=== PATIENT | female | born 1960 ===

== ENCOUNTER 2024-06-05 17:22 | Emergency (ER) | payer MEDICARE, OTHER, SELFPAY ==
--- NOTE | ~2024-06-05 | CT_ITS ---
EXAMINATION: CT brain wo con DATE: 06/05/2024 20:29 INDICATION: head injury since last CT scan today . TECHNIQUE: Computed tomography (CT) of the head was performed without intravenous contrast. The mA wa s adjusted according to patient size. Iterative reconstruction technique was employed. The dose-lengt h product was 605.33 mGy-cm. COMPARISON: Same date at 5:56 PM. FINDINGS: No acute intracranial hemorrhage or extra-axial fluid collection. No mass or herniation. Mild enlargement of the ventricular system, unchanged. Mild periventricular wh ite matter hypodensity, also unchanged. No acute ischemic infarct. Unremarkable dural venous sinus attenuation. No acute osseous abnormality. Right frontal approach CONTRACTOR BUYER shunt, tip terminating near the midline in th e anterior horn of the right lateral ventricle. Midline embolization coil. Right frontal and right ne ck skin monie Aerated secretions in the bilateral sphenoid sinuses, the remaining aerated spaces are clear. Atherosclerotic intracranial calcifications. Left parietal laminar necrosis. IMPRESSION: No acute interval intracranial process detected. Stable mildly enlarged ventricular system and white matter change. Stable findings suggestive of acute sphenoid sinusitis. Reviewed, dictated and finalized at location K. EXPERT IMPRESSION: No acute interval intracranial process detected. Stable mildly enlarged ventric ular system and white matter change. Stable findings suggestive of acute spheno id sinusitis.
--- NOTE | ~2024-06-05 | CT_ITS ---
EXAMINATION: CT brain wo con DATE: 06/05/2024 18:08 INDICATION: new onset AMS, hx of subarachnoid hemorrhage . TECHNIQUE: Computed tomography (CT) of the head was performed without intravenous contrast. The mA wa s adjusted according to patient size. Iterative reconstruction technique was employed. The dose-lengt h product was 681.00 mGy-cm. COMPARISON: None. FINDINGS: No acute intracranial hemorrhage or extra-axial fluid collection. No mass or herniation. Mild enlargement of the ventricular system. Mild periventricular white matter hypodensity. No acute ischemic infarct. Unremarkable dural venous sinus attenuation. No acute osseous abnormality. Right frontal approach SCRAP METAL PROCESSING WORKER shunt, tip terminating near the midline in th e anterior horn of the right lateral ventricle. Midline embolization coil. Right frontal and right ne ck skin monie. Aerated secretions in the bilateral sphenoid sinuses, the remaining aerated spaces are clear. Atherosclerotic intracranial calcifications. Left parietal laminar necrosis. IMPRESSION: No acute intracranial hemorrhage or acute large vessel infarct. Mildly enlarged ventricular system, possibly secondary to atrophy. Mild periventricular white matter changes possibly representing chronic small vessel disease. Developing hydrocephalus with mild transe pendymal CSF resorption difficult to exclude without comparison studies. CT findings suggestive of acute sphenoid sinusitis. Reviewed, dictated and finalized at location K. UNLOADER IMPRESSION: No acute intracranial hemorrhage or acute large vessel infarct. Mildly enlarged ventricular system, possibly secondary to atrophy. Mild periven tricular white matter changes possibly representing chronic small vessel diseas e. Developing hydrocephalus with mild transependymal CSF resorption difficult t o exclude without comparison studies. CT findings suggestive of acute sphenoid sinusitis.
[2024-06-05 17:22] VITALS: BP 131/74; PULSE 62; RESP 16; TEMP 36.4; O2SAT 97
--- NOTE | 2024-06-05 17:27 | ECG_ITS ---
Test Date: 2024-06-05 17:35:27 Measurements Intervals [place] Rate: 62 P: 66 TX: 224 QRS: -18 QRSD: 93 T: 49 QT: 390 QTc: 399 Interpretive Statements SINUS RHYTHM WITH FIRST DEGREE AV BLOCK CONSIDER ANTERIOR INFARCT, AGE INDETERMINATE BASELINE ARTIFACT- I, II, III, AVR, AVL, AVF, V1-V6 ABNORMAL ECG No previous ECG available for comparison Electronically Signed On 06-06-2024 10:12:40 SHAPE HAND by Skyler Wong D.O.
[2024-06-05 17:59] VITALS: O2SAT 98
[2024-06-05 18:07] LABS: Basophils Percent Auto 0.7 % (0.2-1.2); Eosinophils Absolute Auto 0.1 K/mm3 (0-0.3); Eosinophils Percent Auto 1.2 % (0-4.4); Hemoglobin 11.9 g/dL (12.0-15.0); Immature Granulocyte Absolute 0.02 K/mm3 (0.00-0.031); Immature Granulocyte Percent A 0.4 % (0-0.5); Lymphocytes Absolute Auto 1.42 K/mm3 (0.9-3.2); Mean Corpuscular HGB Conc 32.2 g/dl (32-36); Mean Corpuscular Hemoglobin 30.4 pg (26-34); Mean Corpuscular Volume 94.6 fl (80-100); Mean Platelet Volume 9.5 fl (7.4-10.4); Monocytes Absolute Auto 0.4 K/mm3 (0.1-0.6); Monocytes Percent Auto 6.3 % (2.6-8.5); Neutrophils Absolute Auto 3.8 K/mm3 (1.3-6.7); Neutrophils Percent Auto 66.4 % (45.5-73.1); Platelet Count Result 214 k/mm3 (150-375); Red Blood Count 3.91 M/mm3 (4.2-5.4); White Blood Count 5.7 K/mm3 (4.5-10.0)
[2024-06-05 18:09] LABS: Add Urine Microscopic? NO; Appearance Urine Clear (Clear); Bilirubin Urine Negative (Negative); Blood Urine Negative (Negative); Color Urine Yellow (Yellow); Glucose Urine UA Negative (Negative); Ketones Urine Negative (Negative); Leukocyte Esterase Ur Negative LEU/UL (Negative); Nitrate Urine Negative (Negative); Protein Urine Negative (Negative); Specific Grav Ur 1.007 (1.001-1.035); Urobilinogen Urine 0.2 mg/dL (<2.0); pH Urine 7.5 (5.0-9.0)
[2024-06-05 18:24] LABS: INR 1.3; Partial Thromboplastin Time 32.2 Seconds (22.3-36.8); Prothrombin Time 17.1 Seconds (11.1-14.7)
[2024-06-05 18:27] LABS: Alanine Aminotransferase 16 U/L (6-35); Albumin Level 4.4 g/dL (3.5-5.1); Alkaline Phosphatase 59 U/L (38-126); Anion Gap 10 mmol/L (4-12); Aspartate Amino Transferase 32 U/L (14-36); Bilirubin,Total 0.9 mg/dL (0.2-1.3); Blood Urea Nitrogen 15 mg/dL (7-17); Calcium 9.7 mg/dL (8.4-10.2); Carbon Dioxide 26 mmol/L (22-30); Chloride 104 mmol/L (98-107); Estimated CRCL calculation 63 ml/min; Estimated Glomerular Filt Rate > 60; Glucose 91 mg/dL (65-110); Potassium 4.9 mmol/L (3.4-5.0); Sodium 140 mmol/L (137-145)
--- NOTE | 2024-06-05 19:15 | PC.NURSE ---
[facility] tech notified this RN that the patient in room 22 was sitting on the floor and he helped her back into the bed. This RN and ANNA Maharaj entered room. Carol Ann CASTILLO placed pt on the monitor again, and I placed pt on a bed alarm, Gave a yellow triangle and yellow triangle on the door. ED Charge and EDP Elizabeth Donaldson both notified as no ER Provider has signed up for the patient.
--- NOTE | 2024-06-05 19:32 | PC.NURSE ---
Leonie and Carol Ann RN moved pt to ed room 4. Pt remains on a bed alarm, with yellow fall triangle on bracelet and on the door frame. ED Techs notified that if the bed alarm goes off, move fast as she is quick to get up.
--- NOTE | 2024-06-05 19:35 | PC.NURSE ---
@ 191, registration notified nurses at the nurses station that patient was on the floor and being helped back into bed by Claude hua. This RN and ANNA Hadley then placed pt on bed alarm and monitor and placed a yellow fall triangle on bracelet and door. senior investment manager, EDP Anika and CATA Umana notified of pt fall. @ 1924 Pt continued attempting to get out of bed. ED Charge notified and pt then placed in room 4 to be closer to the nurses station.
[2024-06-05 19:46] VITALS: BP 109/62; PULSE 88; RESP 18; O2SAT 98
--- NOTE | 2024-06-05 19:53 | ED_ITS ---
HPI - General Adult General Chief complaint: Altered Mental Status Stated complaint: ALOC Time Seen by Provider: 06/05/24 19:45 History of Present Illness HPI narrative: 64-year-old female presents to the emergency department for evaluation for altered mental status including agitation and confusion. Patient is currently at [facility] for a recent subarachnoid hemorrhage. Patient is currently at her baseline and denies any pain or complaints. On patient's initial workup she did have a head CT that was negative but patient unfortunately did have a fall while she was in the emergency department so head CT was repeated. At time of evaluation patient denies any pain or complaint. Related Data Home Medications ?Medication ?Instructions ?Recorded ?Confirmed ?Last Taken ?Type acetaminophen 325 mg tablet 650 mg PO Q4H PRN pain 05/26/24 05/26/24 Unknown History apixaban 5 mg tablet 5 mg PO BID 05/26/24 05/26/24 Unknown History carvedilol 12.5 mg tablet 12.5 mg PO Q12H 05/26/24 05/26/24 Unknown History cholecalciferol (vitamin D3) 50 50 mcg PO DAILY 05/26/24 05/26/24 Unknown History mcg (2,000 unit) capsule famotidine 20 mg tablet 20 mg PO DAILY 05/26/24 05/26/24 Unknown History fluticasone propionate 50 1 spray intranasal BID PRN allergy 05/26/24 05/26/24 Unknown History mcg/actuation nasal symptoms spray,suspension gabapentin 300 mg capsule 600 mg PO Q8H 05/26/24 05/26/24 Unknown History ipratropium 0.5 mg-albuterol 3 mg 3 ml inhalation Q4H PRN shortness 05/26/24 05/26/24 Unknown History (2.5 mg base)/3 mL nebulization of breath or wheezing soln melatonin 3 mg tablet 3 mg PO HS PRN insomnia 05/26/24 05/26/24 Unknown History polyethylene glycol 3350 17 gram 17 g PO DAILY PRN constipation 05/26/24 05/26/24 Unknown History oral powder packet (Miralax) sennosides 17.2 mg tablet 17.2 mg PO DAILY PRN constipation 05/26/24 05/26/24 Unknown History Allergies Allergy/AdvReac Type Severity Reaction Status Date / Time azithromycin Allergy Itching Verified 05/26/24 18:27 lisinopril AdvReac Rash Verified 05/26/24 18:27 Review of Systems 2 Review of Systems: All systems reviewed & are unremarkable except as noted in HPI and below PMFSH Past Medical History Medical History Gait abnormality HLD (hyperlipidemia) HTN (hypertension) Abdominal aortic aneurysm Pulmonary embolism, bilateral COPD (chronic obstructive pulmonary disease) Family History Family History Mother COPD (chronic obstructive pulmonary disease) Cancer Heart disease Diabetes mellitus Father Diabetes mellitus Sibling Diabetes mellitus Social History Social History Smoking status: Current every day smoker Do You Feel Safe in your Home?: Yes Lack of Transportation: No Lack of Food: Never True Current Housing: I Have Housing Concerned About Future Housing: No Difficulty Paying Gas/Electric Bills: No Difficulty Paying for Meds: No Currently Unemployed: No Education: Don't Know Difficulty w/ Childcare or Family Care: No Spiritual care concerns: No Exam 2 Narrative: APPEARANCE: Well appearing, no pain, no distress, well-nourished. HEAD: normocephalic, atraumatic. EYES: PERRLA/EOMI, conjunctivae clear. NOSE: Normal no drainage EARS:TMS clear with good light reflex. THROAT: Pharynx clear, no exudate. NECK: Supple. No adenopathy, no masses. RESPIRATORY: Airway patent, respirations nonlabored. Clear to auscultation bilaterally, no rales, rhonchi, wheezing. CARDIOVASCULAR: Regular rate and rhythm without murmurs rubs or gallops. ABDOMINAL: Soft, nontender, nondistended, normal bowel sounds MUSCULOSKELETAL: Moves all extremities. Strength/ROM intact, No edema, No calf tenderness. NEURO: Alert. Cranial nerves II through XII intact. Grossly intact SKIN: Warm, dry. Normal Color Course Vital Signs Vital signs: Vital Signs Temperature 97.6 F 06/05/24 17:22 Pulse Rate 62 06/05/24 17:22 Respiratory Rate 16 06/05/24 17:22 Blood Pressure 131/74 06/05/24 17:22 Pulse Oximetry 97 06/05/24 17:22 Oxygen Delivery Room Air 06/05/24 17:22 Temperature 97.6 F 06/05/24 17:22 Pulse Rate 88 06/05/24 19:46 Respiratory Rate 18 06/05/24 19:46 Blood Pressure 109/62 06/05/24 19:46 Pulse Oximetry 98 06/05/24 19:46 Oxygen Delivery Room Air 06/05/24 17:59 Medical Decision Making MDM Narrative Medical decision making narrative: 64-year-old female presents emergency department for evaluation for episode of altered mental status. Patient is currently afebrile with no leukocytosis and hemoglobin of 11.9. Patient's INR is 1.3. Patient has no acute abnormalities on her CMP UA was negative for infection, patient's initial head CT was negative for acute changes. Head CT was repeated due to the patient having a ground level fall while in the emergency department. At time of evaluation patient denies any pain or complaint. Repeat head CT shows no acute abnormality, patient is back to her baseline. Patient is no longer agitated or confused. Patient will be discharged back to her rehab facility. Differential Diagnosis Differential Diagnosis: COVID, RSV, influenza, TIA, CVA, worsening subdural hematoma, subarachnoid hemorrhage Vital Signs Vital Signs: Vital Signs Temperature 97.6 F 06/05/24 17:22 Pulse Rate 62 06/05/24 17:22 Respiratory Rate 16 06/05/24 17:22 Blood Pressure 131/74 06/05/24 17:22 Pulse Oximetry 97 06/05/24 17:22 Oxygen Delivery Room Air 06/05/24 17:22 Temperature 97.6 F 06/05/24 17:22 Pulse Rate 88 06/05/24 19:46 Respiratory Rate 18 06/05/24 19:46 Blood Pressure 109/62 06/05/24 19:46 Pulse Oximetry 98 06/05/24 19:46 Oxygen Delivery Room Air 06/05/24 17:59 Lab Data Lab results reviewed: Yes I reviewed the patient's lab results. 06/05/24 17:57 06/05/24 17:57 Labs: Lab Results 06/05/24 06/05/24 Range/Units 17:57 19:54 WBC 5.7 (4.5-10.0) K/mm3 RBC 3.91 L (4.2-5.4) M/mm3 Hgb 11.9 L (12.0-15.0) g/dL Hct 37.0 (37.0-47.0) % MCV 94.6 (80-100) fl MCH 30.4 (26-34) pg MCHC 32.2 (32-36) g/dl RDW 14.0 (11.5-14.5) % Plt Count 214 (150-375) k/mm3 MPV 9.5 (7.4-10.4) fl Immature Gran % (Auto) 0.4 (0-0.5) % Neut % (Auto) 66.4 (45.5-73.1) % Lymph % (Auto) 25.0 (18.3-44.2) % [place] % (Auto) 6.3 (2.6-8.5) % Eos % (Auto) 1.2 (0-4.4) % Baso % (Auto) 0.7 (0.2-1.2) % Lymph # (Auto) 1.42 (0.9-3.2) K/mm3 [place] # (Auto) 0.4 (0.1-0.6) K/mm3 Eos # (Auto) 0.1 (0-0.3) K/mm3 Baso # (Auto) 0.0 (0.0-0.1) K/mm3 Abs Immat Gran (auto) 0.02 (0.00-0.031) K/mm3 Absolute Neuts (auto) 3.8 (1.3-6.7) K/mm3 Absolute Nucleated RBC 0.000 (0.0-0.012) K/mm3 Nucleated RBC % 0.0 (0.0-0.2) % PT 17.1 H (11.1-14.7) Seconds INR 1.3 APTT 32.2 (22.3-36.8) Seconds Sodium 140 (137-145) mmol/L Potassium 4.9 (3.4-5.0) mmol/L Chloride 104 (98-107) mmol/L Carbon Dioxide 26 (22-30) mmol/L Anion Gap 10 (4-12) mmol/L BUN 15 (7-17) mg/dL Creatinine 0.56 L (0.7-1.0) mg/dL Estim Creat Clear Calc 63 ml/min Estimated GFR > 60 (59 - ) Glucose 91 (65-110) mg/dL Calcium 9.7 (8.4-10.2) mg/dL Total Bilirubin 0.9 (0.2-1.3) mg/dL AST 32 (14-36) U/L ALT 16 (6-35) U/L Alkaline Phosphatase 59 (38-126) U/L Total Protein 8.0 (6.3-8.2) g/dL Albumin 4.4 (3.5-5.1) g/dL Urine Color Yellow (Yellow) Urine Appearance Clear (Clear) Urine pH 7.5 (5.0-9.0) Ur Specific [place] 1.007 (1.001-1.035) Urine Protein Negative (Negative) mg/dL Urine Glucose (UA) Negative (Negative) mg/dL Urine Ketones Negative (Negative) mg/dL Ur Blood (Man) Negative (Negative) Urine Nitrate Negative (Negative) Urine Bilirubin Negative (Negative) Urine Urobilinogen 0.2 (<2.0) mg/dL Leukocyte Esterase Rfl Negative (Negative) LANDRY/UL Influenza A (RT-PCR) Negative (Negative) Influenza B (RT-PCR) Negative (Negative) RSV (RT-PCR) Negative (Negative) SARS-CoV-2 RNA (RT-PCR) Negative (Negative) Imaging Data Radiologist's impression: Impressions Head CT 06/05/24 18:11 IMPRESSION: No acute intracranial hemorrhage or acute large vessel infarct. Mildly enlarged ventricular system, possibly secondary to atrophy. Mild periventricular white matter changes possibly representing chronic small vessel disease. Developing hydrocephalus with mild transependymal CSF resorption difficult to exclude without comparison studies. CT findings suggestive of acute sphenoid sinusitis. Head CT 06/05/24 20:32 IMPRESSION: No acute interval intracranial process detected. Stable mildly enlarged ventricular system and white matter change. Stable findings suggestive of acute sphenoid sinusitis. Discharge Plan Discharge Clinical Impression: Agitated Patient Disposition: [facility]As[facility] Living Condition: Stable Instructions: Antibiotic Form Additional Instructions: Have close follow-up with your primary care physician. Patient Language: Yoruba Prescriptions: No Action acetaminophen 325 mg tablet 650 mg PO Q4H PRN (Reason: pain) ipratropium-albuterol 0.5 mg-3 mg(2.5 mg base)/3 mL solution for nebulization 3 ml inhalation Q4H PRN (Reason: shortness of breath or wheezing) apixaban 5 mg tablet 5 mg PO BID carvedilol 12.5 mg tablet 12.5 mg PO Q12H Rx Instructions: must administer with a meal/food gabapentin 300 mg capsule 600 mg PO Q8H melatonin 3 mg tablet 3 mg PO HS PRN (Reason: insomnia) polyethylene glycol 3350 [Miralax] 17 gram powder in packet 17 g PO DAILY PRN (Reason: constipation) sennosides 17.2 mg tablet 17.2 mg PO DAILY PRN (Reason: constipation) famotidine 20 mg tablet 20 mg PO DAILY fluticasone propionate 50 mcg/actuation spray,suspension 1 spray intranasal BID PRN (Reason: allergy symptoms) Rx Instructions: administer into each nostril cholecalciferol (vitamin D3) 50 mcg (2,000 unit) capsule 50 mcg PO DAILY Follow-up/Referrals: PHYSICIAN NOT ON STAFF,NONSTAFF [Primary Care Provider] -
--- OUTSIDE RECORDS SUMMARY | 2024-06-05 20:03 | XMS_ITS | Data Portability ---
Author Organization [facility], Main Office Address [address] [place] [address] Care Team Providers Care Powder Loader Name Role Phone BRAXTON TRINIDAD Primary Care Provider [phone] BRAXTON TRINIDAD Referring Provider Assessment Encounter Date Assessment Date Assessment LastModified by Organization Details LastModified Time 12/28/2022 12/28/2022 Patient has pain left sacroiliac with some radicular pain into the buttock and posterior thigh. We talked about treatment options today for her she also has chronic moderately severe primary osteoarthritis left hip joint. We talked about doing a injection left hip under fluoroscopy she declined she wants to try oral prednisone for this. She did want a shot in her lower back left sacroiliac therefore under sterile conditions I injected the patient's left sacroiliac bursa in the office with 4 cc 0.5% ropivacaine and 20 mg Kenalog. Patient tolerated the procedure well. After formal physical therapy she would like to proceed we will do that and oral prednisone will see her back in 6 weeks to see what impact treatment has had. If her symptoms worsen or change she is instructed to call she voiced understanding agrees above plan. Not available 12/28/2022 11:12:07 01/25/2023 01/25/2023 The patient has fairly advanced primary osteoarthritis of the left hip joint. We talked about treatment options today in detail what she really needs his total hip arthroplasty. Today I discussed risks benefits limitations and alternatives to surgery in great detail with the patient we talked about the surgical procedure itself I gave her a brochure on total hip arthroplasty talked about the recovery period. We also talked about the fact that she would need to stop smoking to make sure her blood pressure and any other medical issues are in check. She is going to think about it for now we will try a course of Celebrex 200 mg daily, when she is ready she will contact 1 of our orthopedic surgeons here talk about total hip arthroplasty in getting on the schedule. She voiced understanding agrees above plan she will call for any further problems difficulties or questions. Not available 01/25/2023 10:03:01 Plan of Treatment Reminders Order Date Submit Date Provider Last Modified By Organization Details Last Modified Time Details Appointments None recorded. Lab None recorded. Referral physical therapist referral - Please contact patient to schedule 2022 023 [email or web address] [facility], [address] [place], [address], 3 11:06:44 Procedures injection/a spiration joint/bursa (PROC) - in office procedure, administere d by provider 2022 023 [email or web address] In-Office Order, Internal Use Only DO Not Attach Compendium DO Not Attach Compendium, Do Not Delete/merge, [id number] 3 10:11:46 Surgeries None recorded. Imaging XR, hip + pelvis, unilateral 2022 023 [email or web address] [facility], [address] [facility], [place], [address], 3 11:06:44 Medication Orders celecoxib 200 mg capsule 2022 023 [email or web address] [id number] [address] [place], [place], [id number], 3 11:32:24 Kenalog 10 mg/mL suspension for injection 2022 023 [id number] 266 [facility], [address] [place], [place], [id number], 4 10:48:31 ropivacaine (PF) 5 mg/mL (0.5 %) injection solution 2022 023 [id number] 266 [facility] #29368, [address] [place], [place], [id number], 4 10:48:31 prednisone 10 mg tablets in a dose pack 2022 023 [email or web address] [facility] #[id number] [place], [place], [id number], 3 11:06:44 Patient TargetsNo targets recorded. Patient InstructionsNo instructions recorded. Reason for Referral Physical Therapist Referral for Pain in left sacroiliac joint Please contact patient to schedule Referring Physician: Jorge Luis Baez, Orthopedic Surgery, Encounter Date: 12/28/2022 Results Created Date Observation Date Name Description Value Unit Range Abnormal Flag Note LastModifiedBy Organization Detail LastModifiedTime 12/29/19 23 XR, hip + pelvi s, unila teral No observ ation record ed. [email or web address] [facility] [place] [address] [facility], [place], [address], 12/28/2022 11:13:09 Result Notes None recorded. Problems Name Problem SNOMED Code Status Onset Date Resolution Date Notes Provider Name and Address Organization Details Recorded Time Arthriti s of right knee 00196767263 29667 Active 2019 Not Available [facility] 3 09:18:45 Disorder of shoulder 604057125 Active Not Available [facility] 3 09:18:45 Disorder of trunk 403218847 Active Not Available [facility] 3 09:18:45 Disorder of sacrum 16702648 Active Not Available [facility] 3 09:18:45 Computed tomograp hy result abnormal 761079336 Active Not Available [facility] 3 09:18:45 Mammogra phy abnormal 480301253 Active Not Available [facility] 3 09:18:46 Radiothe rapy follow-u p 002675037 Active Not Available [facility] 3 09:18:46 Hand joint pain 436259667 Active Not Available [facility] 3 09:18:46 Wrist joint pain 783773212 Active Not Available [facility] 3 09:18:46 Abdomina l pain 75655404 Active Not Available [facility] 3 09:18:46 Abdomina l aortic aneurysm 457336224 Active seeing CV surgeon Not Available [facility] 3 09:18:46 Menopaus al and postmeno pausal disorder s 330447487 Active 2018 Not Available [facility] 3 09:18:46 Shoulder joint pain 827532536 Active Not Available [facility] 3 09:18:46 Cervical spondylo sis without myelopat hy 095069108 Active Not Available [facility] 3 09:18:46 Eruption 498611397 Active Not Available [facility] 3 09:18:47 Synoviti s/tenosy novitis - hand 275227409 Active Not Available [facility] 3 09:18:47 Liver mass 795713334 Active Not Available [facility] 3 09:18:47 Tear of medial meniscus of knee 405021828 Active 2020 Not Available [facility] 3 09:18:47 Non-shukri rgic rhinitis 79793492669 1 Active Not Available [facility] 3 09:18:47 Blood in urine 24990288 Completed Not Available [facility] 3 09:18:47 Contract ure of palmar fascia 452439393 Active Not Available [facility] 3 09:18:47 Hyperlip idemia 37084852 Active Not Available [facility] 3 09:18:48 Carpal tunnel syndrome 07888858 Active Not Available [facility] 3 09:18:48 Essentia l hyperten shayy 41937563 Active Not Available [facility] 3 09:18:48 Acid reflux 663745864 Active 2018 Not Available [facility] 3 09:18:48 Sprain of wrist 87742208 Active Not Available [facility] 3 09:18:48 Brachial neuritis 69000726 Completed Not Available [facility] 3 09:18:48 Diabetes mellitus 22344759 Active Not Available [facility] 3 09:18:49 Smoker 03459052 Active Not Available [facility] 3 09:18:49 Hypersom pily 37156835 Completed Not Available [facility] 3 09:18:49 Neck pain 42826991 Active s/p surgery due to disc Not Available [facility] 3 09:18:49 Heart murmur 55433800 Active Not Available [facility] 3 09:18:49 Pain in limb 70450581 Active Not Available [facility] 3 09:18:49 Pain of left hip joint 06299289749 9100 Active 2022 SALOME Shirley, [employer] [facility] 3 09:52:32 Pain in left sacroili ac joint 79568341456 386990 Active [address] null, [employer] 3 10:07:10 Osteoart hritis of left hip joint 36538950699 9108 Active 2022 CATA Aguilar [address] [facility] [facility] [address], [place], [address] , [employer] [facility] 3 11:13:36 Problem Notes None recorded. Procedures Surgical History Date Name Laterality Status Provider Name and Address Organization Details Recorded Time Rotator cuff surgery completed Not Available [facility] 06/09/2022 09:13:25 Carpal tunnel surgery completed Not Available [facility] 06/09/2022 09:13:25 Imaging Results Imaging Date Name Status [facility]Modified by [facility] Details LastModified Time 12/28/2022 XR, hip + pelvis, unilateral completed [email or web address] [facility] [address] [facility], [place], [address], 12/28/2022 11:13:09 Procedure Notes None recorded. Medical Equipment None Reported. Allergies Allergen ID Allergen Name Allergen Category Reaction Reaction Severity Criticality Documentation Date Start Date Code Code System Note Provider Name and Address Organization Details Recorded Time 30593 azithromy tom medicatio n hives severe Not available 06/09/2022 98706 RxNorm Not Available [facility] 3 09:23:21 Medications Name Sig Start Date Stop Date Status Note LastModified by Organization Details LastModified Time celecoxib 200 mg capsule TAKE 1 CAPSULE BY MOUTH EVERY DAY active Not Available Not Available No t Available cyclobenzap rine 10 mg tablet TK1 TABLET BY MOUTH EVERY 8 HOURS NEEDED active Not Available Not Available No t Available amoxicillin 500 mg capsule Take 1 capsule every 8 hours by oral route. 03/16 completed Not Available Not Available Not Available hydrocodone 7.5 mg-ibuprofe n 200 mg tablet active Not Available Not Available Not Available neomycin-po lymyxin-hyd rocort 3.5 mg/mL-10,00 0 unit/mL-1 % ear solution INSTILL 4 DROPS INTO AFFECTED EAR(S) BY OTIC ROUTE 3 TIMES PER DAY 12/27 completed Not Available Not Available Not Available prednisone 10 mg tablet take 6 tabs aday and cut the dose by one tab every other day active Not Available Not Available No t Available lisinopril 20 mg-hydrochl orothiazide 12.5 mg tablet TAKE 1 TABLET BY MOUTH EVERY DAY DIRECTED 12/28 completed Not Available Not Available Not Available azithromyci n 250 mg tablet active Not Available Not Available Not Available ibuprofen 800 mg tablet active Not Available Not Available Not Available fluconazole 150 mg tablet TK 1 T PO QD 01/28 completed Not Available Not Available Not Available hydrocodone 5 mg-acetamin ophen 325 mg tablet 10/25 completed Not Available Not Available Not Available Q-Dryl 25 mg capsule TK 1 C PO Q 6 H PRN 01/21 completed Not Available Not Available Not Available lisinopril 20 mg tablet Take 1 tablet every day by oral route for 30 days. active Not Available Not Available No t Available prednisone 20 mg tablet TAKE 3 TABLETS BY MOUTH EVERY DAY FOR 5 DAYS active Not Available Not Available No t Available prednisone 5 mg tablet active Not Available Not Available Not Available clobetasol 0.05 % topical cream active Not Available Not Available Not Available penicillin V potassium 500 mg tablet active Not Available Not Available Not Available acetaminoph en 300 mg-codeine 30 mg tablet TK 1 T PO Q 4 TO 6 H PRN 11/11 completed Not Available Not Available Not Available sulfamethox azole 800 mg-trimetho prim 160 mg tablet 09/05 completed Not Available Not Available Not Available tramadol 50 mg tablet active Not Available Not Available No t Available triamcinolo ne acetonide 0.1 % topical cream APPLY EXTERNALL Y TO THE AFFECTED AREA TWICE DAILY 12/28 completed Not Available Not Available Not Available simvastatin 40 mg tablet Take 1 tablet every day by oral route for 30 days. active Not Available Not Available No t Available prednisone 10 mg tablets in a dose pack Take 1 tab by mouth, 3 times a day for 3 daysTake 1 tab by mouth 2 times a day for 2 daysTake 1 tab by mouth once a day for 1 day 2022 active Not Available Not Available Not Avai lable terbinafine HCl 250 mg tablet active Not Available Not Available Not Available alprazolam 0.25 mg tablet TK 1 T PO 30 MINUTES PRIOR TO PROCEDURE AND REPEAT IF NEEDED 12/28 completed Not Available Not Available Not Available famotidine 20 mg tablet TAKE 1 TABLET BY MOUTH EVERY DAY 12/28 completed Not Available Not Available Not Available Kenalog 10 mg/mL suspension for injection Take 20 mg by injection route. 2022 active [facility]: [phone]- [phone] Not Available Not Available Not Available amitriptyli ne 10 mg tablet 11/26 completed Not Available Not Available Not Available benzonatate 100 mg capsule 09/05 completed Not Available Not Available Not Available cephalexin 500 mg capsule 11/16 completed Not Available Not Available Not Available oseltamivir 75 mg capsule 06/10 completed Not Available Not Available Not Available lisinopril 10 mg tablet TAKE 1 TABLET BY MOUTH EVERY DAY 12/28 completed Not Available Not Available Not Available hydrochloro thiazide 12.5 mg capsule TK 1 C PO QD 12/28 completed Not Available Not Available Not Available lisinopril 20 mg-hydrochl orothiazide 25 mg tablet TAKE 1 TABLET BY MOUTH EVERY DAY DIRECTED active Not Available Not Available No t Available diclofenac sodium 75 mg tablet,juan yed release Take 1 tablet every 12 hours by oral route as needed. active Not Available Not Available No t Available hydrocortis one 2.5 % topical cream APPLY TOPICALLY TO AFFECTED AREA(S) EVERY DAY DIRECTED 01/28 completed Not Available Not Available Not Available hydroxyzine HCl 25 mg tablet TAKE 1 TABLET BY MOUTH THREE TIMES DAILY FOR 5 DAYS NEEDED 12/28 completed Not Available Not Available Not Available clobetasol 0.05 % topical ointment APPLY A THIN LAYER TO THE AFFECTED AREA(S) BY TOPICAL ROUTE 2 TIMES PER DAY active Not Available Not Available No t Available irbesartan 150 mg tablet TAKE 1 TABLET BY MOUTH EVERY DAY 06/10 completed Not Available Not Available Not Available lisinopril 10 mg-hydrochl orothiazide 12.5 mg tablet TAKE 1 TABLET BY MOUTH EVERY MORNING active Not Available Not Available No t Available ibuprofen 600 mg tablet 10/25 completed Not Available Not Available Not Available polyethylen e glycol 3350 17 gram/dose oral powder FOLLOW INSTRUCTI ONS ON ATTACHED PAPER 12/28 completed Not Available Not Available Not Available methylpredn isolone 4 mg tablets in a dose pack TK UTD ON PACKAGE 06/09 completed Not Available Not Available Not Available Vitamin D2 1,250 mcg (50,000 unit) capsule TK 1 C PO Q WEEK 11/11 completed Not Available Not Available Not Available oxybutynin chloride 5 mg tablet TK 1 T PO BID 01/28 completed Not Available Not Available Not Available fluticasone propionate 50 mcg/actuati on nasal spray,suspe nsion SPRAY 1 SPRAY IN EACH NOSTRIL EVERY DAY 12/28 completed Not Available Not Available Not Available amoxicillin 875 mg-potassiu m clavulanate 125 mg tablet TK 1 T PO Q 12 H 09/05 completed Not Available Not Available Not Available neomycin-po lymyxin-hyd rocort 3.5 mg-10,000 unit/mL-1 % ear drops,susp Instill 1 drop 4 times a day by otic route. 12/27 completed Not Available Not Available Not Available nicotine 21mg/24hr-1 4mg/24hr-7m g/24hr daily transderm patches,seq uentl Apply by transderm al route as directed 12/09 completed Not Available Not Available Not Available lidocaine (PF) 10 mg/mL (1 %) injection solution In office injection administe red by the provider 05/26 completed [facility]: 0409- 4276- 17 Not Available Not Available Not Available levocetiriz ine 5 mg tablet TK 1 T PO QD 09/05 completed Not Available Not Available Not Available PEG-3350 with flavor packs 420 gram oral solution active Not Available Not Available Not Available D3-2000 50 mcg (2,000 unit) capsule TAKE 1 CAPSULE BY MOUTH EVERY DAY 12/28 completed Not Available Not Available Not Available ropivacaine (PF) 5 mg/mL (0.5 %) injection solution Take 20 mg by injection route. 2022 active [facility] [phone] -[phone]- [phone] Not Available Not Available Not Available Chantix Starting Month Box 0.5 mg (11)-1 mg (42) tablets in dose pack 12/27 completed Not Available Not Available Not Available Vitals Date Recorded Body mass index (BMI) Body height Body weight Provider Name and Address Organization Details Last Updated DateTime 12/30/2020 26.2 kg/m2 161.29 cm 82891.86 g Not Available [facility] 06/09/2022 09:18:01 Date Recorded Body mass index (BMI) Body height Body weight Provider Name and Address Organization Details Last Updated DateTime 05/05/2021 26.7 kg/m2 161.29 cm 52852.63 g Not Available [facility] 06/09/2022 09:18:01 Date Recorded Body height Provider Name an d Address Organization Details Last Updated DateTime 12/28/2022 160.02 cm SALOME Shirley [email or web address] 12/28/2022 09:49:29 Date Recorded Body height Body mass index (BMI) Body weight Provider Name and Address Organization Details Last Updated DateTime 01/25/2023 160.02 cm 23.9 kg/m2 78907.97 g 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 Occasional [id number] Information not available 06/09/2022 What Is Your Occupation? N/a [id number] Information not available 06/09/2022 How Much Tobacco Do You Smoke? 0.5 PPD [id number] Information not available 06/09/2022 Sex: Unknown Functional Status None recorded. Mental Status None recorded. Family History Relationship Description Onset Age of this Age Resolved Age Notes LastModified by Organization Details LastModified Time Mother Heart disease [id number] Not available 06/09/2022 09:13:27 Mother Family history of malignant neoplasm [id number] Not available 06/09/2022 09:13:27 Mother Diabetes mellitus [id number] Not available 06/09/2022 09:13:27 Mother Hypertensive disorder Not available 2022 09:51:29 Medical History Condition Response ARTHRITIS Y BLOOD CLOTS Y HEART DISEASE/HEART PROBLEMS Y Gynecological HistoryNo gynecological history recorded. Obstetrics History GPAL:G 0 P 0 0 0 0 Past Encounters Encounter ID Performer Location Encounter Start Date Encounter Closed Date Diagnosis/Indication Diagnosis SNOMED-CT Code Diagnosis ICD10 Code Diagnosis Note [id number] [facility] [address] [address] 12/30/2020 00:00:00 12/30/2020 10:49:25 [id number] [facility] [address] [address] 05/05/2021 00:00:00 05/05/2021 10:29:31 [id number] CATA Aguilar [facility] [address] [address] 12/28/2022 09:35:15 12/28/2022 10:14:06 Pain of left hip joint 1708516322 73038 M25.552 Pain in le ft sacroiliac joint 1179116417 6660435 M53.3 Osteoarthr itis of left hip joint 5876071545 83908 M16.12 [id number] CATA Aguilar [facility] [address] [address] 01/25/2023 09:34:14 01/25/2023 10:18:05 Pain in left sacroiliac joint 6923291969 8517203 M53.3 Osteoarthr itis of left hip joint 9835931370 08533 M16.12 Pain of le ft hip joint 8171790678 49673 M25.552 Health Concerns Section Related Observation LastModified by Organization Detai ls LastModified Time None Recorded Concern Status LastModified by Organization Details LastModified Time None Recorded Advance Directives Directive None Recorded Payers Encounter Date Sequence Insurance Name Policy Number Policy Ohara Covered Member ID Ohara Member ID Guarantor Name 12/28/2022 1 [facility] ON OR AFTER 04/11/2020 - DUAL ELIGIBLE (MEDICARE REPLACEMENT/ ADVANTAGE - HMO) [id number] Leighann Thomas [id number] Leighann Thomas 01/25/2023 1 [facility] ON OR AFTER 04/11/2020 - DUAL ELIGIBLE (MEDICARE REPLACEMENT/ ADVANTAGE - HMO) [id number] Leighann Thomas [id number] Leighann Thomas Notes Date Note Type Note Provider Name and Address Organization Details Recorded Time 12/30/2020 text/html KneeReported bypatient.Location:r ight; medial Quality:sharp; deep; occasional Severity:moderate Duration:continuous since onset Timing:acute; abrupt Context:cannot identify Alleviating Factors:lying down; elevation; exercise; stretching Aggravating Factors:walking; lifting; carrying; twisting; bending/squatting Associated Symptoms:swelling;po pping/clicking;buckl ing Not Available [email or web address] 12/30/2020 10:49:25 05/05/2021 text/html KneeReported bypatient.Location:r ight; medial Quality:sharp; deep; occasional Severity:moderate Duration:continuous since onset Timing:acute; abrupt Context:cannot identify Alleviating Factors:lying down; elevation; exercise; stretching Aggravating Factors:walking; lifting; carrying; twisting; bending/squatting Associated Symptoms:swelling;po pping/clicking;buckl ing Not Available [email or web address] 05/05/2021 10:29:31 12/28/2022 text/html patient returns complaining of low back pain left side. She has what she describes as sciatic up. She has pain that radiates down the left buttock the back of her thigh. Denies any weakness no trauma or injury no neurovascular deficits no bowel or bladder symptoms. She also reports some groin pain she does have a history of chronic primary osteoarthritis of her hips. Her main issue today is her back pain on the left sacroiliac region radiating into the buttock. It is keeping her awake at night she has trouble standing walking for long periods she walks with a stooped forward gait she has had this previously years ago she would like some relief she comes in today for initial evaluation treatment. She also has chronic groin pain nothing new for her. She has other medical issues was told that she is not a great candidate for total hip surgery at this point. The patient's pain has been going on for a couple of months now she has tried abbo-pep-bozffrr anti-inflammatories and stretching without significant relief. She states the pain is about an 8 on a scale of 1-10 in her left sacroiliac region into the buttock.Past medical history sheet was reviewed and signed on the intake sheet of today's date drug allergies current medications family social history previous surgical history 10 point review of systems was reviewed and discussed in detail today with the patient. CATA Aguilar [address], [place], [address], [employer] 12/28/2022 11:14:05 01/25/2023 text/html Patient returns for recheck of her left back pain with mild radiculopathy and also left groin pain. The patient has been treated with therapy prednisone and a shot of cortisone she states her back still bothers her a bit in the left sacroiliac region but it is better. Her main complaint is her left groin pain she has significant limp and limited motion in the left hip as well. Previous x-rays show fairly advanced primary osteoarthritis of the left hip which is essentially [id number] and shows marginal osteophyte formation. She comes in today to talk about what to do about her continuing left hip pain in the groin this is her main complaint and keeps her awake at night as well. She cannot stand or walk for long periods as aching pain and limited motion and dysfunction chronic in nature. CATA Aguilar [address], [place], [address], [email or web address] 01/25/2023 10:03:20 OBGyn Episode No OBEpisode recorded.
--- OUTSIDE RECORDS SUMMARY | 2024-06-05 20:03 | XMS_ITS | Referral Summary ---
Author Organization [facility] [employer] Address [address] [place] [address] Care Team Providers Care Historic Interpreter Name Role Phone Kristofer Sequeira MD Primary Care Provider Source Comments [facility] [employer],non-owned Affiliates and Associated Physician Practices is amultiple site organization consisting of ambulatory clinics and hospital sitesin [place], [place], [place] and [place]. This disclosure is being madepursuant to the Care Everywhere program and may not contain all information available regarding this patient. Last updated 17.[facility] [employer] Encounters Date Type Department Care Team Description 05/04/2024 1:15 PM CHINESE MEDICINE PRACTITIONER - 05/26/2024 5:00 PM CHINESE MEDICINE PRACTITIONER Hospital Encounter [facility] ALOK [address]S [address] [place] [address] You Reagan MD Kitchener, Jacob M, MD Sun, Philip Y, MD Scott, Jordan K, MD Linares, Guillermo, MD Eshetu, Mary Gutierrez MD Neurology Discharge Disposition: Rehab:Inpatient 05/19/2024 7:05 AM CHINESE MEDICINE PRACTITIONER - 05/19/2024 9:50 AM CHINESE MEDICINE PRACTITIONER Surgery [facility] OP [address] [place] [phone] Jacob Newsome MD insertion ventriculoperitoneal shunt - RIGHT WITH ACS ASSIST ABDOMINAL PORTION 05/19/2024 8:24 AM CHINESE MEDICINE PRACTITIONER Anesthesia Event [facility] OP [address] [place] [address] Rob oCronel MD Wise, William L, BLOCK LAYER-SPANISH PROFESSOR 05/14/2024 Orders Only [facility] RAD CSM [address] [place] [address] Thiago Sesay, RN Pulmonary embolism without acute cor pulmonale, unspecified chronicity, unspecified pulmonary embolism type ([facility]) 05/08/2024 Orders Only [facility] RAD CSM [address] [place] [address] Thiago Sesay, RN Presence of IVC filter ; Acute pulmonary embolism, unspecified pulmonary embolism type, unspecified whether acute cor pulmonale present ([facility]) 05/05/2024 8:05 AM CHINESE MEDICINE PRACTITIONER Anesthesia Event [facility] IVR [address] [place] [address] George Grijalva DO Rocca, Zachary, DO 05/04/2024 Travel from Last 3 Months Allergies Active Allergy Reactions Criticality Noted Date Comments Azithromycin Itching,Urticaria High 08/12/2015 Lisinopril Rash Medium 05/09/2024 Medications * Be aware that medications may not be up to date on this document. Alwaysverify current medications with the patient. Medication Sig Dispensed Refills Start Date End Date Status famotidine (PEPCID) 20 MG tablet famotidine 20 mg tablet TAKE 1 TABLET BY MOUTH EVERY DAY Active Vitamin D3 (CHOLECALCIFEROL ) 50 MCG (1999 UT) capsule Take 1 capsule by mouth once daily 07/11/2020 Active fluticasone propionate (FLONASE) 50 MCG/ACT nasal spray fluticasone propionate 50 mcg/actuation nasal spray,suspension SPRAY 1 SPRAY IN EACH NOSTRIL EVERY DAY Active acetaminophen (Tylenol) 325 MG tablet Take 2 (two) tablets by mouth every 4 hours as needed Maximum allowable Acetaminophen amount = 4 Grams (4000 mg) / 24 hours. 05/26/2024 Active albuterol-ipratr opium (Duo-Neb) 0.5-2.5 (3) MG/3ML nebulizer solution Inhale 3 mL by mouth every 4 hours as needed for Shortness of Breath or Wheezing 05/26/2024 Active apixaban (Eliquis) 5 MG tablet Take 1 (one) tablet by mouth 2 times daily 05/26/2024 Active gabapentin (Neurontin) 300 MG capsule Take 2 (two) capsules by mouth every 8 hours 05/26/2024 Active carvedilol (Coreg) 12.5 MG tablet Take 1 (one) tablet by mouth every 12 hours 05/26/2024 Active polyethylene glycol 3350 (Miralax) 17 g packet Take 17 (seventeen) g by mouth once daily as needed for Constipation 05/26/2024 Active senna (Senokot Extra Strength) 17.2 MG Take 17.2 mg by mouth once daily as needed for Constipation 05/26/2024 Active melatonin 3 MG tablet Take 1 (one) tablet by mouth nightly as needed for Insomnia 05/26/2024 Active varenicline (CHANTIX STARTING MONTH ) 0.5 MG X 11 & 1 MG X 42 tablets 1 packet 0 02/08/2017 5 Discontinue d(List Clean-Up) oxybutynin (DITROPAN) 5 MG tablet TK 1 T PO BID 10/26/2019 5 Discontinue d(List Clean-Up) hydrocortisone (HYTONE) 2.5 % cream hydrocortisone 2.5 % topical cream 5 Discontinue d(List Clean-Up) lisinopril (PRINIVIL; ZESTRIL) 10 MG tablet lisinopril 10 mg tablet TAKE 1 TABLET BY MOUTH EVERY DAY 5 Discontinue d(List Clean-Up) lisinopril-hydro CHLOROthiazide (PRINZIDE; ZESTORETIC) 20-12.5 MG tablet Take 1 tablet by mouth once daily as directed. 07/11/2020 5 Discontinue d(List Clean-Up) clobetasol (TEMOVATE) 0.05 % cream clobetasol 0.05 % topical cream 5 Discontinue d(List Clean-Up) Active Problems Problem Noted Date Diagnosed Date Malnutrition 05/23/2024 Brain compression 05/05/2024 Lactic acidosis 05/04/2024 Altered mental status, unspe cified altered mental status type 05/04/2024 Elevated troponin 05/04/2024 Subarachnoid bleed 05/04/2024 Endotracheally intubated 05/04/2024 Unspecified synovitis and tenosynovitis, unspeci fied hand 05/04/2024 Abdominal aortic aneurysm 05/04/2024 Overview (05/04/2024): seeing CV surgeon Sprain of wrist 05/04/2024 Skin eruption 05/04/2024 Radiotherapy follow-up 05/04/2024 Non-allergic rhinitis 05/04/2024 Pain in limb 05/04/2024 Liver mass 05/04/2024 Neck pain 05/04/2024 Overview (05/04/2024): s/p surgery due to disc Hypersomnia 05/04/2024 Hyperlipidemia 05/04/2024 Heart murmur 05/04/2024 Wrist joint pain 05/04/2024 Shoulder joint pain 05/04/2024 Hand joint pain 05/04/2024 Essential hypertension 05/04/2024 Disorder of shoulder 05/04/2024 Disorder of sacrum 05/04/2024 Diabetes mellitus 05/04/2024 Contracture of palmar fascia 05/04/2024 Cervical spondylosis without myelopathy 05/04/19 Carpal tunnel syndrome 05/04/2024 Brachial neuritis 05/04/2024 Blood in urine 05/04/2024 Abnormal computed tomography scan 05/04/2024 Pain of left sacroiliac joint 12/28/2022 Pain of left hip joint 12/28/2022 Osteoarthritis of left hip 12/28/2022 Tear of medial meniscus of knee 12/30/2020 Arthritis of right knee 02/25/2020 Acid reflux 09/05/2018 Abdominal aortic ectasia 02/08/2017 Tobacco use 02/08/2017 Ectatic abdominal aorta 02/08/2017 Abdominal aortic aneurysm without rupture 2015 Other specified symptoms and signs involving the circulatory and respiratory systems 08/12/2015 Prominent popliteal pulse 08/12/2015 Social History Tobacco Use Types Packs/Day Years Used Date Smoking Tobacco: Every Day Cigarettes Smokeless Tobacco: Never Tobacco Cessation:Ready to Q uit: Yes; Counseling Given: Yes Alcohol Use Standard Drinks/Week Comments Yes 0 (1 standard drink = 0.6 oz pur e alcohol) AUDIT-C Answer Date Recorded Q1: How often do you have a drink containing alcohol? Patient unable to answer 05/15/2024 Q2: How many drinks containi ng alcohol do you have on a typical day when you are drinking? Patient unable to answer Q3: How often do you have si x or more drinks on one occasion? Patient unable to answer 05/15/2024 Overall Financial Resource Strain (CARDIA) Answe r Date Recorded How hard is it for you to pa y for the very basics like food, housing, medical care, and heating? Very hard 05/15/2024 PHQ-2 Answer Date Recorded Patient Health Questionnaire-2 Score 0 05/15/2024 [facility] - Occupational Stress Questionnaire Answer Date Recorded Do you feel stress - tense, restless, nervous, or anxious, or unable to sleep at night because your mind is troubled all the time - these days? Rather much 05/15/2024 Hunger Vital Sign Answer Date Recorded Within the past 12 months, y ou worried that your food would run out before you got the money to buy more. Never true 05/15/19 25 Within the past 12 months, t he food you bought just didn't last and you didn't have money to get more. Never true 05/15/2024 PRAPARE - Transportation Answer Date Re corded In the past 12 months, has l ack of transportation kept you from medical appointments or from getting medications? Yes 07/2024 In the past 12 months, has l ack of transportation kept you from meetings, work, or from getting things needed for daily living? Yes 05/15/2024 Housing Stability Vital Sign Answer Tremaine e Recorded In the last 12 months, was t here a time when you were not able to pay the mortgage or rent on time? No 05/15/2024 In the past 12 months, how m any times have you moved where you were living? 0 05/15/2024 At any time in the past 12 m [facility], were you homeless or living in a skilled nursing (including now)? Yes 05/15/2024 Sex and Gender Information Value Date Recorded Sex Assigned at Not on file Gender Identity Not on file Sexual Orientation Not on file Last Filed Vital Signs Vital Sign Reading Time Taken Comments Blood Pressure 111/74 05/26/2024 12:05 PM CHINESE MEDICINE PRACTITIONER Pulse 90 05/26/2024 12:05 PM CHINESE MEDICINE PRACTITIONER Temperature 36.7 C (98.1 F) 05/26/2024 12:05 PM CHINESE MEDICINE PRACTITIONER Respiratory Rate 18 05/26/2024 12:05 PM CHINESE MEDICINE PRACTITIONER Oxygen Saturation 97% 05/26/2024 12:05 PM CHINESE MEDICINE PRACTITIONER Inhaled Oxygen Concentration 40% 05/14/2024 1 0:00 AM CHINESE MEDICINE PRACTITIONER Weight 44 kg (97 lb) 05/25/2024 4:00 AM CHINESE MEDICINE PRACTITIONER Height 160 cm (5' 2.99 ) 05/06/2024 9:00 AM CHINESE MEDICINE PRACTITIONER Body Mass Index 17.19 05/06/2024 9:00 AM CHINESE MEDICINE PRACTITIONER Functional Status Functional Status Response Date of Assess ment Is person deaf or have serious hearing difficult y? No 05/04/2024 Is person blind or have serious difficulty seein g? No 05/04/2024 Does person have serious dif ficulty walking/climbing stairs? No 05/04/2024 Does person have difficulty dressing/bathing? No 05/04/2024 Does person have difficulty doing errands alone? No 05/04/2024 Cognitive Status Response Date of Assessm ent Does person have difficulty concentrating/remembering/making decisions? No 05/04/2024 Plan of Treatment Upcoming Encounters Date Type Department Care Team (Late st Contact Info) Description 06/14/2024 3:45 PM CHINESE MEDICINE PRACTITIONER Office Visit [facility] - Neurosurgery [address] [facility] [place] [phone] Meenu Bui, BLOCK LAYER-CITY TAX AUDITOR [address] [facility] [address] [place] [address] 08/03/2024 1:00 PM CDT Appointment [facility] VASCULAR US [address] [place] [phone] Becki Ortiz DO [address] [place] [address] 08/03/2024 2:00 PM CDT Office Visit [facility] RAD CSM [address] [facility] [place] [phone] Becki Ortiz DO [address] [place] [address] 08/14/2024 4:00 PM CDT Office Visit [facility] - Pulmonology [address] [facility] [place] [address] Willi Ewing MD [address] [place] [address] Goals Goal Patient Goal Type Associated Problems Recent Progress Patient-Stated? Author Mobility General No Gretta Baldwin RN Note: Expected end date: 04/10/2021 The goal is to maintain or improve your mobility at the optimum level for you. Interventions: Medical Devices Implanted Type Area Starting Gate Driver Device Identifier Shelf Expiration Date Model / Serial / Lot Coil Hydroframe Hdrcl Vtrk 19cm 6mm 10 Implanted:Qty: 1 on 05/05/2024 by Jacob Newsome MD at [facility] [employer] 02/08/2029 7110-061 9 / / [id number] Coil Hydrosoft 8cm 3mm Embl 3d Implanted:Qty: 1 on 05/05/2024 by Jacob Newsome MD at [facility] [employer] 11/09/2027 7110-030 8 / / [id number] Coil Mcplx Hypersoft Vtrk 6cm 2.5mm 10 Implanted:Qty: 1 on 05/05/2024 by Jacob Newsome MD at [facility] [employer] 08/08/2025 8510-025 6 / / [id number] Kit Ba Gini Cdmn Bctsl Cath 120cm 14cm Implanted:Qty: 1 on 05/19/2024 by Jacob Newsome MD at [facility] Other (Type not listed) Right: Abdomen [employer] 02/08/2025 [id number] / / [id number] Valve Shnt Strt2 Reg Csf Prgm Flw Cntrl Implanted:Qty: 1 on 05/19/2024 by Jacob Newsome MD at [facility] Other (Type not listed) Right: Cranial [employer] 11/12/2026 [id number] / / [id number] Clip Srg Std Rt Ang Implanted:Qty: 1 on 05/19/2024 by Jacob Newsome MD at [facility] Other (Type not listed) Right: [employer] 10/19/2028 [id number] [id number] / / [id number] Fltr Ivc 70cm Dlv Shth Crv Pshr Strl Lf Implanted:Qty: 1 on 05/07/2024 at [facility] Right: [employer]ena [employer] 01/17/2027 [id number] / / [id number] Explanted Type Area Starting Gate Driver Device Identifier Shelf Expiration Date Model / Serial / Lot Coil Hydroframe 5mm 20mm Embl Explanted:Qty: 1 on 05/05/2024 at [facility] [employer] 12/09/2028 7110-052 0 / / [id number] Coil Hydroframe Adv 15mm 4mm Embl Explanted:Qty: 1 on 05/05/2024 at [facility] [employer] 02/08/2029 7110-041 5 / / [id number] Fltr Ivc 70cm Dlv Shth Crv Pshr Strl Lf Explanted:Qty: 1 on 05/07/2024 at [facility] Right: [employer] 02/13/2027 [id number] / / [id number] Description:implanted by [facility] [place], operated [facility] Procedures Procedure Name Priority Date/Time Associated Diagnosis Comments PHOSPHORUS BLOOD Routine 05/26/2024 1:42 AM CHINESE MEDICINE PRACTITIONER MAGNESIUM BLOOD Routine 05/26/2024 1:42 AM CHINESE MEDICINE PRACTITIONER CBC W AUTO DIFFERENTIAL Routine 05/26/2024 1:42 AM CHINESE MEDICINE PRACTITIONER BASIC METABOLIC PANEL (CALCIUM TOTAL) Routine 05/26/2024 1:42 AM CHINESE MEDICINE PRACTITIONER PHOSPHORUS BLOOD Routine 05/24/2024 2:51 AM CHINESE MEDICINE PRACTITIONER MAGNESIUM BLOOD Routine 05/24/2024 2:51 AM CHINESE MEDICINE PRACTITIONER CBC W AUTO DIFFERENTIAL AM Draw 05/24/2024 2:51 AM CHINESE MEDICINE PRACTITIONER BASIC METABOLIC PANEL (CALCIUM TOTAL) Routine 05/24/2024 2:51 AM CHINESE MEDICINE PRACTITIONER PHOSPHORUS BLOOD Routine 05/23/2024 3:02 AM CHINESE MEDICINE PRACTITIONER MAGNESIUM BLOOD Routine 05/23/2024 3:02 AM CHINESE MEDICINE PRACTITIONER CBC W AUTO DIFFERENTIAL AM Draw 05/23/2024 3:02 AM CHINESE MEDICINE PRACTITIONER BASIC METABOLIC PANEL (CALCIUM TOTAL) Routine 05/23/2024 3:02 AM CHINESE MEDICINE PRACTITIONER PHOSPHORUS BLOOD Routine 05/22/2024 3:51 AM CHINESE MEDICINE PRACTITIONER MAGNESIUM BLOOD Routine 05/22/2024 3:51 AM CHINESE MEDICINE PRACTITIONER CBC W AUTO DIFFERENTIAL AM Draw 05/22/2024 3:51 AM CHINESE MEDICINE PRACTITIONER BASIC METABOLIC PANEL (CALCIUM TOTAL) Routine 05/22/2024 3:51 AM CHINESE MEDICINE PRACTITIONER CT HEAD WO CONTRAST Routine 05/20/2024 6 :02 AM CHINESE MEDICINE PRACTITIONER Subarachnoid bleed (HCC) SAH (subarachnoid hemorrhage) (HCC) BASIC METABOLIC PANEL (CALCIUM TOTAL) Routine 05/20/2024 2:34 AM CHINESE MEDICINE PRACTITIONER PT-INR SLH Routine 05/20/2024 2:34 AM CHINESE MEDICINE PRACTITIONER PHOSPHORUS BLOOD Routine 05/20/2024 2:34 AM CHINESE MEDICINE PRACTITIONER MAGNESIUM BLOOD AM Draw 05/20/2024 2:34 AM CHINESE MEDICINE PRACTITIONER CBC W AUTO DIFFERENTIAL AM Draw 05/20/2024 2:34 AM CHINESE MEDICINE PRACTITIONER XR SHUNT SERIES STAT 05/19/2024 11:24 AM CHINESE MEDICINE PRACTITIONER Subarachnoid bleed (HCC) SAH (subarachnoid hemorrhage) (HCC) ENDOTRACHEAL TUBE NOTE Routine 05/19/2024 8:56 AM CHINESE MEDICINE PRACTITIONER PTT SLH AM Draw 05/19/2024 8:19 AM CHINESE MEDICINE PRACTITIONER KS CREATE SHUNT VENTRIC-PERITONEAL 05/19/2024 7:59 AM CHINESE MEDICINE PRACTITIONER Cerebral ventriculomegaly Case Notes COMBO CASE: ACS assisting Special Needs Supine CT HEAD WO CONTRAST Routine 05/19/2024 5 :30 AM CHINESE MEDICINE PRACTITIONER Subarachnoid bleed (HCC) BASIC METABOLIC PANEL (CALCIUM TOTAL) Routine 05/19/2024 12:56 AM CHINESE MEDICINE PRACTITIONER PHOSPHORUS BLOOD Routine 05/19/2024 12:56 AM CHINESE MEDICINE PRACTITIONER MAGNESIUM BLOOD AM Draw 05/19/2024 12:56 AM CHINESE MEDICINE PRACTITIONER CBC W AUTO DIFFERENTIAL AM Draw 05/19/2024 12:56 AM CHINESE MEDICINE PRACTITIONER PTT SLH STAT 05/18/2024 9:17 PM CHINESE MEDICINE PRACTITIONER PT-INR SLH Routine 05/18/2024 9:17 PM CHINESE MEDICINE PRACTITIONER TYPE + SCREEN PANEL Routine 05/18/2024 11:57 AM CHINESE MEDICINE PRACTITIONER PTT SLH Timed 05/18/2024 11:57 AM CHINESE MEDICINE PRACTITIONER PTT SLH Timed 05/18/2024 6:15 AM CHINESE MEDICINE PRACTITIONER DIFFERENTIAL MANUAL CSF STAT 05/18/2024 4:59 AM CHINESE MEDICINE PRACTITIONER GLUCOSE CSF Routine 05/18/2024 4:59 AM CHINESE MEDICINE PRACTITIONER PROTEIN CSF CONSTANTINE 05/18/2024 4:59 AM CHINESE MEDICINE PRACTITIONER CELL COUNT W DIFFERENTIAL CSF STAT 05/18/2024 4:59 AM CHINESE MEDICINE PRACTITIONER PTT SLH Timed 05/18/2024 12:07 AM CHINESE MEDICINE PRACTITIONER BASIC METABOLIC PANEL (CALCIUM TOTAL) Routine 05/18/2024 12:07 AM CHINESE MEDICINE PRACTITIONER PT-INR SLH Routine 05/18/2024 12:07 AM CHINESE MEDICINE PRACTITIONER PHOSPHORUS BLOOD Routine 05/18/2024 12:07 AM CHINESE MEDICINE PRACTITIONER MAGNESIUM BLOOD AM Draw 05/18/2024 12:07 AM CHINESE MEDICINE PRACTITIONER CBC W AUTO DIFFERENTIAL AM Draw 05/18/2024 12:07 AM CHINESE MEDICINE PRACTITIONER PTT SLH Timed 05/17/2024 5:31 PM CHINESE MEDICINE PRACTITIONER PTT SLH Timed 05/17/2024 9:59 AM CHINESE MEDICINE PRACTITIONER DIFFERENTIAL MANUAL CSF STAT 05/17/2024 8:51 AM CHINESE MEDICINE PRACTITIONER PROTEIN CSF CONSTANTINE 05/17/2024 8:51 AM CHINESE MEDICINE PRACTITIONER GLUCOSE CSF Routine 05/17/2024 8:51 AM CHINESE MEDICINE PRACTITIONER CELL COUNT W DIFFERENTIAL CSF STAT 05/17/2024 8:51 AM CHINESE MEDICINE PRACTITIONER CULTURE CSF+GRAM STAIN Routine 05/17/2024 8:51 AM CHINESE MEDICINE PRACTITIONER PTT SLH STAT 05/17/2024 4:55 AM CHINESE MEDICINE PRACTITIONER CT HEAD WO CONTRAST Routine 05/17/2024 4 :42 AM CHINESE MEDICINE PRACTITIONER Subarachnoid bleed (HCC) BASIC METABOLIC PANEL (CALCIUM TOTAL) Routine 05/16/2024 11:39 PM CHINESE MEDICINE PRACTITIONER PTT SLH Routine 05/16/2024 11:39 PM CHINESE MEDICINE PRACTITIONER PT-INR SLH Routine 05/16/2024 11:39 PM CHINESE MEDICINE PRACTITIONER PHOSPHORUS BLOOD Routine 05/16/2024 11:39 PM CHINESE MEDICINE PRACTITIONER MAGNESIUM BLOOD AM Draw 05/16/2024 11:39 PM CHINESE MEDICINE PRACTITIONER CBC W AUTO DIFFERENTIAL AM Draw 05/16/2024 11:39 PM CHINESE MEDICINE PRACTITIONER PTT SLH STAT 05/16/2024 6:05 PM CHINESE MEDICINE PRACTITIONER PTT SLH Timed 05/16/2024 11:58 AM CHINESE MEDICINE PRACTITIONER DIFFERENTIAL MANUAL CSF STAT 05/16/2024 10:42 AM CHINESE MEDICINE PRACTITIONER CELL COUNT W DIFFERENTIAL CSF STAT 05/16/2024 10:42 AM CHINESE MEDICINE PRACTITIONER PROTEIN CSF CONSTANTINE 05/16/2024 10:42 AM CHINESE MEDICINE PRACTITIONER GLUCOSE CSF CONSTANTINE 05/16/2024 10:42 AM CHINESE MEDICINE PRACTITIONER CULTURE CSF+GRAM STAIN Routine 05/16/2024 10:42 AM CHINESE MEDICINE PRACTITIONER PTT SLH STAT 05/16/2024 5:55 AM CHINESE MEDICINE PRACTITIONER DIFFERENTIAL MANUAL CSF STAT 05/16/2024 5:12 AM CHINESE MEDICINE PRACTITIONER GLUCOSE CSF Routine 05/16/2024 5:12 AM CHINESE MEDICINE PRACTITIONER PROTEIN CSF CONSTANTINE 05/16/2024 5:12 AM CHINESE MEDICINE PRACTITIONER CELL COUNT W DIFFERENTIAL CSF STAT 05/16/2024 5:12 AM CHINESE MEDICINE PRACTITIONER CULTURE CSF+GRAM STAIN Routine 05/16/2024 5:12 AM CHINESE MEDICINE PRACTITIONER BASIC METABOLIC PANEL (CALCIUM TOTAL) Routine 05/16/2024 12:04 AM CHINESE MEDICINE PRACTITIONER PTT SLH Routine 05/16/2024 12:04 AM CHINESE MEDICINE PRACTITIONER PT-INR SLH Routine 05/16/2024 12:04 AM CHINESE MEDICINE PRACTITIONER PHOSPHORUS BLOOD Routine 05/16/2024 12:04 AM CHINESE MEDICINE PRACTITIONER MAGNESIUM BLOOD AM Draw 05/16/2024 12:04 AM CHINESE MEDICINE PRACTITIONER CBC W AUTO DIFFERENTIAL AM Draw 05/16/2024 12:04 AM CHINESE MEDICINE PRACTITIONER PTT SLH STAT 05/15/2024 5:41 PM CHINESE MEDICINE PRACTITIONER PTT SLH STAT 05/15/2024 11:59 AM CHINESE MEDICINE PRACTITIONER PTT SLH Timed 05/15/2024 5:52 AM CHINESE MEDICINE PRACTITIONER BASIC METABOLIC PANEL (CALCIUM TOTAL) Routine 05/14/2024 11:43 PM CHINESE MEDICINE PRACTITIONER PT-INR SLH Routine 05/14/2024 11:43 PM CHINESE MEDICINE PRACTITIONER PHOSPHORUS BLOOD Routine 05/14/2024 11:43 PM CHINESE MEDICINE PRACTITIONER MAGNESIUM BLOOD AM Draw 05/14/2024 11:43 PM CHINESE MEDICINE PRACTITIONER CBC W AUTO DIFFERENTIAL AM Draw 05/14/2024 11:43 PM CHINESE MEDICINE PRACTITIONER PTT SLH STAT 05/14/2024 6:58 PM CHINESE MEDICINE PRACTITIONER PTT SLH Timed 05/14/2024 5:55 PM CHINESE MEDICINE PRACTITIONER VAS BILATERAL VENOUS DUPLEX UE Routine 05/14/2024 4:35 PM CHINESE MEDICINE PRACTITIONER Subarachnoid bleed (HCC) PTT SLH Timed 05/14/2024 11:45 AM CHINESE MEDICINE PRACTITIONER MRSA DNA PCR STAT 05/14/2024 10:38 AM CHINESE MEDICINE PRACTITIONER XR CHEST 1VW PORTABLE STAT 05/14/2024 9:00 AM CHINESE MEDICINE PRACTITIONER Subarachnoid bleed (HCC) DIFFERENTIAL MANUAL CSF STAT 05/14/2024 3:23 AM CHINESE MEDICINE PRACTITIONER GLUCOSE CSF Routine 05/14/2024 3:23 AM CHINESE MEDICINE PRACTITIONER PROTEIN CSF CONSTANTINE 05/14/2024 3:23 AM CHINESE MEDICINE PRACTITIONER CELL COUNT W DIFFERENTIAL CSF STAT 05/14/2024 3:23 AM CHINESE MEDICINE PRACTITIONER CULTURE CSF+GRAM STAIN Routine 05/14/2024 3:23 AM CHINESE MEDICINE PRACTITIONER BASIC METABOLIC PANEL (CALCIUM TOTAL) Routine 05/13/2024 11:39 PM CHINESE MEDICINE PRACTITIONER PTT SLH Routine 05/13/2024 11:39 PM CHINESE MEDICINE PRACTITIONER PT-INR SLH Routine 05/13/2024 11:39 PM CHINESE MEDICINE PRACTITIONER PHOSPHORUS BLOOD Routine 05/13/2024 11:39 PM CHINESE MEDICINE PRACTITIONER MAGNESIUM BLOOD AM Draw 05/13/2024 11:39 PM CHINESE MEDICINE PRACTITIONER CBC W AUTO DIFFERENTIAL AM Draw 05/13/2024 11:39 PM CHINESE MEDICINE PRACTITIONER XR CHEST 1VW PORTABLE STAT 05/13/2024 7:51 AM CHINESE MEDICINE PRACTITIONER Postprocedural pneumothorax PTT SLH Timed 05/12/2024 10:04 PM CHINESE MEDICINE PRACTITIONER BASIC METABOLIC PANEL (CALCIUM TOTAL) Routine 05/12/2024 10:04 PM CHINESE MEDICINE PRACTITIONER PT-INR SLH Routine 05/12/2024 10:04 PM CHINESE MEDICINE PRACTITIONER PHOSPHORUS BLOOD Routine 05/12/2024 10:04 PM CHINESE MEDICINE PRACTITIONER MAGNESIUM BLOOD AM Draw 05/12/2024 10:04 PM CHINESE MEDICINE PRACTITIONER CBC W AUTO DIFFERENTIAL AM Draw 05/12/2024 10:04 [address] CH[address]ICINE [address] ANGIO CHEST PULM EMBOLISM STAT 05/12/2024 5:24 PM CHINESE MEDICINE PRACTITIONER Subarachnoid bleed (HCC) BLOOD GASES ART + COOX PANEL STAT 05/12/2024 3:45 PM CHINESE MEDICINE PRACTITIONER PTT SLH Timed 05/12/2024 3:00 PM CHINESE MEDICINE PRACTITIONER XR CHEST 1VW PORTABLE STAT 05/12/2024 8:40 AM CHINESE MEDICINE PRACTITIONER Postprocedural pneumothorax PTT SLH STAT 05/12/2024 8:28 [address] CHINESE [address]INE [address] ANGIO BRAIN Routine 05/12/2024 5:36 AM CHINESE MEDICINE PRACTITIONER Subarachnoid bleed (HCC) BASIC METABOLIC PANEL (CALCIUM TOTAL) Routine 05/12/2024 12:10 AM CHINESE MEDICINE PRACTITIONER PT-INR SLH Routine 05/12/2024 12:10 AM CHINESE MEDICINE PRACTITIONER PHOSPHORUS BLOOD Routine 05/12/2024 12:10 AM CHINESE MEDICINE PRACTITIONER MAGNESIUM BLOOD AM Draw 05/12/2024 12:10 AM CHINESE MEDICINE PRACTITIONER CBC W AUTO DIFFERENTIAL AM Draw 05/12/2024 12:10 AM CHINESE MEDICINE PRACTITIONER PTT SLH Timed 05/11/2024 8:23 PM CHINESE MEDICINE PRACTITIONER XR CHEST 1VW PORTABLE STAT 05/11/2024 4:07 PM CHINESE MEDICINE PRACTITIONER Postprocedural pneumothorax PTT SLH Timed 05/11/2024 12:44 PM CHINESE MEDICINE PRACTITIONER XR CHEST 1VW PORTABLE Routine 05/11/2024 11:13 AM CHINESE MEDICINE PRACTITIONER Postprocedural pneumothorax XR CHEST 1VW PORTABLE STAT 05/11/2024 8:52 AM CHINESE MEDICINE PRACTITIONER Postprocedural pneumothorax PTT SLH Timed 05/11/2024 5:46 AM CHINESE MEDICINE PRACTITIONER DIFFERENTIAL MANUAL CSF STAT 05/11/2024 3:44 AM CHINESE MEDICINE PRACTITIONER GLUCOSE CSF Routine 05/11/2024 3:44 AM CHINESE MEDICINE PRACTITIONER PROTEIN CSF CONSTANTINE 05/11/2024 3:44 AM CHINESE MEDICINE PRACTITIONER CELL COUNT W DIFFERENTIAL CSF STAT 05/11/2024 3:44 AM CHINESE MEDICINE PRACTITIONER BASIC METABOLIC PANEL (CALCIUM TOTAL) Routine 05/11/2024 12:28 AM [employer] PRACT[facility] PHOSPHORUS BLOOD Routine 05/11/2024 12:28 AM [employer] PRACTITIONER MAGNESIUM BLOOD AM Draw 05/11/2024 12:28 AM [employer] PRACTITIONER CBC W AUTO DIFFERENTIAL AM Draw 05/11/2024 12:28 AM [employer] PRACTITIONER PT-INR SLH Routine 05/10/2024 10:11 PM [employer] PRACTITIONER PTT SLH CONSTANTINE 05/10/2024 10:11 PM [employer] PRACTITIONER PT EVAL AND TREAT Routine 05/10/2024 4:1 7 PM [employer] PRACTITIONER OT EVAL AND TREAT Routine 05/10/2024 4:1 7 PM [employer] PRACTITIONER EXTUBATION Routine 05/10/2024 2:09 PM [employer] PRACTITIONER PTT SLH STAT 05/10/2024 1:57 PM [employer] PRACTITIONER XR ABDOMEN KUB PORTABLE STAT 05/10/2024 12:14 PM [employer] PRACTITIONER Subarachnoid bleed (HCC) XR CHEST 1VW PORTABLE STAT 05/10/2024 12:14 PM [employer] PRACTITIONER Subarachnoid bleed (HCC) BLOOD GASES ART + COOX PANEL Routine 05/10/2024 9:18 AM [employer] PRACTITIONER PTT SLH STAT 05/10/2024 6:25 AM [employer] PRACTITIONER XR CHEST 1VW PORTABLE Routine 05/10/2024 5:02 AM [employer] PRACTITIONER Subarachnoid bleed (HCC) CT HEAD WO CONTRAST Routine 05/10/2024 4 :20 AM [employer] PRACTITIONER Subarachnoid bleed (HCC) BASIC METABOLIC PANEL (CALCIUM TOTAL) Routine 05/10/2024 12:03 AM [employer] PRACTITIONER PTT SLH CONSTANTINE 05/10/2024 12:03 AM [employer] PRACTITIONER PHOSPHORUS BLOOD Routine 05/10/2024 12:03 AM [employer] PRACTITIONER MAGNESIUM BLOOD AM Draw 05/10/2024 12:03 AM [employer] PRACTITIONER CBC W AUTO DIFFERENTIAL AM Draw 05/10/2024 12:03 AM [employer] PRACTITIONER PTT SLH Routine 05/09/2024 6:07 PM [employer] PRACTITIONER PT-INR SLH Routine 05/09/2024 6:07 PM [employer] PRACT[employer] CT HEAD WO CONTRAST STAT 05/09/2024 3 :22 PM [employer] PRACTITIONER Subarachnoid bleed (HCC) BLOOD GASES ART + COOX PANEL Timed 05/09/2024 2:40 PM [employer] PRACTITIONER XR CHEST 1VW PORTABLE Routine 05/09/2024 1:05 PM [employer] PRACTITIONER Subarachnoid bleed (HCC) MECHANICAL VENTILATION Routine 05/09/2024 10:53 AM [employer] PRACTITIONER XR CHEST 1VW PORTABLE STAT 05/09/2024 8:08 AM [employer] PRACTITIONER Postprocedural pneumothorax DIFFERENTIAL MANUAL CSF STAT 05/09/2024 4:03 AM [employer] PRACTITIONER GLUCOSE CSF Routine 05/09/2024 4:03 AM [employer] PRACTITIONER PROTEIN CSF CONSTANTINE 05/09/2024 4:03 AM [employer] PRACTITIONER CELL COUNT W DIFFERENTIAL CSF STAT 05/09/2024 4:03 AM [employer] PRACTITIONER CULTURE CSF+GRAM STAIN Routine 05/09/2024 4:03 AM [employer] PRACTITIONER OSMOLALITY BLOOD Timed 05/09/2024 3:45 AM [employer] PRACTITIONER SODIUM BLOOD Timed 05/09/2024 3:45 AM [employer] PRACTITIONER CBC W AUTO DIFFERENTIAL AM Draw 05/09/2024 3:45 AM [employer] PRACTITIONER MAGNESIUM BLOOD Routine 05/09/2024 3:45 AM [employer] PRACTITIONER PHOSPHORUS BLOOD Routine 05/09/2024 3:45 AM [employer] PRACTITIONER BASIC METABOLIC PANEL (CALCIUM TOTAL) AM Draw 05/09/2024 3:45 AM [employer] PRACTITIONER GLUCOSE - POINT OF CARE Routine 05/09/2024 12:12 AM [employer] PRACTITIONER TRIGLYCERIDES BLOOD AM Draw 05/09/2024 12:12 AM [employer] PRACTITIONER BLOOD GASES ART + COOX PANEL Routine 05/09/2024 12:12 AM [employer] PRACTITIONER COMPREHENSIVE METABOLIC PANEL Routine 05/09/2024 12:12 AM [employer] PRACTITIONER PHOSPHORUS BLOOD Routine 05/09/2024 12:12 AM [employer] PRACTITIONER MAGNESIUM BLOOD AM Draw 05/09/2024 12:12 AM [employer] PRACTITIONER CBC W AUTO DIFFERENTIAL AM Draw 05/09/2024 12:12 AM [employer] PRACTITIONER OSMOLALITY BLOOD Timed 05/09/2024 12:12 AM [employer] PRACTITIONER SODIUM BLOOD Timed 05/09/2024 12:12 AM [employer] PRACTITIONER OSMOLALITY BLOOD Timed 05/08/2024 6:16 PM [employer] PRACTITIONER SODIUM BLOOD Timed 05/08/2024 6:16 PM [employer] PRACTITIONER VAS TRANSCRANIAL DOPPLER COMP Routine 05/08/2024 5:43 PM [employer] PRACTITIONER Subarachnoid bleed (HCC) BLOOD GASES ART + COOX PANEL STAT 05/08/2024 12:00 PM [employer] PRACTITIONER OSMOLALITY BLOOD Timed 05/08/2024 12:00 PM [employer] PRACTITIONER SODIUM BLOOD Timed 05/08/2024 12:00 PM [employer] PRACTITIONER GLUCOSE - POINT OF CARE Routine 05/08/2024 11:59 AM [employer] PRACTITIONER GLUCOSE - POINT OF CARE Routine 05/08/2024 5:39 AM [employer] PRACTITIONER OSMOLALITY BLOOD Timed 05/08/2024 5:34 AM [employer] PRACTITIONER SODIUM BLOOD Timed 05/08/2024 5:34 AM [employer] PRACTITIONER XR CHEST 1VW PORTABLE Routine 05/08/2024 4:00 AM [employer] PRACTITIONER Subarachnoid bleed (HCC) GLUCOSE - POINT OF CARE Routine 05/08/2024 12:17 AM [employer] PRACTITIONER BLOOD GASES ART + COOX PANEL Routine 05/08/2024 12:13 AM [employer] PRACTITIONER COMPREHENSIVE METABOLIC PANEL Routine 05/08/2024 12:12 AM [employer] PRACTITIONER PHOSPHORUS BLOOD Routine 05/08/2024 12:12 AM [employer] PRACTITIONER MAGNESIUM BLOOD AM Draw 05/08/2024 12:12 AM [employer] PRACTITIONER CBC W AUTO DIFFERENTIAL AM Draw 05/08/2024 12:12 AM [employer] PRACTITIONER OSMOLALITY BLOOD Timed 05/08/2024 12:12 AM [employer] PRACTITIONER SODIUM BLOOD Timed 05/08/2024 12:12 AM [employer] PRACTITIONER GLUCOSE - POINT OF CARE Routine 05/07/2024 6:02 PM [employer] PRACTITIONER OSMOLALITY BLOOD Timed 05/07/2024 6:02 PM [employer] PRACTITIONER SODIUM BLOOD Timed 05/07/2024 6:02 PM [employer] PRACTITIONER VAS BILATERAL VENOUS DUPLEX UE STAT 05/07/2024 5:41 PM [employer] PRACTITIONER Subarachnoid bleed (HCC) VAS BILATERAL VENOUS DUPLEX LE STAT 05/07/2024 5:41 PM [employer] PRACTITIONER Subarachnoid bleed (HCC) VAS TRANSCRANIAL DOPPLER COMP STAT 05/07/2024 5:41 PM [employer] PRACTITIONER Subarachnoid bleed (HCC) GLUCOSE - POINT OF CARE Routine 05/07/2024 1:07 PM [employer] PRACTITIONER OSMOLALITY BLOOD Timed 05/07/2024 12:57 PM [employer] PRACTITIONER SODIUM BLOOD Timed 05/07/2024 12:57 PM [employer] PRACTITIONER IR IVC FILTER PLACEMENT Routine 05/07/2024 12:35 PM [employer] PRACTITIONER Subarachnoid bleed (HCC) Other acute pulmonary embolism without acute cor pulmonale (HCC) CARDIAC EKG ORDER 05/07/2024 11:51 AM [employer] PRACTITIONER BLOOD GASES ART + COOX PANEL STAT 05/07/2024 9:19 AM [employer] PRACTITIONER LACTIC ACID BLOOD REFLEX TO REPEAT Timed STAT 05/07/2024 9:19 AM [employer] PRACTITIONER PATHOLOGY SMEAR BODY FLUID STAT 05/07/2024 9:08 AM [employer] PRACTITIONER DIFFERENTIAL MANUAL CSF STAT 05/07/2024 9:08 AM [employer] PRACTITIONER PROTEIN CSF CONSTANTINE 05/07/2024 9:08 AM [employer] PRACTITIONER CELL COUNT W DIFFERENTIAL CSF STAT 05/07/2024 9:08 AM [employer] PRACTITIONER GLUCOSE CSF CONSTANTINE 05/07/2024 9:08 AM [employer] PRACTITIONER CULTURE CSF+GRAM STAIN CONSTANTINE 05/07/2024 9:08 AM [employer] PRACTITIONER XR CHEST 1VW PORTABLE STAT 05/07/2024 9:04 AM [employer] PRACTITIONER Subarachnoid bleed (HCC) GLUCOSE - POINT OF CARE Routine 05/07/2024 6:01 AM [employer] PRACTITIONER DIFFERENTIAL MANUAL AM Draw 05/07/2024 4 :12 AM [employer] PRACTITIONER OSMOLALITY BLOOD Timed 05/07/2024 4:12 AM [employer] PRACTITIONER SODIUM BLOOD Timed 05/07/2024 4:12 AM [employer] PRACTITIONER CBC W AUTO DIFFERENTIAL AM Draw 05/07/2024 4:12 AM [employer] PRACTITIONER MAGNESIUM BLOOD Routine 05/07/2024 4:12 AM [employer] PRACTITIONER PHOSPHORUS BLOOD Routine 05/07/2024 4:12 AM [employer] PRACTITIONER BASIC METABOLIC PANEL (CALCIUM TOTAL) AM Draw 05/07/2024 4:12 AM [employer] PRACTITIONER XR CHEST 1VW PORTABLE Routine 05/07/2024 3:26 AM [employer] PRACTITIONER Postprocedural pneumothorax GLUCOSE - POINT OF CARE Routine 05/06/2024 11:50 PM [employer] PRACTITIONER DIFFERENTIAL MANUAL AM Draw 05/06/2024 11:43 PM [employer] PRACTITIONER VANCOMYCIN LEVEL RANDOM Timed 05/06/2024 11:43 PM [employer] PRACTITIONER COMPREHENSIVE METABOLIC PANEL Routine 05/06/2024 11:43 PM [employer] PRACTITIONER PHOSPHORUS BLOOD Routine 05/06/2024 11:43 PM [employer] PRACTITIONER MAGNESIUM BLOOD AM Draw 05/06/2024 11:43 PM [employer] PRACTITIONER CBC W AUTO DIFFERENTIAL AM Draw 05/06/2024 11:43 PM [employer] PRACTITIONER OSMOLALITY BLOOD Timed 05/06/2024 11:43 PM [employer] PRACTITIONER SODIUM BLOOD Timed 05/06/2024 11:43 PM [employer] PRACTITIONER OSMOLALITY BLOOD Timed 05/06/2024 5:47 PM [employer] PRACTITIONER SODIUM BLOOD Timed 05/06/2024 5:47 PM [employer] PRACTITIONER GLUCOSE - POINT OF CARE Routine 05/06/2024 5:26 PM [employer] PRACTITIONER BRONCHOSCOPY STAT 05/06/2024 3:52 PM [employer] PRACTITIONER GLUCOSE - POINT OF CARE Routine 05/06/2024 12:24 PM [employer] PRACTITIONER OSMOLALITY BLOOD Timed 05/06/2024 12:10 PM [employer] PRACTITIONER SODIUM BLOOD Timed 05/06/2024 12:10 PM [employer] PRACTITIONER CULTURE BRONCHIAL WASHING+GRAM STAIN Routine 05/06/2024 11:57 AM [employer] PRACTITIONER MRSA DNA PCR STAT 05/06/2024 11:57 AM [employer] PRACTITIONER ECHO COMPLETE W BUBBLE STUDY STAT 05/06/2024 10:03 AM [employer] PRACTITIONER Subarachnoid bleed (HCC) BLOOD GASES ART + COOX PANEL STAT 05/06/2024 8:46 AM [employer] PRACTITIONER GLUCOSE - POINT OF CARE Routine 05/06/2024 5:48 AM [employer] PRACTITIONER XR CHEST 1VW PORTABLE Routine 05/06/2024 4:28 AM [employer] PRACTITIONER Postprocedural pneumothorax DIFFERENTIAL MANUAL AM Draw 05/06/2024 3 :58 AM [employer] PRACTITIONER OSMOLALITY BLOOD Timed 05/06/2024 3:58 AM [employer] PRACTITIONER SODIUM BLOOD Timed 05/06/2024 3:58 AM [employer] PRACTITIONER CBC W AUTO DIFFERENTIAL AM Draw 05/06/2024 3:58 AM [employer] PRACTITIONER MAGNESIUM BLOOD Routine 05/06/2024 3:58 AM [employer] PRACTITIONER PHOSPHORUS BLOOD Routine 05/06/2024 3:58 AM [employer] PRACTITIONER BASIC METABOLIC PANEL (CALCIUM TOTAL) AM Draw 05/06/2024 3:58 AM [employer] PRACTITIONER PLATELET COUNT AUTO CITRATED BLOOD Routine 05/06/2024 1:39 AM [employer] PRACTITIONER GLUCOSE - POINT OF CARE Routine 05/06/2024 12:20 AM [employer] PRACTITIONER DIFFERENTIAL MANUAL AM Draw 05/06/2024 12:20 AM [employer] PRACTITIONER COMPREHENSIVE METABOLIC PANEL Routine 05/06/2024 12:20 AM [employer] PRACTITIONER PHOSPHORUS BLOOD Routine 05/06/2024 12:20 AM [employer] PRACTITIONER MAGNESIUM BLOOD AM Draw 05/06/2024 12:20 AM [employer] PRACTITIONER CBC W AUTO DIFFERENTIAL AM Draw 05/06/2024 12:20 AM [employer] PRACTITIONER OSMOLALITY BLOOD Timed 05/06/2024 12:20 AM [employer] PRACTITIONER SODIUM BLOOD Timed 05/06/2024 12:20 AM [employer] PRACT[employer] CT CEREBRAL PERFUSION ANALYSIS STAT 05/05/2024 9:44 PM [employer] PRACTITIONER SAH (subarachnoid hemorrhage) (HCC) CT ANGIO BRAIN AND NECK STAT 05/05/2024 9:44 PM [employer] PRACTITIONER SAH (subarachnoid hemorrhage) (HCC) OSMOLALITY BLOOD Timed 05/05/2024 5:57 PM [employer] PRACTITIONER SODIUM BLOOD Timed 05/05/2024 5:57 PM [employer] PRACTITIONER GLUCOSE - POINT OF CARE Routine 05/05/2024 5:54 PM [employer] PRACTITIONER XR CHEST 1VW PORTABLE STAT 05/05/2024 5:22 PM [employer] PRACTITIONER Subarachnoid bleed (HCC) XR CHEST 1VW PORTABLE STAT 05/05/2024 4:20 PM [employer] PRACTITIONER Subarachnoid bleed (HCC) BLOOD GASES ART + COOX PANEL STAT 05/05/2024 4:05 PM [employer] PRACTITIONER XR CHEST 1VW PORTABLE STAT 05/05/2024 1:52 PM [employer] PRACTITIONER Subarachnoid bleed (HCC) OSMOLALITY BLOOD Timed 05/05/2024 12:05 PM [employer] PRACTITIONER SODIUM BLOOD Timed 05/05/2024 12:05 PM [employer] PRACTITIONER GLUCOSE - POINT OF CARE Routine 05/05/2024 12:02 PM [employer] PRACTITIONER IR EMBOLIZATION TRANSCATH THPY STAT 05/05/2024 10:40 AM [employer] PRACTITIONER Subarachnoid bleed (HCC) B-TYPE NATRIURETIC PEPTIDE STAT 05/05/2024 6:49 AM [employer] PRACTITIONER GLUCOSE - POINT OF CARE Routine 05/05/2024 6:09 AM [employer] PRACTITIONER VENTILATOR LIBERATION TRIAL PROTOCOL Routine 05/05/2024 5:19 AM [employer] PRACTITIONER PULSE OXIMETRY, CONTINUOUS Routine 05/05/2024 5:19 AM [employer] PRACTITIONER DIFFERENTIAL MANUAL AM Draw 05/05/2024 3 :56 AM [employer] PRACTITIONER OSMOLALITY BLOOD Timed 05/05/2024 3:56 AM [employer] PRACTITIONER SODIUM BLOOD Timed 05/05/2024 3:56 AM [employer] PRACTITIONER CBC W AUTO DIFFERENTIAL AM Draw 05/05/2024 3:56 AM [employer] PRACTITIONER MAGNESIUM BLOOD Routine 05/05/2024 3:56 AM [employer] PRACTITIONER PHOSPHORUS BLOOD Routine 05/05/2024 3:56 AM [employer] PRACTITIONER BASIC METABOLIC PANEL (CALCIUM TOTAL) AM Draw 05/05/2024 3:56 AM [employer]ACT[employer] CT ANGIO AORTA FOR DISSECTION STAT 05/05/2024 1:00 AM [employer] PRACTITIONER Subarachnoid bleed (HCC) CT HEAD WO CONTRAST STAT 05/05/2024 1 :00 AM [employer] PRACTITIONER Subarachnoid bleed (HCC) GLUCOSE - POINT OF CARE Routine 05/05/2024 12:15 AM [employer] PRACTITIONER TROPONIN-I HIGH SENSITIVE REFLEX 1HOUR Timed 05/05/2024 12:14 AM [employer] PRACTITIONER MAGNESIUM BLOOD AM Draw 05/05/2024 12:14 AM [employer] PRACTITIONER CBC W AUTO DIFFERENTIAL AM Draw 05/05/2024 12:14 AM [employer] PRACTITIONER OSMOLALITY BLOOD Timed 05/05/2024 12:14 AM [employer] PRACTITIONER SODIUM BLOOD Timed 05/05/2024 12:14 AM [employer] PRACTITIONER DIFFERENTIAL MANUAL STAT 05/04/2024 10:25 PM [employer] PRACTITIONER COMPREHENSIVE METABOLIC PANEL Routine 05/04/2024 10:25 PM [employer] PRACTITIONER PHOSPHORUS BLOOD Routine 05/04/2024 10:25 PM [employer] PRACTITIONER PT-INR SLH STAT 05/04/2024 10:25 PM [employer] PRACTITIONER TROPONIN-I HIGH SENSITIVE BASELINE + 1HR STAT 05/04/2024 10:25 PM [employer] PRACTITIONER PTT SLH STAT 05/04/2024 10:25 PM [employer] PRACTITIONER MAGNESIUM BLOOD STAT 05/04/2024 10:25 PM [employer] PRACTITIONER CBC W AUTO DIFFERENTIAL STAT 05/04/2024 10:25 PM [employer] PRACTITIONER HEMOGLOBIN A1C CONSTANTINE 05/04/2024 10:25 PM [employer] PRACTITIONER OSMOLALITY BLOOD STAT 05/04/2024 10:25 PM [employer] PRACTITIONER GLUCOSE - POINT OF CARE Routine 05/04/2024 10:16 PM [employer] PRACTITIONER XR ABDOMEN KUB PORTABLE STAT 05/04/2024 7:25 PM [employer] PRACTITIONER Altered mental status, unspecified altered mental status type XR CHEST 1VW PORTABLE STAT 05/04/2024 6:50 PM [employer] PRACTITIONER Subarachnoid bleed (HCC) PT EVAL AND TREAT Routine 05/04/2024 6:4 1 PM [employer] PRACTITIONER OT EVAL AND TREAT Routine 05/04/2024 6:4 1 PM [employer] PRACTITIONER PREPARE PLATELET PHERESIS UNIT(S) STAT 05/04/2024 6:19 PM [employer] CT ANGIO BRAIN AND NECK STAT 05/04/2024 5:48 PM [employer] PRACTITIONER Altered mental status, unspecified altered mental status type Elevated troponin Lactic acidosis TEG 6 GLOBAL HEMOSTASIS W/ LYSIS STAT 05/04/2024 5:16 PM [employer] PRACTITIONER TEG 6S PLATELET MAPPING STAT 05/04/2024 5:16 PM [employer] PRACTITIONER LACTIC ACID BLOOD REFLEX TO REPEAT Timed STAT 05/04/2024 5:01 PM [employer] CT HEAD WO CONTRAST STAT 05/04/2024 4 :54 PM [employer] PRACTITIONER Altered mental status, unspecified altered mental status type ED INTUBATION Routine 05/04/2024 4:15 PM [employer] PRACTITIONER T4 FREE STAT 05/04/2024 3:18 PM [employer] PRACTITIONER TSH REFLEX FREE T4 STAT 05/04/2024 3: 18 PM [employer] PRACTITIONER TROPONIN-I HIGH SENSITIVE REFLEX 1HOUR Timed 05/04/2024 3:18 PM [employer] PRACTITIONER BLOOD TYPE VERIFICATION STAT 05/04/2024 3:17 PM [employer] PRACTITIONER SARS-COV-2 (COVID-19) FLU A/B RSV PCR RAPID STAT 05/04/2024 3:13 PM [employer] PRACTITIONER XR CHEST 1VW PORTABLE STAT 05/04/2024 2:18 PM [employer] PRACTITIONER Altered mental status, unspecified altered mental status type TYPE + SCREEN PANEL STAT 05/04/2024 1 :49 PM [employer] PRACTITIONER DIFFERENTIAL MANUAL STAT 05/04/2024 1 :49 PM [employer] PRACTITIONER BLOOD GASES LINDA + COOX PANEL STAT 05/04/2024 1:49 PM [employer] PRACTITIONER PROCALCITONIN LEVEL STAT 05/04/2024 1 :49 PM [employer] PRACTITIONER PTT SLH STAT 05/04/2024 1:49 PM [employer] PRACTITIONER PT-INR SLH STAT 05/04/2024 1:49 PM [employer] PRACTITIONER CK BLOOD STAT 05/04/2024 1:49 PM [employer] PRACTITIONER COMPREHENSIVE METABOLIC PANEL STAT 05/04/2024 1:49 PM [employer] PRACTITIONER CBC W AUTO DIFFERENTIAL STAT 05/04/2024 1:49 PM [employer] PRACTITIONER TROPONIN-I HIGH SENSITIVE BASELINE + 1HR STAT 05/04/2024 1:49 PM [employer] PRACTITIONER LACTIC ACID BLOOD REFLEX TO REPEAT STAT 05/04/2024 1:49 PM [employer] PRACTITIONER CULTURE BLOOD Timed 05/04/2024 1:49 PM [employer] PRACTITIONER CULTURE BLOOD Timed 05/04/2024 1:44 PM [employer] PRACTITIONER EKG 12-LEAD Routine 05/04/2024 1:17 PM [employer] PRACTITIONER Altered mental status, unspecified altered mental status type from Last 3 Months Results * (ABNORMAL) CBC W AUTO DIFFERENTIAL (05/26/2024 1:42 AM [facility] PRACTITIONER) Only the most recent of26 resultswithin the time period is included. WBC 6.4 4.0 - 10.7 x10E9/L 05/26/2024 3:13 AM [facility] RBC Count 4.10 3.90 - 5.20 x10E12/L 05/26/2024 3:13 AM [facility] Hemoglobin 12.1 11.9 - 15.8 g/dL 05/26/2024 3:13 AM [facility] Hematocrit 38.5 34.8 - 46.1 % 05/26/2024 3:13 AM [facility] MCV 93.9 80.0 - 98.0 fL 05/26/2024 3:13 AM [facility] MCH 29.5 26.7 - 33.6 pg 05/26/2024 3:13 AM [facility] MCHC 31.4(L) 31.7 - 36.3 g/dL 05/26/2024 3:13 AM [facility] RDW-CV 14.0 11.3 - 14.8 % 05/26/2024 3:13 AM [facility] Platelet Count 403 150 - 420 x10E9/L 05/26/2024 3:13 AM [facility] MPV 9.1 7.8 - 11.4 fL 05/26/2024 3:13 AM [facility] Neutrophil % 67.0 41.0 - 74.0 % 05/26/2024 3:13 AM [facility] Lymphocyte % 23.3 17.0 - 47.0 % 05/26/2024 3:13 AM [facility] Monocyte % 7.2 3.0 - 11.0 % 05/26/2024 3:13 AM [facility] Eosinophil % 1.4 0.0 - 7.0 % 05/26/2024 3:13 AM [facility] Basophil % 0.8 0.0 - 1.6 % 05/26/2024 3:13 AM [facility] Immature Granulocytes % 0.3 0.0 - 1.0 % 05/26/2024 3:13 AM [facility] Neutrophil Absolute 4.28 1.60 - 7.50 x10E9/L 05/26/2024 3:13 AM [facility] Lymphocyte Absolute 1.49 1.00 - 4.40 x10E9/L 05/26/2024 3:13 AM [facility] Monocyte Absolute 0.46 0.15 - 1.00 x10E9/L 05/26/2024 3:13 AM [facility] Eosinophil Absolute 0.09 0.00 - 0.60 x10E9/L 05/26/2024 3:13 AM [facility] Basophil Absolute 0.05 0.00 - 0.13 x10E9/L 05/26/2024 3:13 AM [facility] Blood BLOOD SPECIMEN / Unknown Lab Venipuncture / Unknown 05/26/2024 1:42 AM [facility] 05/26/2024 3:[address] [facility] Mary Sweeney MD LAB - HEMATOLOGY ORD ERABLES [facility] [address] [place] [id number], [facility] [phone] * (ABNORMAL) BASIC METABOLIC PANEL (CALCIUM TOTAL) (05/26/2024 1:42 AM [employer] PRACTITIONER) Only the most recent of19 resultswithin the time period is included. BUN 22 7 - 26 mg/dL 05/26/2024 3:35 AM [facility] Creatinine 0.55(L) 0.56 - 0.96 mg/dL 05/26/2024 3:35 AM [facility] Sodium 140 136 - 145 mmol/L 05/26/2024 3:35 AM [facility] Potassium 3.8 3.5 - 4.5 mmol/L 05/26/2024 3:35 AM [facility] Chloride 110(H) 98 - 107 mmol/L 05/26/2024 3:35 AM [facility] CO2 17(L) 22 - 29 mmol/L 05/26/2024 3:35 AM [facility] Glucose 96 70 - 99 mg/dL 05/26/2024 3:35 AM [facility] Calcium 9.9 8.4 - 10.2 mg/dL 05/26/2024 3:35 AM [facility] Anion Gap 13 6 - 16 05/26/2024 3:35 AM [facility] BUN/Creatinine Ratio 40(H) 7 - 23 05/26/2024 3:35 AM [facility] Osmolality Calculated 293 275 - 295 mOsm/kg 05/26/2024 3:35 AM [facility] eGFR by CKD-EPI >90 >=90 mL/min/1.7 3 m2 05/26/2024 3:35 AM [facility] Blood BLOOD SPECIMEN / Unknown Lab Venipuncture / Unknown 05/26/2024 1:42 AM [facility] [employer] 05/26/2024 3:13 AM [facility] Mary Sweeney MD LAB - CHEMISTRY MICHELET AYALA [facility] [address] [place] [id number], [facility] [phone] * PHOSPHORUS BLOOD (05/26/2024 1:42 AM [facility]ACT[facility]) Only the most recent of24 resultswithin the time period is included. Phosphorus 3.7 2.9 - 5.1 mg/dL 05/26/2024 3:28 AM [facility] Blood BLOOD SPECIMEN / Unknown Lab Venipuncture / Unknown 05/26/2024 1:42 AM [facility] 05/26/2024 3:13 AM [facility]ACT[facility] Mary Sweeney MD LAB - CHEMISTRY MICHELET AYALA [facility] [address] [place] [address], [facility] [phone] * MAGNESIUM BLOOD (05/26/2024 1:42 AM [facility]ACT[facility]) Only the most recent of25 resultswithin the time period is included. Magnesium 2.1 1.6 - 2.6 mg/dL 05/26/2024 3:28 AM [facility]ACT[facility] Blood BLOOD SPECIMEN / Unknown Lab Venipuncture / Unknown 05/26/2024 1:42 AM [facility]ACT[facility] 05/26/2024 3:13 AM [facility]ACT[facility] Mary Sweeney MD LAB - CHEMISTRY MICHELET AYALA [facility] Organization Address City/State/ZIP Co de Phone Number [facility] [address] [place] [address], [facility] [phone] * CT Head Wo Contrast (05/20/2024 6:02 AM [facility]ACTITION[facility]) Only the most recent of7 resultswithin the time period is included. Anatomical Region Laterality Modality Head Computed Tomogra phy 05/20/2024 6:17 AM [facility] Impressions 05/20/2024 9:19 AM [facility] IMPRESSION: 1. Postoperative changes of interval removal of the right frontal approach EVD and placement placement of right frontal approach ventriculoperitoneal shunt catheter traversing the right lateral ventricle and terminating near the foramen of Manzo. 2. Grossly unchanged ventriculomegaly. 3. 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 4. Grossly unchanged resolving small volume subarachnoid hemorrhage and a small amount of intraventricular hemorrhage narrowing in the occipital horns. Report dictated by Sade Ricci MD (family medicine resident). I, Wes Mcrae MD have personally reviewed and interpreted this examination/study. 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 COMPARISON: Comparison is made with a study from 05/19/2024 FINDINGS: Postsurgical changes of removal of the right frontal approach EVD and placement of right frontal approach ventriculoperitoneal shunt catheter entering the right lateral ventricle terminating near the foramen of Manzo. A small area of pneumocephalus is present in the right temporal lobe, postprocedural. Subcutaneous emphysema and soft tissue monie are present along the catheter track. This bar Anterior communicating artery coil embolization. Evolving small volume subarachnoid hemorrhage. A small amount of intraventricular hemorrhage narrowing in the occipital horns. Grossly unchanged ventriculomegaly with bifrontal diameter measuring 4 cm (series 4, image 19), previously 4.0 cm. An area of hypoattenuation with loss of gallegos-white matter differentiation in the left frontal lobe is unchanged. The basal cisterns are patent. No mass effect or midline shift is seen. Periventricular white matter hypoattenuation is a nonspecific finding that may be indicative of chronic small vessel ischemic disease. There is atherosclerotic calcification of the carotid siphons. Other than mild paranasal sinus disease, the visualized portions of the orbits and mastoids appear normal. Partially visualized enteric tube. Frothy secretions are present in the bilateral sphenoid sinuses. 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 COMPARISON: Comparison is made with a study from 05/19/2024 FINDINGS: Postsurgical changes of removal of the right frontal approach EVD and placement of right frontal approach ventriculoperitoneal shunt catheter entering the right lateral ventricle terminating near the foramen of Manzo. A small area of pneumocephalus is present in the right temporal lobe, postprocedural. Subcutaneous emphysema and soft tissue monie are present along the catheter track. This bar Anterior communicating artery coil embolization. Evolving small volume subarachnoid hemorrhage. A small amount of intraventricular hemorrhage narrowing in the occipital horns. Grossly unchanged ventriculomegaly with bifrontal diameter measuring 4 cm(series 4, image 19), previously 4.0 cm. An area of hypoattenuation with loss of gallegos-white matterdifferentiation in the left frontal lobe is unchanged. The basal cisterns are patent. No mass effect or midline shift is seen. Periventricular white matter hypoattenuation is a nonspecific findingthat may be indicative of chronic small vessel ischemic disease. There is atherosclerotic calcification of the carotid siphons. Other than mild paranasal sinus disease, the visualized portions of the orbits and mastoids appear normal. Partially visualized enteric tube. Frothy secretions are present in the bilateral sphenoid sinuses. IMPRESSION: 1. Postoperative changes of interval removal of the right frontalapproach EVD and placement placement of right frontal approachventriculoperitoneal shunt catheter traversing the right lateral ventricle and terminatingnear the foramen of Manzo. 2. Grossly unchanged ventriculomegaly. 3. Unchanged areas of hypoattenuation with loss of gallegos-white matters differentiation in the left parietal lobe, likely representing anevolving infarct. 4. Grossly unchanged resolving small volume subarachnoid hemorrhage luis alberto small amount of intraventricular hemorrhage narrowing in the occipital horns. Report dictated by Sade Ricci MD (family medicine resident). I, Wes Mcrae MD have personally reviewed and interpreted this examination/study. > Interpreting Provider: Wes Mcrae MD on 05/20/2024 9:19 AM Quintin Gamez MD CT ORDERABLES * (ABNORMAL) PT-INR [facility] (05/20/2024 2:34 AM CHINESE MEDICINE PRACTITIONER) Only the most recent of13 resultswithin the time period is included. PT 16.6(H) 12.1 - 14.8 Seconds 05/20/2024 3:47 AM CHINESE MEDICINE PRACTITIONER [facility] INR 1.3 See Comment 05/20/2024 3:47 AM CHINESE MEDICINE PRACTITIONER [facility] Comment:The suggested therap eutic range for standard coumadin (warfarin) therapy is an INR of 2.0-3.0. For high-risk patients (Mechanical Mitral Valve Prosthesis, etc.), the suggested prophylactic therapeutic range is an INR of 2.5-3.5. Blood BLOOD SPECIMEN / Unknown Venipuncture / Unknown 05/20/2024 2:34 AM CHINESE MEDICINE PRACTITIONER 05/20/2024 2:40 AM CHINESE MEDICINE PRACTITIONER Wally Doshi MD LAB - COAGULATION O RDERABLES [facility] [address] [place] [address], [facility] [phone] * XR Shunt Series (05/19/2024 11:24 AM CHINESE MEDICINE PRACTITIONER) Anatomical Region Laterality Modality Abdomen, Pelvis Digital Radiogra phy 05/19/2024 12:1 9 PM CHINESE MEDICINE PRACTITIONER Impressions 05/20/2024 4:34 AM CHINESE MEDICINE PRACTITIONER IMPRESSION: Intact right parietal approach ventriculoperitoneal shunt catheter. Report dictated by Sumeet Molina MD, (family medicine resident). I, Elaine Lee MD have personally reviewed and interpreted this examination/study. 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 FINDINGS: A right parietal approach ventriculoperitoneal shunt has its intracranial tip terminating near the frontal horn of the right lateral ventricle. The shunt exits through a right parietal khanh hole and courses through the right neck, right chest, right abdomen, and is coiled within the pelvis. Skin monie over the right parietal scalp. A radiolucent valve is noted at the proximal portion just external to the calvarium. There is no mass effect surrounding its termination. No shunt discontinuity is seen. Embolization coil seen at the region of anterior communicating artery. Subsegmental atelectasis of the bilateral lower lungs. No pleural effusion or pneumothorax. The bowel gas pattern is nonobstructive. Enteric tube tip terminates at the stomach. IVC is in place. 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 FINDINGS: A right parietal approach ventriculoperitoneal shunt has itsintracranial tip terminating near the frontal horn of the right lateral ventricle.The shunt exits through a right parietal khanh hole and courses through the right neck, right chest, right abdomen, and is coiled within the pelvis. Skin monie over the right parietal scalp. A radiolucent valve is notedat the proximal portion just external to the calvarium. There is no mass effect surrounding its termination. No shunt discontinuity is seen. Embolization coil seen at the region of anterior communicating artery. Subsegmental atelectasis of the bilateral lower lungs. No pleuraleffusion or pneumothorax. The bowel gas pattern is nonobstructive. Enteric tube tip terminates at the stomach. IVC is in place. IMPRESSION: Intact right parietal approach ventriculoperitoneal shunt catheter. Report dictated by Sumeet Molina MD, (family medicine resident). IElaine MD have personally reviewed and interpreted this examination/study. > Interpreting Provider: Elaine Lee MD on 05/20/2024 4:34 AM Quintin Gamez MD DIAGNOSTIC IMAGING ORDERABLES * ETT LINE PERFORMABLE (05/19/2024 8:56 AM CHINESE MEDICINE PRACTITIONER) Narrative Freddie Medina Anes Asst - 05/19/2024 8:56 AM CHINESE MEDICINE PRACTITIONER Freddie Medina Anes Asst 05/19/2024 8:57 AM Endotracheal Tube Placement: Patient Location: OR. Intubation Event Date/Time: 05/19/2024 8:39 AM Procedure: intubation ([id number]) Procedure Section: Sedation: under general anesthesia. Indications for Airway Management: anesthesia Induction: standard IV Patient Position: sniffing Mask Ventilation: easy. Blade Type: Jasbir Blade Size: 3 Laryngoscopy View: grade 1 (full cords) Intubation Adjuncts: stylet Tube: endotracheal tube Placement: oral Tube type: cuff - inflated Tube Size (MM): 7 Depth of Insertion (CM): 22 Measured From: gums Cuff Inflated With: air Number of Attempts: 1. Placement Verified By: direct visualization, bilateral breath sounds, chest auscultation, CO2 monitor and CO2 detector Tube secured with: adhesive tape. Dentition unchanged? Yes Difficult Airway? No. Procedure Start Time: 05/19/2024 8:39 AM. Staff Section Anesthesia Provider: Freddie Medina Anes Asslisa, Performed the procedure Provider #1: Rob Coronel MD. Provider #2: Teacher Lip Reading, Student Anesthesiology Teacher Lip Reading Student Anesthesiology. Additional Comments: Atraumatic intubation, dentition as in pre-op. Intubated by Husam Eng OTILIA-2. Rob Coronel MD GENERAL ANESTHESI A ORDERABLES * (ABNORMAL) PTT [facility] (05/19/2024 8:19 AM CHINESE MEDICINE PRACTITIONER) Only the most recent of33 resultswithin the time period is included. [facility] APTT 54.3(H) 23.0 - 38.4 Seconds 05/19/2024 9:01 AM CHINESE MEDICINE PRACTITIONER [facility] Comment:Suggested therapeuti c range for full dose I.V. unfractionated heparin therapy for venous thromboembolism is 71 to 109 seconds. Blood BLOOD SPECIMEN / Unknown Venipuncture / Unknown 05/19/2024 8:19 AM CHINESE MEDICINE PRACTITIONER 05/19/2024 8:33 AM CHINESE MEDICINE PRACTITIONER Efraín Kang MD LAB - COAGULATION OR DERABLES [facility] [address] [place] [phone], [facility] [phone] * TYPE + SCREEN PANEL (05/18/2024 11:57 AM CHINESE MEDICINE PRACTITIONER) Only the most recent of2 resultswithin the time period is included. [facility] Antibody Screen NEG 1:27 PM CHINESE MEDICINE PRACTITIONER [facility] B[facility]OD [facility] LAB ABO Rh A POS 05/18/2024 1:27 PM [facility] B[facility] LAB Blood Bank BLOOD SPECIMEN / Unknown Venipuncture / Unknown 05/18/2024 11:57 AM CHINESE MEDICINE PRACTITIONER 05/18/2024 12:17 PM CHINESE MEDICINE PRACTITIONER Efraín Kang MD LAB - BLOOD BANK ORD ERABLES Performing Organization Address City/[facility]/ZIP Co de Phone Number [facility] BLOOD B[facility] LAB [address] [place] [address], [facility] [phone] * DIFFERENTIAL MANUAL CSF (05/18/2024 4:59 AM CHINESE MEDICINE PRACTITIONER) Only the most recent of8 resultswithin the time period is included. Neutrophils % CSF 41 % 05/18/2024 5:56 AM [facility] Lymphocytes % CSF 17 % 05/18/2024 5:56 AM [facility] Monocytes % CSF 42 % 5:56 AM [facility] Total Cell Count CSF 100 x10E6/L 05/18/2024 5:56 AM [facility] Cerebral spinal fluid CEREBROSPINAL FLUID SPECIMEN / Unknown Collection / Unknown 05/18/2024 4:59 AM CHINESE MEDICINE PRACTITIONER 05/18/2024 5:05 AM CHINESE MEDICINE PRACTITIONER Narrative [facility] - 05/18/2024 5:56 AM CHINESE MEDICINE PRACTITIONER No reference ranges established for CSF differential cell counts. The test results must be integrated into the clinical context for interpretation. Esteban Real MD LAB - BODY FLUID ORD ERABLES Performing Organization Address City/[facility]/ZIP Co de Phone Number [facility] [address] [place] [phone], [facility] [phone] * (ABNORMAL) CELL COUNT W DIFFERENTIAL CSF (05/18/2024 4:59 AM CHINESE MEDICINE PRACTITIONER) Only the most recent of8 resultswithin the time period is included. Tube Number NOT APPLICABLE 05/18/2024 5:57 AM [facility] Xanthochromia PRESENT(A) ABSENT 05/18/2024 5:57 AM [facility] CSF Appearance CLEAR 05/18/2024 5:57 AM [facility] CSF Color STRAW 05/18/2024 5:57 AM [facility] Total Nucleated Cells CSF 10(H) <=5 x10E6/L 05/18/2024 5:57 AM [facility] RBC Count CSF 7,000(H) <1 x10E6/L 05/18/2024 5:57 AM [facility] Cerebral spinal fluid CEREBROSPINAL FLUID SPECIMEN / Unknown Collection / Unknown 05/18/2024 4:59 AM CHINESE MEDICINE PRACTITIONER 05/18/2024 5:05 AM CHINESE MEDICINE PRACTITIONER Esteban Real MD LAB - BODY FLUID ORD ERABLES Performing Organization Address City/[facility]/ZIP Co de Phone Number [address] [address], [facility] [phone] * PROTEIN CSF (05/18/2024 4:59 AM CHINESE MEDICINE PRACTITIONER) Only the most recent of8 resultswithin the time period is included. Protein CSF 29 15 - 45 mg/dL 05/18/2024 5:25 AM [facility] Cerebral spinal fluid CEREBROSPINAL FLUID SPECIMEN / Unknown Collection / Unknown 05/18/2024 4:59 AM CHINESE MEDICINE PRACTITIONER 05/18/2024 5:05 AM CHINESE MEDICINE PRACTITIONER Esteban Real MD LAB - BODY FLUID ORD ERABLES [address] [address], [place] [phone] * GLUCOSE CSF (05/18/2024 4:59 AM CHINESE MEDICINE PRACTITIONER) Only the most recent of8 resultswithin the time period is included. Glucose CSF 68 40 - 70 mg/dL 05/18/2024 5:25 AM [facility] Cerebral spinal fluid CEREBROSPINAL FLUID SPECIMEN / Unknown Collection / Unknown 05/18/2024 4:59 AM CHINESE MEDICINE PRACTITIONER 05/18/2024 5:05 AM CHINESE MEDICINE PRACTITIONER Esteban Real MD LAB - BODY FLUID ORD ERABLES Performing Organization Address City/[facility]/ZIP Co de Phone Number [facility] [address] [place] [address], [facility] [phone] * CULTURE CSF+GRAM STAIN (05/17/2024 8:51 AM CHINESE MEDICINE PRACTITIONER) Only the most recent of6 resultswithin the time period is included. Culture No growth LC 05/24/2024 7:40 AM CHINESE MEDICINE PRACTITIONER [facility] MICROBIOLOGY Gram Stain Rare Polymorphonuclear cells 05/24/2024 7:40 AM CHINESE MEDICINE PRACTITIONER [facility] MICRO[facility] Gram Stain Light Red blood cells 05/24/2024 7:40 AM CHINESE MEDICINE PRACTITIONER [facility] MICROBIOLOG[facility] Gram Stain No organisms seen 025 7:40 AM [facility] MICROBIOLOGY Cerebral spinal fluid CEREBROSPINAL FLUID SPECIMEN / Unknown Collection / Unknown 05/17/2024 8:51 AM CHINESE MEDICINE PRACTITIONER 05/17/2024 8:55 AM CHINESE MEDICINE PRACTITIONER Efraín Kang MD LAB - MICROBIOLOGY O RDERABLES Performing Organization Address City/[facility]/ZIP Co de Phone Number [facility] MICROBIOLOGY [address] [place] [address], [facility] [phone] * VAS Bilateral Venous Duplex Ue (05/14/2024 4:35 PM CHINESE MEDICINE PRACTITIONER) Only the most recent of2 resultswithin the time period is included. Anatomical Region Laterality Modality Upper Extremity Intravascular Ul trasound 05/14/2024 4:21 PM CHINESE MEDICINE PRACTITIONER Narrative Procedure Note Candido Dale MD - 05/15/2024 Efraín Kang MD VASCULAR LAB ORDERAB LES * MRSA DNA PCR (05/14/2024 10:38 AM CHINESE MEDICINE PRACTITIONER) Only the most recent of2 resultswithin the time period is included. MRSA DNA by PCR Not detected Not detected 05/14/2024 6:23 PM CHINESE MEDICINE PRACTITIONER [facility] MICRO[facility] Microbiology SPECIMEN FROM NASAL FOSSAE / Unknown Collection / Unknown 05/14/2024 10:38 AM CHINESE MEDICINE PRACTITIONER 05/14/2024 10:41 AM CHINESE MEDICINE PRACTITIONER Narrative [facility] MICROBIOLOGY - 05/14/2024 6:23 PM CHINESE MEDICINE PRACTITIONER Methicillin-resistant Staphylococcus aureus (MRSA) DNA is not detected (presumed not colonized with MRSA). Efraín Kang MD LAB - MICROBIOLOGY O RDERABLES [facility] MICROBIOLOGY [address] [place] [address], [facility] [phone] * XR Chest 1Vw Portable (05/14/2024 9:00 AM CHINESE MEDICINE PRACTITIONER) Only the most recent of19 resultswithin the time period is included. Anatomical Region Laterality Modality Chest Digital Radiogra phy 05/14/2024 8:38 AM CHINESE MEDICINE PRACTITIONER Narrative 05/14/2024 8:44 AM CHINESE MEDICINE PRACTITIONER PROCEDURE: XR CHEST 1VW PORTABLE, DATE/TIME OF EXAM: 05/14/2024 8:19 AM, LOCATION [facility] INDICATION: I60.9: Subarachnoid bleed (HCC) ADDITIONAL CLINICAL INFORMATION: Ordering Provider Reason For Exam: post chest tube removal COMPARISON: Chest radiograph from 05/13/2024. FINDINGS/IMPRESSION: Tubes, lines, and hardware: *Left subclavian approach central venous catheter terminates in the superior vena cava. *Nasogastric/orogastric tube courses midline and below the diaphragm terminates outside of the [id number]. Bibasilar atelectasis, left more than right, similar to prior exam. There is no pleural effusion or pneumothorax. The cardiomediastinal silhouette is stable. The visible bony thorax is intact. The report was drafted by Katerin Holguin MD (radiology resident) 05/14/2024 8:38 AM. IElaine MD have personally reviewed and interpreted this examination/study. > Interpreting Provider: Elaine Lee MD on 05/14/2024 8:44 AM Procedure Note Elaine Lee MD - 05/14/2024 PROCEDURE: XR CHEST 1VW PORTABLE, DATE/TIME OF EXAM: 05/14/2024 8:19 AM, LOCATION [facility] INDICATION: I60.9: Subarachnoid bleed (HCC) ADDITIONAL CLINICAL INFORMATION: Ordering Provider Reason For Exam: post chest tube removal COMPARISON: Chest radiograph from 05/13/2024. FINDINGS/IMPRESSION: Tubes, lines, and hardware: *Left subclavian approach central venous catheter terminates in the superior vena cava. *Nasogastric/orogastric tube courses midline and below the diaphragm terminates outside of the [id number]. Bibasilar atelectasis, left more than right, similar to prior exam. There is no pleural effusion or pneumothorax. The cardiomediastinal silhouette is stable. The visible bony thorax is intact. The report was drafted by Katerin Holguin MD (radiology resident) 05/14/2024 8:38 AM. Elaine Razo MD have personally reviewed and interpreted this examination/study. > Interpreting Provider: Elaine Lee MD on 05/14/2024 8:44 AM Efraín Kang MD DIAGNOSTIC IMAGING O RDERABLES * CT Angio Chest Pulm Embolism (05/12/2024 5:24 PM CHINESE MEDICINE PRACTITIONER) Anatomical Region Laterality Modality Chest Computed Tomogra phy 05/12/2024 5:39 PM CHINESE MEDICINE PRACTITIONER Impressions 05/12/2024 9:07 PM CHINESE MEDICINE PRACTITIONER Impression: 1.No evidence of acute pulmonary embolism. Previously noted pulmonary emboli in the segmental and subsegmental upper lobe branches are no longer visible. 2.Complete atelectasis of the left lower lobe and near complete atelectasis of the right lower lobe. Debris is present in right lower lobe bronchi consistent with aspiration. Infection is not excluded. > Dictated by Beverley George MD (family medicine resident). Bridger Razo MD have personally reviewed and interpreted this examination/study. > Interpreting Provider: Bridger Sultana MD on 05/12/2024 9:07 PM Narrative 05/12/2024 9:07 PM CHINESE MEDICINE PRACTITIONER PROCEDURE: CT ANGIO CHEST PULM EMBOLISM, DATE/TIME OF EXAM: 05/12/2024 5:25 PM, LOCATION [facility] INDICATION: I60.9: Subarachnoid bleed (HCC) ADDITIONAL CLINICAL INFORMATION: Ordering Provider Reason For Exam: New PE Technologist Note: Additional: COMPARISON: CT angiogram 05/05/2024. TECHNIQUE: CT angiography of the chest was performed with IV contrast. MIP (maximum intensity projection) images or 3D post processing CTA image reconstruction was performed. CT dose reduction technique was used including Automated Exposure Control. Multiplanar reconstructions were created. Findings: Study Quality This examination for the diagnosis of pulmonary embolism is adequate Pulmonary Arteries: No evidence of acute pulmonary embolism. Previously noted pulmonary emboli in the segmental and subsegmental upper lobe branches are no longer visible. Thoracic Vasculature: No vascular abnormality is present. Lower Neck and Axillae: Normal. Lungs: Complete atelectasis of the left lower lobe and near complete atelectasis of the right lower lobe. Debris is present in right lower lobe bronchi. No pleural fluid or pneumothorax. Heart and Pericardium: The cardiac chambers are normal in size. No pericardial fluid or thickening is present. Mediastinum and Sandra: No enlarged lymph nodes are present. Air and fluid is present within the esophagus. An enteric tube is present. Bones and Chest Wall: Bone windows demonstrate no suspicious lytic or blastic lesions. The visible osseous structures are intact. Upper Abdomen: The visible portions of the upper abdominal organs are normal. Procedure Note Bridger Sultana MD - 05/12/2024 PROCEDURE: CT ANGIO CHEST PULM EMBOLISM, DATE/TIME OF EXAM: :25 PM, LOCATION [facility] INDICATION: I60.9: Subarachnoid bleed (HCC) ADDITIONAL CLINICAL INFORMATION: Ordering Provider Reason For Exam: New PE Technologist Note: Additional: COMPARISON: CT angiogram 05/05/2024. TECHNIQUE: CT angiography of the chest was performed with IV contrast.MIP (maximum intensity projection) images or 3D post processing CTA image reconstruction was performed. CT dose reduction technique was used including Automated Exposure Control. Multiplanar reconstructions were created. Findings: Study Quality This examination for the diagnosis of pulmonary embolism is adequate Pulmonary Arteries: No evidence of acute pulmonary embolism. Previously noted pulmonaryemboli in the segmental and subsegmental upper lobe branches are no longer visible. Thoracic Vasculature: No vascular abnormality is present. Lower Neck and Axillae: Normal. Lungs: Complete atelectasis of the left lower lobe and near completeatelectasis of the right lower lobe. Debris is present in right lower lobe bronchi.No pleural fluid or pneumothorax. Heart and Pericardium: The cardiac chambers are normal in size. No pericardial fluid orthickening is present. Mediastinum and Sandra: No enlarged lymph nodes are present. Air and fluid is present within the esophagus. An enteric tube ispresent. Bones and Chest Wall: Bone windows demonstrate no suspicious lytic or blastic lesions. The visible osseous structures are intact. Upper Abdomen: The visible portions of the upper abdominal organs are normal. Impression: 1.No evidence of acute pulmonary embolism. Previously noted pulmonary emboli in the segmental and subsegmental upper lobe branches are nolonger visible. 2.Complete atelectasis of the left lower lobe and near completeatelectasis of the right lower lobe. Debris is present in right lower lobe bronchi consistent with aspiration. Infection is not excluded. > Dictated by Beverley George MD (family medicine resident). I, Bridger Sultana MD have personally reviewed and interpreted this examination/study. > Interpreting Provider: Bridger Sultana MD on 05/12/2024 9:07PM Efraín Kang MD CT ORDERABLES * (ABNORMAL) BLOOD GASES ART + COOX PANEL (05/12/2024 3:45 PM CHINESE MEDICINE PRACTITIONER) Only the most recent of9 resultswithin the time period is included. pH Arterial 7.53(H) 7.35 - 7.45 pH 05/12/2024 3:47 PM [facility] pO2 Arterial 76(L) 80 - 100 mmHg 05/12/2024 3:47 PM [facility] pCO2 Arterial 26(L) 35 - 45 mmHg 3:47 PM [facility] HCO3 Arterial 21.7 20.0 - 30.0 mmol/L 05/12/2024 3:47 PM [facility] BE Arterial 0.1 -2.0 - 2.0 mmol/L 05/12/2024 3:47 PM [facility] Oxyhemoglobin Arterial 95.3 % 05/12/2024 3:47 PM [facility] Dexoyhemoglobin (HHB) % 1.9 % 05/12/2024 3:47 PM [facility] Methemoglobin 1.2 0.0 - 2.0 % 05/12/2024 3:47 PM [facility] Carboxyhemoglobin 1.6 0.0 - 2.0 % 2024 3:47 PM [facility] O2 Content Arterial 16.3 Interpret within clinical context ml/dL 05/12/2024 3:47 PM [facility] Hemoglobin by COOX 12.1 12.0 - 15.6 g/dL 05/12/2024 3:47 PM [facility] O2 Saturation Arterial 98 90 - 100 % 05/12/2024 3:47 PM [facility] FI O2 Arterial 36.0 % 05/12/2024 3:47 PM [facility] Comment:3L Blood, arterial ARTERIAL BLOOD SPECIMEN / Unknown 05/12/2024 3:45 PM [facility] MEDICINE PRACTITIONER 05/12/2024 3:45 PM [facility] - 05/12/2024 3:[address] [facility] Carboxyhemoglobin Normal Concentration: Non-smokers: 0-2%; Smokers: 0-9%; Toxic: >20% Efraín Kang MD LAB - BLOOD GASES OR DERABLES [facility] [address] [place] [address], [facility] [phone] * CT Angio Brain (05/12/2024 5:36 AM CHINESE MEDICINE PRACTITIONER) Anatomical Region Laterality Modality Head Computed Tomogra phy 05/12/2024 9:36 AM [facility] MEDICINE PRACTITIONER Impressions 05/12/2024 10:28 AM [facility]INESE MEDICINE PRACTITIONER IMPRESSION: 1.Multi compartmental hemorrhage, as above, with intervally decreased subarachnoid blood and blood adjacent to the ventricular catheter. Small amount of layering blood product in the bilateral lateral ventricles are again seen. Diffuse cerebral edema with mass effect on bilateral sulci and mild effacement of basal cisterns. 2.Mild interval increase in ventricle size of bilateral lateral, third fourth ventricle, which may be seen with nonobstructive hydrocephalus. Please correlate clinically. Follow-up head CT is recommended to monitor interval change. 3.No large arterial occlusions or significant stenoses identified in the head. However, there appears to be mildly decreased caliber of the distal branches of the bilateral medial and posterior cerebral arteries, which may represent some degree of vasospasm. 4.Status post anterior communicating artery aneurysm embolization. No evidence of recurrent aneurysm > Dictated by Ousmane Burnham MD (family medicine resident). I, Wes Mcrae MD have personally reviewed and interpreted this examination/study. > Interpreting Provider: Wes Mcrae MD on 05/12/2024 10:28 AM Narrative 05/12/2024 10:28 [address] [facility] [employer] CT ANGIO BRAIN DATE: 05/12/2024 5:37 AM EXAMINATION: Computed tomographic (CT) angiography of the head without and with contrast HISTORY: I60.9: Subarachnoid bleed (HCC) TECHNIQUE: CT of the head was performed without contrast according to standard protocol. Then CT angiography of the head was obtained after the uneventful administration of 75 mL Isovue-370 intravenous contrast. Three dimensional postprocessing was performed by the technologist and sent to the workstation for review. COMPARISON: CT head dated 05/10/[address] angiogram dated 05/05/2024 FINDINGS: Non-angiographic findings: There is a right frontal approach ventricular catheter terminates in the third ventricle. Small amount of layering blood product seen in the occipital horns of bilateral lateral ventricles. There is redemonstration of embolization coil in the region of anterior comminuting artery. Streak artifact obscures adjacent structures. There is intervally mildly decreased subarachnoid blood in bilateral cerebral sulci, basal cistern and sylvian fissures. Small amount of blood, intervally decreased since prior study is adjacent to the catheter. There is interval increase in size of bilateral lateral and the third ventricles, and fourth ventricle, which may be seen with increased obstructive hydrocephalus. There is mild effacement of basilar cisterns, not significantly changed since prior study. There is generalized edema with effacement of bilateral sulci. No significant midline shift is seen. Periventricular white matter hypoattenuation is indicative of chronic small vessel ischemic disease. There is vascular calcification of the carotid siphons. Other than mild paranasal sinus disease, the visualized portions of the orbits, paranasal sinuses, and mastoids appear normal. No acute fracture is identified. Angiographic findings: There is atherosclerotic disease involving the distal internal carotid arteries without significant focal stenosis. Other than the addition coil at the anterior, indicating artery, the anterior and middle cerebral arteries appear patent. The distal vertebral arteries appear patent. The basilar artery and posterior cerebral arteries appear patent. However, there appears to be mildly decreased caliber of the distal branches of the bilateral medial and posterior cerebral arteries, which may represent some degree of vasospasm. Procedure Note Wes Mcrae MD - 05/12/2024 CT ANGIO BRAIN DATE: 05/12/2024 5:37 AM EXAMINATION: Computed tomographic (CT) angiography of the head withoutand with contrast HISTORY: I60.9: Subarachnoid bleed (HCC) TECHNIQUE: CT of the head was performed without contrast according to standard protocol. Then CT angiography of the head was obtained afterthe uneventful administration of 75 mL Isovue-370 intravenous contrast.Three dimensional postprocessing was performed by the technologist and sent to the workstation for review. COMPARISON: CT head dated 05/10/[address] angiogram dated 05/05/2024 FINDINGS: Non-angiographic findings: There is a right frontal approach ventricular catheter terminates in the third ventricle. Small amount of layering blood product seen in the occipital horns of bilateral lateral ventricles. There isredemonstration of embolization coil in the region of anterior comminuting artery.Streak artifact obscures adjacent structures. There is intervally mildlydecreased subarachnoid blood in bilateral cerebral sulci, basal cistern andsylvian fissures. Small amount of blood, intervally decreased since prior studyis adjacent to the catheter. There is interval increase in size ofbilateral lateral and the third ventricles, and fourth ventricle, which may beseen with increased obstructive hydrocephalus. There is mild effacement of basilar cisterns, not significantly changed since prior study. There is generalized edema with effacement of bilateral sulci. No significant midline shift is seen. Periventricular white matter hypoattenuation is indicative of chronic small vessel ischemic disease. There is vascular calcification of the carotid siphons. Other than mild paranasal sinus disease, the visualized portions of the orbits, paranasal sinuses, and mastoids appear normal. No acute fractureis identified. Angiographic findings: There is atherosclerotic disease involving the distal internal carotid arteries without significant focal stenosis. Other than the additioncoil at the anterior, indicating artery, the anterior and middle cerebral arteries appear patent. The distal vertebral arteries appear patent. The basilar artery and posterior cerebral arteries appear patent. However, there appears to be mildly decreased caliber of the distal branches ofthe bilateral medial and posterior cerebral arteries, which may representsome degree of vasospasm. IMPRESSION: 1.Multi compartmental hemorrhage, as above, with intervally decreased subarachnoid blood and blood adjacent to the ventricular catheter. Small amount of layering blood product in the bilateral lateral ventricles are again seen. Diffuse cerebral edema with mass effect on bilateral sulciand mild effacement of basal cisterns. 2.Mild interval increase in ventricle size of bilateral lateral, third fourth ventricle, which may be seen with nonobstructive hydrocephalus. Please correlate clinically. Follow-up head CT is recommended to monitor interval change. 3.No large arterial occlusions or significant stenoses identified in the head. However, there appears to be mildly decreased caliber of thedistal branches of the bilateral medial and posterior cerebral arteries, whichmay represent some degree of vasospasm. 4.Status post anterior communicating artery aneurysm embolization. No evidence of recurrent aneurysm > Dictated by Ousmane Burnham MD (family medicine resident). I, Wes Mcrae MD have personally reviewed and interpreted this examination/study. > Interpreting Provider: Wes Mcrae MD on 05/12/2024 10:28 AM Wally Doshi MD CT ORDERABLES * XR Abdomen Kub Portable (05/10/2024 12:14 PM [facility]ESE MEDICINE PRACTITIONER) Only the most recent of2 resultswithin the time period is included. Anatomical Region Laterality Modality Abdomen Digital Radiogra phy 05/10/2024 12:2 0 PM [facility]ESE MEDICINE PRACTITIONER Narrative 05/10/2024 12:22 PM [facility]ESE MEDICINE PRACTITIONER PROCEDURE: XR ABDOMEN KUB PORTABLE DATE/TIME OF EXAM: 05/10/2024 12:14 PM CLINICAL INFORMATION: None relevant/not provided if blank. Indication: I60.9: Subarachnoid bleed (HCC) Additional History: Dobbhoff feeding tube placement COMPARISON: AP chest and upper abdomen dated 05/04/2024 performed at 1903 hours FINDINGS: AP view of the upper abdomen demonstrates interval removal of the nasogastric tube and placement of a Dobbhoff feeding tube which appears to be coiling within the body and fundus of the stomach. An inferior vena cava filter is seen extending from L2 to the L3-L4 levels. The visualized bowel gas pattern was without concerning abnormality. > Interpreting Provider: Ming Benitez MD on 05/10/2024 12:22 PM Procedure Note Ming Benitez MD - 05/10/2024 PROCEDURE: XR ABDOMEN KUB PORTABLE DATE/TIME OF EXAM: 05/10/2024 12:14 PM CLINICAL INFORMATION: None relevant/not provided if blank. Indication: I60.9: Subarachnoid bleed (HCC) Additional History: Dobbhoff feeding tube placement COMPARISON: AP chest and upper abdomen dated 05/04/2024 performed at 1903 hours FINDINGS: AP view of the upper abdomen demonstrates interval removal ofthe nasogastric tube and placement of a Dobbhoff feeding tube which appearsto be coiling within the body and fundus of the stomach. An inferior vena cava filter is seen extending from L2 to the L3-K6viyijb. The visualized bowel gas pattern was without concerning abnormality. > Interpreting Provider: Ming Benitez MD on 05/10/2024 12:22 PM Wally Doshi MD DIAGNOSTIC IMAGING ORDERABLES * (ABNORMAL) SODIUM BLOOD (05/09/2024 3:45 AM [facility] MEDICINE PRACTITIONER) Only the most recent of18 resultswithin the time period is included. Sodium 146(H) 136 - 145 mmol/L 05/09/2024 4:48 AM CHINESE MEDICINE PRACTITIONER [facility] Blood BLOOD SPECIMEN / Unknown Venipuncture / Unknown 05/09/2024 3:45 AM [facility] MEDICINE PRACTITIONER 05/09/2024 4:10 AM [facility]ESE MEDICINE PRACTITIONER Wally Doshi MD LAB - CHEMISTRY ORD ERABLES [address] [address], [facility] [phone] * (ABNORMAL) OSMOLALITY BLOOD (05/09/2024 3:45 AM [facility]ESE MEDICINE PRACTITIONER) Only the most recent of19 resultswithin the time period is included. Osmolality 298(H) 275 - 295 mOsm/kg 05/09/2024 4:51 AM [facility]INESE MEDICINE PRACTITIONER [facility] Blood BLOOD SPECIMEN / Unknown Venipuncture / Unknown 05/09/2024 3:45 AM [facility] MEDICINE PRACTITIONER 05/09/2024 4:10 AM [facility] MEDICINE PRACTITIONER Wally Doshi MD LAB - CHEMISTRY ORD ERABLES Performing Organization Address City/[facility]/ZIP Co de Phone Number [facility] [address] [place] [address], [place] [phone] * (ABNORMAL) GLUCOSE - POINT OF CARE (05/09/2024 12:12 AM CH[facility]ESE MEDICINE PRACTITIONER) Only the most recent of17 resultswithin the time period is included. Glucose WB/POC 129(H) 70 - 99 mg/dL 05/09/2024 12:16 AM CHINESE MEDICINE PRACTITIONER [facility] Specimen Type Arterial 05/09/2024 12:16 AM CHINESE MEDICINE PRACTITIONER [facility] Blood BLOOD SPECIMEN / Unknown 05/09/2024 12:12 AM CHINESE MEDICINE PRACTITIONER 05/09/2024 12:16 AM [facility]ESE MEDICINE PRACTITIONER Wally Doshi MD LAB - POINT OF CARE ORDERABLES Performing Organization Address [facility]/ZIP Co de Phone Number [address] [address], [place] [phone] * TRIGLYCERIDES BLOOD (05/09/2024 12:12 AM CHINESE MEDICINE PRACTITIONER) Triglycerides 132 <150 mg/dL 05/09/2024 12:47 AM CHINESE MEDICINE PRACTITIONER [facility] Comment: ATP III Classification of Triglycerides: <150 mg/dL: Normal 150 - 199 mg/dL: Borderline High 200 - 400 mg/dL: High >500 mg/dL: Very High Blood BLOOD SPECIMEN / Unknown Venipuncture / Unknown 05/09/2024 12:12 AM CH[facility]ESE MEDICINE PRACTITIONER 05/09/2024 12:17 AM CH[facility]ESE MEDICINE PRACTITIONER Wally Doshi MD LAB - CHEMISTRY ORD ERABLES [address] [address], [place] [phone] * (ABNORMAL) COMPREHENSIVE METABOLIC PANEL (05/09/2024 12:[address] [facility]) Only the most recent of6 resultswithin the time period is included. BUN 17 7 - 26 mg/dL 05/09/2024 12:47 AM [facility] Creatinine 0.57 0.56 - 0.96 mg/dL 05/09/2024 12:47 AM [facility] Sodium 146(H) 136 - 145 mmol/L 05/09/2024 12:47 AM [facility] Potassium 3.5 3.5 - 4.5 mmol/L 05/09/2024 12:47 AM [facility] Chloride 115(H) 98 - 107 mmol/L 05/09/2024 12:47 AM [facility] CO2 24 22 - 29 mmol/L 05/09/2024 12:47 AM [facility] Glucose 130(H) 70 - 99 mg/dL 05/09/2024 12:47 AM [facility] Calcium 8.5 8.4 - 10.2 mg/dL 05/09/2024 12:47 AM [facility] Protein Total 6.1 6.0 - 8.3 g/dL 05/09/2024 12:47 AM [facility] Albumin 2.5(L) 3.4 - 5.0 g/dL 05/09/2024 12:47 AM [facility] Bilirubin Total 0.4 0.2 - 1.2 mg/dL 05/09/2024 12:47 AM [facility] Alkaline Phosphatase 85 40 - 150 U/L 05/09/2024 12:47 AM [facility] ALT 31 5 - 55 U/L 05/09/2024 12:47 AM [facility] AST 28 5 - 34 U/L 05/09/2024 12:47 AM [facility] Anion Gap 7 6 - 16 05/09/2024 12:47 AM [facility] BUN/Creatinine Ratio 30(H) 7 - 23 05/09/2024 12:47 AM [facility] Osmolality Calculated 305(H) 275 - 295 mOsm/kg 05/09/2024 12:47 AM [facility] Albumin/Globulin Ratio 0.7(L) 1.1 - 2.3 05/09/2024 12:47 AM CHINESE MEDICINE PRACTITIONER [facility] eGFR by CKD-EPI >90 >=90 mL/min/1.7 3 m2 05/09/2024 12:47 AM CHINESE MEDICINE PRACTITIONER [facility] Blood BLOOD SPECIMEN / Unknown Venipuncture / Unknown 05/09/2024 12:12 AM CH[facility] MEDICINE PRACTITIONER 05/09/2024 12:17 AM CHIN[facility] MEDICINE PRACTITIONER Wally Doshi MD LAB - CHEMISTRY ORD ERABLES [facility] [address] [place] [address], [facility] [phone] * VAS Transcranial Doppler Comp (05/08/2024 5:43 PM CHINESE MEDICINE PRACTITIONER) Only the most recent of2 resultswithin the time period is included. Anatomical Region Laterality Modality Head Intravascular Ul trasound 05/08/2024 4:00 PM CHINESE MEDICINE PRACTITIONER Narrative Procedure Note Esteban Real MD - 05/09/2024 Esteban Real MD VASCULAR LAB ORDERAB LES * VAS Bilateral Venous Duplex Le (05/07/2024 5:41 PM CHINESE MEDICINE PRACTITIONER) Anatomical Region Laterality Modality Lower Extremity Intravascular Ul trasound 05/07/2024 4:37 PM CHINESE MEDICINE PRACTITIONER Narrative Procedure Note Philip Babb MD - 05/08/2024 Wally Doshi MD VASCULAR LAB ORDERA BLES * IR IVC Filter Placement (05/07/2024 12:35 PM CHINESE MEDICINE PRACTITIONER) Anatomical Region Laterality Modality Abdomen X-Ray Angiograph y 05/07/2024 12:5 3 PM CHINESE MEDICINE PRACTITIONER Impressions 05/07/2024 1:06 PM CHINESE MEDICINE PRACTITIONER Impression: A Option Elite IVC filter was placed below the level of renal veins, via right common femoral vein, under fluoroscopic guidance as described above. Note: It is recommended to retrieve the temporary IVC filter within 3 months, if it is no longer needed. I Dr. Becki Ortiz performed/was present throughout the procedure . > Interpreting Provider: Becki Ortiz MD on 05/07/2024 1:06 PM Narrative 05/07/2024 1:06 PM CHINESE MEDICINE PRACTITIONER History: 64-year-old female with history of cerebral aneurysm rupture and subarachnoid hemorrhage status post coiling found to have PE, presenting for IVC filter placement. Operators: 1.Dr. Ortiz, Attending Physician Anesthesia: 1.Local anesthesia - 10 ml of 1 % lidocaine 2.Intravenous analgesia (Fentanyl 50 mcg). Procedure: 1.Ultrasound-guided access of right internal jugular vein. 2.Inferior venacavogram. 3.Deployment of a Option Elite filter below the level of renal veins. 4. Ultrasound-guided access of right common femoral vein. 5. Retrieval of an infrarenal option Elite inferior vena cava filter under fluoroscopic guidance. 6. Deployment of an Option Elite filter below the level of the renal veins. Start time:11:29 End Time: 12:10 Fluoroscopic time: 4.1 minute Contrast: 35 mL of Isovue-300 Procedure in detail: The procedure, risks and possible complications were explained to the patient in detail, and an informed consent was obtained. The patient was placed supine on the angiographic table. The right neck and groin were prepped and draped in the usual sterile manner. A coke handling supervisor film of abdomen was obtained, which was unremarkable . The vital signs of the patient were monitored by a qualified Radiology Nurse throughout the procedure. Limited ultrasound of right neck demonstrated a patent and compressible right internal jugular vein. A gallegos scale image was documented. After instillation with 1 % local lidocaine, a small incision was made in the right lower neck. Under real time ultrasound guidance, using a micropuncture needle, the right internal jugular vein was accessed. The needle entry was documented on gallegos scale ultrasound imaging. Following a series of exchanges, a 0.035 inch wire was advanced through the right atrium into the left external iliac vein.The Option Elite vascular sheath was placed within the left external iliac vein and inferior venacavogram was obtained. The study revealed patent IVC without any clot burden or congenital abnormality. The level of both renal veins was studied. No obvious renal vein abnormality was detected. A Option Elite IVC filter was deployed below the level of renal veins. Given suboptimal positioning of filter, decision was made to retrieve the filter. Limited ultrasound of right groin demonstrated a patent and compressible right common femoral vein. A gallegos scale image was documented. After instillation with 1 % local lidocaine, a small incision was made in the groin at the entry site. Under real time ultrasound guidance, using a micropuncture needle, the right common femoral vein was accessed. The needle entry was documented on gallegos scale ultrasound imaging. Following a series of exchanges, a 0.035 inch wire was advanced into the IVC.Following serial dilation, the Argon filter retrieval system was advanced into the IVC. The hook of the IVC filter was then snared and the IVC filter was retrieved in total. Subsequently, through the right common femoral vein sheath, a new Option Elite IVC filter was deployed in satisfactory position below the level of renal veins. The sheaths were removed and hemostasis was achieved with manual compression. Sterile dressings were applied. There were no immediate complications associated with the procedure. The patient tolerated the procedure well. The patient was transferred to holding area in stable condition. Procedure Note Becki Ortiz, - 05/07/2024 History: 64-year-old female with history of cerebral aneurysm ruptureand subarachnoid hemorrhage status post coiling found to have PE, presenting for IVC filter placement. Operators: 1.Dr. Ortiz, Attending Physician Anesthesia: 1.Local anesthesia - 10 ml of 1 % lidocaine 2.Intravenous analgesia (Fentanyl 50 mcg). Procedure: 1.Ultrasound-guided access of right internal jugular vein. 2.Inferior venacavogram. 3.Deployment of a Option Elite filter below the level of renal veins. 4. Ultrasound-guided access of right common femoral vein. 5. Retrieval of an infrarenal option Elite inferior vena cava filterunder fluoroscopic guidance. 6. Deployment of an Option Elite filter below the level of the renalveins. Start time:11:29 End Time: 12:10 Fluoroscopic time: 4.1 minute Contrast: 35 mL of Isovue-300 Procedure in detail: The procedure, risks and possible complicationswere explained to the patient in detail, and an informed consent wasobtained. The patient was placed supine on the angiographic table. The right neckand groin were prepped and draped in the usual sterile manner. A coke handling supervisor filmof abdomen was obtained, which was unremarkable . The vital signs of the patient were monitored by a qualified Radiology Nurse throughout the procedure. Limited ultrasound of right neck demonstrated a patent and compressible right internal jugular vein. A gallegos scale image was documented. After instillation with 1 % local lidocaine, a small incision was made in the right lower neck. Under real time ultrasound guidance, using a micropuncture needle, the right internal jugular vein was accessed. The needle entry was documented on gallegos scale ultrasound imaging. Followinga series of exchanges, a 0.035 inch wire was advanced through the right atrium into the left external iliac vein.The Option Elite vascularsheath was placed within the left external iliac vein and inferior venacavogram was obtained. The study revealed patent IVC without any clot burden or congenital abnormality. The level of both renal veins was studied. No obvious renal vein abnormality was detected. A Option Elite IVC filterwas deployed below the level of renal veins. Given suboptimal positioning of filter, decision was made to retrieve the filter. Limited ultrasound of right groin demonstrated a patent andcompressible right common femoral vein. A gallegos scale image was documented. After instillation with 1 % local lidocaine, a small incision was made in the groin at the entry site. Under real time ultrasound guidance, using a micropuncture needle, the right common femoral vein was accessed. The needle entry was documented on gallegos scale ultrasound imaging. Followinga series of exchanges, a 0.035 inch wire was advanced into theIVC.Following serial dilation, the Argon filter retrieval system was advanced into the IVC. The hook of the IVC filter was then snared and the IVC filter was retrieved in total. Subsequently, through the right common femoral vein sheath, a new Option Elite IVC filter was deployed in satisfactoryposition below the level of renal veins. The sheaths were removed and hemostasis was achieved with manual compression. Sterile dressings were applied. There were no immediate complications associated with the procedure. The patient tolerated the procedure well. The patient was transferred to holding area in stable condition. Impression: A Option Elite IVC filter was placed below the level ofrenal veins, via right common femoral vein, under fluoroscopic guidance as described above. Note: It is recommended to retrieve the temporary IVC filter within 3 months, if it is no longer needed. I Dr. Becki Ortiz performed/was present throughout the procedure . > Interpreting Provider: Becki Ortiz MD on 05/07/2024 1:06 PM Efraín Brambila PA-C IR ORDERABLES * CARDIAC EKG ORDER (05/07/2024 11:51 AM CHINESE MEDICINE PRACTITIONER) Narrative 05/07/2024 11:51 AM CHINESE MEDICINE PRACTITIONER Ordered by an unspecified provider. Scanned Document CARDIAC SERVICES ORD ERABLES * LACTIC ACID BLOOD REFLEX TO REPEAT (05/07/2024 9:19 AM CHINESE MEDICINE PRACTITIONER) Only the most recent of3 resultswithin the time period is included. Lactic Acid-Stat 1.1 <=2.0 mmol/L 05/07/2024 9:52 AM CHINESE MEDICINE PRACTITIONER [facility] Blood BLOOD SPECIMEN / Unknown Venipuncture / Unknown 05/07/2024 9:19 AM CHINESE MEDICINE PRACTITIONER 05/07/2024 9:26 AM CHINESE MEDICINE PRACTITIONER You Reagan MD LAB - CHEMISTR Y ORDERABLES [address] [address], [facility] [phone] * PATHOLOGY SMEAR BODY FLUID (05/07/2024 9:08 AM CHINESE MEDICINE PRACTITIONER) Path Review Fluid Confirmed 05/07/2024 4:44 PM CHINESE MEDICINE PRACTITIONER [facility] Cerebral spinal fluid CEREBROSPINAL FLUID SPECIMEN / Unknown Collection / Unknown 05/07/2024 9:08 AM CHINESE MEDICINE PRACTITIONER 05/07/2024 9:24 AM CHINESE MEDICINE PRACTITIONER Narrative [facility] - 05/07/2024 4:44 PM CHINESE MEDICINE PRACTITIONER Many neutrophils, scattered monocytes, and lymphocytes. Red blood cells Hali Bar APRN-[employer] AUDITOR LAB - PATHOLOGY /CYTOLOGY ORDERABLES [address] [address], [employer] [phone] * (ABNORMAL) DIFFERENTIAL MANUAL (05/07/2024 4:12 AM CHINESE MEDICINE PRACTITIONER) Only the most recent of7 resultswithin the time period is included. Neutrophil % 90(H) 41 - 74 % 05/07/2024 5:23 AM [facility] Lymphocyte % 9(L) 17 - 47 % 05/07/2024 5:23 AM [facility] Monocyte % 1(L) 3 - 11 % 05/07/2024 5:23 AM [facility] Neutrophil Absolute 9.90(H) 1.60 - 7.50 x10E9/L 05/07/2024 5:23 AM [facility] Lymphocyte Absolute 0.99(L) 1.00 - 4.40 x10E9/L 05/07/2024 5:23 AM [facility] Monocyte Absolute 0.11(L) 0.15 - 1.00 x10E9/L 05/07/2024 5:23 AM [facility] RBC Morphology REVIEWED 05/07/2024 5:23 AM [facility] Moore Cells MODERATE(A) (none) 05/07/2024 5:23 AM [facility] Dohle Bodies PRESENT(A) (none) 05/07/2024 5:23 AM [facility] Blood BLOOD SPECIMEN / Unknown Venipuncture / Unknown 05/07/2024 4:12 AM [facility] 05/07/2024 4:25 AM [facility]ACT[facility] Kwabena Huffman APRN-CITY [employer] AUDITOR LAB - HEMATOLO GY ORDERABLES Performing Organization Address City/[facility]/ZIP Co de Phone Number [address] [address], [facility] [phone] * VANCOMYCIN LEVEL RANDOM (05/06/2024 11:43 PM [facility] MEDICINE PRACTITIONER) Vancomycin Random 5.0 Therapeutic Ranges not established for random specimens ug/mL 05/07/2024 12:48 AM [facility] MEDICINE PRACTITIONER [facility] Blood BLOOD SPECIMEN / Unknown Venipuncture / Unknown 05/06/2024 11:43 PM [facility] MEDIC[facility] PRACTITIONER 05/07/2024 12:04 AM [facility]ESE MEDICINE PRACTITIONER Narrative [facility] - 05/07/2024 12:48 AM [facility] MEDIC[facility] PRACTITIONER See institution protocol. Wally Doshi MD LAB - CHEMISTRY ORD ERABLES [address] [place] [address] [phone] * BRONCHOSCOPY (05/06/2024 3:52 PM CHINESE MEDICINE PRACTITIONER) Narrative [facility] - 05/06/2024 3:52 PM [facility] MEDICINE PRACTITIONER Lalo Nesbitt MD 05/06/2024 4:24 PM FIBER[facility]IC BRONCHOSCOPY PROCEDURE NOTE Patient: Leighann Thomas Date: 05/06/24 A time out was held prior to initiating the procedure Indication: Large amount of inline secretion, increased FiO2 requirement Consent: Bronchoscopy Informed consent was obtained from the patient's daughter Stanley Performed by: Silvestre Conte MD Medication: The patient was on general sedatives prior to the procedure to facilitate synchrony with the mechanical ventilator and these were continued with Precedex bolus ad fentanyl iv were used Description of procedure: The fiberoptic bronchoscope was introduced through the endotracheal tube to the level of the main rohini. There were yellow colored thick secretions in the rohini, bilateral bronchial trees and lobes and segmental bronchioles, with worst in the left side.These were vigorously suctioned. A total of 30 mL of normal saline was instilled at both bronchial trees and left lower lobes and subsequently suctioned together with any dislodged secretions. There was minimal irritation of the airway associated with the procedure there was no active bleeding at the end of the procedure. Samples: Broncho washing samples were sent for gram stain and cultures. COMPLICATION(S): The patient tolerated the procedure well with no evidence of hypotension afterwards, and there were no complications. aWlly Doshi MD RESPIRATORY THERAPY ORDERABLES [facility] * (ABNORMAL) CULTURE BRONCHIAL WASHING+GRAM STAIN (05/06/2024 11:57 AM [facility] MEDICINE PRACTITIONER) Culture Moderate Klebsiella pneumoniae(A) LC 05/08/2024 7:47 AM [facility] MEDICINE PRACTITIONER [facility] MICROBIOLOG[facility] Gram Stain Moderate Polymorphonuclear cells 05/08/2024 7:47 AM [facility]ESE MEDICINE PRACTITIONER [facility] MICROBIOLOG[facility] Gram Stain Rare Gram-negative bacilli 05/08/2024 7:47 AM [facility] MEDICINE PRACTITIONER [facility] MICROBIOLOGY Microbiology (Lung, Left Lower Lobe) Collection / Unknown 05/06/2024 11:57 AM [facility] MEDICINE PRACTITIONER 05/06/2024 12:26 PM [facility]INESE MEDICINE PRACTITIONER Narrative Organism Antibiotic Method Susceptibility Klebsiella pneumoniae Amikacin LC <=2 ug/mL: Susceptible Klebsiella pneumoniae Ampicillin-sulbactam LC 4 ug/mL: Susceptible Klebsiella pneumoniae Cefazolin LC <=4 ug/mL: See Comment* Klebsiella pneumoniae Cefepime LC <=1 ug/mL: Susceptible Klebsiella pneumoniae Ceftriaxone LC <=1 ug/mL: Susceptible Klebsiella pneumoniae Ciprofloxacin LC <=0.25 ug/mL: Susceptible Klebsiella pneumoniae Gentamicin LC <=1 ug/mL: Susceptible Klebsiella pneumoniae Meropenem LC <=0.25 ug/mL: Susceptible Klebsiella pneumoniae Piperacillin-tazobactam LC <=4 ug/mL: Susceptible Klebsiella pneumoniae Tobramycin LC <=1 ug/mL: Susceptible Klebsiella pneumoniae Trimethoprim-sulfa methoxa zole LC <=20 ug/mL: Susceptible Comment:*Cefazolin LC of </ =4 cannot distinguish between susceptible or intermediate for systemic breakpoints. If further defined interpretation is needed, call Microbiology and a disk diffusion test will be performed. Wally Doshi MD LAB - MICROBIOLOGY ORDERABLES [facility] MICROBIOLOGY [address] [place] [address], [facility] [phone] * ECHO COMPLETE W BUBBLE STUDY (05/06/2024 10:03 AM [facility] MEDICINE PRACTITIONER) Myocardial strain charge 2 unitless SSM CV FUJI PACS IVSd 2D 1.082 cm SSM CV FUJ I PACS LVIDd 4.191 cm SSM CV FUJ I PACS LVIDs 2.117 cm SSM CV FUJ I PACS LVOT diam 1.902 cm SSM CV FUJ I PACS LVPWd 1.095 cm SSM CV FUJ I PACS LV biplane EF 61.134 % SSM CV FUJI PACS LV A2C EF 54.963 % SSM CV FUJ I PACS LV A4C EF 67.111 % SSM CV FUJ I PACS LV EDV A2C 65.282 ml SSM CV FU JI PACS LV EDV A4C 76.11 ml SSM CV FU JI PACS LV ESV A2C 29.401 ml SSM CV FU JI PACS LV ESV A4C 25.031 ml SSM CV FU JI PACS LVOT pk mir 125.627 cm/s SSM CV F UJI PACS LVOT VTI 20.694 cm SSM CV FUJ I PACS RVIDd 3.482 cm SSM CV FUJ I PACS RVOT diam Doppler 2.382 cm SSM CV FUJI PACS RVOT pk mir 60.078 cm/s SSM CV F UJI PACS RVOT VTI 11.498 cm SSM CV FUJ I PACS LA size 3.708 cm SSM CV FUJ I PACS RA area 15.177 cm SSM CV FUJI PACS AR DECEL TIME 1.125 s SSM CV FUJI PACS AV PHT 0.326 s SSM CV FUJ I PACS AV pk mir regurg 508.066 cm/s SSM CV FUJI PACS AR VTI 226.324 cm SSM CV FUJ I PACS AV mn grad 11.58 mmHg SSM CV FU JI PACS AV pk mir 260.253 cm/s SSM CV FUJ I PACS AV VTI 35.917 cm SSM CV FUJ I PACS MV A pk mir 73.348 cm/s SSM CV F UJI PACS MV E pk mir 57.229 cm/s SSM CV F UJI PACS MV E' lateral mir 4.658 cm/s SSM CV FUJI PACS MV mn grad 0.995 mmHg SSM CV FU JI PACS MV VTI 26.311 cm SSM CV FUJ I PACS PV pk mir 105.696 cm/s SSM CV FUJ I PACS PV VTI 19.368 cm SSM CV FUJ I PACS TAPSE 2.479 cm SSM CV FUJ I PACS TR pk mir 277.457 cm/s SSM CV FUJ I PACS Ascending aorta 2.758 cm [facility] Diam Expiration 2.828 cm SSM CV FUJI PACS Sinus of Valsalva 2.716 cm SSM CV FUJI PACS Anatomical Region Laterality Modality Ultrasound 05/06/2024 10:3 5 AM [facility]IC[facility] PRACTITIONER Narrative 05/06/2024 11:45 AM [facility]IC[facility] PRACTITIONER Summary * The left ventricle is normal in size, with normal systolic function and an estimated ejection fraction of 61 % by biplane method of disks. Left ventricular wall motion is normal. * Right ventricle is normal in size with normal systolic function. * The pulmonary artery systolic pressure is mildly elevated, 46 mmHg. * There is mild aortic valve regurgitation. * There is mild tricuspid valve regurgitation. * Agitated saline contrast study at rest and with Valsalva is negative for a shunt. Patient Info Name: Leighann Thomas Age: 64 years : 1960 Gender: Female Ht: 63 in Wt: 102 lb BSA: 1.43 m2 HR: 69 bpm BP: 114 / 74 mmHg Heart Rhythm: Sinus Rhythm Exam Date: 05/06/2024 10:35 AM Patient Status: I/P Study Site: [facility] Primary Location: [facility] Info Technical Quality: Good Exam Type: ECHO COMPLETE W BUBBLE STUDY Indications I60.9 - Subarachnoid bleed (HCC) Procedure(s) * A complete 2D, color Doppler, spectral Doppler, and M-Mode transthoracic echocardiogram was performed. Contrast/Agitated Saline Contrast / Saline: Agitated Saline Amount: 10.00 ml Administered By: Ronnie Lucio Reaction to Contrast: no Staff Referring Physician: Wally Doshi Ordering Provider: Wally Doshi Attending Physician: Wally Doshi Analytical Chemist: Ronnie Lucio Left Ventricle Left ventricular systolic function is normal with an estimated ejection fraction of 61 % by biplane method of disks. The left ventricle is normal in size. The left ventricular mass is normal with concentric remodeling. Left ventricular segmental wall motion is normal. The left ventricular diastolic function is indeterminate. Right Ventricle The right ventricle is normal in size. Right ventricular systolic function is normal. Left Atrium The left atrium is mildly dilated. Right Atrium The right atrium is dilated. Atrial Septum Intact interatrial septum visualized by 2D and color Doppler imaging. Agitated saline contrast study at rest and with Valsalva is negative for a shunt. Aortic Valve The aortic valve is not well visualized. There is mild aortic valve regurgitation. There is no aortic valve stenosis with a peak velocity of 2.6 m/s, mean gradient of 12 mmHg, and aortic valve area of 1.64 cm2. Pulmonic Valve The pulmonic valve is grossly normal. There is no pulmonic valve stenosis. There is no significant pulmonic regurgitation. Mitral Valve The mitral valve is normal. There is no mitral valve stenosis. There is mild mitral valve regurgitation. Tricuspid Valve The tricuspid valve is normal. There is no tricuspid valve stenosis. There is mild tricuspid valve regurgitation. The pulmonary artery systolic pressure is mildly elevated, 46 mmHg. Inferior Vena Cava The inferior vena cava is dilated (> 2.1 cm). There is > 50% collapse of the IVC upon inspiration with an estimated right atrial pressure of 15 mmHg. Pericardium/Pleural There is no pericardial effusion. Aorta The aortic root at the sinus of Valsalva is normal in size measuring 2.7 cm with an index of 1.9 cm/m2. The ascending aorta is normal in size measuring 2.8 cm with an index of 1.9 cm/m2. Measurements Left Ventricular Outflow Tract Name Value Normal LVOT 2D LVOT Diameter 1.9 cm LVOT Area 2.8 cm2 LVOT Doppler LVOT Peak Velocity 1.3 m/s LVOT Peak Gradient 6 mmHg LVOT Mean Velocity 84.30 cm/s LVOT Mean Gradient 3 mmHg LVOT VTI 20.7 cm LVOT VTI/AV VTI Ratio 0.6 LVOT Stroke Volume 59 ml LVOT Stroke Volume Index 41 ml/m2 35-58 LVOT CO 4.0 l/min LVOT CI 2.8 l/min/m2 Pulmonic Valve Name Value Normal PV 2D RVOT Diameter (2D) 2.4 cm 1.7-2.7 RVOT Doppler RVOT Peak Velocity 0.6 m/s RVOT Peak Gradient 1 mmHg RVOT Mean Gradient 1 mmHg PV Doppler PV Peak Velocity 1.1 m/s PV Peak Gradient 4 mmHg PV Mean Gradient 2 mmHg PV Area (Cont Eq VTI) 2.64 cm2 PV Area Index (Cont Eq VTI) 1.85 cm2/m2 PV Area (Cont Eq Mir) 2.5 cm2 PV Area Index (Cont Eq Mir) 1.77 cm2/m2 Mitral Valve Name Value Normal MV Doppler MV Peak Gradient 3 mmHg MV Mean Gradient 1 mmHg MV DI (VTI) 1.27 MV Area (Cont Eq VTI) 2.23 cm2 MV Diastolic Function MV E Peak Velocity 0.6 m/sec MV A Peak Velocity 0.7 m/sec MV E/A 0.8 MV Decel Time (PW) 216 ms MV A Wave Duration 108 ms MV Annular TDI MV Septal e' Velocity 4 cm/s >=8 MV E/e' (Septal) 15 <=8 MV Lateral e' Velocity 5 cm/s >=10 MV E/e' (Lateral) 12 <=8 MV e' Average 4 cm/s MV E/e' (Average) 14 Tricuspid Valve Name Value Normal TV Regurgitation Doppler TR Peak Velocity 2.8 m/s TR Peak Gradient 31 mmHg Estimated PAP/RSVP RA Pressure 15 mmHg <=5 PA Systolic Pressure 46 mmHg <35 RV Systolic Pressure 46 mmHg <36 TV Annular TDI TV Lateral Vera s' Velocity 9 cm/s 10-19 Aorta Name Value Normal Ascending Aorta Sinus of Valsalva Diameter 2.7 cm 2.4-3.6 Sinus of Valsalva Index 1.9 cm/m2 1.4-2.2 Asc Ao Diameter 2.8 cm 1.9-3.5 Asc Ao Diameter Index 1.9 cm/m2 1.0-2.2 Septae/Shunt/Generic Name Value Normal Qp/Qs Qp/Qs 0.9 Venous Name Value Normal IVC/SVC IVC Diameter 2.8 cm <=2.1 Aortic Valve Name Value Normal AV Doppler AV Peak Velocity 2.60 m/s AV Peak Gradient 27 mmHg AV Mean Gradient 12 mmHg AV VTI 36 cm AV Area (Cont Eq VTI) 1.64 cm2 >=2.00 AV Area (Cont Eq Mir) 1.37 cm2 AV DI (VTI) 0.58 AV DI (Mir) 0.48 AV Regurgitation 2D LVOT Area 2.84 cm2 AV Regurgitation Doppler AR Decel Time 1,125 ms AR PHT 326 ms Ventricles Name Value Normal LV Dimensions 2D/MM IVS Diastolic Thickness (2D) 1.1 cm 0.6-0.9 LVID Diastole (2D) 4.2 cm 3.8-5.2 LVPW Diastolic Thickness (2D) 1.1 cm 0.6-0.9 IVS Systolic Thickness (2D) 1.1 cm LVID Systole (2D) 2.1 cm 2.2-3.5 LVPW Systolic Thickness (2D) 1.2 cm LV Mass (2D Cubed) 83 g 67-162 LV Mass Index (2D Cubed) 58 g/m2 43-95 Relative Wall Thickness (2D) 0.52 <=0.42 LV Fractional Shortening/Ejection Fraction 2D/MM LV Fractional Shortening (2D) 49 % 27-45 LV EF (2D Teicholz) 81 % 54-74 LV Diastolic Volume (4C MOD) 76 ml LV EF (4C MOD) 67 % LV Diastolic Volume (2C MOD) 65 ml LV EF (2C MOD) 55 % LV Diastolic Volume (BP MOD) 73 ml 46-106 LV Diastolic Volume Index (BP MOD) 51 ml/m2 29-61 LV Systolic Volume (BP MOD) 28 ml 14-42 LV Systolic Volume Index (BP MOD) 20 ml/m2 8-24 LV EF (BP MOD) 61 % 54-74 LV Diastolic Length (4C) 6.9 cm LV Systolic Length (4C) 5.5 cm LV Stroke Volume (4C MOD) 51 ml RV Dimensions 2D/MM RVID Diastole (2D) 3.5 cm 2.5-3.5 RVID Systole (2D) 2.4 cm TAPSE 2.5 cm >=1.7 Atria Name Value Normal LA Dimensions LA Dimension (2D) 3.7 cm 2.7-3.8 LA Dimen Index (2D) 2.6 cm/m2 RA Dimensions RA Area (4C) 15 cm2 <=18 RA Area (4C) Index 11 cm2/m2 Report Signatures Finalized by Michelle Dexter on 05/06/2024 11:45 AM Procedure Note Michelle Dexter MD - 05/06/2024 Summary * The left ventricle is normal in size, with normal systolic functionand an estimated ejection fraction of 61 % by biplane method of disks. Left ventricular wall motion is normal. * Right ventricle is normal in size with normal systolic function. * The pulmonary artery systolic pressure is mildly elevated, 46 mmHg. * There is mild aortic valve regurgitation. * There is mild tricuspid valve regurgitation. * Agitated saline contrast study at rest and with Valsalva is negativefor a shunt. Patient Info Name: Leighann Thomas Age: 64 years : 1960 Gender: Female Ht: 63 in Wt: 102 lb BSA: 1.43 m2 HR: 69 bpm BP: 114 / 74 mmHg Heart Rhythm: Sinus Rhythm Exam Date: 05/06/2024 10:35 AM Patient Status: I/P Study Site: [facility] Primary Location: [facility] EStudy Info Technical Quality: Good Exam Type: ECHO COMPLETE W BUBBLE STUDY Indications I60.9 - Subarachnoid bleed (HCC) Procedure(s) * A complete 2D, color Doppler, spectral Doppler, and M-Modetransthoracic echocardiogram was performed. Contrast/Agitated Saline Contrast / Saline: Agitated Saline Amount: 10.00 ml Administered By: Ronnie Lucio Reaction to Contrast: no Staff Referring Physician: Wally Doshi Ordering Provider: Wally Doshi Attending Physician: Wally Doshi Analytical Chemist: Ronnie Lucio Left Ventricle Left ventricular systolic function is normal with an estimatedejection fraction of 61 % by biplane method of disks. The left ventricle is normalin size. The left ventricular mass is normal with concentric remodeling.Left ventricular segmental wall motion is normal. The left ventriculardiastolic function is indeterminate. Right Ventricle The right ventricle is normal in size. Right ventricular systolicfunction is normal. Left Atrium The left atrium is mildly dilated. Right Atrium The right atrium is dilated. Atrial Septum Intact interatrial septum visualized by 2D and color Doppler imaging. Agitated saline contrast study at rest and with Valsalva is negative fora shunt. Aortic Valve The aortic valve is not well visualized. There is mild aortic valve regurgitation. There is no aortic valve stenosis with a peak velocity of2.6 m/s, mean gradient of 12 mmHg, and aortic valve area of 1.64 cm2. Pulmonic Valve The pulmonic valve is grossly normal. There is no pulmonic valvestenosis. There is no significant pulmonic regurgitation. Mitral Valve The mitral valve is normal. There is no mitral valve stenosis. There ismild mitral valve regurgitation. Tricuspid Valve The tricuspid valve is normal. There is no tricuspid valve stenosis.There is mild tricuspid valve regurgitation. The pulmonary artery systolicpressure is mildly elevated, 46 mmHg. Inferior Vena Cava The inferior vena cava is dilated (> 2.1 cm). There is > 50% collapse ofthe IVC upon inspiration with an estimated right atrial pressure of 15 mmHg. Pericardium/Pleural There is no pericardial effusion. Aorta The aortic root at the sinus of Valsalva is normal in size measuring 2.7cm with an index of 1.9 cm/m2. The ascending aorta is normal in sizemeasuring 2.8 cm with an index of 1.9 cm/m2. Measurements Left Ventricular Outflow Tract Name Value Normal LVOT 2D LVOT Diameter 1.9 cm LVOT Area 2.8 cm2 LVOT Doppler LVOT Peak Velocity 1.3 m/s LVOT Peak Gradient 6 mmHg LVOT Mean Velocity 84.30 cm/s LVOT Mean Gradient 3 mmHg LVOT VTI 20.7 cm LVOT VTI/AV VTI Ratio 0.6 LVOT Stroke Volume 59 ml LVOT Stroke Volume Index 41 ml/m2 35-58 LVOT CO 4.0 l/min LVOT CI 2.8 l/min/m2 Pulmonic Valve Name Value Normal PV 2D RVOT Diameter (2D) 2.4 cm 1.7-2.7 RVOT Doppler RVOT Peak Velocity 0.6 m/s RVOT Peak Gradient 1 mmHg RVOT Mean Gradient 1 mmHg PV Doppler PV Peak Velocity 1.1 m/s PV Peak Gradient 4 mmHg PV Mean Gradient 2 mmHg PV Area (Cont Eq VTI) 2.64 cm2 PV Area Index (Cont Eq VTI) 1.85 cm2/m2 PV Area (Cont Eq Mir) 2.5 cm2 PV Area Index (Cont Eq Mir) 1.77 cm2/m2 Mitral Valve Name Value Normal MV Doppler MV Peak Gradient 3 mmHg MV Mean Gradient 1 mmHg MV DI (VTI) 1.27 MV Area (Cont Eq VTI) 2.23 cm2 MV Diastolic Function MV E Peak Velocity 0.6 m/sec MV A Peak Velocity 0.7 m/sec MV E/A 0.8 MV Decel Time (PW) 216 ms MV A Wave Duration 108 ms MV Annular TDI MV Septal e' Velocity 4 cm/s >=8 MV E/e' (Septal) 15 <=8 MV Lateral e' Velocity 5 cm/s >=10 MV E/e' (Lateral) 12 <=8 MV e' Average 4 cm/s MV E/e' (Average) 14 Tricuspid Valve Name Value Normal TV Regurgitation Doppler TR Peak Velocity 2.8 m/s TR Peak Gradient 31 mmHg Estimated PAP/RSVP RA Pressure 15 mmHg <=5 PA Systolic Pressure 46 mmHg <35 RV Systolic Pressure 46 mmHg <36 TV Annular TDI TV Lateral Vera s' Velocity 9 cm/s 10-19 Aorta Name Value Normal Ascending Aorta Sinus of Valsalva Diameter 2.7 cm 2.4-3.6 Sinus of Valsalva Index 1.9 cm/m2 1.4-2.2 Asc Ao Diameter 2.8 cm 1.9-3.5 Asc Ao Diameter Index 1.9 cm/m2 1.0-2.2 Septae/Shunt/Generic Name Value Normal Qp/Qs Qp/Qs 0.9 Venous Name Value Normal IVC/SVC IVC Diameter 2.8 cm <=2.1 Aortic Valve Name Value Normal AV Doppler AV Peak Velocity 2.60 m/s AV Peak Gradient 27 mmHg AV Mean Gradient 12 mmHg AV VTI 36 cm AV Area (Cont Eq VTI) 1.64 cm2 >=2.00 AV Area (Cont Eq Mir) 1.37 cm2 AV DI (VTI) 0.58 AV DI (Mir) 0.48 AV Regurgitation 2D LVOT Area 2.84 cm2 AV Regurgitation Doppler AR Decel Time 1,125 ms AR PHT 326 ms Ventricles Name Value Normal LV Dimensions 2D/MM IVS Diastolic Thickness (2D) 1.1 cm 0.6-0.9 LVID Diastole (2D) 4.2 cm 3.8-5.2 LVPW Diastolic Thickness (2D) 1.1 cm 0.6-0.9 IVS Systolic Thickness (2D) 1.1 cm LVID Systole (2D) 2.1 cm 2.2-3.5 LVPW Systolic Thickness (2D) 1.2 cm LV Mass (2D Cubed) 83 g 67-162 LV Mass Index (2D Cubed) 58 g/m2 43-95 Relative Wall Thickness (2D) 0.52 <=0.42 LV Fractional Shortening/Ejection Fraction 2D/MM LV Fractional Shortening (2D) 49 % 27-45 LV EF (2D Teichmairaz) 81 % 54-74 LV Diastolic Volume (4C MOD) 76 ml LV EF (4C MOD) 67 % LV Diastolic Volume (2C MOD) 65 ml LV EF (2C MOD) 55 % LV Diastolic Volume (BP MOD) 73 ml 46-106 LV Diastolic Volume Index (BP MOD) 51 ml/m2 29-61 LV Systolic Volume (BP MOD) 28 ml 14-42 LV Systolic Volume Index (BP MOD) 20 ml/m2 8-24 LV EF (BP MOD) 61 % 54-74 LV Diastolic Length (4C) 6.9 cm LV Systolic Length (4C) 5.5 cm LV Stroke Volume (4C MOD) 51 ml RV Dimensions 2D/MM RVID Diastole (2D) 3.5 cm 2.5-3.5 RVID Systole (2D) 2.4 cm TAPSE 2.5 cm >=1.7 Atria Name Value Normal LA Dimensions LA Dimension (2D) 3.7 cm 2.7-3.8 LA Dimen Index (2D) 2.6 cm/m2 RA Dimensions RA Area (4C) 15 cm2 <=18 RA Area (4C) Index 11 cm2/m2 Report Signatures Finalized by Michelle Dexter on 05/06/2024 11:45 AM Wally Doshi MD ECHO CUPID * PLATELET COUNT AUTO CITRATED BLOOD (05/06/2024 1:39 AM [facility]ESE MEDICINE PRACTITIONER) Platelet Count Citrated 05/06/2024 3:15 AM CHINESE MEDICINE PRACTITIONER [facility] Comment:Platelets clumped on slide but appears adequate. Recommend repeat with a sodium citrate blue top tube. Blood BLOOD SPECIMEN / Unknown Venipuncture / Unknown 05/06/2024 1:39 AM CHINESE MEDICINE PRACTITIONER 05/06/2024 1:42 AM CHINESE MEDICINE PRACTITIONER Wally Doshi MD LAB - HEMATOLOGY OR DERABLES [address] [address], [facility] [phone] * CT Angio Brain And Neck (05/05/2024 9:44 PM CHINESE MEDICINE PRACTITIONER) Only the most recent of2 resultswithin the time period is included. Anatomical Region Laterality Modality Head Computed Tomogra phy 05/05/2024 9:52 PM CHINESE MEDICINE PRACTITIONER Impressions 05/06/2024 12:29 AM CHINESE MEDICINE PRACTITIONER IMPRESSION: 1.Unchanged appearance of subarachnoid hemorrhage with intraventricular extension. 2.Small subdural hematoma measuring 4 mm in the right frontal region better visualized on noncontrast exam earlier today. 3. Severe focal stenosis of the nondominant right vertebral artery at C7 level, likely due to atherosclerotic disease. No other large arterial occlusions or significant stenoses identified in the head or neck. 4.Embolization coil in the ACOM 5.Trace left pneumothorax. These findings were discussed in detail with the patient's care provider, Dr Tate by Dr. Ricci via telephone at 05/05/2024 10:58 PM with readback comprehension and verification. The report is dictated by Sade Ricci MD (family medicine resident) I, Wes Mcrae MD have personally reviewed and interpreted this examination/study. > Interpreting Provider: Wes Mcrae MD on 05/06/2024 12:29 AM Narrative 05/06/2024 12:29 AM CHINESE MEDICINE PRACTITIONER PROCEDURE: CT ANGIO BRAIN AND NECK, DATE/TIME OF EXAM: 05/05/2024 9:45 PM, LOCATION [facility] INDICATION: I60.9: SAH (subarachnoid hemorrhage) (HCC) ADDITIONAL CLINICAL INFORMATION: Ordering Provider Reason For Exam: acute neuro change, not withdrawing to pain in upper extremities Technologist Note: Additional: EXAMINATION: 1. Computed tomographic (CT) angiography of the head with contrast 2. CT angiography of the neck with contrast TECHNIQUE: CT angiography of the head and neck was obtained after the uneventful administration of 60 mL Isovue-370 intravenous contrast. Three dimensional postprocessing was performed by the technologist and sent to the workstation for review. Stenosis measurements are based on NASCET criteria. CT dose reduction technique was used, including Automated Exposure Control. COMPARISON: Comparison is made with a CT head dated 05/05/2024 FINDINGS: Non-angiographic findings: Please see same day CT noncontrast head for findings including the following: Redemonstrated is a right frontal approach external ventricular drain, terminating at the foramen of Manzo, unchanged. Moderate ventriculomegaly is grossly unchanged. 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 Streaky and beam hardening artifacts from the embolization coils partially obscure the adjacent structures. A small right frontal subdural hematoma is again noted measuring up to 4 mm in maximum thickness. Again demonstrated is a large amount of subarachnoid hemorrhage in the basal cisterns, interhemispheric fissure and the sylvian fissures and the cerebral sulci, better evaluated on the previous noncontrast head CT. Intraventricular extension of hemorrhage is again seen. There is persistent effacement of the cerebral sulci and the basal cisterns. No midline shift. The gallegos-white matter differentiation is normal. Periventricular white matter hypoattenuation is a nonspecific finding that may be indicative of chronic small vessel ischemic disease. There is atherosclerotic calcification of the carotid siphons. Other than mild paranasal sinus disease, the visualized portions of the orbits, paranasal sinuses, and mastoids appear normal. A new left subclavian central venous catheter is noted. Some soft tissue emphysema is present in the left subclavian region and the base of the left side of the neck. Bilateral dependent atelectasis. Tree-in-bud opacities in the vitreous portions of lungs, right greater than left, may represent pneumonia. Subcutaneous emphysema is present along the left subclavian soft tissue Angiographic findings: Neck: There is atherosclerotic disease of the aortic arch. There is a common origin of the innominate and left common carotid arteries from the aortic arch. The innominate artery and both subclavian arteries appear normal. There is atherosclerotic disease in the right carotid bifurcation and origin of the right internal carotid artery without focal stenosis. Other than atherosclerotic calcifications in the distal right internal carotid artery, the right common and internal carotid arteries otherwise appear patent. There is atherosclerotic disease in the left carotid bifurcation and origin of the left internal carotid artery without focal stenosis. Other than atherosclerotic calcifications in the distal left internal carotid artery, the left common and internal carotid arteries otherwise appear patent. There is atherosclerotic disease in the cervical vertebral arteries. There is severe focal stenosis of the right vertebral artery at the level of C7 (series 508, image 265). The left vertebral artery is dominant. Head: There is atherosclerotic disease involving the distal internal carotid arteries without significant focal stenosis. The anterior cerebral arteries are patent. Embolization coil is present in the ACOM. The middle cerebral arteries are patent. The posterior cerebral arteries are patent. Diminutive appearance of the distal right vertebral artery. The basilar artery is patent patent. No aneurysms, vascular occlusions, or intracranial stenoses are identified. Procedure Note Wes Mcrae MD - 05/06/2024 PROCEDURE: CT ANGIO BRAIN AND NECK, DATE/TIME OF EXAM: 05/05/2024 9:45PM, LOCATION [facility] INDICATION: I60.9: SAH (subarachnoid hemorrhage) (HCC) ADDITIONAL CLINICAL INFORMATION: Ordering Provider Reason For Exam: acute neuro change, not withdrawingto pain in upper extremities Technologist Note: Additional: EXAMINATION: 1. Computed tomographic (CT) angiography of the head with contrast 2. CT angiography of the neck with contrast TECHNIQUE: CT angiography of the head and neck was obtained after the uneventful administration of 60 mL Isovue-370 intravenous contrast.Three dimensional postprocessing was performed by the technologist and sent to the workstation for review. Stenosis measurements are based on NASCET criteria. CT dose reduction technique was used, including Automated Exposure Control. COMPARISON: Comparison is made with a CT head dated 05/05/2024 FINDINGS: Non-angiographic findings: Please see same day CT noncontrast head for findings including the following: Redemonstrated is a right frontal approach external ventricular drain, terminating at the foramen of Manzo, unchanged. Moderateventriculomegaly is grossly unchanged. 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 Streaky and beam hardening artifacts from the embolization coils partially obscure the adjacent structures. A small right frontal subdural hematoma is again noted measuring up to 4mm in maximum thickness. Again demonstrated is a large amount ofsubarachnoid hemorrhage in the basal cisterns, interhemispheric fissure and thesylvian fissures and the cerebral sulci, better evaluated on the previous noncontrast head CT. Intraventricular extension of hemorrhage is again seen. There is persistent effacement of the cerebral sulci and the basal cisterns. No midline shift. The gallegos-white matter differentiation is normal. Periventricular white matter hypoattenuation is a nonspecific finding that may be indicative of chronic small vessel ischemic disease. There is atherosclerotic calcification of the carotid siphons. Other than mild paranasal sinus disease, the visualized portions of the orbits, paranasal sinuses, and mastoids appear normal. A new left subclavian central venous catheter is noted. Some soft tissue emphysema is present in the left subclavian region and the base of theleft side of the neck. Bilateral dependent atelectasis. Tree-in-bud opacities in the vitreous portions of lungs, right greater than left, may represent pneumonia. Subcutaneous emphysema is present along the left subclavian soft tissue Angiographic findings: Neck: There is atherosclerotic disease of the aortic arch. There is a common origin of the innominate and left common carotid arteries from theaortic arch. The innominate artery and both subclavian arteries appear normal. There is atherosclerotic disease in the right carotid bifurcation and origin of the right internal carotid artery without focal stenosis.Other than atherosclerotic calcifications in the distal right internal carotid artery, the right common and internal carotid arteries otherwise appear patent. There is atherosclerotic disease in the left carotid bifurcation and origin of the left internal carotid artery without focal stenosis. Other than atherosclerotic calcifications in the distal left internal carotid artery, the left common and internal carotid arteries otherwise appear patent. There is atherosclerotic disease in the cervicalvertebral arteries. There is severe focal stenosis of the right vertebral arteryat the level of C7 (series 508, image 265). The left vertebral artery is dominant. Head: There is atherosclerotic disease involving the distal internal carotid arteries without significant focal stenosis. The anterior cerebralarteries are patent. Embolization coil is present in the ACOM. The middlecerebral arteries are patent. The posterior cerebral arteries are patent. Diminutive appearance of the distal right vertebral artery. The basilar artery is patent patent. No aneurysms, vascular occlusions, orintracranial stenoses are identified. IMPRESSION: 1.Unchanged appearance of subarachnoid hemorrhage with intraventricular extension. 2.Small subdural hematoma measuring 4 mm in the right frontal regionbetter visualized on noncontrast exam earlier today. 3. Severe focal stenosis of the nondominant right vertebral artery at C7 level, likely due to atherosclerotic disease. No other large arterial occlusions or significant stenoses identified in the head or neck. 4.Embolization coil in the ACOM 5.Trace left pneumothorax. These findings were discussed in detail with the patient's careprovider, Dr Tate by Dr. Ricci via telephone at 05/05/2024 10:58 PM with readback comprehension and verification. The report is dictated by Sade Ricci MD (family medicine resident) I, Wes Mcrae MD have personally reviewed and interpreted this examination/study. > Interpreting Provider: Wes Mcrae MD on 05/06/2024 12:29 AM Wally Doshi MD CT ORDERABLES * CT Cerebral Perfusion Analysis (05/05/2024 9:44 PM [facility]IC[employer] PRACTITIONER) Anatomical Region Laterality Modality Head Computed Tomogra phy 05/05/2024 10:1 4 PM [facility] [employer]IC[employer]ACTITIONER Impressions 05/05/2024 11:35 PM [employer] PRACTITIONER IMPRESSION: 1.Unchanged right frontal approach ventriculostomy catheter terminating at the foramen Manzo.Unchanged appearance of ventriculomegaly. 2.Redemonstration of widespread subarachnoid hemorrhage with persistent intraventricular extension of hemorrhage. 3.Redemonstration of small subdural hematoma measuring 3 to 4 mm at the right frontal region at the site of the ventricular catheter. 4.A small area of increased Tmax in the left occipital lobe. These findings were discussed in detail with the patient's care provider, Dr Tate by Dr. Ricci via telephone at 05/05/2024 10:30 PM with readback comprehension and verification. The report is dictated by Sade Ricci MD (family medicine resident) Wes Razo MD have personally reviewed and interpreted this examination/study. > Interpreting Provider: Wes Mcrae MD on 05/05/2024 11:35 PM Narrative 05/05/2024 11:35 PM [facility]ACTITIONER PROCEDURE: CT CEREBRAL PERFUSION ANALYSIS, DATE/TIME OF EXAM: 05/05/2024 9:45 PM, LOCATION [facility] INDICATION: I60.9: SAH (subarachnoid hemorrhage) (HCC) ADDITIONAL CLINICAL INFORMATION: Ordering Provider Reason For Exam: acute neuro change, not w/d to pain in upper extremities Technologist Note: Additional: CONTRAST: IOPAMIDOL 76 % IV SOLN:30 mL EXAMINATION: 1.Computed tomography (CT) of the head without contrast 2.CT cerebral perfusion TECHNIQUE: CT of the head was performed without contrast according to standard protocol. Then CT cerebral perfusion was obtained after the uneventful administration of 30 mL Isovue-370 intravenous contrast. In addition, the perfusion data was sent to the [employer] process of PerfusIon and Diffusion ([employer] ) for automated perfusion postprocessing. Stenosis measurements are based on NASCET criteria. CT dose reduction technique was used, including Automated Exposure Control. COMPARISON: No prior study is available for comparison at the time of this dictation. FINDINGS: Head: Redemonstration of right frontal approach ventriculostomy catheter terminating at the foramen of Monro. Redemonstration of widespread subarachnoid hemorrhage including the cerebral sulci, bilateral sylvian fissures and basilar cisterns with persistent intraventricular extension of hemorrhage. There is extension along the falx and bilateral tentorial leaflets. Unchanged appearance of ventriculomegaly with bicoronal diameter of the frontal ventricles measuring 3.9 cm, previously 3.9 cm. Redemonstration of diffuse effacement of the cerebral sulci and global brain edema. No significant midline shift. The gallegos-white matter differentiation is preserved. Periventricular white matter hypoattenuation is a nonspecific finding that may be indicative of chronic small vessel ischemic disease. There is atherosclerotic calcification of the carotid siphons. The visualized portions of the orbits, paranasal sinuses, and mastoids appear normal. No acute fracture is identified. Perfusion findings: A small area of increased Tmax in the left occipital lobe. Procedure Note Wes Mcrae MD - 05/05/2024 PROCEDURE: CT CEREBRAL PERFUSION ANALYSIS, DATE/TIME OF EXAM:05/05/2024 9:45 PM, LOCATION [facility] INDICATION: I60.9: SAH (subarachnoid hemorrhage) (HCC) ADDITIONAL CLINICAL INFORMATION: Ordering Provider Reason For Exam: acute neuro change, not w/d to painin upper extremities Technologist Note: Additional: CONTRAST: IOPAMIDOL 76 % IV SOLN:30 mL EXAMINATION: 1.Computed tomography (CT) of the head without contrast 2.CT cerebral perfusion TECHNIQUE: CT of the head was performed without contrast according to standard protocol. Then CT cerebral perfusion was obtained after the uneventful administration of 30 mL Isovue-370 intravenous contrast. In addition, the perfusion data was sent to the [employer] process of PerfusIon and Diffusion (Viz[employer]AI ) for automated perfusion postprocessing. Stenosis measurements are based on NASCET criteria. CT dose reduction techniquewas used, including Automated Exposure Control. COMPARISON: No prior study is available for comparison at the time ofthis dictation. FINDINGS: Head: Redemonstration of right frontal approach ventriculostomy catheter terminating at the foramen of Monro. Redemonstration of widespread subarachnoid hemorrhage including the cerebral sulci, bilateral sylvian fissures and basilar cisterns with persistent intraventricular extension of hemorrhage. There is extension along the falx and bilateral tentorial leaflets. Unchanged appearance of ventriculomegaly with bicoronal diameter of the frontal ventricles measuring 3.9 cm, previously 3.9 cm. Redemonstration of diffuse effacement of the cerebral sulci and global brain edema. No significant midline shift. The gallegos-white matter differentiation is preserved. Periventricular white matter hypoattenuation is a nonspecific finding that may be indicative of chronic small vessel ischemic disease. There is atherosclerotic calcification of the carotid siphons. The visualized portions of the orbits, paranasal sinuses, and mastoids appear normal. No acute fracture is identified. Perfusion findings: A small area of increased Tmax in the left occipital lobe. IMPRESSION: 1.Unchanged right frontal approach ventriculostomy catheter terminatingat the foramen Manzo.Unchanged appearance of ventriculomegaly. 2.Redemonstration of widespread subarachnoid hemorrhage with persistent intraventricular extension of hemorrhage. 3.Redemonstration of small subdural hematoma measuring 3 to 4 mm at the right frontal region at the site of the ventricular catheter. 4.A small area of increased Tmax in the left occipital lobe. These findings were discussed in detail with the patient's careprovider, Dr Tate by Dr. Ricci via telephone at 05/05/2024 10:30 PM with readback comprehension and verification. The report is dictated by Sade Ricci MD (family medicine resident) IWes MD have personally reviewed and interpreted this examination/study. > Interpreting Provider: Wes Mcrae MD on 05/05/2024 11:35 PM Wally D[address] MD CT ORDERABLES * IR Embolization Transcath Thpy (05/05/2024 10:40 AM [employer] PRACTITIONER) Anatomical Region Laterality Modality X-Ray Angiograph y 05/05/2024 10:3 1 AM [facility]IC[employer] PRACTITIONER Impressions 05/05/2024 11:00 AM [facility] PRACTITIONER Impression: Successful coil embolization of a 7.4 mm X 4 mm AComm complex aneurysm consistent with Manjit and Gerardo Class II occlusion. List of coils used: 1. Coil Hydroframe Hdrcl Vtrk 19Cm 6Mm 10 2. Coil Hydroframe Adv 15Mm 4Mm Embl 3. Coil Hydrosoft 8Cm 3Mm Embl 3D 4. Coil Mcplx Hypersoft Vtrk 6Cm 2.5Mm 10 I, Jacob Newsome MD have personally reviewed and interpreted this examination/study. 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 HH3 mFS4. Intubated for airway protection. Plan for aneurysm embolization. Heating Mechanic: Dr. Guanako Newsome Teacher Lip Reading(s): Brenda Quevedo L Polhemus Ultrasound Guided Vessel Access Vessels: Right Radial Artery Angiogram Left Internal Carotid Artery Angiogram: Cerebral Right Common Carotid Artery Angiogram: Cerebral Right Subclavian Artery Angiogram: Cerebral Microcatheterization of the Left MADAY-A1 Coil Embolization of AComm Aneurysm Angiography Through the Existing Catheter Anesthesia: General Anesthesia was performed and monitored by an attending Anesthesiologist and their project assistant throughout the entirety of the case Procedural Detail: IDr. Guanako was present during the entire procedure. The risks, benefits, and alternatives to procedure were discussed in detail with the patient and her family. These included but were not limited to the risk of blood loss, vessel injury, stroke, renal injury, and contrast allergy. The patient was brought to the biplane angiography suite where she underwent prep and drape procedures. Limited ultrasound of the right radial artery demonstrated a patent vessel. A gallegos scale image was documented. The right radial artery was accessed using a micropuncture needle. Following a series of exchanges, a 7 mohawk size Glidesheath slender was placed in the radial artery. A radial angiogram was performed through the sheath. A spasmolytic cocktail containing 2.5mg verapamil and 300mcg of nitroglycerin was administered. A 7 Romanian RIST guide catheter was then introduced into the sheath along with a 5.5 Romanian [employer] Paredes 2 diagnostic catheter. The diagnostic catheter was navigated into the aortic arch along with a 0.035 Glidewire. The catheter was used to select the left common carotid artery followed by the left internal carotid artery and cerebral angiogram was obtained. The diagnostic catheter and Glidewire were then used to advance the 7Fr RIST guide catheter into the internal carotid artery. The diagnostic catheter and Glidewire were then removed from the system. Through the guide catheter a 5 Fr Jonna intermediate catheter and a SL-10 microcatheter along with a Synchro-14 were coaxially inserted and used to catheterize the intracranial left anterior cerebral artery A1 segment followed by the aneurysm itself. The microwire was removed. Coil embolization was then performed. Angiography through the existing catheter was performed. The catheter was returned to the arch and used to select the brachiocephalic artery followed by the right common carotid artery and a cerebral angiogram was obtained. The catheter was returned to the brachiocephalic artery and used to select the right subclavian artery and a cerebral angiogram was obtained. All catheters and sheaths were removed from the arterial system. Hemostasis was achieved using a Terumo radial band closure device. Hemostasis was immediate at the end of the closure procedure. The right radial artery pulse was palpable at the end of the closure procedure. The patient tolerated the procedure without immediate complications. She was returned to the recovery area in hemodynamically stable condition and neurologically unchanged. The estimated blood loss was less than 10 mL. A total of 55.6 minutes of fluoroscopic time and 120 ml of Isovue-300 contrast were utilized for the study. Findings: There was good arterial, capillary, and venous opacification of all angiographic runs. The left internal carotid artery cerebral angiogram reveals a tortuous course and normal caliber the intracranial segments of the internal carotid artery. The middle cerebral artery and anterior cerebral artery are also normal in course and caliber. A 7.4 mm X 4 mm complex appearing aneurysm in the AComm complex is visualized. The venous drainage is normal. The right internal carotid artery angiogram reveals a normal course and caliber the intracranial internal carotid artery. The middle cerebral artery is normal in course and caliber. The anterior cerebral artery is hypoplastic. There is normal venous drainage. The right subclavian artery cervical angiogram reveals a normal origin of the vertebral artery and the V1 and V2 segments are normal in course and caliber. The remainder of the visualized branches of the subclavian are normal in course and caliber. The right vertebral artery reveals a V3, V4, and vertebrobasilar junction that are normal in course and caliber. The major vessels to the cerebellum are normal in course and caliber. The basilar artery and posterior cerebral arteries are also normal in course and caliber. The venous drainage is also normal. Angiography through the existing catheter was performed at the coiling angle UPPER SORBIAN 45, CAU 36 and in the standard AP and lateral projections. These showed Manjit and Gerardo Class II occlusion of the aneurysm and no evidence of branch artery occlusion. 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 HH3 mFS4. Intubated for airway protection. Planfor aneurysm embolization. Heating Mechanic: Dr. Guanako Newsome Teacher Lip Reading(s): Brenda Quevedo L Polhemus Ultrasound Guided Vessel Access Vessels: Right Radial Artery Angiogram Left Internal Carotid Artery Angiogram: Cerebral Right Common Carotid Artery Angiogram: Cerebral Right Subclavian Artery Angiogram: Cerebral Microcatheterization of the Left MADAY-A1 Coil Embolization of AComm Aneurysm Angiography Through the Existing Catheter Anesthesia: General Anesthesia was performed and monitored by an attending Anesthesiologist and their project assistant throughout the entirety of the case Procedural Detail: IDr. Guanako was present during the entire procedure. The risks, benefits, and alternatives to procedure were discussed in detail withthe patient and her family. These included but were not limited to the riskof blood loss, vessel injury, stroke, renal injury, and contrast allergy.The patient was brought to the biplane angiography suite where sheunderwent prep and drape procedures. Limited ultrasound of the right radial artery demonstrated a patent vessel. A gallegos scale image was documented. Theright radial artery was accessed using a micropuncture needle. Following aseries of exchanges, a 7 mohawk size Glidesheath slender was placed in theradial artery. A radial angiogram was performed through the sheath. Aspasmolytic cocktail containing 2.5mg verapamil and 300mcg of nitroglycerin was administered. A 7 Romanian RIST guide catheter was then introduced intothe sheath along with a 5.5 Romanian [employer] Paredes 2 diagnostic catheter.The diagnostic catheter was navigated into the aortic arch along with a0.035 Glidewire. The catheter was used to select the left common carotid artery followedby the left internal carotid artery and cerebral angiogram was obtained. The diagnostic catheter and Glidewire were then used to advance the 7Fr RIST guide catheter into the internal carotid artery. The diagnostic catheter and Glidewire were then removed from the system. Through theguide catheter a 5 Fr Jonna intermediate catheter and a SL-10 microcatheteralong with a Synchro-14 were coaxially inserted and used to catheterize the intracranial left anterior cerebral artery A1 segment followed by the aneurysm itself. The microwire was removed. Coil embolization was then performed. Angiography through the existing catheter was performed. The catheter was returned to the arch and used to select the brachiocephalic artery followed by the right common carotid artery and a cerebral angiogram was obtained. The catheter was returned to the brachiocephalic artery and used toselect the right subclavian artery and a cerebral angiogram was obtained. All catheters and sheaths were removed from the arterial system.Hemostasis was achieved using a Terumo radial band closure device. Hemostasis was immediate at the end of the closure procedure. The right radial artery pulse was palpable at the end of the closure procedure. The patient tolerated the procedure without immediate complications. She was returned to the recovery area in hemodynamically stable conditionand neurologically unchanged. The estimated blood loss was less than 10 mL. A total of 55.6 minutes of fluoroscopic time and 120 ml of Isovue-300 contrast were utilized for the study. Findings: There was good arterial, capillary, and venous opacification of all angiographic runs. The left internal carotid artery cerebral angiogram reveals a tortuous course and normal caliber the intracranial segments of the internalcarotid artery. The middle cerebral artery and anterior cerebral artery are also normal in course and caliber. A 7.4 mm X 4 mm complex appearing aneurysmin the AComm complex is visualized. The venous drainage is normal. The right internal carotid artery angiogram reveals a normal course and caliber the intracranial internal carotid artery. The middle cerebral artery is normal in course and caliber. The anterior cerebral artery is hypoplastic. There is normal venous drainage. The right subclavian artery cervical angiogram reveals a normal originof the vertebral artery and the V1 and V2 segments are normal in course and caliber. The remainder of the visualized branches of the subclavian are normal in course and caliber. The right vertebral artery reveals a V3,V4, and vertebrobasilar junction that are normal in course and caliber. The major vessels to the cerebellum are normal in course and caliber. The basilar artery and posterior cerebral arteries are also normal in course and caliber. The venous drainage is also normal. Angiography through the existing catheter was performed at the coiling angle UPPER SORBIAN 45, CAU 36 and in the standard AP and lateral projections.These showed Manjit and Gerardo Class II occlusion of the aneurysm and noevidence of branch artery occlusion. Impression: Successful coil embolization of a 7.4 mm X 4 mm AComm complex aneurysm consistent with Manjit and Gerardo Class II occlusion. List of coils used: 1. Coil Hydroframe Hdrcl Vtrk 19Cm 6Mm 10 2. Coil Hydroframe Adv 15Mm 4Mm Embl 3. Coil Hydrosoft 8Cm 3Mm Embl 3D 4. Coil Mcplx Hypersoft Vtrk 6Cm 2.5Mm 10 I, Jacob Newsome MD have personally reviewed and interpreted this examination/study. > Interpreting Provider: Jacob Newsome MD on 05/05/2024 11:00 AM Wally Doshi MD IR ORDERABLES * (ABNORMAL) B-TYPE NATRIURETIC PEPTIDE (05/05/2024 6:49 AM CHINESE MEDICINE PRACTITIONER) BNP 150(H) <100 pg/mL 05/05/2024 7:33 AM CHINESE MEDICINE PRACTITIONER [facility] Comment: A decision threshold of 100 pg/mL has been demonstrated to provide the maximal combination of sensitivity, specificity and predictive value for the diagnosis of congestive heart failure (CHF). Virtually all patients with no evidence of CHF have BNP values less than 100 pg/mL. A BNP value greater than 100 pg/mL is consistent with the diagnosis of CHF in the appropriate clinical setting. In a study of 693 patients (male and female) with diagnosed CHF, the following values were determined based on the NYHA functional classification system: NYHA Functional Class Mean Valule (pg/mL) % >100 pg/mL I 320 58.1 II 432 73.0 III 656 79.0 IV 1635 98.3 Blood BLOOD SPECIMEN / Unknown Venipuncture / Unknown 05/05/2024 6:49 AM CHINESE MEDICINE PRACTITIONER 05/05/2024 7:02 AM CHINESE MEDICINE PRACTITIONER Wally Doshi MD LAB - CHEMISTRY ORD ERABLES [address] [address], [facility] [phone] * CT Angio Aorta for Dissection (05/05/2024 1:00 AM CHINESE MEDICINE PRACTITIONER) Anatomical Region Laterality Modality Abdomen Computed Tomogra phy 05/05/2024 1:10 AM CHINESE MEDICINE PRACTITIONER Impressions 05/05/2024 2:29 AM CHINESE MEDICINE PRACTITIONER Impression: 1.Segmental and subsegmental pulmonary emboli are seen within the bilateral upper lobe branches. No evidence of right heart strain. 2.Infrarenal abdominal aortic aneurysm measuring up to 3.4 cm. There is ectatic dilatation of the bilateral common and internal iliac arteries. 3.Dependent consolidation and atelectasis within the left greater than right lung bases may represent aspiration given debris seen within the lower lobe bronchi. Infection is not excluded. 4.The gallbladder is distended without evidence of cholelithiasis or cholecystitis. The common bile duct is diffusely dilated measuring up to 1.4 cm with associated moderate to severe intrahepatic biliary ductal dilatation. Can consider further characterization with MRI/MRCP if clinically indicated. 5.Mild compression deformity of L5. Critical findings were discussed with the patient's care provider, Dr. Conte by Dr. Bustamante via telephone at 0130 on 05/05/2023 with readback comprehension and verification. > Dictated by Jose Bustamante MD (family medicine resident). I, Go Rosas MD have personally reviewed and interpreted this examination/study. > Interpreting Provider: Go Rosas MD on 05/05/2024 2:29 AM Narrative 05/05/2024 2:29 AM CHINESE MEDICINE PRACTITIONER PROCEDURE: CT ANGIO AORTA FOR DISSECTION, DATE/TIME OF EXAM: 05/05/2024 1:01 AM, LOCATION [facility] INDICATION: I60.9: Subarachnoid bleed (HCC) ADDITIONAL CLINICAL INFORMATION: Ordering Provider Reason For Exam: AAA eval dissection protocol Technologist Note: Additional: COMPARISON: None. TECHNIQUE: CT of the chest, abdomen, and pelvis was performed prior to and following the uneventful administration of 100 mL of Isovue 370 intravenous contrast according to an angiogram dissection protocol. Three dimensional postprocessing was performed by the technologist and sent to the workstation for review. Findings: Support devices: *Endotracheal tube terminates in the mid thoracic trachea. *Enteric tube terminates within the stomach Thoracic aorta: Atherosclerotic without aortic dissection, intramural hematoma, penetrating atherosclerotic ulcer, or aneurysm. Thoracic aortic branches: Subclavian arteries: Patent without significant focal stenosis. Brachiocephalic artery: Patent without significant focal stenosis. Pulmonary artery: Segmental and subsegmental pulmonary emboli are seen within the bilateral upper lobe branches. Coronary arteries: Atherosclerotic. Abdominal aorta: Atherosclerotic. There is an infrarenal abdominal aortic aneurysm measuring up to 3.4 cm (series 6 image 270). No aortic dissection, intramural hematoma, or penetrating atherosclerotic ulcer. Abdominal aortic branches: Celiac axis: Patent without significant focal stenosis. Superior mesenteric artery: Patent without significant focal stenosis. Inferior mesenteric artery: Patent without significant focal stenosis. Right renal artery: Atherosclerotic but patent without significant focal stenosis. Left renal artery: Atherosclerotic but patent without significant focal stenosis. Right common iliac artery: Ectatic and atherosclerotic measuring up to 2.1 cm with mild stenosis. Right internal iliac artery: Atherosclerotic and ectatic with mild multifocal stenoses. Right external iliac artery: Atherosclerotic but patent without significant focal stenosis. Left common iliac artery: Ectatic and atherosclerotic measuring up to 2.1 cm with mild stenosis. Left internal iliac artery: Atherosclerotic and ectatic with severe multifocal stenoses. Left external iliac artery: Atherosclerotic but patent without significant focal stenosis. Chest: Lower Neck and Axillae: Multiple nodules are seen within the bilateral thyroid lobes measuring up to 1.1 cm. Lungs: Dependent consolidation and atelectasis is seen within the left greater than right lung bases. Intraluminal debris is seen within the bilateral lower lobe bronchi. Additional areas of intermixed consolidation and groundglass opacities are seen within the posterior right upper and lower lobes. No pneumothorax or pleural effusion. Heart and Pericardium: The cardiac chambers are normal in size. No pericardial fluid or thickening is present. No evidence of right heart strain. Mediastinum and Sandra: No mediastinal hemorrhage is present. No enlarged lymph nodes are present. Abdomen/pelvis: Liver: Wedge-shaped heterogenous enhancement within the periphery of the right hepatic lobe may be secondary to timing of contrast (series 6 image 187). Gallbladder and Bile Ducts: Distended without radiopaque gallstones, wall thickening, or pericholecystic fluid. The common bile duct is distended measuring up to 1.4 cm with smooth tapering to the level of the ampulla. There is moderate to severe intrahepatic biliary ductal dilatation. No radiopaque stone is seen within the common bile duct. Spleen: Normal. Pancreas: Normal. Adrenals: Normal. Kidneys: Multiple subcentimeter hypoattenuating lesions in both kidneys are too small to characterize, but likely represent cysts. Gastrointestinal: The stomach and visualized loops of large and small bowel are unremarkable. The appendix is not seen; however, no inflammatory changes are seen in the right lower quadrant. Mesentery/Peritoneum/Retroperitoneum: No free intraperitoneal air. No free fluid in the abdomen or pelvis. Bladder: Distended with contrast. Reproductive Organs: The uterus is normal. Bones: Bone windows demonstrate no suspicious lytic or blastic lesions. Degenerative changes are seen within the spine and bilateral hips. There is a mild compression deformity of L5. Soft tissues: Normal. Procedure Note Go Rosas MD - 05/05/2024 PROCEDURE: CT ANGIO AORTA FOR DISSECTION, DATE/TIME OF EXAM: 05/05/2024 1:01 AM, LOCATION [facility] INDICATION: I60.9: Subarachnoid bleed (HCC) ADDITIONAL CLINICAL INFORMATION: Ordering Provider Reason For Exam: AAA eval dissection protocol Technologist Note: Additional: COMPARISON: None. TECHNIQUE: CT of the chest, abdomen, and pelvis was performed prior toand following the uneventful administration of 100 mL of Isovue 370intravenous contrast according to an angiogram dissection protocol. Threedimensional postprocessing was performed by the technologist and sent to the workstation for review. Findings: Support devices: *Endotracheal tube terminates in the mid thoracic trachea. *Enteric tube terminates within the stomach Thoracic aorta: Atherosclerotic without aortic dissection, intramural hematoma, penetrating atherosclerotic ulcer, or aneurysm. Thoracic aortic branches: Subclavian arteries: Patent without significant focal stenosis. Brachiocephalic artery: Patent without significant focal stenosis. Pulmonary artery: Segmental and subsegmental pulmonary emboli are seen within the bilateral upper lobe branches. Coronary arteries: Atherosclerotic. Abdominal aorta: Atherosclerotic. There is an infrarenal abdominalaortic aneurysm measuring up to 3.4 cm (series 6 image 270). No aorticdissection, intramural hematoma, or penetrating atherosclerotic ulcer. Abdominal aortic branches: Celiac axis: Patent without significant focal stenosis. Superior mesenteric artery: Patent without significant focal stenosis. Inferior mesenteric artery: Patent without significant focal stenosis. Right renal artery: Atherosclerotic but patent without significant focal stenosis. Left renal artery: Atherosclerotic but patent without significant focal stenosis. Right common iliac artery: Ectatic and atherosclerotic measuring up to2.1 cm with mild stenosis. Right internal iliac artery: Atherosclerotic and ectatic with mild multifocal stenoses. Right external iliac artery: Atherosclerotic but patent withoutsignificant focal stenosis. Left common iliac artery: Ectatic and atherosclerotic measuring up to2.1 cm with mild stenosis. Left internal iliac artery: Atherosclerotic and ectatic with severe multifocal stenoses. Left external iliac artery: Atherosclerotic but patent withoutsignificant focal stenosis. Chest: Lower Neck and Axillae: Multiple nodules are seen within the bilateral thyroid lobes measuringup to 1.1 cm. Lungs: Dependent consolidation and atelectasis is seen within the left greater than right lung bases. Intraluminal debris is seen within the bilateral lower lobe bronchi. Additional areas of intermixed consolidation and groundglass opacities are seen within the posterior right upper andlower lobes. No pneumothorax or pleural effusion. Heart and Pericardium: The cardiac chambers are normal in size. No pericardial fluid orthickening is present. No evidence of right heart strain. Mediastinum and Sandra: No mediastinal hemorrhage is present. No enlarged lymph nodes arepresent. Abdomen/pelvis: Liver: Wedge-shaped heterogenous enhancement within the periphery of the right hepatic lobe may be secondary to timing of contrast (series 6 [id number]). Gallbladder and Bile Ducts: Distended without radiopaque gallstones, wall thickening, or pericholecystic fluid. The common bile duct is distended measuring up to 1.4 cm with smooth tapering to the level of the ampulla. There ismoderate to severe intrahepatic biliary ductal dilatation. No radiopaque stone is seen within the common bile duct. Spleen: Normal. Pancreas: Normal. Adrenals: Normal. Kidneys: Multiple subcentimeter hypoattenuating lesions in both kidneys are too small to characterize, but likely represent cysts. Gastrointestinal: The stomach and visualized loops of large and small bowel areunremarkable. The appendix is not seen; however, no inflammatory changes are seen inthe right lower quadrant. Mesentery/Peritoneum/Retroperitoneum: No free intraperitoneal air. No free fluid in the abdomen or pelvis. Bladder: Distended with contrast. Reproductive Organs: The uterus is normal. Bones: Bone windows demonstrate no suspicious lytic or blastic lesions. Degenerative changes are seen within the spine and bilateral hips. Thereis a mild compression deformity of L5. Soft tissues: Normal. Impression: 1.Segmental and subsegmental pulmonary emboli are seen within thebilateral upper lobe branches. No evidence of right heart strain. 2.Infrarenal abdominal aortic aneurysm measuring up to 3.4 cm. There is ectatic dilatation of the bilateral common and internal iliac arteries. 3.Dependent consolidation and atelectasis within the left greater than right lung bases may represent aspiration given debris seen within the lower lobe bronchi. Infection is not excluded. 4.The gallbladder is distended without evidence of cholelithiasis or cholecystitis. The common bile duct is diffusely dilated measuring up to 1.4 cm with associated moderate to severe intrahepatic biliary ductal dilatation. Can consider further characterization with MRI/MRCP if clinically indicated. 5.Mild compression deformity of L5. Critical findings were discussed with the patient's care provider, by Dr. Bustamante via telephone at 0130 on 05/05/2023 with readbackcomprehension and verification. > Dictated by Jose Bustamante MD (family medicine resident). I, Go Rosas MD have personally reviewed and interpreted this examination/study. > Interpreting Provider: Go Rosas MD on 05/05/2024 2:29 AM Wally Doshi MD CT ORDERABLES * (ABNORMAL) TROPONIN-I HIGH SENSITIVE REFLEX 1HOUR (05/05/2024 12:14 AM CHINESE MEDICINE PRACTITIONER) Only the most recent of2 resultswithin the time period is included. Troponin I High Sensitive 403(HH) <=14 ng/L 05/05/2024 12:50 AM CHINESE MEDICINE PRACTITIONER [facility] Delta Troponin I HS 05/05/2024 12:50 AM CHINESE MEDICINE PRACTITIONER [facility] Comment:Delta value intentio destiny not calculated. Baseline to 1 hour specimen collection interval exceeded. Blood BLOOD SPECIMEN / Unknown Venipuncture / Unknown 05/05/2024 12:14 AM CHINESE MEDICINE PRACTITIONER 05/05/2024 12:28 AM CHINESE MEDICINE PRACTITIONER Wally Doshi MD LAB - CHEMISTRY ORD ERABLES [address] [address], [employer] [phone] * (ABNORMAL) TROPONIN-I HIGH SENSITIVE BASELINE + 1HR (05/04/2024 10:25 PM CHINESE MEDICINE PRACTITIONER) Only the most recent of2 resultswithin the time period is included. Troponin I High Sensitive 435(HH) <=14 ng/L 05/04/2024 11:20 PM CHINESE MEDICINE PRACTITIONER [facility] Blood BLOOD SPECIMEN / Unknown Venipuncture / Unknown 05/04/2024 10:25 PM CHINESE MEDICINE PRACTITIONER 05/04/2024 10:35 PM CHINESE MEDICINE PRACTITIONER Wally Doshi MD LAB - CHEMISTRY ORD ERABLES [address] [address], [place] [phone] * (ABNORMAL) HEMOGLOBIN A1C (05/04/2024 10:25 PM CHINESE MEDICINE PRACTITIONER) Pathologist [facility] Hemoglobin A1c 5.9(H) <=5.6 % 05/05/2024 2:43 PM CHINESE MEDICINE PRACTITIONER [facility] Estimated Average Glucose 123 mg/dL 05/05/2024 2:43 PM CHINESE MEDICINE PRACTITIONER [facility] Comment: HbA1c Interpretation: Normal : < 5.7% Pre-diabetes: 5.7-6.4% Diabetes: Equal to or greater than 6.5% Test results diagnostic of diabetes should be repeated for confirmation. Treatment target values recommended by ADA and other clinical organizations should be used to evaluate metabolic control in patients. Reference: [place] [employer], Standards of Care in Diabetes -2020 In patients 70 years and older consider HbA1c target range of 7.0-7.5% (Reference: Amos Gutierrez et al. JAMDA. 2012) The Sebia assay for the measurement of HbA1c is a National Glycohemoglobin Standardization Program (NGSP) certified method. Blood BLOOD SPECIMEN / Unknown Venipuncture / Unknown 05/04/2024 10:25 PM CHINESE MEDICINE PRACTITIONER 05/04/2024 10:34 PM CHINESE MEDICINE PRACTITIONER Wally Doshi MD LAB - CHEMISTRY ORD ERABLES [address] [address], [facility] [phone] * PREPARE PLATELET PHERESIS UNIT(S), 1 Units (05/04/2024 6:19 PM CHINESE MEDICINE PRACTITIONER) [facility] Unit Description LR PLT Phere B7 [facility] BLOOD BANK LAB Unit ABO A [facility] BLOOD BANK LAB Unit Rh POS [facility] BLOOD [facility] LAB Product Number P26 [facility] B LOOD BANK LAB Unit Donor # [id number] [facility] BLOOD BANK LAB Unit Status transfused [facility] BLO OD BANK LAB Product Code [id number] [facility] BLO OD BANK LAB Blood Type Barcode [address] [facility] BLOOD BANK LAB Expiration Date [id number] S BLOOD BANK LAB Blood Bank BLOOD SPECIMEN / Unknown 05/04/2024 2:05 PM CHINESE MEDICINE PRACTITIONER Wally Doshi MD LAB - BLOOD BANK OR DERABLES [facility] BLOOD BANK LAB [address] [place] [address], [facility] [phone] * TEG 6 GLOBAL HEMOSTASIS W/ LYSIS (05/04/2024 5:16 PM CHINESE MEDICINE PRACTITIONER) Pathologist [facility] Citrated Kaolin R (Reaction Time) 5.3 4.6 - 9.1 min 05/04/2024 6:23 PM [facility] Citrated Kaolin LY30 (Lysis) 0.1 0.0 - 2.6 % 05/04/2024 6:23 PM [facility] Citrated Functional Fibrinogen MA (Max Amplitude) 22.2 15.0 - 32.0 mm 05/04/2024 6:23 PM [facility] Citrated RapidTEG MA (Max Amplitude) 66.4 52.0 - 70.0 mm 05/04/2024 6:23 PM [facility] Blood BLOOD SPECIMEN / Unknown Venipuncture / Unknown 05/04/2024 5:16 PM CHINESE MEDICINE PRACTITIONER 05/04/2024 5:[address] [facility] Dejuan Page MD LAB - HEMATOLOGY ORD ERABLES [facility] [address] [place] [address], [facility] [phone] * (ABNORMAL) TEG 6S PLATELET MAPPING (05/04/2024 5:16 PM CHINESE MEDICINE PRACTITIONER) [facility] TEGPLM (Max Amplitude) Koalin 64.6 53.0 - 68.0 mm 05/04/2024 6:01 PM [facility] TEGPLM (Max Amplitude) ACTF 17.2 2.0 - 19.0 mm 05/04/2024 6:01 PM [facility] TEGPLM (Max Amplitude) ADP 19.2(L) 45.0 - 69.0 mm 05/04/2024 6:01 PM [facility] Comment:ADP MA below normal range. Inhibition present. TEGPLM (Max Amplitude) AA 19.4(L) 51.0 - 71.0 mm 05/04/2024 6:01 PM [facility] Comment:AA MA below normal r marcus. Inhibition present. TEGPLM %Inhibition ADP 95.8(H) 0.0 - 17.0 % 05/04/2024 6:01 PM [facility] TEGPLM %Inhibition AA 95.4(H) 0.0 - 11.0 % 05/04/2024 6:01 PM [facility] TEGPLM %Aggregation ADP 4.2(L) 83.0 - 100.0 % 05/04/2024 6:01 PM [facility] TEGPLM % Aggregation AA 4.6(L) 89.0 - 100.0 % 05/04/2024 6:01 PM [facility] Blood BLOOD SPECIMEN / Unknown Venipuncture / Unknown 05/04/2024 5:16 PM CHINESE MEDICINE PRACTITIONER 05/04/2024 5:22 PM CHINESE MEDICINE PRACTITIONER Dejuan Page MD LAB - HEMATOLOGY ORD ERABLES Performing Organization Address [facility] Co de Phone Number [address] [phone] [phone] * Intubation (05/04/2024 4:15 PM CHINESE MEDICINE PRACTITIONER) Narrative Dejuan Page MD - 05/04/2024 4:15 PM CHINESE MEDICINE PRACTITIONER Kwabena Eric DO 05/04/2024 9:42 PM Intubation Date/Time: 05/04/2024 4:15 PM Performed by: Kwabena Eric DO Authorized by: Dejuan Page MD Consent: Consent obtained: Emergent situation [place] protocol: Patient identity confirmed: Arm band Pre-procedure details: Indications: airway protection Patient status: Altered mental status Look externally: no concerns Mouth opening - incisor distance: 3 or more finger widths Obstruction: none Neck mobility: normal Pharmacologic strategy: RSI Induction agents: Etomidate Paralytics: Succinylcholine Procedure details: Preoxygenation: Nonrebreather mask CPR in progress: no Number of attempts: 1 Successful intubation attempt details: Intubation method: Oral Intubation technique: video assisted Laryngoscope blade: Mac 3 Bougie used: no Grade view: II Tube size (mm): 7.5 Tube type: Cuffed Tube visualized through cords: yes Placement assessment: Tube secured with: ETT brown Breath sounds: Equal Placement verification: chest rise, colorimetric ETCO2, CXR verification, direct visualization, equal breath sounds and tube exhalation CXR findings: Appropriate position Post-procedure details: Procedure completion: Tolerated well, no immediate complications Dejuan Page MD PROCEDURE/MINOR SURG ICAL ORDERABLES * (ABNORMAL) TSH REFLEX FREE T4 (05/04/2024 3:18 PM CHINESE MEDICINE PRACTITIONER) TSH 0.349(L) 0.350 - 4.940 uIU/mL 05/04/2024 4:27 PM CHINESE MEDICINE PRACTITIONER [facility] Blood BLOOD SPECIMEN / Unknown Venipuncture / Unknown 05/04/2024 3:18 PM CHINESE MEDICINE PRACTITIONER 05/04/2024 3:31 PM CHINESE MEDICINE PRACTITIONER You Reagan MD LAB - CHEMISTR Y ORDERABLES Performing Organization Address [facility] Co de Phone Number [address] [address], [facility] [phone] * T4 FREE (05/04/2024 3:18 PM CHINESE MEDICINE PRACTITIONER) T4 Free 1.3 0.7 - 1.5 ng/dL 05/04/2024 4:59 PM CHINESE MEDICINE PRACTITIONER [facility] Blood BLOOD SPECIMEN / Unknown Venipuncture / Unknown 05/04/2024 3:18 PM CHINESE MEDICINE PRACTITIONER 05/04/2024 3:31 PM CHINESE MEDICINE PRACTITIONER You Reagan MD LAB - CHEMISTR Y ORDERABLES Performing Organization Address City/[facility]/ZIP Co de Phone Number [address] [address], [facility] [phone] * BLOOD TYPE VERIFICATION (05/04/2024 3:17 PM CHINESE MEDICINE PRACTITIONER) ABO Rh A POS 05/04/2024 4:0 7 PM CHINESE MEDICINE PRACTITIONER [facility] BLOOD BANK LAB Blood Bank BLOOD SPECIMEN / Unknown Venipuncture / Unknown 05/04/2024 3:17 PM CHINESE MEDICINE PRACTITIONER 05/04/2024 3:27 PM CHINESE MEDICINE PRACTITIONER You Reagan MD LAB - BLOOD BA NK ORDERABLES Performing Organization Address [facility]/ZIP Co de Phone Number [facility] BLOOD BANK LAB [address] [place] [address], [facility] [phone] * SARS-COV-2 (COVID-19) FLU A/B RSV PCR RAPID (05/04/2024 3:13 PM CHINESE MEDICINE PRACTITIONER) COVID-19 PCR Not detected Not detected 05/04/19 4:05 PM CHINESE MEDICINE PRACTITIONER [facility] Influenza A PCR Not detected Not detected 05/04/2024 4:05 PM CHINESE MEDICINE PRACTITIONER [facility] Influenza B PCR Not detected Not detected 05/04/2024 4:05 PM [facility] RSV PCR Not detected Not detected 05/04/2024 4:05 PM [facility] Microbiology SPECIMEN FROM NASOPHARYNGEAL STRUCTURE / Unknown Collection / Unknown 05/04/2024 3:13 PM CHINESE MEDICINE PRACTITIONER 05/04/2024 3:23 PM CHINESE MEDICINE PRACTITIONER [facility] - 05/04/2024 4:05 PM CHINESE MEDICINE PRACTITIONER This nucleic acid amplification assay has been authorized by the Food and Drug administration (FDA) under an Emergency Use Authorization (EUA). This test is only authorized for the duration of time the declaration that circumstances exist justifying the authorization of emergency use of in vitro diagnostic tests for detection of SARS-CoV-2 virus and/or diagnosis of COVID-19 infection under section 564(b)(1) of the Act, 21 U.S.C 360bbb-3 (b)(1), unless the authorization is terminated or revoked sooner. Fact Sheets for this EUA assay are available upon request. You Reagan MD LAB - MICROBIO LOGY ORDERABLES Performing Organization Address [facility]/ZIP Co de Phone Number [facility] [address] [place] [address], [facility] [phone] * (ABNORMAL) PROCALCITONIN LEVEL (05/04/2024 1:49 PM [facility] [employer] [facility]ACTITIONER) PROCALCITONIN 2.68(H) <=0.10 ng/mL 05/04/2024 2:45 PM [facility] Blood BLOOD SPECIMEN / Unknown Venipuncture / Unknown 05/04/2024 1:49 PM [facility] 05/04/2024 1:55 PM [facility] - 05/04/2024 2:[address] [facility] The change in procalcitonin (PCT) concentration over time provides support in decision making on antibiotic discontinuation for suspected or confirmed septic patients. Follow-up samples should be tested once every 1-2 days based upon physician discretion taking into account the patient s evolution and progress. Consider discontinuation of antibiotic therapy if the PCT current is <= 0.5 ng/mL or if the delta PCT is > 80%. Duration of antibiotics should not be determined solely on PCT; established guidelines for the indication should be followed. PCT peak: Highest observed PCT concentration PCT current: Most recent PCT concentration Calculate delta PCT using the following equation: Delta PCT = PCT Peak PCT current X 100% PCT Peak The Change in Procalcitonin Calculator is available at [email or web address] If clinical picture has not improved and PCT remains high, reevaluate and consider treatment failure or other causes. You Reagan MD LAB - CHEMISTR Y ORDERABLES Performing Organization Address City/State/[facility] Co de Phone Number [facility] [address] [place] [phone], [facility] [phone] * (ABNORMAL) BLOOD GASES LINDA + COOX PANEL (05/04/2024 1:49 PM [facility] [employer] PRACTITIONER) pH Venous 7.38 7.32 - 7.42 pH 05/04/2024 2:04 PM [facility] pO2 Venous 31(L) 35 - 40 mmHg 05/04/2024 2:04 PM [facility] pCO2 Venous 45 40 - 50 mmHg 05/04/2024 2:04 PM [facility] HCO3 Venous 26.6 20 - 30 mmol/L 05/04/2024 2:04 PM [facility] Base Excess Venous 0.9 -2.0 - 2.0 mmol/L 05/04/2024 2:04 PM [facility] Oxyhemoglobin Venous 48.4 % 04/12 2:04 PM [facility] Deoxyhemoglobin (HHB) Venous % 50.0 % 05/04/2024 2:04 PM [facility] Methemoglobin <0.8 0.0 - 2.0 % 05/04/2024 2:04 PM [facility] Carboxyhemoglobin 1.7 0.0 - 2.0 % 2024 2:04 PM [facility] O2 Content Venous 12.1 Interpret within clinical context ml/dL 05/04/2024 2:04 PM [facility] Hemoglobin by COOX 17.8(H) 12.0 - 15.6 g/dL 05/04/2024 2:04 PM [facility] O2 Saturation Venous 49(L) >=70 % 04/12 2:04 PM [facility] FI O2 Mixed Venous 100.0 % 2024 2:04 PM [facility] Blood BLOOD SPECIMEN / Unknown Venipuncture / Unknown 05/04/2024 1:49 PM [facility] 05/04/2024 1:56 PM [facility] [employer] [facility]ACTITION[facility] Narrative [facility] - 05/04/2024 2:04 PM [facility] [facility]ACT[facility] Carboxyhemoglobin Normal Concentration: Non-smokers: 0-2%; Smokers: 0-9%; Toxic: >20% You Reagan MD LAB - BLOOD GA SES ORDERABLES Performing Organization Address City/[facility] de Phone Number [address] [phone], [facility] [phone] * CULTURE BLOOD (05/04/2024 1:49 PM [facility] MEDIC[employer] PRACTITIONER) Only the most recent of2 resultswithin the time period is included. Culture No growth day 5 LC 05/09/2024 6:10 PM [facility]IC[facility]ACT[facility] Blood PERIPHERAL BLOOD / Unknown Venipuncture / Unknown 05/04/2024 1:49 PM [facility]ACT[facility] 05/04/2024 2:00 PM [facility] [employer]ACTITION[facility] You Reagan MD LAB - MICROBIO LOGY ORDERABLES [facility] [address] [place] [address], [facility] [phone] * CK BLOOD (05/04/2024 1:49 PM [facility] MEDICINE PRACTITIONER) Pathologist [facility] CK Total 104 30 - 200 U/L 05/04/2024 2:39 PM [facility]IC[employer] PRACTITIONER [facility] Blood BLOOD SPECIMEN / Unknown Venipuncture / Unknown 05/04/2024 1:49 PM [facility] [facility]ACTITION[facility] 05/04/2024 2:06 PM [facility] [employer]ACTITIONER You Reagan MD LAB - CHEMISTR Y ORDERABLES Performing Organization Address [facility] Co de Phone Number [facility] [address] [place] [address], [place] [phone] * EKG 12-LEAD (05/04/2024 1:17 PM [facility] MEDICINE PRACTITIONER) [facility] Ventricular Rate 99 BPM [facility] Atrial Rate 99 BPM [facility] MUSE P-R Interval [address] [facility] MUSE QRS Duration ms [address] [facility] MUSE Q-T Interval ms 366 [address] [facility] MUSE QTC Calculation (Bezet) 469 ms [facility] MUSE Calculated P [place] 85 degrees [facility] MUSE Calculated R [place] -6 degrees [facility]USE Calculated T [place] 77 degrees [facility] Interpretation EKG NORMAL SINUS RHYTHM MINIMAL VOLTAGE CRITERIA FOR LVH, MAY BE NORMAL VARIANT ( Sokolow-Villar ) INFERIOR INFARCT , AGE UNDETERMINED ABNORMAL ECG NO PREVIOUS ECGS AVAILABLE Confirmed by DANO MEYERS, COURT ([id number]) on 05/07/2024 8:01:[address] AM [facility] MUSE 05/04/2024 1:17 PM [facility]ACTITION[facility] 05/07/2024 8:01 AM [facility] PRACTITIONER You Reagan MD ECG ORDERABLES Performing Organization Address City/[facility] Co de Phone Number [facility] MUSE from Last 3 Months Insurance Payer Benefit Plan / Group Subscriber ID Effective Dates Phone Address Type MEDICARE MANAGED CARE PLAN GENERIC MEDICARE ADV [employer] COMPLETE MEDICARE ADV OUT OF [place] [id number] 2020-Prese nt [address] [place] [address] Medicare- Managed Care Advance Directives * Full Code (Latest Code Status on File) Date Activated Date Inactivated Comments 05/04/2024 6:41 PM 05/26/2024 8:40 PM Care Teams Historic Interpreter Relationship Specialty Start Date End Date Kristofer Sequeira MD [address], [place] [phone] PCP - General 07/29/20
--- OUTSIDE RECORDS SUMMARY | 2024-06-05 20:03 | XMS_ITS | Clinical Summary ---
Author Organization [facility] Address [address] [place] [address] Care Team Providers Care Kiln Burner Name Role Phone Kristofer Sequeira MD Primary Care Provider Source Comments [facility],non-owned Affiliates and Associated Physician Practices is amultiple site organization consisting of ambulatory clinics and hospital sitesin [place], [place], [place] and [place]. This disclosure is being madepursuant to the Care Everywhere program and may not contain all information available regarding this patient. Last updated 17.[facility] Allergies Active Allergy Reactions Criticality Noted Date [...] respiratory systems 08/12/2015 Prominent popliteal pulse 08/12/2015 Encounters Date Type Department Care Team Description 05/19/2024 8:24 AM BILLING MANAGER Anesthesia Event [facility] [address] [place] [address] Rob Coronel MD Wise, William L, MED AIDE-ROADWAY ENGINEER 05/19/2024 7:05 AM BILLING MANAGER - 05/19/2024 9:50 AM BILLING MANAGER Surgery [facility] [address] [place] [address] Jacob Newsome MD insertion ventriculoperitoneal shunt - RIGHT WITH ACS ASSIST ABDOMINAL PORTION 05/14/2024 Orders Only [facility] [address] [place] [address] Thiago Sesay, RN Pulmonary embolism without acute cor pulmonale, unspecified chronicity, unspecified pulmonary embolism type (HCC) 05/08/2024 Orders Only [facility] [address] [place] [phone] Thiago Sesay, RN Presence of IVC filter ; Acute pulmonary embolism, unspecified pulmonary embolism type, unspecified whether acute cor pulmonale present (HCC) 05/05/2024 8:05 AM BILLING MANAGER Anesthesia Event [facility] [address] [place] [address] George Grijalva DO Rocca, Zachary, DO 05/04/2024 1:15 PM BILLING MANAGER - 05/26/2024 5:00 PM BILLING MANAGER Hospital Encounter [facility] [address] [place] [id number] You Reagan MD Kitchener, Jacob M, MD Sun, Philip Y, MD Scott, Jordan K, MD Linares, MD Patel Ribeiro, Mary Gutierrez MD Neurology Discharge Disposition: Rehab:Inpatient 05/04/2024 Travel from Last 3 Months Family History Medical History Relation Name Comments Diabetes Brother Diabetes Father COPD - Chronic Obstructive Pulmonary Disease Mother Cancer Mother vocal cord Diabetes Mother Heart Disease Mother Relation Name Status Comments Brother Father Mother Social History Tobacco Use Types Packs/Day Years [...] Recorded Patient Health Questionnaire-2 Score 0 05/15/2024 [facility] - Occupational Stress [...] any time in the past 12 m [facility], were you homeless or living in a senior care (including now)? Yes 05/15/2024 Sex and Gender Information Value Date Recorded Sex Assigned at Not on file Gender Identity Not on file Sexual Orientation Not on file Last Filed Vital Signs Vital Sign Reading Time Taken Comments Blood Pressure 111/74 05/26/2024 12:05 PM BILLING MANAGER Pulse 90 05/26/2024 12:05 PM BILLING MANAGER Temperature 36.7 C (98.1 F) 05/26/2024 12:05 PM BILLING MANAGER Respiratory Rate 18 05/26/2024 12:05 PM BILLING MANAGER Oxygen Saturation 97% 05/26/2024 12:05 PM BILLING MANAGER Inhaled Oxygen Concentration 40% 05/14/2024 1 0:00 AM BILLING MANAGER Weight 44 kg (97 lb) 05/25/2024 4:00 AM BILLING MANAGER Height 160 cm (5' 2.99 ) 05/06/2024 9:00 AM BILLING MANAGER Body Mass Index 17.19 05/06/2024 9:00 AM BILLING MANAGER Plan of Treatment Upcoming Encounters Date Type Department Care Team (Late st Contact Info) Description 06/14/2024 3:45 PM BILLING MANAGER Office Visit [facility] - Neurosurgery [address] [place] [phone] Meenu Bui, MED AIDE-MEDICAL CARE MANAGER [address] [place] [address] [place] [address] 08/03/2024 1:00 PM CDT Appointment [facility] [address] [place] [address] Becki Ortiz, DO [address] [place] [address] 08/03/2024 2:00 PM CDT Office Visit [facility] [address] [facility] [place] [address] Becki Ortiz, DO [address] [place] [address] 08/14/2024 4:00 PM CDT Office Visit [facility] - Pulmonology [address] [place] [phone] Willi Ewing MD [address] [place] [address] Health Maintenance Due Date Last Done Comments BONE DENSITY TESTING 1960 COLOGUARD (AGES 45-75) - COLON CA SCREENING 1958 COLON MONITORING 1958 COLONOSCOPY - COLON CA SCREENING 1958 CT COLONOGRAPHY - COLON CA SCREENING 1960 Colorectal Cancer Screening 1958 FIT - COLON CA SCREENING 1958 FLEX SIG - COLON CA SCREENING 1958 MAMMOGRAM 1958 HEPATITIS C SCREENING 03/29/1976 DTAP/TDAP/TD VACCINES (1 - Tdap) 1977 PNEUMOCOCCAL VACCINE 50+ (1 of 2 - PCV) 1977 DIABETES-STATIN 1998 ZOSTER VACCINE (1 of 2) 2008 COVID-19 VACCINE (3 - season) 2023 07/27/2020, 07/06/2020 INFLUENZA VACCINE (#1) 2023 DIABETES - URINE PROTEIN SCREENING 04/11/2024 DIABETES RETINOPATHY SCREENING 05/04/2024 DIABETES-FOOT EXAM WITH MONOFILAMENT 05/04/2024 DIABETES-HGB A1C 11/01/2024 05/04/2024 DIABETES-SERUM CREATININE 05/26/20252024, 05/24/2024, 05/23/2024, Additional history exists Respiratory Syncytial Virus (RSV) Vaccine Pt: or over 60 yrs (1 - 1-dose 75+ series) 2033 DEPRESSION SCREENING Completed 05/04/2024 HEPATITIS B VACCINE Aged Out No longe r eligible based on patient's age to complete this topic HIB VACCINE Aged Out No longer eligi ble based on patient's age to complete this topic HPV VACCINE Aged Out No longer eligi ble based on patient's age to complete this topic MENINGOCOCCAL (Group B) VACCINE Aged Out No longer eligible based on patient's age to complete this topic MENINGOCOCCAL VACCINE Aged Out No joana oswaldo eligible based on patient's age to complete this topic Goals Goal Patient Goal Type Associated Problems Recent Progress Patient-Stated? Author Mobility General No Gretta Baldwin, RN Note: Expected end date: 04/10/2021 The goal is to maintain or improve your mobility at the optimum level for you. Interventions: Medical Devices Implanted Type Area Certified Performance Technologist Device Identifier Shelf Expiration Date Model / Serial / Lot Coil Hydroframe Hdrcl Vtrk 19cm 6mm 10 Implanted:Qty: 1 on 05/05/2024 by Jacob Newsome MD at [facility] [employer] 02/08/2029 7110-061 9 / / [id number] Coil Hydrosoft 8cm 3mm Embl 3d Implanted:Qty: 1 on 05/05/2024 by Jacob Newsome MD at [facility] [employer] 11/09/2027 7110-030 8 / / [id number] Coil Mcplx Hypersoft Vtrk 6cm 2.5mm 10 Implanted:Qty: 1 on 05/05/2024 by Jacob Newsome MD at [facility] [employer] 08/08/2025 8510-025 6 / / [id number] Kit Ba Gini Cdmn Bctsl Cath 120cm 14cm Implanted:Qty: 1 on 05/19/2024 by Jacob Newsome MD at [facility] Other (Type not listed) Right: Abdomen [employer] 02/08/2025 [id number] / / [id number] Valve Shnt Strt2 Reg Csf Prgm Flw Cntrl Implanted:Qty: 1 on 05/19/2024 by Jacob Newsome MD at [facility] Other (Type not listed) Right: Cranial [employer] 11/12/2026 [id number] / / [id number] Clip Srg Std Rt Ang Implanted:Qty: 1 on 05/19/2024 by Jacob Newsome MD at [facility] Other (Type not listed) Right: [employer] 10/19/2028 [id number] [id number] / / [id number] Fltr Ivc 70cm Dlv Shth Crv Pshr Strl Lf Implanted:Qty: 1 on 05/07/2024 at [facility] Right: V[employer] 01/17/2027 [id number] / / [id number] Explanted Type Area Certified Performance Technologist Device Identifier Shelf Expiration Date Model / Serial / Lot Coil Hydroframe 5mm 20mm Embl Explanted:Qty: 1 on 05/05/2024 at [facility] [employer] 12/09/2028 7110-052 0 / / [id number] Coil Hydroframe Adv 15mm 4mm Embl Explanted:Qty: 1 on 05/05/2024 at [facility] [employer] 02/08/2029 7110-041 5 / / [id number] Fltr Ivc 70cm Dlv Shth Crv Pshr Strl Lf Explanted:Qty: 1 on 05/07/2024 at [facility] Right: [employer] 02/13/2027 [id number] / / [id number] Description:implanted by gary ortiz Procedures Procedure Name Priority Date/Time Associated Diagnosis Comments PHOSPHORUS BLOOD Routine 05/26/2024 1:42 AM BILLING MANAGER MAGNESIUM BLOOD Routine 05/26/2024 1:42 AM BILLING MANAGER CBC W AUTO DIFFERENTIAL Routine 05/26/2024 1:42 AM BILLING MANAGER BASIC METABOLIC PANEL (CALCIUM TOTAL) Routine 05/26/2024 1:42 AM BILLING MANAGER PHOSPHORUS BLOOD Routine 05/24/2024 2:51 AM BILLING MANAGER MAGNESIUM BLOOD Routine 05/24/2024 2:51 AM BILLING MANAGER CBC W AUTO DIFFERENTIAL AM Draw 05/24/2024 2:51 AM BILLING MANAGER BASIC METABOLIC PANEL (CALCIUM TOTAL) Routine 05/24/2024 2:51 AM BILLING MANAGER PHOSPHORUS BLOOD Routine 05/23/2024 3:02 AM BILLING MANAGER MAGNESIUM BLOOD Routine 05/23/2024 3:02 AM BILLING MANAGER CBC W AUTO DIFFERENTIAL AM Draw 05/23/2024 3:02 AM BILLING MANAGER BASIC METABOLIC PANEL (CALCIUM TOTAL) Routine 05/23/2024 3:02 AM BILLING MANAGER PHOSPHORUS BLOOD Routine 05/22/2024 3:51 AM BILLING MANAGER MAGNESIUM BLOOD Routine 05/22/2024 3:51 AM BILLING MANAGER CBC W AUTO DIFFERENTIAL AM Draw 05/22/2024 3:51 AM BILLING MANAGER BASIC METABOLIC PANEL (CALCIUM TOTAL) Routine 05/22/2024 3:[address] HEAD WO CONTRAST Routine 05/20/2024 6 :02 AM BILLING MANAGER Subarachnoid bleed (HCC) SAH (subarachnoid hemorrhage) (HCC) BASIC METABOLIC PANEL (CALCIUM TOTAL) Routine 05/20/2024 2:34 AM BILLING MANAGER PT-INR SLH Routine 05/20/2024 2:34 AM BILLING MANAGER PHOSPHORUS BLOOD Routine 05/20/2024 2:34 AM BILLING MANAGER MAGNESIUM BLOOD AM Draw 05/20/2024 2:34 AM BILLING MANAGER CBC W AUTO DIFFERENTIAL AM Draw 05/20/2024 2:34 AM BILLING MANAGER XR SHUNT SERIES STAT 05/19/2024 11:24 AM BILLING MANAGER Subarachnoid bleed (HCC) SAH (subarachnoid hemorrhage) (HCC) ENDOTRACHEAL TUBE NOTE Routine 05/19/2024 8:56 AM BILLING MANAGER PTT SLH AM Draw 05/19/2024 8:19 AM BILLING MANAGER RI CREATE SHUNT VENTRIC-PERITONEAL 05/19/2024 7:59 AM BILLING MANAGER Cerebral ventriculomegaly Case Notes COMBO CASE: ACS assisting Special Needs Supine CT HEAD WO CONTRAST Routine 05/19/2024 5 :30 AM BILLING MANAGER Subarachnoid bleed (HCC) BASIC METABOLIC PANEL (CALCIUM TOTAL) Routine 05/19/2024 12:56 AM BILLING MANAGER PHOSPHORUS BLOOD Routine 05/19/2024 12:56 AM BILLING MANAGER MAGNESIUM BLOOD AM Draw 05/19/2024 12:56 AM BILLING MANAGER CBC W AUTO DIFFERENTIAL AM Draw 05/19/2024 12:56 AM BILLING MANAGER PTT SLH STAT 05/18/2024 9:17 PM BILLING MANAGER PT-INR SLH Routine 05/18/2024 9:17 PM BILLING MANAGER TYPE + SCREEN PANEL Routine 05/18/2024 11:57 AM BILLING MANAGER PTT [facility]H Timed 05/18/2024 11:57 AM BILLING MANAGER PTT [facility]H Timed 05/18/2024 6:15 AM BILLING MANAGER DIFFERENTIAL MANUAL CSF STAT 05/18/2024 4:59 AM BILLING MANAGER GLUCOSE CSF Routine 05/18/2024 4:59 AM BILLING MANAGER PROTEIN CSF CONSTANTINE 05/18/2024 4:59 AM BILLING MANAGER CELL COUNT W DIFFERENTIAL CSF STAT 05/18/2024 4:59 AM BILLING MANAGER PTT SLH Timed 05/18/2024 12:07 AM BILLING MANAGER BASIC METABOLIC PANEL (CALCIUM TOTAL) Routine 05/18/2024 12:07 AM BILLING MANAGER PT-INR SLH Routine 05/18/2024 12:07 AM BILLING MANAGER PHOSPHORUS BLOOD Routine 05/18/2024 12:07 AM BILLING MANAGER MAGNESIUM BLOOD AM Draw 05/18/2024 12:07 AM BILLING MANAGER CBC W AUTO DIFFERENTIAL AM Draw 05/18/2024 12:07 AM BILLING MANAGER PTT SLH Timed 05/17/2024 5:31 PM BILLING MANAGER PTT SLH Timed 05/17/2024 9:59 AM BILLING MANAGER DIFFERENTIAL MANUAL CSF STAT 05/17/2024 8:51 AM BILLING MANAGER PROTEIN CSF CONSTANTINE 05/17/2024 8:51 AM BILLING MANAGER GLUCOSE CSF Routine 05/17/2024 8:51 AM BILLING MANAGER CELL COUNT W DIFFERENTIAL CSF STAT 05/17/2024 8:51 AM BILLING MANAGER CULTURE CSF+GRAM STAIN Routine 05/17/2024 8:51 AM BILLING MANAGER PTT SLH STAT 05/17/2024 4:[address] HEAD WO CONTRAST Routine 05/17/2024 4 :42 AM BILLING MANAGER Subarachnoid bleed (HCC) BASIC METABOLIC PANEL (CALCIUM TOTAL) Routine 05/16/2024 11:39 PM BILLING MANAGER PTT SLH Routine 05/16/2024 11:39 PM BILLING MANAGER PT-INR SLH Routine 05/16/2024 11:39 PM BILLING MANAGER PHOSPHORUS BLOOD Routine 05/16/2024 11:39 PM BILLING MANAGER MAGNESIUM BLOOD AM Draw 05/16/2024 11:39 PM BILLING MANAGER CBC W AUTO DIFFERENTIAL AM Draw 05/16/2024 11:39 PM BILLING MANAGER PTT SLH STAT 05/16/2024 6:05 PM BILLING MANAGER PTT SLH Timed 05/16/2024 11:58 AM BILLING MANAGER DIFFERENTIAL MANUAL CSF STAT 05/16/2024 10:42 AM BILLING MANAGER CELL COUNT W DIFFERENTIAL CSF STAT 05/16/2024 10:42 AM BILLING MANAGER PROTEIN CSF CONSTANTINE 05/16/2024 10:42 AM BILLING MANAGER GLUCOSE CSF CONSTANTINE 05/16/2024 10:42 AM BILLING MANAGER CULTURE CSF+GRAM STAIN Routine 05/16/2024 10:42 AM BILLING MANAGER PTT SLH STAT 05/16/2024 5:55 AM BILLING MANAGER DIFFERENTIAL MANUAL CSF STAT 05/16/2024 5:12 AM BILLING MANAGER GLUCOSE CSF Routine 05/16/2024 5:12 AM BILLING MANAGER PROTEIN CSF CONSTANTINE 05/16/2024 5:12 AM BILLING MANAGER CELL COUNT W DIFFERENTIAL CSF STAT 05/16/2024 5:12 AM BILLING MANAGER CULTURE CSF+GRAM STAIN Routine 05/16/2024 5:12 AM BILLING MANAGER BASIC METABOLIC PANEL (CALCIUM TOTAL) Routine 05/16/2024 12:04 AM BILLING MANAGER PTT SLH Routine 05/16/2024 12:04 AM BILLING MANAGER PT-INR SLH Routine 05/16/2024 12:04 AM BILLING MANAGER PHOSPHORUS BLOOD Routine 05/16/2024 12:04 AM BILLING MANAGER MAGNESIUM BLOOD AM Draw 05/16/2024 12:04 AM BILLING MANAGER CBC W AUTO DIFFERENTIAL AM Draw 05/16/2024 12:04 AM BILLING MANAGER PTT SLH STAT 05/15/2024 5:41 PM BILLING MANAGER PTT SLH STAT 05/15/2024 11:59 AM BILLING MANAGER PTT SLH Timed 05/15/2024 5:52 AM BILLING MANAGER BASIC METABOLIC PANEL (CALCIUM TOTAL) Routine 05/14/2024 11:43 PM BILLING MANAGER PT-INR SLH Routine 05/14/2024 11:43 PM BILLING MANAGER PHOSPHORUS BLOOD Routine 05/14/2024 11:43 PM BILLING MANAGER MAGNESIUM BLOOD AM Draw 05/14/2024 11:43 PM BILLING MANAGER CBC W AUTO DIFFERENTIAL AM Draw 05/14/2024 11:43 PM BILLING MANAGER PTT SLH STAT 05/14/2024 6:58 PM BILLING MANAGER PTT SLH Timed 05/14/2024 5:55 PM BILLING MANAGER VAS BILATERAL VENOUS DUPLEX UE Routine 05/14/2024 4:35 PM BILLING MANAGER Subarachnoid bleed (HCC) PTT SLH Timed 05/14/2024 11:45 AM BILLING MANAGER MRSA DNA PCR STAT 05/14/2024 10:38 AM BILLING MANAGER XR CHEST 1VW PORTABLE STAT 05/14/2024 9:00 AM BILLING MANAGER Subarachnoid bleed (HCC) DIFFERENTIAL MANUAL CSF STAT 05/14/2024 3:23 AM BILLING MANAGER GLUCOSE CSF Routine 05/14/2024 3:23 AM BILLING MANAGER PROTEIN CSF CONSTANTINE 05/14/2024 3:23 AM BILLING MANAGER CELL COUNT W DIFFERENTIAL CSF STAT 05/14/2024 3:23 AM BILLING MANAGER CULTURE CSF+GRAM STAIN Routine 05/14/2024 3:23 AM BILLING MANAGER BASIC METABOLIC PANEL (CALCIUM TOTAL) Routine 05/13/2024 11:39 PM BILLING MANAGER PTT SLH Routine 05/13/2024 11:39 PM BILLING MANAGER PT-INR SLH Routine 05/13/2024 11:39 PM BILLING MANAGER PHOSPHORUS BLOOD Routine 05/13/2024 11:39 PM BILLING MANAGER MAGNESIUM BLOOD AM Draw 05/13/2024 11:39 PM BILLING MANAGER CBC W AUTO DIFFERENTIAL AM Draw 05/13/2024 11:39 PM BILLING MANAGER XR CHEST 1VW PORTABLE STAT 05/13/2024 7:51 AM BILLING MANAGER Postprocedural pneumothorax PTT SLH Timed 05/12/2024 10:04 PM BILLING MANAGER BASIC METABOLIC PANEL (CALCIUM TOTAL) Routine 05/12/2024 10:04 PM BILLING MANAGER PT-INR SLH Routine 05/12/2024 10:04 PM BILLING MANAGER PHOSPHORUS BLOOD Routine 05/12/2024 10:04 PM BILLING MANAGER MAGNESIUM BLOOD AM Draw 05/12/2024 10:04 PM BILLING MANAGER CBC W AUTO DIFFERENTIAL AM Draw 05/12/2024 10:[address] ANGIO CHEST PULM EMBOLISM STAT 05/12/2024 5:24 PM BILLING MANAGER Subarachnoid bleed (HCC) BLOOD GASES ART + COOX PANEL STAT 05/12/2024 3:45 PM BILLING MANAGER PTT SLH Timed 05/12/2024 3:00 PM BILLING MANAGER XR CHEST 1VW PORTABLE STAT 05/12/2024 8:40 AM BILLING MANAGER Postprocedural pneumothorax PTT [facility] STAT 05/12/2024 8:[address] ANGIO BRAIN Routine 05/12/2024 5:36 AM BILLING MANAGER Subarachnoid bleed (HCC) BASIC METABOLIC PANEL (CALCIUM TOTAL) Routine 05/12/2024 12:10 AM BILLING MANAGER PT-INR SLH Routine 05/12/2024 12:10 AM BILLING MANAGER PHOSPHORUS BLOOD Routine 05/12/2024 12:10 AM BILLING MANAGER MAGNESIUM BLOOD AM Draw 05/12/2024 12:10 AM BILLING MANAGER CBC W AUTO DIFFERENTIAL AM Draw 05/12/2024 12:10 AM BILLING MANAGER PTT SLH Timed 05/11/2024 8:23 PM BILLING MANAGER XR CHEST 1VW PORTABLE STAT 05/11/2024 4:07 PM BILLING MANAGER Postprocedural pneumothorax PTT [facility]H Timed 05/11/2024 12:44 PM BILLING MANAGER XR CHEST 1VW PORTABLE Routine 05/11/2024 11:13 AM BILLING MANAGER Postprocedural pneumothorax XR CHEST 1VW PORTABLE STAT 05/11/2024 8:52 AM BILLING MANAGER Postprocedural pneumothorax PTT SLH Timed 05/11/2024 5:46 AM BILLING MANAGER DIFFERENTIAL MANUAL CSF STAT 05/11/2024 3:44 AM BILLING MANAGER GLUCOSE CSF Routine 05/11/2024 3:44 AM BILLING MANAGER PROTEIN CSF CONSTANTINE 05/11/2024 3:44 AM BILLING MANAGER CELL COUNT W DIFFERENTIAL CSF STAT 05/11/2024 3:44 AM BILLING MANAGER BASIC METABOLIC PANEL (CALCIUM TOTAL) Routine 05/11/2024 12:28 AM BILLING MANAGER PHOSPHORUS BLOOD Routine 05/11/2024 12:28 AM BILLING MANAGER MAGNESIUM BLOOD AM Draw 05/11/2024 12:28 AM BILLING MANAGER CBC W AUTO DIFFERENTIAL AM Draw 05/11/2024 12:28 AM BILLING MANAGER PT-INR SLH Routine 05/10/2024 10:11 PM BILLING MANAGER PTT SLH CONSTANTINE 05/10/2024 10:11 PM BILLING MANAGER PT EVAL AND TREAT Routine 05/10/2024 4:1 7 PM BILLING MANAGER OT EVAL AND TREAT Routine 05/10/2024 4:1 7 PM BILLING MANAGER EXTUBATION Routine 05/10/2024 2:09 PM BILLING MANAGER PTT [facility]H STAT 05/10/2024 1:57 PM BILLING MANAGER XR ABDOMEN KUB PORTABLE STAT 05/10/2024 12:14 PM BILLING MANAGER Subarachnoid bleed (HCC) XR CHEST 1VW PORTABLE STAT 05/10/2024 12:14 PM BILLING MANAGER Subarachnoid bleed (HCC) BLOOD GASES ART + COOX PANEL Routine 05/10/2024 9:18 AM BILLING MANAGER PTT SLH STAT 05/10/2024 6:25 AM BILLING MANAGER XR CHEST 1VW PORTABLE Routine 05/10/2024 5:02 AM BILLING MANAGER Subarachnoid bleed (HCC) CT HEAD WO CONTRAST Routine 05/10/2024 4 :20 AM BILLING MANAGER Subarachnoid bleed (HCC) BASIC METABOLIC PANEL (CALCIUM TOTAL) Routine 05/10/2024 12:03 AM BILLING MANAGER PTT SLH CONSTANTINE 05/10/2024 12:03 AM BILLING MANAGER PHOSPHORUS BLOOD Routine 05/10/2024 12:03 AM BILLING MANAGER MAGNESIUM BLOOD AM Draw 05/10/2024 12:03 AM BILLING MANAGER CBC W AUTO DIFFERENTIAL AM Draw 05/10/2024 12:03 AM BILLING MANAGER PTT SLH Routine 05/09/2024 6:07 PM BILLING MANAGER PT-INR [facility] Routine 05/09/2024 6:[address] HEAD WO CONTRAST STAT 05/09/2024 3 :22 PM BILLING MANAGER Subarachnoid bleed (HCC) BLOOD GASES ART + COOX PANEL Timed 05/09/2024 2:40 PM BILLING MANAGER XR CHEST 1VW PORTABLE Routine 05/09/2024 1:05 PM BILLING MANAGER Subarachnoid bleed (HCC) MECHANICAL VENTILATION Routine 05/09/2024 10:53 AM BILLING MANAGER XR CHEST 1VW PORTABLE STAT 05/09/2024 8:08 AM BILLING MANAGER Postprocedural pneumothorax DIFFERENTIAL MANUAL CSF STAT 05/09/2024 4:03 AM BILLING MANAGER GLUCOSE CSF Routine 05/09/2024 4:03 AM BILLING MANAGER PROTEIN CSF CONSTANTINE 05/09/2024 4:03 AM BILLING MANAGER CELL COUNT W DIFFERENTIAL CSF STAT 05/09/2024 4:03 AM BILLING MANAGER CULTURE CSF+GRAM STAIN Routine 05/09/2024 4:03 AM BILLING MANAGER OSMOLALITY BLOOD Timed 05/09/2024 3:45 AM BILLING MANAGER SODIUM BLOOD Timed 05/09/2024 3:45 AM BILLING MANAGER CBC W AUTO DIFFERENTIAL AM Draw 05/09/2024 3:45 AM BILLING MANAGER MAGNESIUM BLOOD Routine 05/09/2024 3:45 AM BILLING MANAGER PHOSPHORUS BLOOD Routine 05/09/2024 3:45 AM BILLING MANAGER BASIC METABOLIC PANEL (CALCIUM TOTAL) AM Draw 05/09/2024 3:45 AM BILLING MANAGER GLUCOSE - POINT OF CARE Routine 05/09/2024 12:12 AM BILLING MANAGER TRIGLYCERIDES BLOOD AM Draw 05/09/2024 12:12 AM BILLING MANAGER BLOOD GASES ART + COOX PANEL Routine 05/09/2024 12:12 AM BILLING MANAGER COMPREHENSIVE METABOLIC PANEL Routine 05/09/2024 12:12 AM BILLING MANAGER PHOSPHORUS BLOOD Routine 05/09/2024 12:12 AM BILLING MANAGER MAGNESIUM BLOOD AM Draw 05/09/2024 12:12 AM BILLING MANAGER CBC W AUTO DIFFERENTIAL AM Draw 05/09/2024 12:12 AM BILLING MANAGER OSMOLALITY BLOOD Timed 05/09/2024 12:12 AM BILLING MANAGER SODIUM BLOOD Timed 05/09/2024 12:12 AM BILLING MANAGER OSMOLALITY BLOOD Timed 05/08/2024 6:16 PM BILLING MANAGER SODIUM BLOOD Timed 05/08/2024 6:16 PM BILLING MANAGER VAS TRANSCRANIAL DOPPLER COMP Routine 05/08/2024 5:43 PM BILLING MANAGER Subarachnoid bleed (HCC) BLOOD GASES ART + COOX PANEL STAT 05/08/2024 12:00 PM BILLING MANAGER OSMOLALITY BLOOD Timed 05/08/2024 12:00 PM BILLING MANAGER SODIUM BLOOD Timed 05/08/2024 12:00 PM BILLING MANAGER GLUCOSE - POINT OF CARE Routine 05/08/2024 11:59 AM BILLING MANAGER GLUCOSE - POINT OF CARE Routine 05/08/2024 5:39 AM BILLING MANAGER OSMOLALITY BLOOD Timed 05/08/2024 5:34 AM BILLING MANAGER SODIUM BLOOD Timed 05/08/2024 5:34 AM BILLING MANAGER XR CHEST 1VW PORTABLE Routine 05/08/2024 4:00 AM BILLING MANAGER Subarachnoid bleed (HCC) GLUCOSE - POINT OF CARE Routine 05/08/2024 12:17 AM BILLING MANAGER BLOOD GASES ART + COOX PANEL Routine 05/08/2024 12:13 AM BILLING MANAGER COMPREHENSIVE METABOLIC PANEL Routine 05/08/2024 12:12 AM BILLING MANAGER PHOSPHORUS BLOOD Routine 05/08/2024 12:12 AM BILLING MANAGER MAGNESIUM BLOOD AM Draw 05/08/2024 12:12 AM BILLING MANAGER CBC W AUTO DIFFERENTIAL AM Draw 05/08/2024 12:12 AM BILLING MANAGER OSMOLALITY BLOOD Timed 05/08/2024 12:12 AM BILLING MANAGER SODIUM BLOOD Timed 05/08/2024 12:12 AM BILLING MANAGER GLUCOSE - POINT OF CARE Routine 05/07/2024 6:02 PM BILLING MANAGER OSMOLALITY BLOOD Timed 05/07/2024 6:02 PM BILLING MANAGER SODIUM BLOOD Timed 05/07/2024 6:02 PM BILLING MANAGER VAS BILATERAL VENOUS DUPLEX UE STAT 05/07/2024 5:41 PM BILLING MANAGER Subarachnoid bleed (HCC) VAS BILATERAL VENOUS DUPLEX LE STAT 05/07/2024 5:41 PM BILLING MANAGER Subarachnoid bleed (HCC) VAS TRANSCRANIAL DOPPLER COMP STAT 05/07/2024 5:41 PM BILLING MANAGER Subarachnoid bleed (HCC) GLUCOSE - POINT OF CARE Routine 05/07/2024 1:07 PM BILLING MANAGER OSMOLALITY BLOOD Timed 05/07/2024 12:57 PM BILLING MANAGER SODIUM BLOOD Timed 05/07/2024 12:57 PM BILLING MANAGER IR IVC FILTER PLACEMENT Routine 05/07/2024 12:35 PM BILLING MANAGER Subarachnoid bleed (HCC) Other acute pulmonary embolism without acute cor pulmonale (HCC) CARDIAC EKG ORDER 05/07/2024 11:51 AM BILLING MANAGER BLOOD GASES ART + COOX PANEL STAT 05/07/2024 9:19 AM BILLING MANAGER LACTIC ACID BLOOD REFLEX TO REPEAT Timed STAT 05/07/2024 9:19 AM BILLING MANAGER PATHOLOGY SMEAR BODY FLUID STAT 05/07/2024 9:08 AM BILLING MANAGER DIFFERENTIAL MANUAL CSF STAT 05/07/2024 9:08 AM BILLING MANAGER PROTEIN CSF CONSTANTINE 05/07/2024 9:08 AM BILLING MANAGER CELL COUNT W DIFFERENTIAL CSF STAT 05/07/2024 9:08 AM BILLING MANAGER GLUCOSE CSF CONSTANTINE 05/07/2024 9:08 AM BILLING MANAGER CULTURE CSF+GRAM STAIN CONSTANTINE 05/07/2024 9:08 AM BILLING MANAGER XR CHEST 1VW PORTABLE STAT 05/07/2024 9:04 AM BILLING MANAGER Subarachnoid bleed (HCC) GLUCOSE - POINT OF CARE Routine 05/07/2024 6:01 AM BILLING MANAGER DIFFERENTIAL MANUAL AM Draw 05/07/2024 4 :12 AM BILLING MANAGER OSMOLALITY BLOOD Timed 05/07/2024 4:12 AM BILLING MANAGER SODIUM BLOOD Timed 05/07/2024 4:12 AM BILLING MANAGER CBC W AUTO DIFFERENTIAL AM Draw 05/07/2024 4:12 AM BILLING MANAGER MAGNESIUM BLOOD Routine 05/07/2024 4:12 AM BILLING MANAGER PHOSPHORUS BLOOD Routine 05/07/2024 4:12 AM BILLING MANAGER BASIC METABOLIC PANEL (CALCIUM TOTAL) AM Draw 05/07/2024 4:12 AM BILLING MANAGER XR CHEST 1VW PORTABLE Routine 05/07/2024 3:26 AM BILLING MANAGER Postprocedural pneumothorax GLUCOSE - POINT OF CARE Routine 05/06/2024 11:50 PM BILLING MANAGER DIFFERENTIAL MANUAL AM Draw 05/06/2024 11:43 PM BILLING MANAGER VANCOMYCIN LEVEL RANDOM Timed 05/06/2024 11:43 PM BILLING MANAGER COMPREHENSIVE METABOLIC PANEL Routine 05/06/2024 11:43 PM BILLING MANAGER PHOSPHORUS BLOOD Routine 05/06/2024 11:43 PM BILLING MANAGER MAGNESIUM BLOOD AM Draw 05/06/2024 11:43 PM BILLING MANAGER CBC W AUTO DIFFERENTIAL AM Draw 05/06/2024 11:43 PM BILLING MANAGER OSMOLALITY BLOOD Timed 05/06/2024 11:43 PM BILLING MANAGER SODIUM BLOOD Timed 05/06/2024 11:43 PM BILLING MANAGER OSMOLALITY BLOOD Timed 05/06/2024 5:47 PM BILLING MANAGER SODIUM BLOOD Timed 05/06/2024 5:47 PM BILLING MANAGER GLUCOSE - POINT OF CARE Routine 05/06/2024 5:26 PM BILLING MANAGER BRONCHOSCOPY STAT 05/06/2024 3:52 PM BILLING MANAGER GLUCOSE - POINT OF CARE Routine 05/06/2024 12:24 PM BILLING MANAGER OSMOLALITY BLOOD Timed 05/06/2024 12:10 PM BILLING MANAGER SODIUM BLOOD Timed 05/06/2024 12:10 PM BILLING MANAGER CULTURE BRONCHIAL WASHING+GRAM STAIN Routine 05/06/2024 11:57 AM BILLING MANAGER MRSA DNA PCR STAT 05/06/2024 11:57 AM BILLING MANAGER ECHO COMPLETE W BUBBLE STUDY STAT 05/06/2024 10:03 AM BILLING MANAGER Subarachnoid bleed (HCC) BLOOD GASES ART + COOX PANEL STAT 05/06/2024 8:46 AM BILLING MANAGER GLUCOSE - POINT OF CARE Routine 05/06/2024 5:48 AM BILLING MANAGER XR CHEST 1VW PORTABLE Routine 05/06/2024 4:28 AM BILLING MANAGER Postprocedural pneumothorax DIFFERENTIAL MANUAL AM Draw 05/06/2024 3 :58 AM BILLING MANAGER OSMOLALITY BLOOD Timed 05/06/2024 3:58 AM BILLING MANAGER SODIUM BLOOD Timed 05/06/2024 3:58 AM BILLING MANAGER CBC W AUTO DIFFERENTIAL AM Draw 05/06/2024 3:58 AM BILLING MANAGER MAGNESIUM BLOOD Routine 05/06/2024 3:58 AM BILLING MANAGER PHOSPHORUS BLOOD Routine 05/06/2024 3:58 AM BILLING MANAGER BASIC METABOLIC PANEL (CALCIUM TOTAL) AM Draw 05/06/2024 3:58 AM BILLING MANAGER PLATELET COUNT AUTO CITRATED BLOOD Routine 05/06/2024 1:39 AM BILLING MANAGER GLUCOSE - POINT OF CARE Routine 05/06/2024 12:20 AM BILLING MANAGER DIFFERENTIAL MANUAL AM Draw 05/06/2024 12:20 AM BILLING MANAGER COMPREHENSIVE METABOLIC PANEL Routine 05/06/2024 12:20 AM BILLING MANAGER PHOSPHORUS BLOOD Routine 05/06/2024 12:20 AM BILLING MANAGER MAGNESIUM BLOOD AM Draw 05/06/2024 12:20 AM BILLING MANAGER CBC W AUTO DIFFERENTIAL AM Draw 05/06/2024 12:20 AM BILLING MANAGER OSMOLALITY BLOOD Timed 05/06/2024 12:20 AM BILLING MANAGER SODIUM BLOOD Timed 05/06/2024 12:[address] CEREBRAL PERFUSION ANALYSIS STAT 05/05/2024 9:44 PM BILLING MANAGER SAH (subarachnoid hemorrhage) (HCC) CT ANGIO BRAIN AND NECK STAT 05/05/2024 9:44 PM BILLING MANAGER SAH (subarachnoid hemorrhage) (HCC) OSMOLALITY BLOOD Timed 05/05/2024 5:57 PM BILLING MANAGER SODIUM BLOOD Timed 05/05/2024 5:57 PM BILLING MANAGER GLUCOSE - POINT OF CARE Routine 05/05/2024 5:54 PM BILLING MANAGER XR CHEST 1VW PORTABLE STAT 05/05/2024 5:22 PM BILLING MANAGER Subarachnoid bleed (HCC) XR CHEST 1VW PORTABLE STAT 05/05/2024 4:20 PM BILLING MANAGER Subarachnoid bleed (HCC) BLOOD GASES ART + COOX PANEL STAT 05/05/2024 4:05 PM BILLING MANAGER XR CHEST 1VW PORTABLE STAT 05/05/2024 1:52 PM BILLING MANAGER Subarachnoid bleed (HCC) OSMOLALITY BLOOD Timed 05/05/2024 12:05 PM BILLING MANAGER SODIUM BLOOD Timed 05/05/2024 12:05 PM BILLING MANAGER GLUCOSE - POINT OF CARE Routine 05/05/2024 12:02 PM BILLING MANAGER IR EMBOLIZATION TRANSCATH THPY STAT 05/05/2024 10:40 AM BILLING MANAGER Subarachnoid bleed (HCC) B-TYPE NATRIURETIC PEPTIDE STAT 05/05/2024 6:49 AM BILLING MANAGER GLUCOSE - POINT OF CARE Routine 05/05/2024 6:09 AM BILLING MANAGER VENTILATOR LIBERATION TRIAL PROTOCOL Routine 05/05/2024 5:19 AM BILLING MANAGER PULSE OXIMETRY, CONTINUOUS Routine 05/05/2024 5:19 AM BILLING MANAGER DIFFERENTIAL MANUAL AM Draw 05/05/2024 3 :56 AM BILLING MANAGER OSMOLALITY BLOOD Timed 05/05/2024 3:56 AM BILLING MANAGER SODIUM BLOOD Timed 05/05/2024 3:56 AM BILLING MANAGER CBC W AUTO DIFFERENTIAL AM Draw 05/05/2024 3:56 AM BILLING MANAGER MAGNESIUM BLOOD Routine 05/05/2024 3:56 AM BILLING MANAGER PHOSPHORUS BLOOD Routine 05/05/2024 3:56 AM BILLING MANAGER BASIC METABOLIC PANEL (CALCIUM TOTAL) AM Draw 05/05/2024 3:[address] ANGIO AORTA FOR DISSECTION STAT 05/05/2024 1:00 AM BILLING MANAGER Subarachnoid bleed (HCC) CT HEAD WO CONTRAST STAT 05/05/2024 1 :00 AM BILLING MANAGER Subarachnoid bleed (HCC) GLUCOSE - POINT OF CARE Routine 05/05/2024 12:15 AM BILLING MANAGER TROPONIN-I HIGH SENSITIVE REFLEX 1HOUR Timed 05/05/2024 12:14 AM BILLING MANAGER MAGNESIUM BLOOD AM Draw 05/05/2024 12:14 AM BILLING MANAGER CBC W AUTO DIFFERENTIAL AM Draw 05/05/2024 12:14 AM BILLING MANAGER OSMOLALITY BLOOD Timed 05/05/2024 12:14 AM BILLING MANAGER SODIUM BLOOD Timed 05/05/2024 12:14 AM BILLING MANAGER DIFFERENTIAL MANUAL STAT 05/04/2024 10:25 PM BILLING MANAGER COMPREHENSIVE METABOLIC PANEL Routine 05/04/2024 10:25 PM BILLING MANAGER PHOSPHORUS BLOOD Routine 05/04/2024 10:25 PM BILLING MANAGER PT-INR [facility] STAT 05/04/2024 10:25 PM BILLING MANAGER TROPONIN-I HIGH SENSITIVE BASELINE + 1HR STAT 05/04/2024 10:25 PM BILLING MANAGER PTT SL[facility] STAT 05/04/2024 10:25 PM BILLING MANAGER MAGNESIUM BLOOD STAT 05/04/2024 10:25 PM BILLING MANAGER CBC W AUTO DIFFERENTIAL STAT 05/04/2024 10:25 PM BILLING MANAGER HEMOGLOBIN A1C CONSTANTINE 05/04/2024 10:25 PM BILLING MANAGER OSMOLALITY BLOOD STAT 05/04/2024 10:25 PM BILLING MANAGER GLUCOSE - POINT OF CARE Routine 05/04/2024 10:16 PM BILLING MANAGER XR ABDOMEN KUB PORTABLE STAT 05/04/2024 7:25 PM BILLING MANAGER Altered mental status, unspecified altered mental status type XR CHEST 1VW PORTABLE STAT 05/04/2024 6:50 PM BILLING MANAGER Subarachnoid bleed (HCC) PT EVAL AND TREAT Routine 05/04/2024 6:4 1 PM BILLING MANAGER OT EVAL AND TREAT Routine 05/04/2024 6:4 1 PM BILLING MANAGER PREPARE PLATELET PHERESIS UNIT(S) STAT 05/04/2024 6:[address] ANGIO BRAIN AND NECK STAT 05/04/2024 5:48 PM BILLING MANAGER Altered mental status, unspecified altered mental status type Elevated troponin Lactic acidosis TEG 6 GLOBAL HEMOSTASIS W/ LYSIS STAT 05/04/2024 5:16 PM BILLING MANAGER TEG 6S PLATELET MAPPING STAT 05/04/2024 5:16 PM BILLING MANAGER LACTIC ACID BLOOD REFLEX TO REPEAT Timed STAT 05/04/2024 5:[address] HEAD WO CONTRAST STAT 05/04/2024 4 :54 PM BILLING MANAGER Altered mental status, unspecified altered mental status type ED INTUBATION Routine 05/04/2024 4:15 PM BILLING MANAGER T4 FREE STAT 05/04/2024 3:18 PM BILLING MANAGER TSH REFLEX FREE T4 STAT 05/04/2024 3: 18 PM BILLING MANAGER TROPONIN-I HIGH SENSITIVE REFLEX 1HOUR Timed 05/04/2024 3:18 PM BILLING MANAGER BLOOD TYPE VERIFICATION STAT 05/04/2024 3:17 PM BILLING MANAGER SARS-COV-2 (COVID-19) FLU A/B RSV PCR RAPID STAT 05/04/2024 3:13 PM BILLING MANAGER XR CHEST 1VW PORTABLE STAT 05/04/2024 2:18 PM BILLING MANAGER Altered mental status, unspecified altered mental status type TYPE + SCREEN PANEL STAT 05/04/2024 1 :49 PM BILLING MANAGER DIFFERENTIAL MANUAL STAT 05/04/2024 1 :49 PM BILLING MANAGER BLOOD GASES LINDA + COOX PANEL STAT 05/04/2024 1:49 PM BILLING MANAGER PROCALCITONIN LEVEL STAT 05/04/2024 1 :49 PM BILLING MANAGER PTT [facility] STAT 05/04/2024 1:49 PM BILLING MANAGER PT-INR [facility] STAT 05/04/2024 1:49 PM BILLING MANAGER CK BLOOD STAT 05/04/2024 1:49 PM BILLING MANAGER COMPREHENSIVE METABOLIC PANEL STAT 05/04/2024 1:49 PM BILLING MANAGER CBC W AUTO DIFFERENTIAL STAT 05/04/2024 1:49 PM BILLING MANAGER TROPONIN-I HIGH SENSITIVE BASELINE + 1HR STAT 05/04/2024 1:49 PM BILLING MANAGER LACTIC ACID BLOOD REFLEX TO REPEAT STAT 05/04/2024 1:49 PM BILLING MANAGER CULTURE BLOOD Timed 05/04/2024 1:49 PM BILLING MANAGER CULTURE BLOOD Timed 05/04/2024 1:44 PM BILLING MANAGER EKG 12-LEAD Routine 05/04/2024 1:17 PM BILLING MANAGER Altered mental status, unspecified altered mental status type from Last 3 Months Results * (ABNORMAL) CBC W AUTO DIFFERENTIAL (05/26/2024 1:42 AM BILLING MANAGER) Only the most recent of26 resultswithin the time period is included. [facility] Signature WBC 6.4 4.0 - 10.7 x10E9/L 05/26/2024 3:13 AM [facility] RBC Count 4.10 3.90 - 5.20 x10E12/L 05/26/2024 3:13 AM [facility] Hemoglobin 12.1 11.9 - 15.8 g/dL 05/26/2024 3:13 AM [facility] Hematocrit 38.5 34.8 - 46.1 % 05/26/2024 3:13 AM [facility] MCV 93.9 80.0 - 98.0 fL 05/26/2024 3:13 AM [facility] MCH 29.5 26.7 - 33.6 pg 05/26/2024 3:13 AM [facility] MCHC 31.4(L) 31.7 - 36.3 g/dL 05/26/2024 3:13 AM [facility] RDW-CV 14.0 11.3 - 14.8 % 05/26/2024 3:13 AM [facility] Platelet Count 403 150 - 420 x10E9/L 05/26/2024 3:13 AM [facility] MPV 9.1 7.8 - 11.4 fL 05/26/2024 3:13 AM [facility] Neutrophil % 67.0 41.0 - 74.0 % 05/26/2024 3:13 AM [facility] Lymphocyte % 23.3 17.0 - 47.0 % 05/26/2024 3:13 AM [facility] Monocyte % 7.2 3.0 - 11.0 % 05/26/2024 3:13 AM [facility] Eosinophil % 1.4 0.0 - 7.0 % 05/26/2024 3:13 AM [facility] Basophil % 0.8 0.0 - 1.6 % 05/26/2024 3:13 AM [facility] Immature Granulocytes % 0.3 0.0 - 1.0 % 05/26/2024 3:13 AM [facility] Neutrophil Absolute 4.28 1.60 - 7.50 x10E9/L 05/26/2024 3:13 AM [facility] Lymphocyte Absolute 1.49 1.00 - 4.40 x10E9/L 05/26/2024 3:13 AM [facility] Monocyte Absolute 0.46 0.15 - 1.00 x10E9/L 05/26/2024 3:13 AM [facility] Eosinophil Absolute 0.09 0.00 - 0.60 x10E9/L 05/26/2024 3:13 AM [facility] Basophil Absolute 0.05 0.00 - 0.13 x10E9/L 05/26/2024 3:13 AM [facility] Blood BLOOD SPECIMEN / Unknown Lab Venipuncture / Unknown 05/26/2024 1:42 AM BILLING MANAGER 05/26/2024 3:08 AM [facility] Mary Sweeney MD LAB - HEMATOLOGY ORD ERABLES [facility] [address] [place] [address], [facility] [phone] * (ABNORMAL) BASIC METABOLIC PANEL (CALCIUM TOTAL) (05/26/2024 1:42 AM BILLING MANAGER) Only the most recent of19 resultswithin the time period is included. BUN 22 7 - 26 mg/dL 05/26/2024 3:35 AM [facility] Creatinine 0.55(L) 0.56 - 0.96 mg/dL 05/26/2024 3:35 AM [facility] Sodium 140 136 - 145 mmol/L 05/26/2024 3:35 AM [facility] Potassium 3.8 3.5 - 4.5 mmol/L 05/26/2024 3:35 AM [facility] Chloride 110(H) 98 - 107 mmol/L 05/26/2024 3:35 AM [facility] CO2 17(L) 22 - 29 mmol/L 05/26/2024 3:35 AM [facility] Glucose 96 70 - 99 mg/dL 05/26/2024 3:35 AM [facility] Calcium 9.9 8.4 - 10.2 mg/dL 05/26/2024 3:35 AM [facility] Anion Gap 13 6 - 16 05/26/2024 3:35 AM [facility] BUN/Creatinine Ratio 40(H) 7 - 23 05/26/2024 3:35 AM [facility] Osmolality Calculated 293 275 - 295 mOsm/kg 05/26/2024 3:35 AM [facility] eGFR by CKD-EPI >90 >=90 mL/min/1.7 3 m2 05/26/2024 3:35 AM [facility] Blood BLOOD SPECIMEN / Unknown Lab Venipuncture / Unknown 05/26/2024 1:42 AM BILLING MANAGER 05/26/2024 3:13 AM BILLING MANAGER Mary Sweeney MD LAB - CHEMISTRY MICHELET AYALA [facility] [address] [place] [address], [facility] [phone] * PHOSPHORUS BLOOD (05/26/2024 1:42 AM BILLING MANAGER) Only the most recent of24 resultswithin the time period is included. Phosphorus 3.7 2.9 - 5.1 mg/dL 05/26/2024 3:28 AM [facility] Blood BLOOD SPECIMEN / Unknown Lab Venipuncture / Unknown 05/26/2024 1:42 AM BILLING MANAGER 05/26/2024 3:13 AM BILLING MANAGER Mary Sweeney MD LAB - CHEMISTRY MICHELET AYALA [address] [address], [place] [phone] * MAGNESIUM BLOOD (05/26/2024 1:42 AM BILLING MANAGER) Only the most recent of25 resultswithin the time period is included. Magnesium 2.1 1.6 - 2.6 mg/dL 05/26/2024 3:28 AM [facility] Blood BLOOD SPECIMEN / Unknown Lab Venipuncture / Unknown 05/26/2024 1:42 AM BILLING MANAGER 05/26/2024 3:13 AM BILLING MANAGER Mary Sweeney MD LAB - CHEMISTRY MICHELET AYALA [address] [address], [facility] [phone] * CT Head Wo Contrast (05/20/2024 6:02 AM BILLING MANAGER) Only the most recent of7 resultswithin the time period is included. Anatomical Region Laterality Modality Head Computed Tomogra phy 05/20/2024 6:17 AM BILLING MANAGER Impressions 05/20/2024 9:19 AM BILLING MANAGER IMPRESSION: 1. Postoperative changes of interval removal [...] horns. Report dictated by Sade Ricci MD (resident associate). I, Wes Mcrae MD have personally reviewed and interpreted this examination/study. > Interpreting Provider: Wes Mcrae MD on 05/20/2024 9:19 AM Narrative 05/20/2024 9:19 AM BILLING MANAGER PROCEDURE: CT HEAD WO CONTRAST, DATE/TIME OF EXAM: 05/20/2024 6:03 AM, LOCATION [facility] INDICATION: I60.9: Subarachnoid bleed (HCC) I60.9: SAH (subarachnoid hemorrhage) (HCC) ADDITIONAL CLINICAL INFORMATION: Ordering Provider Reason For Exam: post op INVOICE CLASSIFICATION CLERK shunt insertion Technologist Note: Additional: EXAMINATION: Computed [...] DATE/TIME OF EXAM: 05/20/2024 6:03 AM, LOCATION [facility] INDICATION: I60.9: Subarachnoid bleed (HCC) I60.9: SAH (subarachnoid hemorrhage) (HCC) ADDITIONAL CLINICAL INFORMATION: Ordering Provider Reason For Exam: post op INVOICE CLASSIFICATION CLERK shunt insertion Technologist Note: Additional: EXAMINATION: Computed [...] horns. Report dictated by Sade Ricci MD (resident associate). I, Wes Mcrae MD have personally reviewed and interpreted this examination/study. > Interpreting Provider: Wes Mcrae MD on 05/20/2024 9:19 AM Quintin Gamez MD CT ORDERABLES * (ABNORMAL) PT-INR [facility] (05/20/2024 2:34 AM BILLING MANAGER) Only the most recent of13 resultswithin the time period is included. PT 16.6(H) 12.1 - 14.8 Seconds 05/20/2024 3:47 AM [facility] INR 1.3 See Comment 05/20/2024 3:47 AM [facility] Comment:The suggested therap eutic range for standard coumadin (warfarin) therapy is an INR of 2.0-3.0. For high-risk patients (Mechanical Mitral Valve Prosthesis, etc.), the suggested prophylactic therapeutic range is an INR of 2.5-3.5. Blood BLOOD SPECIMEN / Unknown Venipuncture / Unknown 05/20/2024 2:34 AM BILLING MANAGER 05/20/2024 2:40 AM BILLING MANAGER Wally Doshi MD LAB - COAGULATION O RDERABLES [facility] [address] [place] [address], [facility] [phone] * XR Shunt Series (05/19/2024 11:24 AM BILLING MANAGER) Anatomical Region Laterality Modality Abdomen, Pelvis Digital Radiogra phy 05/19/2024 12:1 9 PM BILLING MANAGER Impressions 05/20/2024 4:34 AM BILLING MANAGER IMPRESSION: Intact right parietal approach ventriculoperitoneal shunt catheter. Report dictated by Sumeet Molina MD, (resident associate). IElaine MD have personally reviewed and interpreted this examination/study. > Interpreting Provider: Elaine Lee MD on 05/20/2024 4:34 AM Narrative 05/20/2024 4:34 AM BILLING MANAGER PROCEDURE: XR SHUNT SERIES, DATE/TIME OF EXAM: 05/19/2024 11:24 AM, LOCATION [facility] INDICATION: I60.9: Subarachnoid bleed (HCC) I60.9: SAH (subarachnoid hemorrhage) (HCC) ADDITIONAL CLINICAL INFORMATION: Ordering Provider Reason For Exam: post op INVOICE CLASSIFICATION CLERK shunt insertion COMPARISON: X-ray chest 05/14/2024. FINDINGS: [...] DATE/TIME OF EXAM: 05/19/2024 11:24 AM, LOCATION [facility] INDICATION: I60.9: Subarachnoid bleed (HCC) I60.9: SAH (subarachnoid hemorrhage) (HCC) ADDITIONAL CLINICAL INFORMATION: Ordering Provider Reason For Exam: post op INVOICE CLASSIFICATION CLERK shunt insertion COMPARISON: X-ray chest 05/14/2024. FINDINGS: [...] catheter. Report dictated by Sumeet Molina MD, (resident associate). IElaine MD have personally reviewed and interpreted this examination/study. > Interpreting Provider: Elaine Lee MD on 05/20/2024 4:34 AM Quintin Gamez MD DIAGNOSTIC IMAGING ORDERABLES * ETT LINE PERFORMABLE (05/19/2024 8:56 AM BILLING MANAGER) Narrative Freddie Medina Anes Asst - 05/19/2024 8:56 AM BILLING MANAGER Freddie Medina Anes Asslisa 05/19/2024 8:57 AM Endotracheal Tube Placement: Patient Location: OR. Intubation Event Date/Time: 05/19/2024 8:39 AM Procedure: intubation (25385) Procedure Section: Sedation: under general anesthesia. Indications [...] Staff Section Anesthesia Provider: Freddie Medina Anes Asst, Performed the procedure Provider #1: Rob Coronel MD. Provider #2: Auto Haulaway Driver, Student Anesthesiology Auto Haulaway Driver Student Anesthesiology. Additional Comments: Atraumatic intubation, dentition as in pre-op. Intubated by Husam Eng OTILIA-2. Rob Coronel MD GENERAL ANESTHESI A ORDERABLES * (ABNORMAL) PTT [facility] (05/19/2024 8:19 AM BILLING MANAGER) Only the most recent of33 resultswithin the time period is included. Pathologist [facility] APTT 54.3(H) 23.0 - 38.4 Seconds 05/19/2024 9:01 AM BILLING MANAGER [facility] Comment:Suggested therapeuti c range for full dose I.V. unfractionated heparin therapy for venous thromboembolism is 71 to 109 seconds. Blood BLOOD SPECIMEN / Unknown Venipuncture / Unknown 05/19/2024 8:19 AM BILLING MANAGER 05/19/2024 8:33 AM BILLING MANAGER Efraín Kang MD LAB - COAGULATION OR DERABLES Performing Organization Address City/[facility]/ZIP Co de Phone Number [facility] [address] [place] [id number], [place] [phone] * TYPE + SCREEN PANEL (05/18/2024 11:57 AM BILLING MANAGER) Only the most recent of2 resultswithin the time period is included. Pathologist [facility] Antibody Screen NEG 1:27 PM BILLING MANAGER [facility] ABO Rh A POS 05/18/2024 1:27 PM BILLING MANAGER [facility] Blood Bank BLOOD SPECIMEN / Unknown Venipuncture / Unknown 05/18/2024 11:57 AM BILLING MANAGER 05/18/2024 12:17 PM BILLING MANAGER Efraín Kang MD LAB - BLOOD BANK ORD ERABLES Performing Organization Address City/[facility]/ZIP Co de Phone Number [facility] [address] [place] [address], [place] [phone] * DIFFERENTIAL MANUAL CSF (05/18/2024 4:59 AM BILLING MANAGER) Only the most recent of8 resultswithin the time period is included. Neutrophils % CSF 41 % 05/18/2024 5:56 AM [facility] Lymphocytes % CSF 17 % 05/18/2024 5:56 AM [facility] Monocytes % CSF 42 % 5:56 AM [facility] Total Cell Count CSF 100 x10E6/L 05/18/2024 5:56 AM [facility] Cerebral spinal fluid CEREBROSPINAL FLUID SPECIMEN / Unknown Collection / Unknown 05/18/2024 4:59 AM BILLING MANAGER 05/18/2024 5:05 AM BILLING MANAGER Narrative [facility] - 05/18/2024 5:56 AM BILLING MANAGER No reference ranges established for CSF differential cell counts. The test results must be integrated into the clinical context for interpretation. Esteban Real MD LAB - BODY FLUID ORD ERABLES [address] [id number] [phone] * (ABNORMAL) CELL COUNT W DIFFERENTIAL CSF (05/18/2024 4:59 AM BILLING MANAGER) Only the most recent of8 resultswithin the time period is included. Tube Number NOT APPLICABLE 05/18/2024 5:57 AM [facility] Xanthochromia PRESENT(A) ABSENT 05/18/2024 5:57 AM [facility] CSF Appearance CLEAR 05/18/2024 5:57 AM [facility] CSF Color STRAW 05/18/2024 5:57 AM [facility] Total Nucleated Cells CSF 10(H) <=5 x10E6/L 05/18/2024 5:57 AM [facility] RBC Count CSF 7,000(H) <1 x10E6/L 05/18/2024 5:57 AM [facility] Cerebral spinal fluid CEREBROSPINAL FLUID SPECIMEN / Unknown Collection / Unknown 05/18/2024 4:59 AM BILLING MANAGER 05/18/2024 5:05 AM BILLING MANAGER Esteban Real MD LAB - BODY FLUID ORD ERABLES Performing Organization Address City/[facility]/ZIP Co de Phone Number [address] [address], [place] [phone] * PROTEIN CSF (05/18/2024 4:59 AM BILLING MANAGER) Only the most recent of8 resultswithin the time period is included. Protein CSF 29 15 - 45 mg/dL 05/18/2024 5:25 AM BILLING MANAGER [facility] Cerebral spinal fluid CEREBROSPINAL FLUID SPECIMEN / Unknown Collection / Unknown 05/18/2024 4:59 AM BILLING MANAGER 05/18/2024 5:05 AM BILLING MANAGER Esteban Real MD LAB - BODY FLUID ORD ERABLES Performing Organization Address City/[facility] Co de Phone Number [address] [address], [place] [phone] * GLUCOSE CSF (05/18/2024 4:59 AM BILLING MANAGER) Only the most recent of8 resultswithin the time period is included. Glucose CSF 68 40 - 70 mg/dL 05/18/2024 5:25 AM BILLING MANAGER [facility] Cerebral spinal fluid CEREBROSPINAL FLUID SPECIMEN / Unknown Collection / Unknown 05/18/2024 4:59 AM BILLING MANAGER 05/18/2024 5:05 AM BILLING MANAGER Esteban Real MD LAB - BODY FLUID ORD ERABLES Performing Organization Address City/[facility]/ZIP Co de Phone Number [address] [address], [place] [phone] * CULTURE CSF+GRAM STAIN (05/17/2024 8:51 AM BILLING MANAGER) Only the most recent of6 resultswithin the time period is included. Culture No growth LC 05/24/2024 7:40 AM BILLING MANAGER [facility] Gram Stain Rare Polymorphonuclear cells 05/24/2024 7:40 AM BILLING MANAGER [facility] Gram Stain Light Red blood cells 05/24/2024 7:40 AM BILLING MANAGER [facility] Gram Stain No organisms seen 025 7:40 AM BILLING MANAGER [facility] Cerebral spinal fluid CEREBROSPINAL FLUID SPECIMEN / Unknown Collection / Unknown 05/17/2024 8:51 AM BILLING MANAGER 05/17/2024 8:55 AM BILLING MANAGER Efraín Kang MD LAB - MICROBIOLOGY O ELENA Performing Organization Address City/[facility]/ZIP Co de Phone Number [facility] [address] [place] [address], [facility] [phone] * VAS Bilateral Venous Duplex Ue (05/14/2024 4:35 PM BILLING MANAGER) Only the most recent of2 resultswithin the time period is included. Anatomical Region Laterality Modality Upper Extremity Intravascular Ul trasound 05/14/2024 4:21 PM BILLING MANAGER Narrative Procedure Note Candido Dale MD - 05/15/2024 Efraín Kang MD VASCULAR LAB ORDERAB LES * MRSA DNA PCR (05/14/2024 10:38 AM BILLING MANAGER) Only the most recent of2 resultswithin the time period is included. MRSA DNA by PCR Not detected Not detected 05/14/2024 6:23 PM BILLING MANAGER [facility] MICROBIOLOGY Microbiology SPECIMEN FROM NASAL FOSSAE / Unknown Collection / Unknown 05/14/2024 10:38 AM BILLING MANAGER 05/14/2024 10:41 AM BILLING MANAGER Narrative [facility] MICROBIOLOGY - 05/14/2024 6:23 PM BILLING MANAGER Methicillin-resistant Staphylococcus aureus (MRSA) DNA is not detected (presumed not colonized with MRSA). Efraín Kang MD LAB - MICROBIOLOGY O [facility] [facility] MICROBIOLOGY [address] [place] [address], [facility] [phone] * XR Chest 1Vw Portable (05/14/2024 9:00 AM BILLING MANAGER) Only the most recent of19 resultswithin the time period is included. Anatomical Region Laterality Modality Chest Digital Radiogra phy 05/14/2024 8:38 AM BILLING MANAGER Narrative 05/14/2024 8:44 AM BILLING MANAGER PROCEDURE: XR CHEST 1VW PORTABLE, DATE/TIME OF EXAM: 05/14/2024 8:19 AM, LOCATION [facility] INDICATION: I60.9: Subarachnoid bleed (HCC) ADDITIONAL CLINICAL INFORMATION: Ordering Provider Reason For Exam: post chest tube removal COMPARISON: Chest radiograph from 05/13/2024. FINDINGS/IMPRESSION: Tubes, lines, and hardware: *Left subclavian approach central venous catheter terminates in the superior vena cava. *Nasogastric/orogastric tube courses midline and below the diaphragm terminates outside of the [id number]. Bibasilar atelectasis, left more than right, similar to prior exam. There is no pleural effusion or pneumothorax. The cardiomediastinal silhouette is stable. The visible bony thorax is intact. The report was drafted by Katerin Holguin MD (secretary to the vice president) 05/14/2024 8:38 AM. IElaine MD have personally reviewed and interpreted this examination/study. > Interpreting Provider: Elaine Lee MD on 05/14/2024 8:44 AM Procedure Note Elaine Lee MD - 05/14/2024 PROCEDURE: XR CHEST 1VW PORTABLE, DATE/TIME OF EXAM: 05/14/2024 8:19 AM, LOCATION [facility] INDICATION: I60.9: Subarachnoid bleed (HCC) ADDITIONAL CLINICAL INFORMATION: Ordering Provider Reason For Exam: post chest tube removal COMPARISON: Chest radiograph from 05/13/2024. FINDINGS/IMPRESSION: Tubes, lines, and hardware: *Left subclavian approach central venous catheter terminates in the superior vena cava. *Nasogastric/orogastric tube courses midline and below the diaphragm terminates outside of the bzbdz-of-dhke. Bibasilar atelectasis, left more than right, similar to prior exam. There is no pleural effusion or pneumothorax. The cardiomediastinal silhouette is stable. The visible bony thorax is intact. The report was drafted by Katerin Holguin MD (secretary to the vice president) 05/14/2024 8:38 AM. Elaine Razo MD have personally reviewed and interpreted this examination/study. > Interpreting Provider: Elaine Lee MD on 05/14/2024 8:44 AM Efraín Kang MD DIAGNOSTIC IMAGING O RDERABLES * CT Angio Chest Pulm Embolism (05/12/2024 5:24 PM BILLING MANAGER) Anatomical Region Laterality Modality Chest Computed Tomogra phy 05/12/2024 5:39 PM BILLING MANAGER Impressions 05/12/2024 9:07 PM BILLING MANAGER Impression: 1.No evidence of acute pulmonary embolism. Previously noted pulmonary emboli in the segmental and subsegmental upper lobe branches are no longer visible. 2.Complete atelectasis of the left lower lobe and near complete atelectasis of the right lower lobe. Debris is present in right lower lobe bronchi consistent with aspiration. Infection is not excluded. > Dictated by Beverley George MD (resident associate). Bridger Razo MD have personally reviewed and interpreted this examination/study. > Interpreting Provider: Bridger Sultana MD on 05/12/2024 9:07 PM Narrative 05/12/2024 9:07 PM BILLING MANAGER PROCEDURE: CT ANGIO CHEST PULM EMBOLISM, DATE/TIME OF EXAM: 05/12/2024 5:25 PM, LOCATION [facility] INDICATION: I60.9: Subarachnoid bleed (HCC) ADDITIONAL CLINICAL [...] ANGIO CHEST PULM EMBOLISM, DATE/TIME OF EXAM: 55:25 PM, LOCATION [facility] INDICATION: I60.9: Subarachnoid bleed (HCC) ADDITIONAL CLINICAL [...] excluded. > Dictated by Beverley George MD (resident associate). I, Bridger Sultana MD have personally reviewed and interpreted this examination/study. > Interpreting Provider: Bridger Sultana MD on 05/12/2024 9:07PM Efraín Kang MD CT ORDERABLES * (ABNORMAL) BLOOD GASES ART + COOX PANEL (05/12/2024 3:45 PM BILLING MANAGER) Only the most recent of9 resultswithin the time period is included. pH Arterial 7.53(H) 7.35 - 7.45 pH 05/12/2024 3:47 PM [facility] pO2 Arterial 76(L) 80 - 100 mmHg 05/12/2024 3:47 PM [facility] pCO2 Arterial 26(L) 35 - 45 mmHg 3:47 PM [facility] HCO3 Arterial 21.7 20.0 - 30.0 mmol/L 05/12/2024 3:47 PM [facility] BE Arterial 0.1 -2.0 - 2.0 mmol/L 05/12/2024 3:47 PM [facility] Oxyhemoglobin Arterial 95.3 % 05/12/2024 3:47 PM [facility] Dexoyhemoglobin (HHB) % 1.9 % 05/12/2024 3:47 PM [facility] Methemoglobin 1.2 0.0 - 2.0 % 05/12/2024 3:47 PM [facility] Carboxyhemoglobin 1.6 0.0 - 2.0 % 2024 3:47 PM [facility] O2 Content Arterial 16.3 Interpret within clinical context ml/dL 05/12/2024 3:47 PM [facility] Hemoglobin by COOX 12.1 12.0 - 15.6 g/dL 05/12/2024 3:47 PM [facility] O2 Saturation Arterial 98 90 - 100 % 05/12/2024 3:47 PM [facility] FI O2 Arterial 36.0 % 05/12/2024 3:47 PM BILLING MANAGER [facility] Comment:3L Blood, arterial ARTERIAL BLOOD SPECIMEN / Unknown 05/12/2024 3:45 PM BILLING MANAGER 05/12/2024 3:45 PM BILLING MANAGER Narrative [facility] - 05/12/2024 3:47 PM BILLING MANAGER Carboxyhemoglobin Normal Concentration: Non-smokers: 0-2%; Smokers: 0-9%; Toxic: >20% Efraín Kang MD LAB - BLOOD GASES OR DERABLES [facility] [address] [place] [address], [facility] [phone] * CT Angio Brain (05/12/2024 5:36 AM BILLING MANAGER) Anatomical Region Laterality Modality Head Computed Tomogra phy 05/12/2024 9:36 AM BILLING MANAGER Impressions 05/12/2024 10:28 AM BILLING MANAGER IMPRESSION: 1.Multi compartmental hemorrhage, as above, with [...] aneurysm > Dictated by Ousmane Burnham MD (resident associate). I, Wes Mcrae MD have personally reviewed and interpreted this examination/study. > Interpreting Provider: Wes Mcrae MD on 05/12/2024 10:28 AM Narrative 05/12/2024 10:[address] ANGIO BRAIN DATE: 05/12/2024 5:37 AM [...] aneurysm > Dictated by Ousmane Burnham MD (resident associate). I, Wes Mcrae MD have personally reviewed and interpreted this examination/study. > Interpreting Provider: Wes Mcrae MD on 05/12/2024 10:28 AM Wally Doshi MD CT ORDERABLES * XR Abdomen Kub Portable (05/10/2024 12:14 PM BILLING MANAGER) Only the most recent of2 resultswithin the time period is included. Anatomical Region Laterality Modality Abdomen Digital Radiogra phy 05/10/2024 12:2 0 PM BILLING MANAGER Narrative 05/10/2024 12:22 PM BILLING MANAGER PROCEDURE: XR ABDOMEN KUB PORTABLE DATE/TIME OF [...] is seen extending from L2 to the [id number]. The visualized bowel gas pattern was without concerning abnormality. > Interpreting Provider: Ming Benitez MD on 05/10/2024 12:22 PM Wally Doshi MD DIAGNOSTIC IMAGING ORDERABLES * (ABNORMAL) SODIUM BLOOD (05/09/2024 3:45 AM BILLING MANAGER) Only the most recent of18 resultswithin the time period is included. Sodium 146(H) 136 - 145 mmol/L 05/09/2024 4:48 AM BILLING MANAGER [facility] Blood BLOOD SPECIMEN / Unknown Venipuncture / Unknown 05/09/2024 3:45 AM BILLING MANAGER 05/09/2024 4:10 AM BILLING MANAGER Wally Doshi MD LAB - CHEMISTRY ORD ERABLES Performing Organization Address City/[facility]/ZIP Co de Phone Number [address] [address], [facility] [phone] * (ABNORMAL) OSMOLALITY BLOOD (05/09/2024 3:45 AM BILLING MANAGER) Only the most recent of19 resultswithin the time period is included. [facility] Osmolality 298(H) 275 - 295 mOsm/kg 05/09/2024 4:51 AM BILLING MANAGER [facility] Blood BLOOD SPECIMEN / Unknown Venipuncture / Unknown 05/09/2024 3:45 AM BILLING MANAGER 05/09/2024 4:10 AM BILLING MANAGER Wally Doshi MD LAB - CHEMISTRY ORD ERABLES Performing Organization Address City/[facility]/ZIP Co de Phone Number [address] [address], [place] [phone] * (ABNORMAL) GLUCOSE - POINT OF CARE (05/09/2024 12:12 AM BILLING MANAGER) Only the most recent of17 resultswithin the time period is included. Glucose WB/POC 129(H) 70 - 99 mg/dL 05/09/2024 12:16 AM [facility] Specimen Type Arterial 05/09/2024 12:16 AM [facility] Blood BLOOD SPECIMEN / Unknown 05/09/2024 12:12 AM BILLING MANAGER 05/09/2024 12:16 AM BILLING MANAGER Wally Doshi MD LAB - POINT OF CARE ORDERABLES [facility] [address] [place] [address], [place] [phone] * TRIGLYCERIDES BLOOD (05/09/2024 12:12 AM [facility]) [facility] Triglycerides 132 <150 mg/dL 05/09/2024 12:47 AM [facility] Comment: ATP III Classification of Triglycerides: <150 mg/dL: Normal 150 - 199 mg/dL: Borderline High 200 - 400 mg/dL: High >500 mg/dL: Very High Blood BLOOD SPECIMEN / Unknown Venipuncture / Unknown 05/09/2024 12:12 AM BILLING MANAGER 05/09/2024 12:17 AM BILLING MANAGER Wally Doshi MD LAB - CHEMISTRY ORD ERABLES Performing Organization Address City/[facility]/ZIP Co de Phone Number [address] [address], [place] [phone] * (ABNORMAL) COMPREHENSIVE METABOLIC PANEL (05/09/2024 12:12 AM [facility]) Only the most recent of6 resultswithin the time period is included. [facility] BUN 17 7 - 26 mg/dL 05/09/2024 12:47 AM [facility] Creatinine 0.57 0.56 - 0.96 mg/dL 05/09/2024 12:47 AM [facility] Sodium 146(H) 136 - 145 mmol/L 05/09/2024 12:47 AM [facility] Potassium 3.5 3.5 - 4.5 mmol/L 05/09/2024 12:47 AM [facility] Chloride 115(H) 98 - 107 mmol/L 05/09/2024 12:47 AM [facility] CO2 24 22 - 29 mmol/L 05/09/2024 12:47 AM [facility] Glucose 130(H) 70 - 99 mg/dL 05/09/2024 12:47 AM [facility] Calcium 8.5 8.4 - 10.2 mg/dL 05/09/2024 12:47 AM [facility] Protein Total 6.1 6.0 - 8.3 g/dL 05/09/2024 12:47 AM [facility] Albumin 2.5(L) 3.4 - 5.0 g/dL 05/09/2024 12:47 AM [facility] Bilirubin Total 0.4 0.2 - 1.2 mg/dL 05/09/2024 12:47 AM [facility] Alkaline Phosphatase 85 40 - 150 U/L 05/09/2024 12:47 AM [facility] ALT 31 5 - 55 U/L 05/09/2024 12:47 AM [facility] AST 28 5 - 34 U/L 05/09/2024 12:47 AM [facility] Anion Gap 7 6 - 16 05/09/2024 12:47 AM [facility] BUN/Creatinine Ratio 30(H) 7 - 23 05/09/2024 12:47 AM [facility] Osmolality Calculated 305(H) 275 - 295 mOsm/kg 05/09/2024 12:47 AM [facility] Albumin/Globulin Ratio 0.7(L) 1.1 - 2.3 05/09/2024 12:47 AM [facility] eGFR by CKD-EPI >90 >=90 mL/min/1.7 3 m2 05/09/2024 12:47 AM [facility] Blood BLOOD SPECIMEN / Unknown Venipuncture / Unknown 05/09/2024 12:12 AM BILLING MANAGER 05/09/2024 12:17 AM [facility] Wally Doshi MD LAB - CHEMISTRY ORD ERABLES [facility] [address] [place] [address], [facility] [phone] * VAS Transcranial Doppler Comp (05/08/2024 5:43 PM BILLING MANAGER) Only the most recent of2 resultswithin the time period is included. Anatomical Region Laterality Modality Head Intravascular Ul trasound 05/08/2024 4:00 PM BILLING MANAGER Narrative Procedure Note Esteban Real MD - 05/09/2024 Esteban Real MD VASCULAR LAB ORDERAB LES * VAS Bilateral Venous Duplex Le (05/07/2024 5:41 PM BILLING MANAGER) Anatomical Region Laterality Modality Lower Extremity Intravascular Ul trasound 05/07/2024 4:37 PM BILLING MANAGER Narrative Procedure Note Philip Babb MD - 05/08/2024 Wally Doshi MD VASCULAR LAB ORDERA BLES * IR IVC Filter Placement (05/07/2024 12:35 PM BILLING MANAGER) Anatomical Region Laterality Modality Abdomen X-Ray Angiograph y 05/07/2024 12:5 3 PM BILLING MANAGER Impressions 05/07/2024 1:06 PM BILLING MANAGER Impression: A Option Elite IVC filter was [...] 05/07/2024 1:06 PM Narrative 05/07/2024 1:06 PM BILLING MANAGER History: 64-year-old female with history of cerebral [...] draped in the usual sterile manner. A crochet machine operator film of abdomen was obtained, which was [...] holding area in stable condition. Procedure Note DianaBecki alarcon, DO - 05/07/2024 History: 64-year-old female with history [...] draped in the usual sterile manner. A crochet machine operator filmof abdomen was obtained, which was unremarkable [...] * CARDIAC EKG ORDER (05/07/2024 11:51 AM BILLING MANAGER) Narrative 05/07/2024 11:51 AM BILLING MANAGER Ordered by an unspecified provider. Scanned Document CARDIAC SERVICES ORD ERABLES * LACTIC ACID BLOOD REFLEX TO REPEAT (05/07/2024 9:19 AM BILLING MANAGER) Only the most recent of3 resultswithin the time period is included. Lactic Acid-Stat 1.1 <=2.0 mmol/L 05/07/2024 9:52 AM BILLING MANAGER [facility] Blood BLOOD SPECIMEN / Unknown Venipuncture / Unknown 05/07/2024 9:19 AM BILLING MANAGER 05/07/2024 9:26 AM BILLING MANAGER You Reagan MD LAB - CHEMISTR Y ORDERABLES Performing Organization Address City/[facility]/ZIP Co de Phone Number [address] [address], [facility] [phone] * PATHOLOGY SMEAR BODY FLUID (05/07/2024 9:08 AM BILLING MANAGER) Pathologist [facility] Path Review Fluid Confirmed 05/07/2024 4:44 PM BILLING MANAGER [facility] Cerebral spinal fluid CEREBROSPINAL FLUID SPECIMEN / Unknown Collection / Unknown 05/07/2024 9:08 AM BILLING MANAGER 05/07/2024 9:24 AM BILLING MANAGER Narrative [facility] - 05/07/2024 4:44 PM BILLING MANAGER Many neutrophils, scattered monocytes, and lymphocytes. Red blood cells Hali MOMIN LAB - PATHOLOGY /CYTOLOGY ORDERABLES [address] [address], [facility] [phone] * (ABNORMAL) DIFFERENTIAL MANUAL (05/07/2024 4:12 AM BILLING MANAGER) Only the most recent of7 resultswithin the time period is included. Pathologist [facility] Neutrophil % 90(H) 41 - 74 % 05/07/2024 5:23 AM [facility] Lymphocyte % 9(L) 17 - 47 % 05/07/2024 5:23 AM [facility] Monocyte % 1(L) 3 - 11 % 05/07/2024 5:23 AM [facility] Neutrophil Absolute 9.90(H) 1.60 - 7.50 x10E9/L 05/07/2024 5:23 AM [facility] Lymphocyte Absolute 0.99(L) 1.00 - 4.40 x10E9/L 05/07/2024 5:23 AM [facility] Monocyte Absolute 0.11(L) 0.15 - 1.00 x10E9/L 05/07/2024 5:23 AM [facility] RBC Morphology REVIEWED 05/07/2024 5:23 AM [facility] Grabill Cells MODERATE(A) (none) 05/07/2024 5:23 AM [facility] Dohle Bodies PRESENT(A) (none) 05/07/2024 5:23 AM [facility] Blood BLOOD SPECIMEN / Unknown Venipuncture / Unknown 05/07/2024 4:12 AM BILLING MANAGER 05/07/2024 4:25 AM BILLING MANAGER Kwabena Boswell Armida MED AIDE-MEDICAL CARE MANAGER LAB - HEMATOLO GY ORDERABLES [address] [address], [place] [phone] * VANCOMYCIN LEVEL RANDOM (05/06/2024 11:43 PM BILLING MANAGER) Vancomycin Random 5.0 Therapeutic Ranges not established for random specimens ug/mL 05/07/2024 12:48 AM [facility] Blood BLOOD SPECIMEN / Unknown Venipuncture / Unknown 05/06/2024 11:43 PM BILLING MANAGER 05/07/2024 12:04 AM BILLING MANAGER Narrative [facility] - 05/07/2024 12:48 AM BILLING MANAGER See institution protocol. Wally Doshi MD LAB - CHEMISTRY ORD ERABLES Performing Organization Address City/[facility]/ZIP Co de Phone Number [address] [address], [place] [phone] * BRONCHOSCOPY (05/06/2024 3:52 PM BILLING MANAGER) Narrative [facility] - 05/06/2024 3:52 PM BILLING MANAGER Lalo Nesbitt MD 05/06/2024 4:24 PM FIBEROPTIC [...] hypotension afterwards, and there were no complications. Wally Doshi MD RESPIRATORY THERAPY ORDERABLES [facility] * (ABNORMAL) CULTURE BRONCHIAL WASHING+GRAM STAIN (05/06/2024 11:57 AM BILLING MANAGER) Culture Moderate Klebsiella pneumoniae(A) LC 05/08/2024 7:47 AM [facility] Gram Stain Moderate Polymorphonuclear cells 05/08/2024 7:47 AM [facility] Gram Stain Rare Gram-negative bacilli 05/08/2024 7:47 AM [facility] Microbiology (Lung, Left Lower Lobe) Collection / Unknown 05/06/2024 11:57 AM BILLING MANAGER 05/06/2024 12:26 PM BILLING MANAGER Narrative Organism Antibiotic Method Susceptibility Klebsiella pneumoniae Amikacin LC <=2 ug/mL: Susceptible Klebsiella pneumoniae Ampicillin-sulbactam LC 4 ug/mL: Susceptible Klebsiella pneumoniae Cefazolin LC <=4 ug/mL: See Comment* Klebsiella pneumoniae Cefepime CL <=1 ug/mL: Susceptible Klebsiella pneumoniae Ceftriaxone LC [...] Wally Doshi MD LAB - MICROBIOLOGY ORDERABLES [facility] [address] [place], [place] [address], [facility] [phone] * ECHO COMPLETE W BUBBLE STUDY (05/06/2024 10:03 AM BILLING MANAGER) Myocardial strain charge 2 unitless SSM CV [...] SSM CV FU JI PACS LVOT pk dann 125.627 cm/s SSM CV F UJI PACS LVOT VTI 20.694 cm SSM CV FUJ I PACS RVIDd 3.482 cm SSM CV FUJ I PACS RVOT diam Doppler 2.382 cm SSM CV FUJI PACS RVOT pk dann 60.078 cm/s SSM CV F UJI PACS RVOT VTI 11.498 cm SSM CV FUJ I PACS LA size 3.708 cm SSM CV FUJ I PACS RA area 15.177 cm SSM CV FUJI PACS AR DECEL TIME 1.125 s SSM CV FUJI PACS AV PHT 0.326 s SSM CV FUJ I PACS AV pk dann regurg 508.066 cm/s SSM CV FUJI PACS AR VTI 226.324 cm SSM CV FUJ I PACS AV mn grad 11.58 mmHg SSM CV FU JI PACS AV pk dann 260.253 cm/s SSM CV FUJ I PACS AV VTI 35.917 cm SSM CV FUJ I PACS MV A pk dann 73.348 cm/s SSM CV F UJI PACS MV E pk dann 57.229 cm/s SSM CV F UJI PACS MV E' lateral dann 4.658 cm/s SSM CV FUJI PACS MV mn grad 0.995 mmHg SSM CV FU JI PACS MV VTI 26.311 cm SSM CV FUJ I PACS PV pk dann 105.696 cm/s SSM CV FUJ I PACS PV VTI 19.368 cm SSM CV FUJ I PACS TAPSE 2.479 cm SSM CV FUJ I PACS TR pk dann 277.457 cm/s SSM CV FUJ I PACS Ascending aorta 2.758 cm SSM CV FUJI PACS IVC Diam Expiration 2.828 cm SSM CV FUJI PACS Sinus of Valsalva 2.716 cm SSM CV FUJI PACS Anatomical Region Laterality Modality Ultrasound 05/06/2024 10:3 5 AM BILLING MANAGER Narrative 05/06/2024 11:45 AM BILLING MANAGER Summary * The left ventricle is normal [...] 10:35 AM Patient Status: I/P Study Site: [facility] Primary Location: [facility] EStudy Info Technical Quality: Good Exam Type: [...] Provider: Wally Doshi Attending Physician: Wally Doshi Byproducts Maker: Ronnie Lucio Left Ventricle Left ventricular systolic [...] VTI) 1.85 cm2/m2 PV Area (Cont Eq Dann) 2.5 cm2 PV Area Index (Cont Eq Dann) 1.77 cm2/m2 Mitral Valve Name Value Normal [...] 1.64 cm2 >=2.00 AV Area (Cont Eq Dann) 1.37 cm2 AV DI (VTI) 0.58 AV DI (Dann) 0.48 AV Regurgitation 2D LVOT Area 2.84 [...] (2D) 49 % 27-45 LV EF (2D Teichmelanie) 81 % 54-74 LV Diastolic Volume (4C [...] 10:35 AM Patient Status: I/P Study Site: [facility] Primary Location: [facility] Info Technical Quality: Good Exam Type: ECHO COMPLETE W BUBBLE STUDY Indications I60.9 - Subarachnoid bleed (HCC) Procedure(s) * A complete 2D, color Doppler, spectral Doppler, and M-Modetransthoracic echocardiogram was performed. Contrast/Agitated Saline Contrast / Saline: Agitated Saline Amount: 10.00 ml Administered By: Ronnie Lucio Reaction to Contrast: no Staff Referring Physician: Wally Doshi Ordering Provider: Walyl Doshi Attending Physician: Wally Doshi Byproducts Maker: Ronnie Lucio Left Ventricle Left ventricular systolic [...] VTI) 1.85 cm2/m2 PV Area (Cont Eq Dann) 2.5 cm2 PV Area Index (Cont Eq Dann) 1.77 cm2/m2 Mitral Valve Name Value Normal [...] 1.64 cm2 >=2.00 AV Area (Cont Eq Dann) 1.37 cm2 AV DI (VTI) 0.58 AV DI (Dann) 0.48 AV Regurgitation 2D LVOT Area 2.84 [...] COUNT AUTO CITRATED BLOOD (05/06/2024 1:39 AM BILLING MANAGER) Pathologist [facility] Platelet Count Citrated 05/06/2024 3:15 AM BILLING MANAGER [facility] Comment:Platelets clumped on slide but appears adequate. Recommend repeat with a sodium citrate blue top tube. Blood BLOOD SPECIMEN / Unknown Venipuncture / Unknown 05/06/2024 1:39 AM BILLING MANAGER 05/06/2024 1:42 AM BILLING MANAGER Wally Doshi MD LAB - HEMATOLOGY OR DERABLES [place] [id number] [place] [address], [facility] [phone] * CT Angio Brain And Neck (05/05/2024 9:44 PM BILLING MANAGER) Only the most recent of2 resultswithin the time period is included. Anatomical Region Laterality Modality Head Computed Tomogra phy 05/05/2024 9:52 PM BILLING MANAGER Impressions 05/06/2024 12:29 AM BILLING MANAGER IMPRESSION: 1.Unchanged appearance of subarachnoid hemorrhage with [...] report is dictated by Sade Ricci MD (resident associate) I, Wes Mcrae MD have personally reviewed and interpreted this examination/study. > Interpreting Provider: Wes Mcrae MD on 05/06/2024 12:29 AM Narrative 05/06/2024 12:29 AM BILLING MANAGER PROCEDURE: CT ANGIO BRAIN AND NECK, DATE/TIME OF EXAM: 05/05/2024 9:45 PM, LOCATION [facility] INDICATION: I60.9: SAH (subarachnoid hemorrhage) (HCC) ADDITIONAL [...] NECK, DATE/TIME OF EXAM: 05/05/2024 9:45PM, LOCATION [facility] INDICATION: I60.9: SAH (subarachnoid hemorrhage) (HCC) ADDITIONAL [...] report is dictated by Sade Ricci MD (resident associate) Wes Razo MD have personally reviewed and interpreted this examination/study. > Interpreting Provider: Wes Mcrae MD on 05/06/2024 12:29 AM Wally Doshi MD CT ORDERABLES * CT Cerebral Perfusion Analysis (05/05/2024 9:44 PM BILLING MANAGER) Anatomical Region Laterality Modality Head Computed Tomogra phy 05/05/2024 10:1 4 PM BILLING MANAGER Impressions 05/05/2024 11:35 PM BILLING MANAGER IMPRESSION: 1.Unchanged right frontal approach ventriculostomy catheter [...] report is dictated by Sade Ricci MD (resident associate) Wes Razo MD have personally reviewed and interpreted this examination/study. > Interpreting Provider: Wes Mcrae MD on 05/05/2024 11:35 PM Narrative 05/05/2024 11:35 PM BILLING MANAGER PROCEDURE: CT CEREBRAL PERFUSION ANALYSIS, DATE/TIME OF EXAM: 05/05/2024 9:45 PM, LOCATION [facility] INDICATION: I60.9: SAH (subarachnoid hemorrhage) (HCC) ADDITIONAL [...] the perfusion data was sent to the [employer] process of PerfusIon and Diffusion ([employer] ) for automated perfusion postprocessing. Stenosis measurements [...] ANALYSIS, DATE/TIME OF EXAM:05/05/2024 9:45 PM, LOCATION [facility] INDICATION: I60.9: SAH (subarachnoid hemorrhage) (HCC) ADDITIONAL [...] the perfusion data was sent to the [employer] process of PerfusIon and Diffusion ([employer] ) [...] report is dictated by Sade Ricci MD (resident associate) I, Wes Mcrae MD have personally reviewed and interpreted this examination/study. 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 HH3 mFS4. Intubated for airway protection. Plan for aneurysm embolization. Slurry Tank Operator: Dr. Guanako Newsome Auto Haulaway Driver(s): Brenda Quevedo L Polhemus Ultrasound Guided Vessel Access Vessels: Right Radial Artery Angiogram Left Internal Carotid Artery Angiogram: Cerebral Right Common Carotid Artery Angiogram: Cerebral Right Subclavian Artery Angiogram: Cerebral Microcatheterization of the Left MADAY-A1 Coil Embolization of AComm Aneurysm Angiography Through the Existing Catheter Anesthesia: General Anesthesia was performed and monitored by an attending Anesthesiologist and their payroll assistant throughout the entirety of the case Procedural Detail: Dr. Guanako Razo was present during the entire procedure. The [...] Following a series of exchanges, a 7 american size Glidesheath slender was placed in the radial artery. A radial angiogram was performed through the sheath. A spasmolytic cocktail containing 2.5mg verapamil and 300mcg of nitroglycerin was administered. A 7 Slovak RIST guide catheter was then introduced into the sheath along with a 5.5 Slovak I-Pulsetronic Paredes 2 diagnostic catheter. The diagnostic catheter [...] catheter was performed at the coiling angle FRENCH 45, CAU 36 and in the standard [...] Intubated for airway protection. Planfor aneurysm embolization. Slurry Tank Operator: Dr. Guanako Newsome Auto Haulaway Driver(s): Brenda Quevedo L Polhemus Ultrasound Guided Vessel Access Vessels: Right Radial Artery Angiogram Left Internal Carotid Artery Angiogram: Cerebral Right Common Carotid Artery Angiogram: Cerebral Right Subclavian Artery Angiogram: Cerebral Microcatheterization of the Left MADAY-A1 Coil Embolization of AComm Aneurysm Angiography Through the Existing Catheter Anesthesia: General Anesthesia was performed and monitored by an attending Anesthesiologist and their payroll assistant throughout the entirety of the case Procedural Detail: I, Dr. Guanako Newsome was present during the entire procedure. The [...] needle. Following aseries of exchanges, a 7 american size Glidesheath slender was placed in theradial artery. A radial angiogram was performed through the sheath. Aspasmolytic cocktail containing 2.5mg verapamil and 300mcg of nitroglycerin was administered. A 7 Slovak RIST guide catheter was then introduced intothe sheath along with a 5.5 Slovak Medtronic Paredes 2 diagnostic catheter.The diagnostic catheter was [...] catheter was performed at the coiling angle FRENCH 45, CAU 36 and in the standard [...] (ABNORMAL) B-TYPE NATRIURETIC PEPTIDE (05/05/2024 6:49 AM BILLING MANAGER) [facility] BNP 150(H) <100 pg/mL 05/05/2024 7:33 AM BILLING MANAGER [facility] Comment: A decision threshold of 100 [...] Unknown Venipuncture / Unknown 05/05/2024 6:49 AM BILLING MANAGER 05/05/2024 7:02 AM BILLING MANAGER Wally Doshi MD LAB - CHEMISTRY ORD ERABLES [id number] [place] [address], [facility] [phone] * CT Angio Aorta for Dissection (05/05/2024 1:00 AM BILLING MANAGER) Anatomical Region Laterality Modality Abdomen Computed Tomogra phy 05/05/2024 1:10 AM BILLING MANAGER Impressions 05/05/2024 2:29 AM BILLING MANAGER Impression: 1.Segmental and subsegmental pulmonary emboli are [...] verification. > Dictated by Jose Bustamante MD (resident associate). I, Go Rosas MD have personally reviewed and interpreted this examination/study. > Interpreting Provider: Go Rosas MD on 05/05/2024 2:29 AM Narrative 05/05/2024 2:29 AM BILLING MANAGER PROCEDURE: CT ANGIO AORTA FOR DISSECTION, DATE/TIME OF EXAM: 05/05/2024 1:01 AM, LOCATION [facility] INDICATION: I60.9: Subarachnoid bleed (HCC) ADDITIONAL CLINICAL [...] DATE/TIME OF EXAM: 05/05/2024 1:01 AM, LOCATION [facility] INDICATION: I60.9: Subarachnoid bleed (HCC) ADDITIONAL CLINICAL [...] secondary to timing of contrast (series 6 ). Gallbladder and Bile Ducts: Distended without radiopaque [...] verification. > Dictated by Jose Bustamante MD (resident associate). I, Go Rosas MD have personally reviewed and interpreted this examination/study. > Interpreting Provider: Go Rosas MD on 05/05/2024 2:29 AM Wally Doshi MD CT ORDERABLES * (ABNORMAL) TROPONIN-I HIGH SENSITIVE REFLEX 1HOUR (05/05/2024 12:14 AM BILLING MANAGER) Only the most recent of2 resultswithin the time period is included. Troponin I High Sensitive 403(HH) <=14 ng/L 05/05/2024 12:50 AM [facility] Delta Troponin I HS 05/05/2024 12:50 AM [facility] Comment:Delta value intentio destiny not calculated. Baseline to 1 hour specimen collection interval exceeded. Blood BLOOD SPECIMEN / Unknown Venipuncture / Unknown 05/05/2024 12:14 AM BILLING MANAGER 05/05/2024 12:28 AM BILLING MANAGER Wally Doshi MD LAB - CHEMISTRY ORD ERABLES [facility] [address] [place] [address], [place] [phone] * (ABNORMAL) TROPONIN-I HIGH SENSITIVE BASELINE + 1HR (05/04/2024 10:25 PM BILLING MANAGER) Only the most recent of2 resultswithin the time period is included. Troponin I High Sensitive 435(HH) <=14 ng/L 05/04/2024 11:20 PM [facility] Blood BLOOD SPECIMEN / Unknown Venipuncture / Unknown 05/04/2024 10:25 PM BILLING MANAGER 05/04/2024 10:35 PM BILLING MANAGER Wally Doshi MD LAB - CHEMISTRY ORD ERABLES [facility] [address] [place] [address], [place] [phone] * (ABNORMAL) HEMOGLOBIN A1C (05/04/2024 10:25 PM BILLING MANAGER) Hemoglobin A1c 5.9(H) <=5.6 % 05/05/2024 2:43 PM [facility] Estimated Average Glucose 123 mg/dL 05/05/2024 2:43 PM [facility] Comment: HbA1c Interpretation: Normal : < 5.7% Pre-diabetes: 5.7-6.4% Diabetes: Equal to or greater than 6.5% Test results diagnostic of diabetes should be repeated for confirmation. Treatment target values recommended by ADA and other clinical organizations should be used to evaluate metabolic control in patients. Reference: [place] [employer], Standards of Care in Diabetes -2020 In patients 70 years and older consider HbA1c target range of 7.0-7.5% (Reference: Amos Gutierrez et al. JAMDA. 2012) The Sebia assay for the measurement of HbA1c is a National Glycohemoglobin Standardization Program (NGSP) certified method. Blood BLOOD SPECIMEN / Unknown Venipuncture / Unknown 05/04/2024 10:25 PM BILLING MANAGER 05/04/2024 10:34 PM BILLING MANAGER Wally Doshi MD LAB - CHEMISTRY ORD ERABLES [id number] [place] [address], [facility] [phone] * PREPARE PLATELET PHERESIS UNIT(S), 1 Units (05/04/2024 6:19 PM BILLING MANAGER) Pathologist [facility] Unit Description LR PLT Phere B7 [facility] Unit ABO A [facility] Unit Rh POS [facility] Product Number P26 [facility] Unit Donor # [id number] [facility] Unit Status transfused [facility] Product Code E0064I80 [facility] Blood Type Barcode 6200 [facility] Expiration Date [id number] S BLOOD BANK LAB Blood Bank BLOOD SPECIMEN / Unknown 05/04/2024 2:05 PM BILLING MANAGER Wally Doshi MD LAB - BLOOD BANK OR DERABLES Performing Organization Address [facility]/ZIP Co de Phone Number [facility] [address] [place] [address], [facility] [phone] * TEG 6 GLOBAL HEMOSTASIS W/ LYSIS (05/04/2024 5:16 PM BILLING MANAGER) Pathologist [facility] Citrated Kaolin R (Reaction Time) 5.3 4.6 - 9.1 min 05/04/2024 6:23 PM BILLING MANAGER [facility] Citrated Kaolin LY30 (Lysis) 0.1 0.0 - 2.6 % 05/04/2024 6:23 PM BILLING MANAGER [facility] Citrated Functional Fibrinogen MA (Max Amplitude) 22.2 15.0 - 32.0 mm 05/04/2024 6:23 PM [facility] Citrated RapidTEG MA (Max Amplitude) 66.4 52.0 - 70.0 mm 05/04/2024 6:23 PM [facility] Blood BLOOD SPECIMEN / Unknown Venipuncture / Unknown 05/04/2024 5:16 PM BILLING MANAGER 05/04/2024 5:22 PM BILLING MANAGER Dejuan Page MD LAB - HEMATOLOGY ORD ERABLES [facility] [address] [place] [address], [facility] [phone] * (ABNORMAL) TEG 6S PLATELET MAPPING (05/04/2024 5:16 PM [facility]) TEGPLM (Max Amplitude) Koalin 64.6 53.0 - 68.0 mm 05/04/2024 6:01 PM [facility] TEGPLM (Max Amplitude) ACTF 17.2 2.0 - 19.0 mm 05/04/2024 6:01 PM [facility] TEGPLM (Max Amplitude) ADP 19.2(L) 45.0 - 69.0 mm 05/04/2024 6:01 PM [facility] Comment:ADP MA below normal range. Inhibition present. TEGPLM (Max Amplitude) AA 19.4(L) 51.0 - 71.0 mm 05/04/2024 6:01 PM [facility] Comment:AA MA below normal r marcus. Inhibition present. TEGPLM %Inhibition ADP 95.8(H) 0.0 - 17.0 % 05/04/2024 6:01 PM [facility] TEGPLM %Inhibition AA 95.4(H) 0.0 - 11.0 % 05/04/2024 6:01 PM [facility] TEGPLM %Aggregation ADP 4.2(L) 83.0 - 100.0 % 05/04/2024 6:01 PM [facility] TEGPLM % Aggregation AA 4.6(L) 89.0 - 100.0 % 05/04/2024 6:01 PM [facility] Blood BLOOD SPECIMEN / Unknown Venipuncture / Unknown 05/04/2024 5:16 PM BILLING MANAGER 05/04/2024 5:22 PM BILLING MANAGER Dejuan Page MD LAB - HEMATOLOGY ORD ERABLES [facility] [address] [place] [address], [facility] [phone] * Intubation (05/04/2024 4:15 PM BILLING MANAGER) Narrative Dejuan Page MD - 05/04/2024 4:15 PM BILLING MANAGER Kwabena Eric DO 05/04/2024 9:42 PM Intubation Date/Time: 05/04/2024 4:15 PM Performed by: Kwabena Eric DO Authorized by: Dejuan Page MD Consent: Consent obtained: Emergent situation [place] protocol: Patient identity confirmed: Arm band Pre-procedure [...] TSH REFLEX FREE T4 (05/04/2024 3:18 PM BILLING MANAGER) TSH 0.349(L) 0.350 - 4.940 uIU/mL 05/04/2024 4:27 PM BILLING MANAGER [facility] Blood BLOOD SPECIMEN / Unknown Venipuncture / Unknown 05/04/2024 3:18 PM BILLING MANAGER 05/04/2024 3:31 PM BILLING MANAGER You Reagan MD LAB - CHEMISTR Y ORDERABLES Performing Organization Address City/[facility]/ZIP Co de Phone Number [address] [address], [place] [phone] * T4 FREE (05/04/2024 3:18 PM BILLING MANAGER) Pathologist [facility] T4 Free 1.3 0.7 - 1.5 ng/dL 05/04/2024 4:59 PM BILLING MANAGER [facility] Blood BLOOD SPECIMEN / Unknown Venipuncture / Unknown 05/04/2024 3:18 PM BILLING MANAGER 05/04/2024 3:31 PM BILLING MANAGER You Reagan MD LAB - CHEMISTR Y ORDERABLES Performing Organization Address [facility] Co de Phone Number [address] [address], [place] [phone] * BLOOD TYPE VERIFICATION (05/04/2024 3:17 PM BILLING MANAGER) Pathologist [facility] ABO Rh A POS 05/04/2024 4:0 7 PM BILLING MANAGER [facility] Blood Bank BLOOD SPECIMEN / Unknown Venipuncture / Unknown 05/04/2024 3:17 PM BILLING MANAGER 05/04/2024 3:27 PM BILLING MANAGER You Reagan MD LAB - BLOOD BA NK ORDERABLES Performing Organization Address City/[facility] Co de Phone Number [facility] [address] [place] [phone], [place] [phone] * SARS-COV-2 (COVID-19) FLU A/B RSV PCR RAPID (05/04/2024 3:13 PM BILLING MANAGER) Pathologist [facility] COVID-19 PCR Not detected Not detected 05/04/19 4:05 PM BILLING MANAGER [facility] Influenza A PCR Not detected Not detected 05/04/2024 4:05 PM [facility] Influenza B PCR Not detected Not detected 05/04/2024 4:05 PM BILLING MANAGER [facility] RSV PCR Not detected Not detected 05/04/2024 4:05 PM BILLING MANAGER [facility] Microbiology SPECIMEN FROM NASOPHARYNGEAL STRUCTURE / Unknown Collection / Unknown 05/04/2024 3:13 PM BILLING MANAGER 05/04/2024 3:23 PM BILLING MANAGER Narrative [facility] - 05/04/2024 4:05 PM BILLING MANAGER This nucleic acid amplification assay has been [...] Reagan MD LAB - MICROBIO LOGY ORDERABLES [facility] [address] [place] [address], [facility] [phone] * (ABNORMAL) PROCALCITONIN LEVEL (05/04/2024 1:49 PM BILLING MANAGER) PROCALCITONIN 2.68(H) <=0.10 ng/mL 05/04/2024 2:45 PM BILLING MANAGER [facility] Blood BLOOD SPECIMEN / Unknown Venipuncture / Unknown 05/04/2024 1:49 PM BILLING MANAGER 05/04/2024 1:55 PM BILLING MANAGER Narrative [facility] - 05/04/2024 2:45 PM BILLING MANAGER The change in procalcitonin (PCT) concentration over [...] Change in Procalcitonin Calculator is available at [email or web address] If clinical picture has not improved and PCT remains high, reevaluate and consider treatment failure or other causes. You Reagan MD LAB - CHEMISTR Y ORDERABLES [facility] [address] [place] [address], [facility] [phone] * (ABNORMAL) BLOOD GASES LINDA + COOX PANEL (05/04/2024 1:49 PM BILLING MANAGER) pH Venous 7.38 7.32 - 7.42 pH 05/04/2024 2:04 PM [facility] pO2 Venous 31(L) 35 - 40 mmHg 05/04/2024 2:04 PM [facility] pCO2 Venous 45 40 - 50 mmHg 05/04/2024 2:04 PM [facility] HCO3 Venous 26.6 20 - 30 mmol/L 05/04/2024 2:04 PM [facility] Base Excess Venous 0.9 -2.0 - 2.0 mmol/L 05/04/2024 2:04 PM [facility] Oxyhemoglobin Venous 48.4 % 04/12 2:04 PM [facility] Deoxyhemoglobin (HHB) Venous % 50.0 % 05/04/2024 2:04 PM [facility] Methemoglobin <0.8 0.0 - 2.0 % 05/04/2024 2:04 PM [facility] Carboxyhemoglobin 1.7 0.0 - 2.0 % 2024 2:04 PM [facility] O2 Content Venous 12.1 Interpret within clinical context ml/dL 05/04/2024 2:04 PM [facility] Hemoglobin by COOX 17.8(H) 12.0 - 15.6 g/dL 05/04/2024 2:04 PM BILLING MANAGER [facility] O2 Saturation Venous 49(L) >=70 % 04/12 2:04 PM [facility] FI O2 Mixed Venous 100.0 % 2024 2:04 PM BILLING MANAGER [facility] Blood BLOOD SPECIMEN / Unknown Venipuncture / Unknown 05/04/2024 1:49 PM BILLING MANAGER 05/04/2024 1:56 PM BILLING MANAGER Narrative [facility] - 05/04/2024 2:04 PM BILLING MANAGER Carboxyhemoglobin Normal Concentration: Non-smokers: 0-2%; Smokers: 0-9%; Toxic: >20% You Reagan MD LAB - BLOOD GA SES ORDERABLES Performing Organization Address City/[facility]/ZIP Co de Phone Number [facility] [address] [place] [address], [facility] [phone] * CULTURE BLOOD (05/04/2024 1:49 PM BILLING MANAGER) Only the most recent of2 resultswithin the time period is included. Culture No growth day 5 CL 05/09/2024 6:10 PM BILLING MANAGER [facility] MICRO[facility] Blood PERIPHERAL BLOOD / Unknown Venipuncture / Unknown 05/04/2024 1:49 PM BILLING MANAGER 05/04/2024 2:00 PM BILLING MANAGER You Reagan MD LAB - MICROBIO LOGY ORDERABLES [facility] MICROBIOLOGY [address] [place] [address], [facility] [phone] * CK BLOOD (05/04/2024 1:49 PM BILLING MANAGER) CK Total 104 30 - 200 U/L 05/04/2024 2:39 PM BILLING MANAGER [facility] Blood BLOOD SPECIMEN / Unknown Venipuncture / Unknown 05/04/2024 1:49 PM BILLING MANAGER 05/04/2024 2:06 PM BILLING MANAGER You Reagan MD LAB - CHEMISTR Y ORDERABLES [facility] [address] [place] [address], [facility] [phone] * EKG 12-LEAD (05/04/2024 1:17 PM BILLING MANAGER) Ventricular Rate 99 BPM [facility] Atrial Rate 99 BPM [facility] P-R Interval 204 ms [facility] QRS Duration ms 74 ms [facility] Q-T Interval ms 366 ms [facility] QTC Calculation (Bezet) 469 ms [facility] Calculated P [place] 85 degrees [facility] Calculated R [place] -6 degrees [facility] Calculated T [place] 77 degrees [facility] Interpretation EKG NORMAL SINUS RHYTHM MINIMAL VOLTAGE CRITERIA FOR LVH, MAY BE NORMAL VARIANT ( Sokolow-Villar ) INFERIOR INFARCT , AGE UNDETERMINED ABNORMAL ECG NO PREVIOUS ECGS AVAILABLE Confirmed by COURT MATSON MD ([id number]) on 05/07/2024 8:01:04 AM [facility] MUSE 05/04/2024 1:17 PM BILLING MANAGER 05/07/2024 8:01 AM BILLING MANAGER You Reagan MD ECG ORDERABLES Performing Organization Address [facility] de Phone Number [facility]O from Last 3 Months Insurance Payer Benefit Plan / Group Subscriber ID Effective Dates Phone Address Type MEDICARE MANAGED CARE PLAN GENERIC MEDICARE ADV [employer] COMPLETE MEDICARE ADV OUT OF [place] [id number] 2020-Prese [phone] [address] [place] [address] Medicare- Managed Care Advance Directives * Full Code (Latest Code Status on File) Date Activated Date Inactivated Comments 05/04/2024 6:41 PM 05/26/2024 8:40 PM Care Teams Kiln Burner Relationship Specialty Start Date End Date Ajao, Oladele Oladontun, MD [address] [place], [place] [phone] PCP - General 07/29/20
--- OUTSIDE RECORDS SUMMARY | 2024-06-05 20:03 | XMS_ITS | Patient Health Summary ---
Author Organization [facility] Address [address] [place] [address] Care Team Providers Care Desizing Machine Back Tender Name Role Phone Kristofer Sequeira MD Primary Care Provider Note from [facility],non-owned Affiliates and Associated Physician Practices is amultiple site organization consisting of ambulatory clinics and hospital sitesin [place], [place], [place] and [place]. This disclosure is being madepursuant to the Care Everywhere program and may not contain all information available regarding this patient. Last updated 17.[facility] Allergies * Azithromycin(Itching,Urticaria) -High Criticality * Lisinopril(Rash) -Medium Criticality Medications * Be aware that medications may not be up to date on this document. Alwaysverify current medications with the patient. * famotidine (PEPCID) 20 MG tablet famotidine 20 mg tablet TAKE 1 TABLET BY MOUTH EVERY DAY * Vitamin D3 (CHOLECALCIFEROL) 50 MCG (2000 UT) capsule(Started 07/11/2020) Take 1 capsule by mouth once daily * fluticasone propionate (FLONASE) 50 MCG/ACT nasal spray fluticasone propionate 50 mcg/actuation nasal spray,suspension SPRAY 1 SPRAY IN EACH NOSTRIL EVERY DAY * acetaminophen (Tylenol) 325 MG tablet(Started 05/26/2024) Take 2 (two) tablets by mouth every 4 hours as needed Maximum allowable Acetaminophen amount = 4 Grams (4000 mg) / 24 hours. * albuterol-ipratropium (Duo-Neb) 0.5-2.5 (3) MG/3ML nebulizer solution(Started 05/26/2024) Inhale 3 mL by mouth every 4 hours as needed for Shortness of Breath or Wheezing * apixaban (Eliquis) 5 MG tablet(Started 05/26/2024) Take 1 (one) tablet by mouth 2 times daily * gabapentin (Neurontin) 300 MG capsule(Started 05/26/2024) Take 2 (two) capsules by mouth every 8 hours * carvedilol (Coreg) 12.5 MG tablet(Started 05/26/2024) Take 1 (one) tablet by mouth every 12 hours * polyethylene glycol 3350 (Miralax) 17 g packet(Started 05/26/2024) Take 17 (seventeen) g by mouth once daily as needed for Constipation * senna (Senokot Extra Strength) 17.2 MG(Started 05/26/2024) Take 17.2 mg by mouth once daily as needed for Constipation * melatonin 3 MG tablet(Started 05/26/2024) Take 1 (one) tablet by mouth nightly as needed for Insomnia Ended Medications* varenicline (CHANTIX STARTING MONTH ) 0.5 MG X 11 & 1 MG X 42 tablets(Started 02/08/2017)(Discontinued) * oxybutynin (DITROPAN) 5 MG tablet(Started 10/26/2019)(Discontinued) TK 1 T PO BID * hydrocortisone (HYTONE) 2.5 % cream(Discontinued) hydrocortisone 2.5 % topical cream * lisinopril (PRINIVIL; ZESTRIL) 10 MG tablet(Discontinued) lisinopril 10 mg tablet TAKE 1 TABLET BY MOUTH EVERY DAY * lisinopril-hydroCHLOROthiazide (PRINZIDE; ZESTORETIC) 20-12.5 MG tablet (Started 07/11/2020)(Discontinued) Take 1 tablet by mouth once daily as directed. 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 Yes 05/15/2024 Sex and Gender Information Value Date Recorded Sex Assigned at Not on file Gender Identity Not on file Sexual Orientation Not on file Last Filed Vital Signs Vital Sign Reading Time Taken Comments Blood Pressure 111/74 05/26/2024 12:05 PM INVENTORY ASSOCIATE Pulse 90 05/26/2024 12:05 PM INVENTORY ASSOCIATE Temperature 36.7 C (98.1 F) 05/26/2024 12:05 PM INVENTORY ASSOCIATE Respiratory Rate 18 05/26/2024 12:05 PM INVENTORY ASSOCIATE Oxygen Saturation 97% 05/26/2024 12:05 PM INVENTORY ASSOCIATE Inhaled Oxygen Concentration 40% 05/14/2024 1 0:00 AM INVENTORY ASSOCIATE Weight 44 kg (97 lb) 05/25/2024 4:00 AM INVENTORY ASSOCIATE Height 160 cm (5' 2.99 ) 05/06/2024 9:00 AM INVENTORY ASSOCIATE Body Mass Index 17.19 05/06/2024 9:00 AM INVENTORY ASSOCIATE Medical Devices Implanted Type Area Lockstitch Back Maker Device Identifier Shelf Expiration Date Model / Serial / Lot Coil Hydroframe Hdrcl Vtrk 19cm 6mm 10 Implanted:Qty: 1 on 05/05/2024 by Jacob Newsome MD at [facility] [employer] 02/08/2029 7110-061 9 / / [id number] Coil Hydrosoft 8cm 3mm Embl 3d Implanted:Qty: 1 on 05/05/2024 by Jacob Newsome MD at [facility] [employer] 11/09/2027 7110-030 8 / / [id number] Coil Mcplx Hypersoft Vtrk 6cm 2.5mm 10 Implanted:Qty: 1 on 05/05/2024 by Jacob Newsome MD at [facility] [employer] 08/08/2025 8510-025 6 / / [id number] Kit Ba Gini Cdmn Bctsl Cath 120cm 14cm Implanted:Qty: 1 on 05/19/2024 by Jacob Newsome MD at [facility] Other (Type not listed) Right: Abdomen [employer] 02/08/2025 [id number] / / [id number] Valve Shnt Strt2 Reg Csf Prgm Flw Cntrl Implanted:Qty: 1 on 05/19/2024 by Jacob Newsome MD at [facility] Other (Type not listed) Right: Cranial [employer] 11/12/2026 [id number] / / [id number] Clip Srg Std Rt Ang Implanted:Qty: 1 on 05/19/2024 by Jacob Newsome MD at [facility] Other (Type not listed) Right: [employer] 10/19/2028 [id number] [id number] / / [id number] Fltr Ivc 70cm Dlv Shth Crv Pshr Strl Lf Implanted:Qty: 1 on 05/07/2024 at [facility] Right: Vena [employer] 01/17/2027 [id number] / / [id number] Explanted Type Area Lockstitch Back Maker Device Identifier Shelf Expiration Date Model / Serial / Lot Coil Hydroframe 5mm 20mm Embl Explanted:Qty: 1 on 05/05/2024 at [facility] [employer] 12/09/2028 7110-052 0 / / [id number] Coil Hydroframe Adv 15mm 4mm Embl Explanted:Qty: 1 on 05/05/2024 at [facility] [employer] 02/08/2029 7110-041 5 / / [id number] Fltr Ivc 70cm Dlv Shth Crv Pshr Strl Lf Explanted:Qty: 1 on 05/07/2024 at [facility] Right: [employer] 02/13/2027 [id number] / / [id number] Description:implanted by [facility] Procedures * PHOSPHORUS BLOOD(Performed 05/26/2024) * MAGNESIUM BLOOD(Performed 05/26/2024) * CBC W AUTO DIFFERENTIAL(Performed 05/26/2024) * BASIC METABOLIC PANEL (CALCIUM TOTAL)(Performed 05/26/2024) * PHOSPHORUS BLOOD(Performed 05/24/2024) * MAGNESIUM BLOOD(Performed 05/24/2024) * CBC W AUTO DIFFERENTIAL(Performed 05/24/2024) * BASIC METABOLIC PANEL (CALCIUM TOTAL)(Performed 05/24/2024) * PHOSPHORUS BLOOD(Performed 05/23/2024) * MAGNESIUM BLOOD(Performed 05/23/2024) * CBC W AUTO DIFFERENTIAL(Performed 05/23/2024) * BASIC METABOLIC PANEL (CALCIUM TOTAL)(Performed 05/23/2024) * PHOSPHORUS BLOOD(Performed 05/22/2024) * MAGNESIUM BLOOD(Performed 05/22/2024) * CBC W AUTO DIFFERENTIAL(Performed 05/22/2024) * BASIC METABOLIC PANEL (CALCIUM TOTAL)(Performed 05/22/2024) * CT HEAD WO CONTRAST(Performed 05/20/2024) Performed for Subarachnoid bleed (HCC), SAH (subarachnoid hemorrhage) (HCC) * BASIC METABOLIC PANEL (CALCIUM TOTAL)(Performed 05/20/2024) * PT-INR SLH(Performed 05/20/2024) * PHOSPHORUS BLOOD(Performed 05/20/2024) * MAGNESIUM BLOOD(Performed 05/20/2024) * CBC W AUTO DIFFERENTIAL(Performed 05/20/2024) * XR SHUNT SERIES(Performed 05/19/2024) Performed for Subarachnoid bleed (HCC), SAH (subarachnoid hemorrhage) (HCC) * ENDOTRACHEAL TUBE NOTE(Performed 05/19/2024) * PTT SLH(Performed 05/19/2024) * ME CREATE SHUNT VENTRIC-PERITONEAL(Performed 05/19/2024) Performed for Cerebral ventriculomegaly * CT HEAD WO CONTRAST(Performed 05/19/2024) Performed for Subarachnoid bleed (HCC) * BASIC METABOLIC PANEL (CALCIUM TOTAL)(Performed 05/19/2024) * PHOSPHORUS BLOOD(Performed 05/19/2024) * MAGNESIUM BLOOD(Performed 05/19/2024) * CBC W AUTO DIFFERENTIAL(Performed 05/19/2024) * PTT SLH(Performed 05/18/2024) * PT-INR SLH(Performed 05/18/2024) * TYPE + SCREEN PANEL(Performed 05/18/2024) * PTT SLH(Performed 05/18/2024) * PTT SLH(Performed 05/18/2024) * DIFFERENTIAL MANUAL CSF(Performed 05/18/2024) * GLUCOSE CSF(Performed 05/18/2024) * PROTEIN CSF(Performed 05/18/2024) * CELL COUNT W DIFFERENTIAL CSF(Performed 05/18/2024) * PTT SLH(Performed 05/18/2024) * BASIC METABOLIC PANEL (CALCIUM TOTAL)(Performed 05/18/2024) * PT-INR SLH(Performed 05/18/2024) * PHOSPHORUS BLOOD(Performed 05/18/2024) * MAGNESIUM BLOOD(Performed 05/18/2024) * CBC W AUTO DIFFERENTIAL(Performed 05/18/2024) * PTT SLH(Performed 05/17/2024) * PTT SLH(Performed 05/17/2024) * DIFFERENTIAL MANUAL CSF(Performed 05/17/2024) * PROTEIN CSF(Performed 05/17/2024) * GLUCOSE CSF(Performed 05/17/2024) * CELL COUNT W DIFFERENTIAL CSF(Performed 05/17/2024) * CULTURE CSF+GRAM STAIN(Performed 05/17/2024) * PTT SLH(Performed 05/17/2024) * CT HEAD WO CONTRAST(Performed 05/17/2024) Performed for Subarachnoid bleed (HCC) * BASIC METABOLIC PANEL (CALCIUM TOTAL)(Performed 05/16/2024) * PTT SLH(Performed 05/16/2024) * PT-INR SLH(Performed 05/16/2024) * PHOSPHORUS BLOOD(Performed 05/16/2024) * MAGNESIUM BLOOD(Performed 05/16/2024) * CBC W AUTO DIFFERENTIAL(Performed 05/16/2024) * PTT SLH(Performed 05/16/2024) * PTT SLH(Performed 05/16/2024) * DIFFERENTIAL MANUAL CSF(Performed 05/16/2024) * CELL COUNT W DIFFERENTIAL CSF(Performed 05/16/2024) * PROTEIN CSF(Performed 05/16/2024) * GLUCOSE CSF(Performed 05/16/2024) * CULTURE CSF+GRAM STAIN(Performed 05/16/2024) * PTT SLH(Performed 05/16/2024) * DIFFERENTIAL MANUAL CSF(Performed 05/16/2024) * GLUCOSE CSF(Performed 05/16/2024) * PROTEIN CSF(Performed 05/16/2024) * CELL COUNT W DIFFERENTIAL CSF(Performed 05/16/2024) * CULTURE CSF+GRAM STAIN(Performed 05/16/2024) * BASIC METABOLIC PANEL (CALCIUM TOTAL)(Performed 05/16/2024) * PTT SLH(Performed 05/16/2024) * PT-INR SLH(Performed 05/16/2024) * PHOSPHORUS BLOOD(Performed 05/16/2024) * MAGNESIUM BLOOD(Performed 05/16/2024) * CBC W AUTO DIFFERENTIAL(Performed 05/16/2024) * PTT SLH(Performed 05/15/2024) * PTT SLH(Performed 05/15/2024) * PTT SLH(Performed 05/15/2024) * BASIC METABOLIC PANEL (CALCIUM TOTAL)(Performed 05/14/2024) * PT-INR SLH(Performed 05/14/2024) * PHOSPHORUS BLOOD(Performed 05/14/2024) * MAGNESIUM BLOOD(Performed 05/14/2024) * CBC W AUTO DIFFERENTIAL(Performed 05/14/2024) * PTT SLH(Performed 05/14/2024) * PTT SLH(Performed 05/14/2024) * VAS BILATERAL VENOUS DUPLEX UE(Performed 05/14/2024) Performed for Subarachnoid bleed (HCC) * PTT SLH(Performed 05/14/2024) * MRSA DNA PCR(Performed 05/14/2024) * XR CHEST 1VW PORTABLE(Performed 05/14/2024) Performed for Subarachnoid bleed (HCC) * DIFFERENTIAL MANUAL CSF(Performed 05/14/2024) * GLUCOSE CSF(Performed 05/14/2024) * PROTEIN CSF(Performed 05/14/2024) * CELL COUNT W DIFFERENTIAL CSF(Performed 05/14/2024) * CULTURE CSF+GRAM STAIN(Performed 05/14/2024) * BASIC METABOLIC PANEL (CALCIUM TOTAL)(Performed 05/13/2024) * PTT SLH(Performed 05/13/2024) * PT-INR SLH(Performed 05/13/2024) * PHOSPHORUS BLOOD(Performed 05/13/2024) * MAGNESIUM BLOOD(Performed 05/13/2024) * CBC W AUTO DIFFERENTIAL(Performed 05/13/2024) * XR CHEST 1VW PORTABLE(Performed 05/13/2024) Performed for Postprocedural pneumothorax * PTT SLH(Performed 05/12/2024) * BASIC METABOLIC PANEL (CALCIUM TOTAL)(Performed 05/12/2024) * PT-INR SLH(Performed 05/12/2024) * PHOSPHORUS BLOOD(Performed 05/12/2024) * MAGNESIUM BLOOD(Performed 05/12/2024) * CBC W AUTO DIFFERENTIAL(Performed 05/12/2024) * CT ANGIO CHEST PULM EMBOLISM(Performed 05/12/2024) Performed for Subarachnoid bleed (HCC) * BLOOD GASES ART + COOX PANEL(Performed 05/12/2024) * PTT SLH(Performed 05/12/2024) * XR CHEST 1VW PORTABLE(Performed 05/12/2024) Performed for Postprocedural pneumothorax * PTT SLH(Performed 05/12/2024) * CT ANGIO BRAIN(Performed 05/12/2024) Performed for Subarachnoid bleed (HCC) * BASIC METABOLIC PANEL (CALCIUM TOTAL)(Performed 05/12/2024) * PT-INR SLH(Performed 05/12/2024) * PHOSPHORUS BLOOD(Performed 05/12/2024) * MAGNESIUM BLOOD(Performed 05/12/2024) * CBC W AUTO DIFFERENTIAL(Performed 05/12/2024) * PTT SLH(Performed 05/11/2024) * XR CHEST 1VW PORTABLE(Performed 05/11/2024) Performed for Postprocedural pneumothorax * PTT SLH(Performed 05/11/2024) * XR CHEST 1VW PORTABLE(Performed 05/11/2024) Performed for Postprocedural pneumothorax * XR CHEST 1VW PORTABLE(Performed 05/11/2024) Performed for Postprocedural pneumothorax * PTT SLH(Performed 05/11/2024) * DIFFERENTIAL MANUAL CSF(Performed 05/11/2024) * GLUCOSE CSF(Performed 05/11/2024) * PROTEIN CSF(Performed 05/11/2024) * CELL COUNT W DIFFERENTIAL CSF(Performed 05/11/2024) * BASIC METABOLIC PANEL (CALCIUM TOTAL)(Performed 05/11/2024) * PHOSPHORUS BLOOD(Performed 05/11/2024) * MAGNESIUM BLOOD(Performed 05/11/2024) * CBC W AUTO DIFFERENTIAL(Performed 05/11/2024) * PT-INR SLH(Performed 05/10/2024) * PTT SLH(Performed 05/10/2024) * PT EVAL AND TREAT(Performed 05/10/2024) * OT EVAL AND TREAT(Performed 05/10/2024) * EXTUBATION(Performed 05/10/2024) * PTT SLH(Performed 05/10/2024) * XR ABDOMEN KUB PORTABLE(Performed 05/10/2024) Performed for Subarachnoid bleed (HCC) * XR CHEST 1VW PORTABLE(Performed 05/10/2024) Performed for Subarachnoid bleed (HCC) * BLOOD GASES ART + COOX PANEL(Performed 05/10/2024) * PTT SLH(Performed 05/10/2024) * XR CHEST 1VW PORTABLE(Performed 05/10/2024) Performed for Subarachnoid bleed (HCC) * CT HEAD WO CONTRAST(Performed 05/10/2024) Performed for Subarachnoid bleed (HCC) * BASIC METABOLIC PANEL (CALCIUM TOTAL)(Performed 05/10/2024) * PTT SLH(Performed 05/10/2024) * PHOSPHORUS BLOOD(Performed 05/10/2024) * MAGNESIUM BLOOD(Performed 05/10/2024) * CBC W AUTO DIFFERENTIAL(Performed 05/10/2024) * PTT SLH(Performed 05/09/2024) * PT-INR SLH(Performed 05/09/2024) * CT HEAD WO CONTRAST(Performed 05/09/2024) Performed for Subarachnoid bleed (HCC) * BLOOD GASES ART + COOX PANEL(Performed 05/09/2024) * XR CHEST 1VW PORTABLE(Performed 05/09/2024) Performed for Subarachnoid bleed (HCC) * MECHANICAL VENTILATION(Performed 05/09/2024) * XR CHEST 1VW PORTABLE(Performed 05/09/2024) Performed for Postprocedural pneumothorax * DIFFERENTIAL MANUAL CSF(Performed 05/09/2024) * GLUCOSE CSF(Performed 05/09/2024) * PROTEIN CSF(Performed 05/09/2024) * CELL COUNT W DIFFERENTIAL CSF(Performed 05/09/2024) * CULTURE CSF+GRAM STAIN(Performed 05/09/2024) * OSMOLALITY BLOOD(Performed 05/09/2024) * SODIUM BLOOD(Performed 05/09/2024) * CBC W AUTO DIFFERENTIAL(Performed 05/09/2024) * MAGNESIUM BLOOD(Performed 05/09/2024) * PHOSPHORUS BLOOD(Performed 05/09/2024) * BASIC METABOLIC PANEL (CALCIUM TOTAL)(Performed 05/09/2024) * GLUCOSE - POINT OF CARE(Performed 05/09/2024) * TRIGLYCERIDES BLOOD(Performed 05/09/2024) * BLOOD GASES ART + COOX PANEL(Performed 05/09/2024) * COMPREHENSIVE METABOLIC PANEL(Performed 05/09/2024) * PHOSPHORUS BLOOD(Performed 05/09/2024) * MAGNESIUM BLOOD(Performed 05/09/2024) * CBC W AUTO DIFFERENTIAL(Performed 05/09/2024) * OSMOLALITY BLOOD(Performed 05/09/2024) * SODIUM BLOOD(Performed 05/09/2024) * OSMOLALITY BLOOD(Performed 05/08/2024) * SODIUM BLOOD(Performed 05/08/2024) * VAS TRANSCRANIAL DOPPLER COMP(Performed 05/08/2024) Performed for Subarachnoid bleed (HCC) * BLOOD GASES ART + COOX PANEL(Performed 05/08/2024) * OSMOLALITY BLOOD(Performed 05/08/2024) * SODIUM BLOOD(Performed 05/08/2024) * GLUCOSE - POINT OF CARE(Performed 05/08/2024) * GLUCOSE - POINT OF CARE(Performed 05/08/2024) * OSMOLALITY BLOOD(Performed 05/08/2024) * SODIUM BLOOD(Performed 05/08/2024) * XR CHEST 1VW PORTABLE(Performed 05/08/2024) Performed for Subarachnoid bleed (HCC) * GLUCOSE - POINT OF CARE(Performed 05/08/2024) * BLOOD GASES ART + COOX PANEL(Performed 05/08/2024) * COMPREHENSIVE METABOLIC PANEL(Performed 05/08/2024) * PHOSPHORUS BLOOD(Performed 05/08/2024) * MAGNESIUM BLOOD(Performed 05/08/2024) * CBC W AUTO DIFFERENTIAL(Performed 05/08/2024) * OSMOLALITY BLOOD(Performed 05/08/2024) * SODIUM BLOOD(Performed 05/08/2024) * GLUCOSE - POINT OF CARE(Performed 05/07/2024) * OSMOLALITY BLOOD(Performed 05/07/2024) * SODIUM BLOOD(Performed 05/07/2024) * VAS BILATERAL VENOUS DUPLEX UE(Performed 05/07/2024) Performed for Subarachnoid bleed (HCC) * VAS BILATERAL VENOUS DUPLEX LE(Performed 05/07/2024) Performed for Subarachnoid bleed (HCC) * VAS TRANSCRANIAL DOPPLER COMP(Performed 05/07/2024) Performed for Subarachnoid bleed (HCC) * GLUCOSE - POINT OF CARE(Performed 05/07/2024) * OSMOLALITY BLOOD(Performed 05/07/2024) * SODIUM BLOOD(Performed 05/07/2024) * IR IVC FILTER PLACEMENT(Performed 05/07/2024) Performed for Subarachnoid bleed (HCC), Other acute pulmonary embolism without acute cor pulmonale (HCC) * CARDIAC EKG ORDER(Performed 05/07/2024) * BLOOD GASES ART + COOX PANEL(Performed 05/07/2024) * LACTIC ACID BLOOD REFLEX TO REPEAT(Performed 05/07/2024) * PATHOLOGY SMEAR BODY FLUID(Performed 05/07/2024) * DIFFERENTIAL MANUAL CSF(Performed 05/07/2024) * PROTEIN CSF(Performed 05/07/2024) * CELL COUNT W DIFFERENTIAL CSF(Performed 05/07/2024) * GLUCOSE CSF(Performed 05/07/2024) * CULTURE CSF+GRAM STAIN(Performed 05/07/2024) * XR CHEST 1VW PORTABLE(Performed 05/07/2024) Performed for Subarachnoid bleed (HCC) * GLUCOSE - POINT OF CARE(Performed 05/07/2024) * DIFFERENTIAL MANUAL(Performed 05/07/2024) * OSMOLALITY BLOOD(Performed 05/07/2024) * SODIUM BLOOD(Performed 05/07/2024) * CBC W AUTO DIFFERENTIAL(Performed 05/07/2024) * MAGNESIUM BLOOD(Performed 05/07/2024) * PHOSPHORUS BLOOD(Performed 05/07/2024) * BASIC METABOLIC PANEL (CALCIUM TOTAL)(Performed 05/07/2024) * XR CHEST 1VW PORTABLE(Performed 05/07/2024) Performed for Postprocedural pneumothorax * GLUCOSE - POINT OF CARE(Performed 05/06/2024) * DIFFERENTIAL MANUAL(Performed 05/06/2024) * VANCOMYCIN LEVEL RANDOM(Performed 05/06/2024) * COMPREHENSIVE METABOLIC PANEL(Performed 05/06/2024) * PHOSPHORUS BLOOD(Performed 05/06/2024) * MAGNESIUM BLOOD(Performed 05/06/2024) * CBC W AUTO DIFFERENTIAL(Performed 05/06/2024) * OSMOLALITY BLOOD(Performed 05/06/2024) * SODIUM BLOOD(Performed 05/06/2024) * OSMOLALITY BLOOD(Performed 05/06/2024) * SODIUM BLOOD(Performed 05/06/2024) * GLUCOSE - POINT OF CARE(Performed 05/06/2024) * BRONCHOSCOPY(Performed 05/06/2024) * GLUCOSE - POINT OF CARE(Performed 05/06/2024) * OSMOLALITY BLOOD(Performed 05/06/2024) * SODIUM BLOOD(Performed 05/06/2024) * CULTURE BRONCHIAL WASHING+GRAM STAIN(Performed 05/06/2024) * MRSA DNA PCR(Performed 05/06/2024) * ECHO COMPLETE W BUBBLE STUDY(Performed 05/06/2024) Performed for Subarachnoid bleed (HCC) * BLOOD GASES ART + COOX PANEL(Performed 05/06/2024) * GLUCOSE - POINT OF CARE(Performed 05/06/2024) * XR CHEST 1VW PORTABLE(Performed 05/06/2024) Performed for Postprocedural pneumothorax * DIFFERENTIAL MANUAL(Performed 05/06/2024) * OSMOLALITY BLOOD(Performed 05/06/2024) * SODIUM BLOOD(Performed 05/06/2024) * CBC W AUTO DIFFERENTIAL(Performed 05/06/2024) * MAGNESIUM BLOOD(Performed 05/06/2024) * PHOSPHORUS BLOOD(Performed 05/06/2024) * BASIC METABOLIC PANEL (CALCIUM TOTAL)(Performed 05/06/2024) * PLATELET COUNT AUTO CITRATED BLOOD(Performed 05/06/2024) * GLUCOSE - POINT OF CARE(Performed 05/06/2024) * DIFFERENTIAL MANUAL(Performed 05/06/2024) * COMPREHENSIVE METABOLIC PANEL(Performed 05/06/2024) * PHOSPHORUS BLOOD(Performed 05/06/2024) * MAGNESIUM BLOOD(Performed 05/06/2024) * CBC W AUTO DIFFERENTIAL(Performed 05/06/2024) * OSMOLALITY BLOOD(Performed 05/06/2024) * SODIUM BLOOD(Performed 05/06/2024) * CT CEREBRAL PERFUSION ANALYSIS(Performed 05/05/2024) Performed for SAH (subarachnoid hemorrhage) ([facility]) * CT ANGIO BRAIN AND NECK(Performed 05/05/2024) Performed for SAH (subarachnoid hemorrhage) ([facility]) * OSMOLALITY BLOOD(Performed 05/05/2024) * SODIUM BLOOD(Performed 05/05/2024) * GLUCOSE - POINT OF CARE(Performed 05/05/2024) * XR CHEST 1VW PORTABLE(Performed 05/05/2024) Performed for Subarachnoid bleed ([facility]) * XR CHEST 1VW PORTABLE(Performed 05/05/2024) Performed for Subarachnoid bleed ([facility]) * BLOOD GASES ART + COOX PANEL(Performed 05/05/2024) * XR CHEST 1VW PORTABLE(Performed 05/05/2024) Performed for Subarachnoid bleed ([facility]) * OSMOLALITY BLOOD(Performed 05/05/2024) * SODIUM BLOOD(Performed 05/05/2024) * GLUCOSE - POINT OF CARE(Performed 05/05/2024) * IR EMBOLIZATION TRANSCATH THPY(Performed 05/05/2024) Performed for Subarachnoid bleed ([facility]) * B-TYPE NATRIURETIC PEPTIDE(Performed 05/05/2024) * GLUCOSE - POINT OF CARE(Performed 05/05/2024) * VENTILATOR LIBERATION TRIAL PROTOCOL(Performed 05/05/2024) * PULSE OXIMETRY, CONTINUOUS(Performed 05/05/2024) * DIFFERENTIAL MANUAL(Performed 05/05/2024) * OSMOLALITY BLOOD(Performed 05/05/2024) * SODIUM BLOOD(Performed 05/05/2024) * CBC W AUTO DIFFERENTIAL(Performed 05/05/2024) * MAGNESIUM BLOOD(Performed 05/05/2024) * PHOSPHORUS BLOOD(Performed 05/05/2024) * BASIC METABOLIC PANEL (CALCIUM TOTAL)(Performed 05/05/2024) * CT ANGIO AORTA FOR DISSECTION(Performed 05/05/2024) Performed for Subarachnoid bleed (HCC) * CT HEAD WO CONTRAST(Performed 05/05/2024) Performed for Subarachnoid bleed (HCC) * GLUCOSE - POINT OF CARE(Performed 05/05/2024) * TROPONIN-I HIGH SENSITIVE REFLEX 1HOUR(Performed 05/05/2024) * MAGNESIUM BLOOD(Performed 05/05/2024) * CBC W AUTO DIFFERENTIAL(Performed 05/05/2024) * OSMOLALITY BLOOD(Performed 05/05/2024) * SODIUM BLOOD(Performed 05/05/2024) * DIFFERENTIAL MANUAL(Performed 05/04/2024) * COMPREHENSIVE METABOLIC PANEL(Performed 05/04/2024) * PHOSPHORUS BLOOD(Performed 05/04/2024) * PT-INR [facility](Performed 05/04/2024) * TROPONIN-I HIGH SENSITIVE BASELINE + 1HR(Performed 05/04/2024) * PTT [facility](Performed 05/04/2024) * MAGNESIUM BLOOD(Performed 05/04/2024) * CBC W AUTO DIFFERENTIAL(Performed 05/04/2024) * HEMOGLOBIN A1C(Performed 05/04/2024) * OSMOLALITY BLOOD(Performed 05/04/2024) * GLUCOSE - POINT OF CARE(Performed 05/04/2024) * XR ABDOMEN KUB PORTABLE(Performed 05/04/2024) Performed for Altered mental status, unspecified altered mental status type * XR CHEST 1VW PORTABLE(Performed 05/04/2024) Performed for Subarachnoid bleed (HCC) * PT EVAL AND TREAT(Performed 05/04/2024) * OT EVAL AND TREAT(Performed 05/04/2024) * PREPARE PLATELET PHERESIS UNIT(S)(Performed 05/04/2024) * CT ANGIO BRAIN AND NECK(Performed 05/04/2024) Performed for Altered mental status, unspecified altered mental status type, Elevated troponin, Lactic acidosis * TEG 6 GLOBAL HEMOSTASIS W/ LYSIS(Performed 05/04/2024) * TEG 6S PLATELET MAPPING(Performed 05/04/2024) * LACTIC ACID BLOOD REFLEX TO REPEAT(Performed 05/04/2024) * CT HEAD WO CONTRAST(Performed 05/04/2024) Performed for Altered mental status, unspecified altered mental status type * ED INTUBATION(Performed 05/04/2024) * T4 FREE(Performed 05/04/2024) * TSH REFLEX FREE T4(Performed 05/04/2024) * TROPONIN-I HIGH SENSITIVE REFLEX 1HOUR(Performed 05/04/2024) * BLOOD TYPE VERIFICATION(Performed 05/04/2024) * SARS-COV-2 (COVID-19) FLU A/B RSV PCR RAPID(Performed 05/04/2024) * XR CHEST 1VW PORTABLE(Performed 05/04/2024) Performed for Altered mental status, unspecified altered mental status type * TYPE + SCREEN PANEL(Performed 05/04/2024) * DIFFERENTIAL MANUAL(Performed 05/04/2024) * BLOOD GASES LINDA + COOX PANEL(Performed 05/04/2024) * PROCALCITONIN LEVEL(Performed 05/04/2024) * PTT [facility](Performed 05/04/2024) * PT-INR [facility](Performed 05/04/2024) * CK BLOOD(Performed 05/04/2024) * COMPREHENSIVE METABOLIC PANEL(Performed 05/04/2024) * CBC W AUTO DIFFERENTIAL(Performed 05/04/2024) * TROPONIN-I HIGH SENSITIVE BASELINE + 1HR(Performed 05/04/2024) * LACTIC ACID BLOOD REFLEX TO REPEAT(Performed 05/04/2024) * CULTURE BLOOD(Performed 05/04/2024) * CULTURE BLOOD(Performed 05/04/2024) * EKG 12-LEAD(Performed 05/04/2024) Performed for Altered mental status, unspecified altered mental status type * XR PELVIS W RIGHT HIP 2VW(Performed 10/20/2020) Performed for Hip pain * XR LUMBAR SPINE 2 OR 3VW(Performed 10/20/2020) Performed for Low back pain, unspecified back pain laterality, unspecified chronicity, unspecified whether sciatica present * VAS KAPIL ABD DOPPLER AO IVC ILIAC(Performed 09/22/2020) Performed for Abdominal aortic aneurysm without rupture (HCC) * US RETROPERITONEAL LIMITED(Performed 01/26/2017) * VAS BILAT ARTERIAL DUPLEX LE(Performed 01/20/2016) * US RETROPERITONEAL LIMITED(Performed 01/20/2016) Results * (ABNORMAL) CBC W AUTO DIFFERENTIAL (05/26/2024 1:42 AM [facility]) Only the most recent of26 resultswithin the time period is included. WBC 6.4 4.0 - 10.7 x10E9/L 05/26/2024 3:13 AM [facility] RBC Count 4.10 3.90 - 5.20 x10E12/L 05/26/2024 3:13 AM [facility] Hemoglobin 12.1 11.9 - 15.8 g/dL 05/26/2024 3:13 AM [facility] Hematocrit 38.5 34.8 - 46.1 % 05/26/2024 3:13 AM [facility] MCV 93.9 80.0 - 98.0 fL 05/26/2024 3:13 AM [facility] MCH 29.5 26.7 - 33.6 pg 05/26/2024 3:13 AM [facility] MCHC 31.4(L) 31.7 - 36.3 g/dL 05/26/2024 3:13 AM [facility] RDW-CV 14.0 11.3 - 14.8 % 05/26/2024 3:13 AM [facility] Platelet Count 403 150 - 420 x10E9/L 05/26/2024 3:13 AM [facility] MPV 9.1 7.8 - 11.4 fL 05/26/2024 3:13 AM [facility] Neutrophil % 67.0 41.0 - 74.0 % 05/26/2024 3:13 AM [facility] Lymphocyte % 23.3 17.0 - 47.0 % 05/26/2024 3:13 AM [facility] Monocyte % 7.2 3.0 - 11.0 % 05/26/2024 3:13 AM [facility] Eosinophil % 1.4 0.0 - 7.0 % 05/26/2024 3:13 AM [facility] Basophil % 0.8 0.0 - 1.6 % 05/26/2024 3:13 AM [facility] Immature Granulocytes % 0.3 0.0 - 1.0 % 05/26/2024 3:13 AM [facility] Neutrophil Absolute 4.28 1.60 - 7.50 x10E9/L 05/26/2024 3:13 AM [facility] Lymphocyte Absolute 1.49 1.00 - 4.40 x10E9/L 05/26/2024 3:13 AM [facility] Monocyte Absolute 0.46 0.15 - 1.00 x10E9/L 05/26/2024 3:13 AM [facility] Eosinophil Absolute 0.09 0.00 - 0.60 x10E9/L 05/26/2024 3:13 AM [facility] Basophil Absolute 0.05 0.00 - 0.13 x10E9/L 05/26/2024 3:13 AM [facility] Blood BLOOD SPECIMEN / Unknown Lab Venipuncture / Unknown 05/26/2024 1:42 AM INVENTORY ASSOCIATE 05/26/2024 3:08 AM [facility] Mary Sweeney MD LAB - HEMATOLOGY ORD ERABLES [address] [address], [facility] [phone] * (ABNORMAL) BASIC METABOLIC PANEL (CALCIUM TOTAL) (05/26/2024 1:42 AM INVENTORY ASSOCIATE) Only the most recent of19 resultswithin the time period is included. BUN 22 7 - 26 mg/dL 05/26/2024 3:35 AM [facility] Creatinine 0.55(L) 0.56 - 0.96 mg/dL 05/26/2024 3:35 AM [facility] Sodium 140 136 - 145 mmol/L 05/26/2024 3:35 AM [facility] Potassium 3.8 3.5 - 4.5 mmol/L 05/26/2024 3:35 AM [facility] Chloride 110(H) 98 - 107 mmol/L 05/26/2024 3:35 AM [facility] CO2 17(L) 22 - 29 mmol/L 05/26/2024 3:35 AM [facility] Glucose 96 70 - 99 mg/dL 05/26/2024 3:35 AM [facility] Calcium 9.9 8.4 - 10.2 mg/dL 05/26/2024 3:35 AM [facility] Anion Gap 13 6 - 16 05/26/2024 3:35 AM [facility] BUN/Creatinine Ratio 40(H) 7 - 23 05/26/2024 3:35 AM [facility] Osmolality Calculated 293 275 - 295 mOsm/kg 05/26/2024 3:35 AM [facility] eGFR by CKD-EPI >90 >=90 mL/min/1.7 3 m2 05/26/2024 3:35 AM [facility] Blood BLOOD SPECIMEN / Unknown Lab Venipuncture / Unknown 05/26/2024 1:42 AM INVENTORY ASSOCIATE 05/26/2024 3:13 AM INVENTORY ASSOCIATE Mary Sweeney MD LAB - CHEMISTRY MICHELET AYALA [address] [address], [facility] [phone] * PHOSPHORUS BLOOD (05/26/2024 1:42 AM INVENTORY ASSOCIATE) Only the most recent of24 resultswithin the time period is included. Phosphorus 3.7 2.9 - 5.1 mg/dL 05/26/2024 3:28 AM [facility] Blood BLOOD SPECIMEN / Unknown Lab Venipuncture / Unknown 05/26/2024 1:42 AM INVENTORY ASSOCIATE 05/26/2024 3:13 AM INVENTORY ASSOCIATE Mary Sweeney MD LAB - CHEMISTRY MICHELET AYALA [address] [address], [facility] [phone] * MAGNESIUM BLOOD (05/26/2024 1:42 AM INVENTORY ASSOCIATE) Only the most recent of25 resultswithin the time period is included. Magnesium 2.1 1.6 - 2.6 mg/dL 05/26/2024 3:28 AM INVENTORY ASSOCIATE [facility] Blood BLOOD SPECIMEN / Unknown Lab Venipuncture / Unknown 05/26/2024 1:42 AM INVENTORY ASSOCIATE 05/26/2024 3:13 AM INVENTORY ASSOCIATE Mary Sweeney MD LAB - CHEMISTRY MICHELET AYALA [facility] [address] [place] [address], [facility] [phone] * CT Head Wo Contrast (05/20/2024 6:02 AM INVENTORY ASSOCIATE) Only the most recent of7 resultswithin the time period is included. Anatomical Region Laterality Modality Head Computed Tomogra phy 05/20/2024 6:17 AM INVENTORY ASSOCIATE Impressions 05/20/2024 9:19 AM INVENTORY ASSOCIATE IMPRESSION: 1. Postoperative changes of interval removal [...] horns. Report dictated by Sade Ricci MD (residential housekeeper). I, Wes Mcrae MD have personally reviewed and interpreted this examination/study. 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 Report dictated by Sade Ricci MD (residential housekeeper). I, Wes Mcrae MD have personally reviewed and interpreted this examination/study. > Interpreting Provider: Wes Mcrae MD on 05/20/2024 9:19 AM Quintin Gamez MD CT ORDERABLES * (ABNORMAL) PT-INR [facility] (05/20/2024 2:34 AM INVENTORY ASSOCIATE) Only the most recent of13 resultswithin the time period is included. PT 16.6(H) 12.1 - 14.8 Seconds 05/20/2024 3:47 AM INVENTORY ASSOCIATE [facility] INR 1.3 See Comment 05/20/2024 3:47 AM INVENTORY ASSOCIATE [facility] Comment:The suggested therap eutic range for standard coumadin (warfarin) therapy is an INR of 2.0-3.0. For high-risk patients (Mechanical Mitral Valve Prosthesis, etc.), the suggested prophylactic therapeutic range is an INR of 2.5-3.5. Blood BLOOD SPECIMEN / Unknown Venipuncture / Unknown 05/20/2024 2:34 AM INVENTORY ASSOCIATE 05/20/2024 2:40 AM INVENTORY ASSOCIATE Wally Doshi MD LAB - COAGULATION O RDERABLES [facility] [place] [address], [facility] [phone] * XR Shunt Series (05/19/2024 11:24 AM INVENTORY ASSOCIATE) Anatomical Region Laterality Modality Abdomen, Pelvis Digital Radiogra phy 05/19/2024 12:1 9 PM INVENTORY ASSOCIATE Impressions 05/20/2024 4:34 AM INVENTORY ASSOCIATE IMPRESSION: Intact right parietal approach ventriculoperitoneal shunt catheter. Report dictated by Sumeet Molina MD, (residential housekeeper). IElaine MD have personally reviewed and interpreted this examination/study. 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 FINDINGS: [...] catheter. Report dictated by Sumeet Molina MD, (residential housekeeper). IElaine MD have personally reviewed and interpreted this examination/study. > Interpreting Provider: Elaine Lee MD on 05/20/2024 4:34 AM Quintin Gamez MD DIAGNOSTIC IMAGING ORDERABLES * ETT LINE PERFORMABLE (05/19/2024 8:56 AM INVENTORY ASSOCIATE) Narrative Freddie Medina Anes Asst - 05/19/2024 8:56 AM INVENTORY ASSOCIATE Freddie Medina Anes Asst 05/19/2024 8:57 AM Endotracheal Tube Placement: Patient Location: OR. Intubation Event Date/Time: 05/19/2024 8:39 AM Procedure: intubation ([id number]) Procedure Section: Sedation: under general anesthesia. Indications [...] 8:39 AM. Staff Section Anesthesia Provider: Freddie Mednia Anes Asst, Performed the procedure Provider #1: Rob Coronel MD. Provider #2: Outsole Caser, Student Anesthesiology Outsole Caser Student Anesthesiology. Additional Comments: Atraumatic intubation, dentition as in pre-op. Intubated by Husam BINGHAM-2. Rob Coronel MD GENERAL ANESTHESI A ORDERABLES * (ABNORMAL) PTT [facility] (05/19/2024 8:19 AM INVENTORY ASSOCIATE) Only the most recent of33 resultswithin the time period is included. [facility] APTT 54.3(H) 23.0 - 38.4 Seconds 05/19/2024 9:01 AM INVENTORY ASSOCIATE [facility] Comment:Suggested therapeuti c range for full dose I.V. unfractionated heparin therapy for venous thromboembolism is 71 to 109 seconds. Blood BLOOD SPECIMEN / Unknown Venipuncture / Unknown 05/19/2024 8:19 AM INVENTORY ASSOCIATE 05/19/2024 8:33 AM INVENTORY ASSOCIATE Efraín Kang MD LAB - COAGULATION OR DERABLES [facility] [address] [place] [address], [facility] [phone] * TYPE + SCREEN PANEL (05/18/2024 11:57 AM INVENTORY ASSOCIATE) Only the most recent of2 resultswithin the time period is included. [facility] Antibody Screen NEG 1:27 PM INVENTORY ASSOCIATE [facility] BLOOD BANK LAB ABO Rh A POS 05/18/2024 1:27 PM INVENTORY ASSOCIATE [facility] Blood Bank BLOOD SPECIMEN / Unknown Venipuncture / Unknown 05/18/2024 11:57 AM INVENTORY ASSOCIATE 05/18/2024 12:17 PM INVENTORY ASSOCIATE Efraín Kang MD LAB - BLOOD BANK ORD ERABLES Performing Organization Address City/[facility]/ZIP Co de Phone Number [facility] B[facility]OD [facility] LAB [address] [place] [address], [facility] [phone] * DIFFERENTIAL MANUAL CSF (05/18/2024 4:59 AM INVENTORY ASSOCIATE) Only the most recent of8 resultswithin the time period is included. Neutrophils % CSF 41 % 05/18/2024 5:56 AM [facility] Lymphocytes % CSF 17 % 05/18/2024 5:56 AM [facility] Monocytes % CSF 42 % 5:56 AM [facility] Total Cell Count CSF 100 x10E6/L 05/18/2024 5:56 AM [facility] Cerebral spinal fluid CEREBROSPINAL FLUID SPECIMEN / Unknown Collection / Unknown 05/18/2024 4:59 AM INVENTORY ASSOCIATE 05/18/2024 5:05 AM INVENTORY ASSOCIATE Narrative [facility] - 05/18/2024 5:56 AM INVENTORY ASSOCIATE No reference ranges established for CSF differential cell counts. The test results must be integrated into the clinical context for interpretation. Esteban Real MD LAB - BODY FLUID ORD ERABLES Performing Organization Address City/[facility]/ZIP Co de Phone Number [facility] [address] [place] [address], [facility] [phone] * (ABNORMAL) CELL COUNT W DIFFERENTIAL CSF (05/18/2024 4:59 AM INVENTORY ASSOCIATE) Only the most recent of8 resultswithin the time period is included. Tube Number NOT APPLICABLE 05/18/2024 5:57 AM [facility] Xanthochromia PRESENT(A) ABSENT 05/18/2024 5:57 AM [facility] CSF Appearance CLEAR 05/18/2024 5:57 AM [facility] CSF Color STRAW 05/18/2024 5:57 AM [facility] Total Nucleated Cells CSF 10(H) <=5 x10E6/L 05/18/2024 5:57 AM [facility] RBC Count CSF 7,000(H) <1 x10E6/L 05/18/2024 5:57 AM [facility] Cerebral spinal fluid CEREBROSPINAL FLUID SPECIMEN / Unknown Collection / Unknown 05/18/2024 4:59 AM INVENTORY ASSOCIATE 05/18/2024 5:05 AM INVENTORY ASSOCIATE Esteban Real MD LAB - BODY FLUID ORD ERABLES [address] [address], [place] [phone] * PROTEIN CSF (05/18/2024 4:59 AM INVENTORY ASSOCIATE) Only the most recent of8 resultswithin the time period is included. Protein CSF 29 15 - 45 mg/dL 05/18/2024 5:25 AM INVENTORY ASSOCIATE [facility] Cerebral spinal fluid CEREBROSPINAL FLUID SPECIMEN / Unknown Collection / Unknown 05/18/2024 4:59 AM INVENTORY ASSOCIATE 05/18/2024 5:05 AM INVENTORY ASSOCIATE Esteban Real MD LAB - BODY FLUID ORD ERABLES Performing Organization Address [facility] Co de Phone Number [address] [address], [place] [phone] * GLUCOSE CSF (05/18/2024 4:59 AM INVENTORY ASSOCIATE) Only the most recent of8 resultswithin the time period is included. Glucose CSF 68 40 - 70 mg/dL 05/18/2024 5:25 AM INVENTORY ASSOCIATE [facility] Cerebral spinal fluid CEREBROSPINAL FLUID SPECIMEN / Unknown Collection / Unknown 05/18/2024 4:59 AM INVENTORY ASSOCIATE 05/18/2024 5:05 AM INVENTORY ASSOCIATE Esteban Real MD LAB - BODY FLUID ORD ERABLES Performing Organization Address City/[facility]/ZIP Co de Phone Number [address] [address], [place] [phone] * CULTURE CSF+GRAM STAIN (05/17/2024 8:51 AM INVENTORY ASSOCIATE) Only the most recent of6 resultswithin the time period is included. Culture No growth LC 05/24/2024 7:40 AM INVENTORY ASSOCIATE [facility] MICROBIOLOGY Gram Stain Rare Polymorphonuclear cells 05/24/2024 7:40 AM INVENTORY ASSOCIATE [facility] MICRO[facility] Gram Stain Light Red blood cells 05/24/2024 7:40 AM INVENTORY ASSOCIATE [facility] MICROBIOLOG[facility] Gram Stain No organisms seen 025 7:40 AM [facility] MICROBIOLOGY Cerebral spinal fluid CEREBROSPINAL FLUID SPECIMEN / Unknown Collection / Unknown 05/17/2024 8:51 AM INVENTORY ASSOCIATE 05/17/2024 8:55 AM INVENTORY ASSOCIATE Efraín Kang MD LAB - MICROBIOLOGY O RDERABLES [facility] MICROBIOLOGY [address] [place] [address], [facility] [phone] * VAS Bilateral Venous Duplex Ue (05/14/2024 4:35 PM INVENTORY ASSOCIATE) Only the most recent of2 resultswithin the time period is included. Anatomical Region Laterality Modality Upper Extremity Intravascular Ul trasound 05/14/2024 4:21 PM INVENTORY ASSOCIATE Narrative Procedure Note Candido Dale MD - 05/15/2024 Efraín Kang MD VASCULAR LAB ORDERAB LES * MRSA DNA PCR (05/14/2024 10:38 AM INVENTORY ASSOCIATE) Only the most recent of2 resultswithin the time period is included. MRSA DNA by PCR Not detected Not detected 05/14/2024 6:23 PM INVENTORY ASSOCIATE [facility] MICRO[facility]OLOGY Microbiology SPECIMEN FROM NASAL FOSSAE / Unknown Collection / Unknown 05/14/2024 10:38 AM INVENTORY ASSOCIATE 05/14/2024 10:41 AM INVENTORY ASSOCIATE Narrative [facility] MICRO[facility]OLOG[facility] - 05/14/2024 6:23 PM INVENTORY ASSOCIATE Methicillin-resistant Staphylococcus aureus (MRSA) DNA is not detected (presumed not colonized with MRSA). Efraín Kang MD LAB - MICROBIOLOGY O RDERABLES [facility] MICROBIOLOGY [address] [place] [address], [facility] [phone] * XR Chest 1Vw Portable (05/14/2024 9:00 AM INVENTORY ASSOCIATE) Only the most recent of19 resultswithin the time period is included. Anatomical Region Laterality Modality Chest Digital Radiogra phy 05/14/2024 8:38 AM INVENTORY ASSOCIATE Narrative 05/14/2024 8:44 AM INVENTORY ASSOCIATE PROCEDURE: XR CHEST 1VW PORTABLE, DATE/TIME OF EXAM: 05/14/2024 8:19 AM, LOCATION [facility] INDICATION: I60.9: Subarachnoid bleed (HCC) ADDITIONAL CLINICAL INFORMATION: Ordering Provider Reason For Exam: post chest tube removal COMPARISON: Chest radiograph from 05/13/2024. FINDINGS/IMPRESSION: Tubes, lines, and hardware: *Left subclavian approach central venous catheter terminates in the superior vena cava. *Nasogastric/orogastric tube courses midline and below the diaphragm terminates outside of the [id number]. Bibasilar atelectasis, left more than right, similar to prior exam. There is no pleural effusion or pneumothorax. The cardiomediastinal silhouette is stable. The visible bony thorax is intact. The report was drafted by Katerin Holguin MD (residential carpenter) 05/14/2024 8:38 AM. IElaine MD have personally reviewed and interpreted this examination/study. > Interpreting Provider: Elaine Lee MD on 05/14/2024 8:44 AM Procedure Note Elaine Lee MD - 05/14/2024 PROCEDURE: XR CHEST 1VW PORTABLE, DATE/TIME OF EXAM: 05/14/2024 8:19 AM, LOCATION [facility] INDICATION: I60.9: Subarachnoid bleed (HCC) ADDITIONAL CLINICAL INFORMATION: Ordering Provider Reason For Exam: post chest tube removal COMPARISON: Chest radiograph from 05/13/2024. FINDINGS/IMPRESSION: Tubes, lines, and hardware: *Left subclavian approach central venous catheter terminates in the superior vena cava. *Nasogastric/orogastric tube courses midline and below the diaphragm terminates outside of the [id number]. Bibasilar atelectasis, left more than right, similar to prior exam. There is no pleural effusion or pneumothorax. The cardiomediastinal silhouette is stable. The visible bony thorax is intact. The report was drafted by Katerin Holguin MD (residential carpenter) 05/14/2024 8:38 AM. IElaine MD have personally reviewed and interpreted this examination/study. > Interpreting Provider: Elaine Lee MD on 05/14/2024 8:44 AM Efraín Kang MD DIAGNOSTIC IMAGING O RDERABLES * CT Angio Chest Pulm Embolism (05/12/2024 5:24 PM INVENTORY ASSOCIATE) Anatomical Region Laterality Modality Chest Computed Tomogra phy 05/12/2024 5:39 PM INVENTORY ASSOCIATE Impressions 05/12/2024 9:07 PM INVENTORY ASSOCIATE Impression: 1.No evidence of acute pulmonary embolism. Previously noted pulmonary emboli in the segmental and subsegmental upper lobe branches are no longer visible. 2.Complete atelectasis of the left lower lobe and near complete atelectasis of the right lower lobe. Debris is present in right lower lobe bronchi consistent with aspiration. Infection is not excluded. > Dictated by Beverley George MD (residential housekeeper). Bridger Razo MD have personally reviewed and interpreted this examination/study. > Interpreting Provider: Bridger Sultana MD on 05/12/2024 9:07 PM Narrative 05/12/2024 9:07 PM INVENTORY ASSOCIATE PROCEDURE: CT ANGIO CHEST PULM EMBOLISM, DATE/TIME OF EXAM: 05/12/2024 5:25 PM, LOCATION [facility] INDICATION: I60.9: Subarachnoid bleed (HCC) ADDITIONAL CLINICAL [...] EMBOLISM, DATE/TIME OF EXAM: :25 PM, LOCATION [facility] INDICATION: I60.9: Subarachnoid bleed (HCC) ADDITIONAL CLINICAL [...] excluded. > Dictated by Beverley George MD (residential housekeeper). I, Bridger Sultana MD have personally reviewed and interpreted this examination/study. > Interpreting Provider: Bridger Sultana MD on 05/12/2024 9:07PM Efraín Kang MD CT ORDERABLES * (ABNORMAL) BLOOD GASES ART + COOX PANEL (05/12/2024 3:45 PM INVENTORY ASSOCIATE) Only the most recent of9 resultswithin the time period is included. pH Arterial 7.53(H) 7.35 - 7.45 pH 05/12/2024 3:47 PM [facility] pO2 Arterial 76(L) 80 - 100 mmHg 05/12/2024 3:47 PM [facility] pCO2 Arterial 26(L) 35 - 45 mmHg 3:47 PM [facility] HCO3 Arterial 21.7 20.0 - 30.0 mmol/L 05/12/2024 3:47 PM [facility] BE Arterial 0.1 -2.0 - 2.0 mmol/L 05/12/2024 3:47 PM [facility] Oxyhemoglobin Arterial 95.3 % 05/12/2024 3:47 PM [facility] Dexoyhemoglobin (HHB) % 1.9 % 05/12/2024 3:47 PM [facility] Methemoglobin 1.2 0.0 - 2.0 % 05/12/2024 3:47 PM [facility] Carboxyhemoglobin 1.6 0.0 - 2.0 % 2024 3:47 PM [facility] O2 Content Arterial 16.3 Interpret within clinical context ml/dL 05/12/2024 3:47 PM [facility] Hemoglobin by COOX 12.1 12.0 - 15.6 g/dL 05/12/2024 3:47 PM [facility] O2 Saturation Arterial 98 90 - 100 % 05/12/2024 3:47 PM [facility] FI O2 Arterial 36.0 % 05/12/2024 3:47 PM [facility] Comment:3L Blood, arterial ARTERIAL BLOOD SPECIMEN / Unknown 05/12/2024 3:45 PM INVENTORY ASSOCIATE 05/12/2024 3:45 PM [facility] Narrative [facility] - 05/12/2024 3:47 PM INVENTORY ASSOCIATE Carboxyhemoglobin Normal Concentration: Non-smokers: 0-2%; Smokers: 0-9%; Toxic: >20% Efraín Kang MD LAB - BLOOD GASES OR DERABLES Performing Organization Address City/State/[facility] Co de Phone Number [facility] [address] [place] [phone], [facility] [phone] * CT Angio Brain (05/12/2024 5:36 AM INVENTORY ASSOCIATE) Anatomical Region Laterality Modality Head Computed Tomogra phy 05/12/2024 9:36 AM INVENTORY ASSOCIATE Impressions 05/12/2024 10:28 AM INVENTORY ASSOCIATE IMPRESSION: 1.Multi compartmental hemorrhage, as above, with [...] aneurysm > Dictated by Ousmane Burnham MD (residential housekeeper). I, Wes Mcrae MD have personally reviewed and interpreted this examination/study. > Interpreting Provider: Wes Mcrae MD on 05/12/2024 10:28 AM Narrative 05/12/2024 10:[address] ANGIO BRAIN DATE: 05/12/2024 5:37 AM [...] aneurysm > Dictated by Ousmane Burnham MD (residential housekeeper). I, Wes Mcrae MD have personally reviewed and interpreted this examination/study. > Interpreting Provider: Wes Mcrae MD on 05/12/2024 10:28 AM Wally Doshi MD CT ORDERABLES * XR Abdomen Kub Portable (05/10/2024 12:14 PM INVENTORY ASSOCIATE) Only the most recent of2 resultswithin the time period is included. Anatomical Region Laterality Modality Abdomen Digital Radiogra phy 05/10/2024 12:2 0 PM INVENTORY ASSOCIATE Narrative 05/10/2024 12:22 PM INVENTORY ASSOCIATE PROCEDURE: XR ABDOMEN KUB PORTABLE DATE/TIME OF [...] is seen extending from L2 to the L3-[id number]. The visualized bowel gas pattern was without concerning abnormality. > Interpreting Provider: Ming Benitez MD on 05/10/2024 12:22 PM Wally Doshi MD DIAGNOSTIC IMAGING ORDERABLES * (ABNORMAL) SODIUM BLOOD (05/09/2024 3:45 AM INVENTORY ASSOCIATE) Only the most recent of18 resultswithin the time period is included. Sodium 146(H) 136 - 145 mmol/L 05/09/2024 4:48 AM INVENTORY ASSOCIATE [facility] Blood BLOOD SPECIMEN / Unknown Venipuncture / Unknown 05/09/2024 3:45 AM INVENTORY ASSOCIATE 05/09/2024 4:10 AM INVENTORY ASSOCIATE Wally Doshi MD LAB - CHEMISTRY ORD ERABLES [address] [id number], [facility] [phone] * (ABNORMAL) OSMOLALITY BLOOD (05/09/2024 3:45 AM INVENTORY ASSOCIATE) Only the most recent of19 resultswithin the time period is included. Osmolality 298(H) 275 - 295 mOsm/kg 05/09/2024 4:51 AM INVENTORY ASSOCIATE [facility] Blood BLOOD SPECIMEN / Unknown Venipuncture / Unknown 05/09/2024 3:45 AM INVENTORY ASSOCIATE 05/09/2024 4:10 AM INVENTORY ASSOCIATE Wally Doshi MD LAB - CHEMISTRY ORD ERABLES [address] [address], [place] [phone] * (ABNORMAL) GLUCOSE - POINT OF CARE (05/09/2024 12:12 AM INVENTORY ASSOCIATE) Only the most recent of17 resultswithin the time period is included. Glucose WB/POC 129(H) 70 - 99 mg/dL 05/09/2024 12:16 AM [facility] Specimen Type Arterial 05/09/2024 12:16 AM [facility] Blood BLOOD SPECIMEN / Unknown 05/09/2024 12:12 AM INVENTORY ASSOCIATE 05/09/2024 12:16 AM INVENTORY ASSOCIATE Wally Doshi MD LAB - POINT OF CARE ORDERABLES Performing Organization Address City/[facility]/ZIP Co de Phone Number [address] [address], [place] [phone] * TRIGLYCERIDES BLOOD (05/09/2024 12:12 AM INVENTORY ASSOCIATE) Triglycerides 132 <150 mg/dL 05/09/2024 12:47 AM [facility] Comment: ATP III Classification of Triglycerides: <150 mg/dL: Normal 150 - 199 mg/dL: Borderline High 200 - 400 mg/dL: High >500 mg/dL: Very High Blood BLOOD SPECIMEN / Unknown Venipuncture / Unknown 05/09/2024 12:12 AM INVENTORY ASSOCIATE 05/09/2024 12:17 AM INVENTORY ASSOCIATE Wally Doshi MD LAB - CHEMISTRY ORD ERABLES [address] [address], [place] [phone] * (ABNORMAL) COMPREHENSIVE METABOLIC PANEL (05/09/2024 12:12 AM INVENTORY ASSOCIATE) Only the most recent of6 resultswithin the time period is included. BUN 17 7 - 26 mg/dL 05/09/2024 12:47 AM [facility] Creatinine 0.57 0.56 - 0.96 mg/dL 05/09/2024 12:47 AM [facility] Sodium 146(H) 136 - 145 mmol/L 05/09/2024 12:47 AM [facility] Potassium 3.5 3.5 - 4.5 mmol/L 05/09/2024 12:47 AM [facility] Chloride 115(H) 98 - 107 mmol/L 05/09/2024 12:47 AM [facility] CO2 24 22 - 29 mmol/L 05/09/2024 12:47 AM [facility] Glucose 130(H) 70 - 99 mg/dL 05/09/2024 12:47 AM [facility] Calcium 8.5 8.4 - 10.2 mg/dL 05/09/2024 12:47 AM [facility] Protein Total 6.1 6.0 - 8.3 g/dL 05/09/2024 12:47 AM [facility] Albumin 2.5(L) 3.4 - 5.0 g/dL 05/09/2024 12:47 AM [facility] Bilirubin Total 0.4 0.2 - 1.2 mg/dL 05/09/2024 12:47 AM [facility] Alkaline Phosphatase 85 40 - 150 U/L 05/09/2024 12:47 AM [facility] ALT 31 5 - 55 U/L 05/09/2024 12:47 AM [facility] AST 28 5 - 34 U/L 05/09/2024 12:47 AM [facility] Anion Gap 7 6 - 16 05/09/2024 12:47 AM [facility] BUN/Creatinine Ratio 30(H) 7 - 23 05/09/2024 12:47 AM [facility] Osmolality Calculated 305(H) 275 - 295 mOsm/kg 05/09/2024 12:47 AM [facility] Albumin/Globulin Ratio 0.7(L) 1.1 - 2.3 05/09/2024 12:47 AM [facility] eGFR by CKD-EPI >90 >=90 mL/min/1.7 3 m2 05/09/2024 12:47 AM [facility] Blood BLOOD SPECIMEN / Unknown Venipuncture / Unknown 05/09/2024 12:12 AM INVENTORY ASSOCIATE 05/09/2024 12:17 AM INVENTORY ASSOCIATE Wally Doshi MD LAB - CHEMISTRY ORD ERABLES [facility] [address] [place] [address], [facility] [phone] * VAS Transcranial Doppler Comp (05/08/2024 5:43 PM INVENTORY ASSOCIATE) Only the most recent of2 resultswithin the time period is included. Anatomical Region Laterality Modality Head Intravascular Ul trasound 05/08/2024 4:00 PM INVENTORY ASSOCIATE Narrative Procedure Note Esteban Real MD - 05/09/2024 Esteban Real MD VASCULAR LAB ORDERAB LES * VAS Bilateral Venous Duplex Le (05/07/2024 5:41 PM INVENTORY ASSOCIATE) Anatomical Region Laterality Modality Lower Extremity Intravascular Ul trasound 05/07/2024 4:37 PM INVENTORY ASSOCIATE Narrative Procedure Note Philip Babb MD - 05/08/2024 Wally Doshi MD VASCULAR LAB ORDERA BLES * IR IVC Filter Placement (05/07/2024 12:35 PM INVENTORY ASSOCIATE) Anatomical Region Laterality Modality Abdomen X-Ray Angiograph y 05/07/2024 12:5 3 PM INVENTORY ASSOCIATE Impressions 05/07/2024 1:06 PM INVENTORY ASSOCIATE Impression: A Option Elite IVC filter was [...] 05/07/2024 1:06 PM Narrative 05/07/2024 1:06 PM INVENTORY ASSOCIATE History: 64-year-old female with history of cerebral [...] draped in the usual sterile manner. A manager field investigations film of abdomen was obtained, which was [...] draped in the usual sterile manner. A manager field investigations filmof abdomen was obtained, which was unremarkable [...] * CARDIAC EKG ORDER (05/07/2024 11:51 AM INVENTORY ASSOCIATE) Narrative 05/07/2024 11:51 AM INVENTORY ASSOCIATE Ordered by an unspecified provider. Scanned Document CARDIAC SERVICES ORD ERABLES * LACTIC ACID BLOOD REFLEX TO REPEAT (05/07/2024 9:19 AM INVENTORY ASSOCIATE) Only the most recent of3 resultswithin the time period is included. Pathologist [facility] Lactic Acid-Stat 1.1 <=2.0 mmol/L 05/07/2024 9:52 AM INVENTORY ASSOCIATE [facility] Blood BLOOD SPECIMEN / Unknown Venipuncture / Unknown 05/07/2024 9:19 AM INVENTORY ASSOCIATE 05/07/2024 9:26 AM INVENTORY ASSOCIATE You Reagan MD LAB - CHEMISTR Y ORDERABLES [address] [address], [facility] [phone] * PATHOLOGY SMEAR BODY FLUID (05/07/2024 9:08 AM INVENTORY ASSOCIATE) [facility] Path Review Fluid Confirmed 05/07/2024 4:44 PM [facility] Cerebral spinal fluid CEREBROSPINAL FLUID SPECIMEN / Unknown Collection / Unknown 05/07/2024 9:08 AM INVENTORY ASSOCIATE 05/07/2024 9:24 AM INVENTORY ASSOCIATE Narrative [facility] - 05/07/2024 4:44 PM INVENTORY ASSOCIATE Many neutrophils, scattered monocytes, and lymphocytes. Red blood cells Hali Bar APRN-DIRECTOR OF CORPORATE MARKETING LAB - PATHOLOGY /CYTOLOGY ORDERABLES [address] [address], [facility] [phone] * (ABNORMAL) DIFFERENTIAL MANUAL (05/07/2024 4:12 AM INVENTORY ASSOCIATE) Only the most recent of7 resultswithin the time period is included. [facility] Neutrophil % 90(H) 41 - 74 % 05/07/2024 5:23 AM [facility] Lymphocyte % 9(L) 17 - 47 % 05/07/2024 5:23 AM [facility] Monocyte % 1(L) 3 - 11 % 05/07/2024 5:23 AM [facility] Neutrophil Absolute 9.90(H) 1.60 - 7.50 x10E9/L 05/07/2024 5:23 AM [facility] Lymphocyte Absolute 0.99(L) 1.00 - 4.40 x10E9/L 05/07/2024 5:23 AM [facility] Monocyte Absolute 0.11(L) 0.15 - 1.00 x10E9/L 05/07/2024 5:23 AM [facility] RBC Morphology REVIEWED 05/07/2024 5:23 AM [facility] Montegut Cells MODERATE(A) (none) 05/07/2024 5:23 AM [facility] Dohle Bodies PRESENT(A) (none) 05/07/2024 5:23 AM [facility] Blood BLOOD SPECIMEN / Unknown Venipuncture / Unknown 05/07/2024 4:12 AM INVENTORY ASSOCIATE 05/07/2024 4:25 AM INVENTORY ASSOCIATE Kwabena Huffman SLEEVE SETTER SAFETY STITCH-DIRECTOR OF CORPORATE MARKETING LAB - HEMATOLO GY ORDERABLES Performing Organization Address City/[facility]/ZIP Co de Phone Number [address] [address], [facility] [phone] * VANCOMYCIN LEVEL RANDOM (05/06/2024 11:43 PM INVENTORY ASSOCIATE) Vancomycin Random 5.0 Therapeutic Ranges not established for random specimens ug/mL 05/07/2024 12:48 AM [facility] Blood BLOOD SPECIMEN / Unknown Venipuncture / Unknown 05/06/2024 11:43 PM INVENTORY ASSOCIATE 05/07/2024 12:04 AM INVENTORY ASSOCIATE Narrative [facility] - 05/07/2024 12:48 AM INVENTORY ASSOCIATE See institution protocol. Wally Doshi MD LAB - CHEMISTRY ORD ERABLES [address] [address], [facility] [phone] * BRONCHOSCOPY (05/06/2024 3:52 PM INVENTORY ASSOCIATE) Narrative [facility] - 05/06/2024 3:52 PM INVENTORY ASSOCIATE Lalo Nesbitt MD 05/06/2024 4:24 PM FIBEROPTIC [...] complications. Wally Doshi MD RESPIRATORY THERAPY ORDERABLES [facility] * (ABNORMAL) CULTURE BRONCHIAL WASHING+GRAM STAIN (05/06/2024 11:57 AM INVENTORY ASSOCIATE) Culture Moderate Klebsiella pneumoniae(A) LC 05/08/2024 7:47 AM INVENTORY ASSOCIATE [facility] MICROBIOLOGY Gram Stain Moderate Polymorphonuclear cells 05/08/2024 7:47 AM [facility] MICROBIOLOGY Gram Stain Rare Gram-negative bacilli 05/08/2024 7:47 AM [facility] MICROBIOLOGY Microbiology (Lung, Left Lower Lobe) Collection / Unknown 05/06/2024 11:57 AM INVENTORY ASSOCIATE 05/06/2024 12:26 PM INVENTORY ASSOCIATE Narrative Organism Antibiotic Method Susceptibility Klebsiella pneumoniae [...] Wally Doshi MD LAB - MICROBIOLOGY ORDERABLES [facility] MICROBIOLOGY [address] [place] [address], [facility] [phone] * ECHO COMPLETE W BUBBLE STUDY (05/06/2024 10:03 AM INVENTORY ASSOCIATE) Myocardial strain charge 2 unitless [facility] CV [...] Laterality Modality Ultrasound 05/06/2024 10:3 5 AM INVENTORY ASSOCIATE Narrative 05/06/2024 11:45 AM INVENTORY ASSOCIATE Summary * The left ventricle is normal [...] 10:35 AM Patient Status: I/P Study Site: [facility] Primary Location: [facility] Info Technical Quality: Good Exam Type: [...] Provider: Wally Doshi Attending Physician: Wally Doshi Sulfuric Acid Plant Operator: Ronnie Lucio Left Ventricle Left ventricular systolic [...] 10:35 AM Patient Status: I/P Study Site: [facility] Primary Location: [facility] EStudy Info Technical Quality: Good Exam Type: ECHO COMPLETE W BUBBLE STUDY Indications I60.9 - Subarachnoid bleed (HCC) Procedure(s) * A complete 2D, color Doppler, spectral Doppler, and M-Modetransthoracic echocardiogram was performed. Contrast/Agitated Saline Contrast / Saline: Agitated Saline Amount: 10.00 ml Administered By: Ronnie Lucio Reaction to Contrast: no Staff Referring Physician: Wally Doshi Ordering Provider: Wally Doshi Attending Physician: Wally Doshi Sulfuric Acid Plant Operator: Ronnie Lucio Left Ventricle Left ventricular systolic [...] COUNT AUTO CITRATED BLOOD (05/06/2024 1:39 AM INVENTORY ASSOCIATE) Platelet Count Citrated 05/06/2024 3:15 AM INVENTORY ASSOCIATE [facility] Comment:Platelets clumped on slide but appears adequate. Recommend repeat with a sodium citrate blue top tube. Blood BLOOD SPECIMEN / Unknown Venipuncture / Unknown 05/06/2024 1:39 AM INVENTORY ASSOCIATE 05/06/2024 1:42 AM INVENTORY ASSOCIATE Wally Doshi MD LAB - HEMATOLOGY OR DERABLES [facility] [address] [place] [phone], [facility] [phone] * CT Angio Brain And Neck (05/05/2024 9:44 PM INVENTORY ASSOCIATE) Only the most recent of2 resultswithin the time period is included. Anatomical Region Laterality Modality Head Computed Tomogra phy 05/05/2024 9:52 PM INVENTORY ASSOCIATE Impressions 05/06/2024 12:29 AM INVENTORY ASSOCIATE IMPRESSION: 1.Unchanged appearance of subarachnoid hemorrhage with [...] report is dictated by Sade Ricci MD (residential housekeeper) I, Wes Mcrae MD have personally reviewed and interpreted this examination/study. > Interpreting Provider: Wes Mcrae MD on 05/06/2024 12:29 AM Narrative 05/06/2024 12:29 AM INVENTORY ASSOCIATE PROCEDURE: CT ANGIO BRAIN AND NECK, DATE/TIME OF EXAM: 05/05/2024 9:45 PM, LOCATION [facility] INDICATION: I60.9: SAH (subarachnoid hemorrhage) (HCC) ADDITIONAL [...] NECK, DATE/TIME OF EXAM: 05/05/2024 9:45PM, LOCATION [facility] INDICATION: I60.9: SAH (subarachnoid hemorrhage) (HCC) ADDITIONAL [...] report is dictated by Sade Ricci MD (residential housekeeper) Wes Razo MD have personally reviewed and interpreted this examination/study. > Interpreting Provider: Wes Mcrae MD on 05/06/2024 12:29 AM [address] Doshi MD CT ORDERABLES * CT Cerebral Perfusion Analysis (05/05/2024 9:44 PM INVENTORY ASSOCIATE) Anatomical Region Laterality Modality Head Computed Tomogra phy 05/05/2024 10:1 4 PM INVENTORY ASSOCIATE Impressions 05/05/2024 11:35 PM INVENTORY ASSOCIATE IMPRESSION: 1.Unchanged right frontal approach ventriculostomy catheter [...] report is dictated by Sade Ricci MD (residential housekeeper) Wes Razo MD have personally reviewed and interpreted this examination/study. > Interpreting Provider: Wes Mcrae MD on 05/05/2024 11:35 PM Narrative 05/05/2024 11:35 PM INVENTORY ASSOCIATE PROCEDURE: CT CEREBRAL PERFUSION ANALYSIS, DATE/TIME OF EXAM: 05/05/2024 9:45 PM, LOCATION [facility] INDICATION: I60.9: SAH (subarachnoid hemorrhage) (HCC) ADDITIONAL [...] the perfusion data was sent to the [employer] process of PerfusIon and Diffusion (Viz.AI ) [...] ANALYSIS, DATE/TIME OF EXAM:05/05/2024 9:45 PM, LOCATION [facility] INDICATION: I60.9: SAH (subarachnoid hemorrhage) (HCC) ADDITIONAL [...] the perfusion data was sent to the [employer] process of PerfusIon and Diffusion (Viz.AI ) [...] report is dictated by Sade Ricci MD (residential housekeeper) Wes Razo MD have personally reviewed and interpreted this examination/study. 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 HH3 mFS4. Intubated for airway protection. Plan for aneurysm embolization. Salesperson Household Appliances: Dr. Guanako Newsome Outsole Caser(s): Brenda Quevedo L Polhemus Ultrasound Guided Vessel Access Vessels: Right Radial Artery Angiogram Left Internal Carotid Artery Angiogram: Cerebral Right Common Carotid Artery Angiogram: Cerebral Right Subclavian Artery Angiogram: Cerebral Microcatheterization of the Left MADAY-A1 Coil Embolization of AComm Aneurysm Angiography Through the Existing Catheter Anesthesia: General Anesthesia was performed and monitored by an attending Anesthesiologist and their life science research assistant throughout the entirety of the case [...] Following a series of exchanges, a 7 nauruan size Glidesheath slender was placed in the radial artery. A radial angiogram was performed through the sheath. A spasmolytic cocktail containing 2.5mg verapamil and 300mcg of nitroglycerin was administered. A 7 Syrian RIST guide catheter was then introduced into the sheath along with a 5.5 Syrian [employer]s 2 diagnostic catheter. The diagnostic catheter was [...] catheter was performed at the coiling angle MEXICAN 45, CAU 36 and in the standard AP and lateral projections. These showed Manjit and Gerardo Class II occlusion of the aneurysm and no evidence of branch artery occlusion. 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 HH3 mFS4. Intubated for airway protection. Planfor aneurysm embolization. Salesperson Household Appliances: Dr. Guanako Newsome Outsole Caser(s): Brenda Quevedo L Polhemus Ultrasound Guided Vessel Access Vessels: Right Radial Artery Angiogram Left Internal Carotid Artery Angiogram: Cerebral Right Common Carotid Artery Angiogram: Cerebral Right Subclavian Artery Angiogram: Cerebral Microcatheterization of the Left MADAY-A1 Coil Embolization of AComm Aneurysm Angiography Through the Existing Catheter Anesthesia: General Anesthesia was performed and monitored by an attending Anesthesiologist and their life science research assistant throughout the entirety of the case Procedural Detail: I, Dr. J. Coppens was present during the entire procedure. The [...] needle. Following aseries of exchanges, a 7 nauruan size Glidesheath slender was placed in theradial artery. A radial angiogram was performed through the sheath. Aspasmolytic cocktail containing 2.5mg verapamil and 300mcg of nitroglycerin was administered. A 7 Syrian RIST guide catheter was then introduced intothe sheath along with a 5.5 Syrian [employer]es 2 diagnostic catheter.The diagnostic catheter was [...] catheter was performed at the coiling angle MEXICAN 45, CAU 36 and in the standard [...] (ABNORMAL) B-TYPE NATRIURETIC PEPTIDE (05/05/2024 6:49 AM INVENTORY ASSOCIATE) BNP 150(H) <100 pg/mL 05/05/2024 7:33 AM INVENTORY ASSOCIATE [facility] Comment: A decision threshold of 100 [...] Unknown Venipuncture / Unknown 05/05/2024 6:49 AM INVENTORY ASSOCIATE 05/05/2024 7:02 AM INVENTORY ASSOCIATE Wally Doshi MD LAB - CHEMISTRY ORD ERABLES [facility] [address] [place] [phone], [facility] [phone] * CT Angio Aorta for Dissection (05/05/2024 1:00 AM INVENTORY ASSOCIATE) Anatomical Region Laterality Modality Abdomen Computed Tomogra phy 05/05/2024 1:10 AM INVENTORY ASSOCIATE Impressions 05/05/2024 2:29 AM INVENTORY ASSOCIATE Impression: 1.Segmental and subsegmental pulmonary emboli are [...] verification. > Dictated by Jose Bustamante MD (residential housekeeper). I, Go Rosas MD have personally reviewed and interpreted this examination/study. > Interpreting Provider: Go Rosas MD on 05/05/2024 2:29 AM Narrative 05/05/2024 2:29 AM INVENTORY ASSOCIATE PROCEDURE: CT ANGIO AORTA FOR DISSECTION, DATE/TIME OF EXAM: 05/05/2024 1:01 AM, LOCATION [facility] INDICATION: I60.9: Subarachnoid bleed (HCC) ADDITIONAL CLINICAL [...] DATE/TIME OF EXAM: 05/05/2024 1:01 AM, LOCATION [facility] INDICATION: I60.9: Subarachnoid bleed (HCC) ADDITIONAL CLINICAL [...] verification. > Dictated by Jose Bustamante MD (residential housekeeper). I, Go Rosas MD have personally reviewed and interpreted this examination/study. > Interpreting Provider: Go Rosas MD on 05/05/2024 2:29 AM [address] MD [address] ORDERABLES * (ABNORMAL) TROPONIN-I HIGH SENSITIVE REFLEX 1HOUR (05/05/2024 12:14 AM INVENTORY ASSOCIATE) Only the most recent of2 resultswithin the time period is included. Troponin I High Sensitive 403(HH) <=14 ng/L 05/05/2024 12:50 AM INVENTORY ASSOCIATE [facility] Delta Troponin I HS 05/05/2024 12:50 AM INVENTORY ASSOCIATE [facility] Comment:Delta value intentio destiny not calculated. Baseline to 1 hour specimen collection interval exceeded. Blood BLOOD SPECIMEN / Unknown Venipuncture / Unknown 05/05/2024 12:14 AM INVENTORY ASSOCIATE 05/05/2024 12:28 AM INVENTORY ASSOCIATE Wally Doshi MD LAB - CHEMISTRY ORD ERABLES Performing Organization Address City/[facility]/ZIP Co de Phone Number [address] [address], [facility] [phone] * (ABNORMAL) TROPONIN-I HIGH SENSITIVE BASELINE + 1HR (05/04/2024 10:25 PM INVENTORY ASSOCIATE) Only the most recent of2 resultswithin the time period is included. Pathologist [facility] Troponin I High Sensitive 435(HH) <=14 ng/L 05/04/2024 11:20 PM INVENTORY ASSOCIATE [facility] Blood BLOOD SPECIMEN / Unknown Venipuncture / Unknown 05/04/2024 10:25 PM INVENTORY ASSOCIATE 05/04/2024 10:35 PM INVENTORY ASSOCIATE Wally Doshi MD LAB - CHEMISTRY ORD ERABLES Performing Organization Address City/[facility]/ZIP Co de Phone Number [address] [address], [facility] [phone] * (ABNORMAL) HEMOGLOBIN A1C (05/04/2024 10:25 PM INVENTORY ASSOCIATE) Pathologist [facility] Hemoglobin A1c 5.9(H) <=5.6 % 05/05/2024 2:43 PM INVENTORY ASSOCIATE [facility] Estimated Average Glucose 123 mg/dL 05/05/2024 2:43 PM [facility] Comment: HbA1c Interpretation: Normal : < 5.7% Pre-diabetes: 5.7-6.4% Diabetes: Equal to or greater than 6.5% Test results diagnostic of diabetes should be repeated for confirmation. Treatment target values recommended by ADA and other clinical organizations should be used to evaluate metabolic control in patients. Reference: [place] Diabetes Association, Standards of Care in Diabetes -2020 In patients 70 years and older consider HbA1c target range of 7.0-7.5% (Reference: Amos Gutierrez et al. JAMDA. 2012) The Sebia assay for the measurement of HbA1c is a National Glycohemoglobin Standardization Program (NGSP) certified method. Blood BLOOD SPECIMEN / Unknown Venipuncture / Unknown 05/04/2024 10:25 PM INVENTORY ASSOCIATE 05/04/2024 10:34 PM INVENTORY ASSOCIATE Wally Doshi MD LAB - CHEMISTRY ORD ERABLES Performing Organization Address City/[facility]/ZIP Co de Phone Number [facility] [address] [place] [phone], [place] [phone] * PREPARE PLATELET PHERESIS UNIT(S), 1 Units (05/04/2024 6:19 PM INVENTORY ASSOCIATE) Unit Description LR PLT Phere B7 [facility] Unit ABO A [facility] Unit Rh POS [facility] Product Number P26 [facility] B LOOD [facility] Unit Donor # [id number] [facility] Unit Status transfused [facility] BLO OD BANK LAB Product Code [id number] [facility] BLO OD BANK LAB Blood Type Barcode 6200 [facility] Expiration Date [id number] S BLOOD BANK LAB Blood Bank BLOOD SPECIMEN / Unknown 05/04/2024 2:05 PM INVENTORY ASSOCIATE Wally Doshi MD LAB - BLOOD BANK OR DERABLES Performing Organization Address City/[facility]/ZIP Co de Phone Number [facility] B[facility]OD [facility] LAB [address] [place] [phone], [place] [phone] * TEG 6 GLOBAL HEMOSTASIS W/ LYSIS (05/04/2024 5:16 PM INVENTORY ASSOCIATE) Pathologist [facility] Citrated Kaolin R (Reaction Time) 5.3 4.6 - 9.1 min 05/04/2024 6:23 PM [facility] Citrated Kaolin LY30 (Lysis) 0.1 0.0 - 2.6 % 05/04/2024 6:23 PM [facility] Citrated Functional Fibrinogen MA (Max Amplitude) 22.2 15.0 - 32.0 mm 05/04/2024 6:23 PM [facility] Citrated RapidTEG MA (Max Amplitude) 66.4 52.0 - 70.0 mm 05/04/2024 6:23 PM [facility] Blood BLOOD SPECIMEN / Unknown Venipuncture / Unknown 05/04/2024 5:16 PM INVENTORY ASSOCIATE 05/04/2024 5:22 PM INVENTORY ASSOCIATE Dejuan Page MD LAB - HEMATOLOGY ORD ERABLES [facility] [address] [place] [phone], [facility] [phone] * (ABNORMAL) TEG 6S PLATELET MAPPING (05/04/2024 5:16 PM INVENTORY ASSOCIATE) [facility] TEGPLM (Max Amplitude) Koalin 64.6 53.0 - 68.0 mm 05/04/2024 6:01 PM [facility] TEGPLM (Max Amplitude) ACTF 17.2 2.0 - 19.0 mm 05/04/2024 6:01 PM [facility] TEGPLM (Max Amplitude) ADP 19.2(L) 45.0 - 69.0 mm 05/04/2024 6:01 PM [facility] Comment:ADP MA below normal range. Inhibition present. TEGPLM (Max Amplitude) AA 19.4(L) 51.0 - 71.0 mm 05/04/2024 6:01 PM [facility] Comment:AA MA below normal r marcus. Inhibition present. TEGPLM %Inhibition ADP 95.8(H) 0.0 - 17.0 % 05/04/2024 6:01 PM [facility] TEGPLM %Inhibition AA 95.4(H) 0.0 - 11.0 % 05/04/2024 6:01 PM [facility] TEGPLM %Aggregation ADP 4.2(L) 83.0 - 100.0 % 05/04/2024 6:01 PM [facility] TEGPLM % Aggregation AA 4.6(L) 89.0 - 100.0 % 05/04/2024 6:01 PM [facility] Blood BLOOD SPECIMEN / Unknown Venipuncture / Unknown 05/04/2024 5:16 PM INVENTORY ASSOCIATE 05/04/2024 5:22 PM INVENTORY ASSOCIATE Dejuan Page MD LAB - HEMATOLOGY ORD ERABLES [facility] [address] [place] [address], [facility] [phone] * Intubation (05/04/2024 4:15 PM INVENTORY ASSOCIATE) Narrative Dejuan Page MD - 05/04/2024 4:15 PM INVENTORY ASSOCIATE Kwabena Eric DO 05/04/2024 9:42 PM Intubation Date/Time: 05/04/2024 4:15 PM Performed by: Kwabena Eric DO Authorized by: Dejuan Page MD Consent: Consent obtained: Emergent situation Ford protocol: Patient identity confirmed: Arm band Pre-procedure [...] TSH REFLEX FREE T4 (05/04/2024 3:18 PM INVENTORY ASSOCIATE) TSH 0.349(L) 0.350 - 4.940 uIU/mL 05/04/2024 4:27 PM INVENTORY ASSOCIATE [facility] Blood BLOOD SPECIMEN / Unknown Venipuncture / Unknown 05/04/2024 3:18 PM INVENTORY ASSOCIATE 05/04/2024 3:31 PM INVENTORY ASSOCIATE You Reagan MD LAB - CHEMISTR Y ORDERABLES [address] [address], [place] [phone] * T4 FREE (05/04/2024 3:18 PM INVENTORY ASSOCIATE) T4 Free 1.3 0.7 - 1.5 ng/dL 05/04/2024 4:59 PM INVENTORY ASSOCIATE [facility] Blood BLOOD SPECIMEN / Unknown Venipuncture / Unknown 05/04/2024 3:18 PM INVENTORY ASSOCIATE 05/04/2024 3:31 PM INVENTORY ASSOCIATE You Reagan MD LAB - CHEMISTR Y ORDERABLES [address] [address], [place] [phone] * BLOOD TYPE VERIFICATION (05/04/2024 3:17 PM INVENTORY ASSOCIATE) ABO Rh A POS 05/04/2024 4:0 7 PM INVENTORY ASSOCIATE [facility] BLOOD BANK LAB Blood Bank BLOOD SPECIMEN / Unknown Venipuncture / Unknown 05/04/2024 3:17 PM INVENTORY ASSOCIATE 05/04/2024 3:27 PM INVENTORY ASSOCIATE You Reagan MD LAB - BLOOD BA NK ORDERABLES [facility] BLOOD BANK LAB [address] [place] [address], [place] [phone] * SARS-COV-2 (COVID-19) FLU A/B RSV PCR RAPID (05/04/2024 3:13 PM INVENTORY ASSOCIATE) COVID-19 PCR Not detected Not detected 05/04/19 4:05 PM [facility] Influenza A PCR Not detected Not detected 05/04/2024 4:05 PM [facility] Influenza B PCR Not detected Not detected 05/04/2024 4:05 PM [facility] RSV PCR Not detected Not detected 05/04/2024 4:05 PM [facility] Microbiology SPECIMEN FROM NASOPHARYNGEAL STRUCTURE / Unknown Collection / Unknown 05/04/2024 3:13 PM INVENTORY ASSOCIATE 05/04/2024 3:23 PM INVENTORY ASSOCIATE [facility] - 05/04/2024 4:05 PM INVENTORY ASSOCIATE This nucleic acid amplification assay has been [...] - MICROBIO LOGY ORDERABLES Performing Organization Address City/State/[facility] Co de Phone Number [address] [address], [facility] [phone] * (ABNORMAL) PROCALCITONIN LEVEL (05/04/2024 1:49 PM INVENTORY ASSOCIATE) PROCALCITONIN 2.68(H) <=0.10 ng/mL 05/04/2024 2:45 PM [facility] Blood BLOOD SPECIMEN / Unknown Venipuncture / Unknown 05/04/2024 1:49 PM INVENTORY ASSOCIATE 05/04/2024 1:55 PM INVENTORY ASSOCIATE [facility] - 05/04/2024 2:45 PM INVENTORY ASSOCIATE The change in procalcitonin (PCT) concentration over [...] Change in Procalcitonin Calculator is available at [email or web address] If clinical picture has not improved and PCT remains high, reevaluate and consider treatment failure or other causes. You Reagan MD LAB - CHEMISTR Y ORDERABLES [address] [address], [facility] [phone] * (ABNORMAL) BLOOD GASES LINDA + COOX PANEL (05/04/2024 1:49 PM INVENTORY ASSOCIATE) pH Venous 7.38 7.32 - 7.42 pH 05/04/2024 2:04 PM [facility] pO2 Venous 31(L) 35 - 40 mmHg 05/04/2024 2:04 PM [facility] pCO2 Venous 45 40 - 50 mmHg 05/04/2024 2:04 PM [facility] HCO3 Venous 26.6 20 - 30 mmol/L 05/04/2024 2:04 PM [facility] Base Excess Venous 0.9 -2.0 - 2.0 mmol/L 05/04/2024 2:04 PM [facility] Oxyhemoglobin Venous 48.4 % 04/12 2:04 PM [facility] Deoxyhemoglobin (HHB) Venous % 50.0 % 05/04/2024 2:04 PM [facility] Methemoglobin <0.8 0.0 - 2.0 % 05/04/2024 2:04 PM [facility] Carboxyhemoglobin 1.7 0.0 - 2.0 % 2024 2:04 PM [facility] O2 Content Venous 12.1 Interpret within clinical context ml/dL 05/04/2024 2:04 PM [facility] Hemoglobin by COOX 17.8(H) 12.0 - 15.6 g/dL 05/04/2024 2:04 PM [facility] O2 Saturation Venous 49(L) >=70 % 04/12 2:04 PM [facility] FI O2 Mixed Venous 100.0 % 2024 2:04 PM [facility] Blood BLOOD SPECIMEN / Unknown Venipuncture / Unknown 05/04/2024 1:49 PM INVENTORY ASSOCIATE 05/04/2024 1:56 PM INVENTORY ASSOCIATE Narrative [facility] - 05/04/2024 2:04 PM INVENTORY ASSOCIATE Carboxyhemoglobin Normal Concentration: Non-smokers: 0-2%; Smokers: 0-9%; Toxic: >20% You Reagan MD LAB - BLOOD GA SES ORDERABLES [facility] [address] [place] [address], [place] [phone] * CULTURE BLOOD (05/04/2024 1:49 PM INVENTORY ASSOCIATE) Only the most recent of2 resultswithin the time period is included. Culture No growth day 5 [facility] 05/09/2024 6:10 PM INVENTORY ASSOCIATE [facility] MICROBIOLOGY Blood PERIPHERAL BLOOD / Unknown Venipuncture / Unknown 05/04/2024 1:49 PM INVENTORY ASSOCIATE 05/04/2024 2:00 PM INVENTORY ASSOCIATE You Reagan MD LAB - MICROBIO LOGY ORDERABLES [facility] MICROBIOLOGY [address] [place] [address], [facility] [phone] * CK BLOOD (05/04/2024 1:49 PM INVENTORY ASSOCIATE) [facility] CK Total 104 30 - 200 U/L 05/04/2024 2:39 PM INVENTORY ASSOCIATE [facility] Blood BLOOD SPECIMEN / Unknown Venipuncture / Unknown 05/04/2024 1:49 PM INVENTORY ASSOCIATE 05/04/2024 2:06 PM INVENTORY ASSOCIATE You Reagan MD LAB - CHEMISTR Y ORDERABLES Performing Organization Address [facility] Co de Phone Number [facility] [address] [place] [address], [facility] [phone] * EKG 12-LEAD (05/04/2024 1:17 PM INVENTORY ASSOCIATE) [facility] Ventricular Rate 99 BPM [facility] MUSE Atrial Rate 99 BPM [facility] MUSE P-R Interval 204 ms [facility] MUSE QRS Duration ms 74 ms [facility] MUSE Q-T Interval ms 366 ms [facility] MUSE QTC Calculation (Bezet) 469 ms [facility] MUSE Calculated P [place] 85 degrees [facility] MUSE Calculated R [place] -6 degrees [facility] MUSE Calculated T [place] 77 degrees [facility] MUSE Interpretation EKG NORMAL SINUS RHYTHM MINIMAL VOLTAGE CRITERIA FOR LVH, MAY BE NORMAL VARIANT ( Sokolow-Villar ) INFERIOR INFARCT , AGE UNDETERMINED ABNORMAL ECG NO PREVIOUS ECGS AVAILABLE Confirmed by COURT MATSON MD ([id number]) on 05/07/2024 8:01:04 AM [facility] 05/04/2024 1:17 PM INVENTORY ASSOCIATE 05/07/2024 8:01 AM INVENTORY ASSOCIATE You Reagan MD ECG ORDERABLES Performing Organization Address [facility] Co de Phone Number [facility] MUSE * XR PELVIS W RIGHT HIP 2VW (10/20/2020 11:53 AM CDT) Anatomical Region Laterality Modality Pelvis Radiographic Simin ging 10/20/2020 1:27 PM CDT Impressions 10/20/2020 2:19 PM CDT Impression: 1.Mild right hip osteoarthritis. 2.Mild left hip osteoarthritis. Report dictated by Cliff Thomas MD (residential housekeeper). Dr. FORD Razo MD have personally reviewed and interpreted this examination/study. This report was electronically signed by FORD STEELE MD on 10/20/2020 2:19 PM . Narrative 10/20/2020 2:19 PM CDT EXAMINATION: XR PELVIS W RIGHT HIP 2VW HISTORY: M25.559: Hip pain COMPARISON: No prior study is available for comparison. FINDINGS: No evidence of a displaced pelvic fracture. Mild degenerative changes of the left hip and bilateral sacroiliac joints. The pubic symphysis is intact. There is mild osteoarthritis of the right hip joint characterized by medial joint space narrowing, subchondral sclerosis/cyst formation, and osteophytosis. No dislocation. Procedure Note Ford Steele MD - 10/20/2020 EXAMINATION: XR PELVIS W RIGHT HIP 2VW HISTORY: M25.559: Hip pain COMPARISON: No prior study is available for comparison. FINDINGS: No evidence of a displaced pelvic fracture. Mild degenerative changes of the left hip and bilateral sacroiliac joints. The pubic symphysis is intact. There is mild osteoarthritis of the right hip joint characterized by medial joint space narrowing, subchondral sclerosis/cyst formation, and osteophytosis. No dislocation. Impression: 1.Mild right hip osteoarthritis. 2.Mild left hip osteoarthritis. Report dictated by Cliff Thomas MD (residential housekeeper). Dr. FORD Razo MD have personally reviewed and interpreted this examination/study. This report was electronically signed by FORD STEELE MD on10/20/2020 2:19 PM . Cassie Christiansen APRN-DIRECTOR OF CORPORATE MARKETING DIAGNOSTIC IMAG ING ORDERABLES * XR LUMBAR SPINE 2 OR 3VW (10/20/2020 10:21 AM CDT) Anatomical Region Laterality Modality Spine Radiographic Simin ging 10/20/2020 12:3 8 PM CDT Impressions 10/20/2020 12:40 PM CDT IMPRESSION: Mild to moderate lumbar degenerative changes. This report was electronically signed by FORD STEELE MD on 10/20/2020 12:40 PM . Narrative 10/20/2020 12:40 PM CDT Exam: XR LUMBAR SPINE 2 VW History: M54.5: Low back pain, unspecified back pain laterality, unspecified chronicity, unspecified whether sciatica present Comparison: None. Findings: The lumbar lordosis is normal. There is mild levocurvature. No fracture or subluxation is seen. There is mild 2 moderate multilevel degenerative disc and joint disease, with the greatest disc space narrowing at L3-4. Hip arthritis is evident. Procedure Note Ford Steele MD - 10/20/2020 Exam: XR LUMBAR SPINE 2 VW History: M54.5: Low back pain, unspecified back pain laterality, unspecified chronicity, unspecified whether sciatica present Comparison: None. Findings: The lumbar lordosis is normal. There is mild levocurvature. No fractureor subluxation is seen. There is mild 2 moderate multilevel degenerativedisc and joint disease, with the greatest disc space narrowing at L3-4. Hip arthritis is evident. IMPRESSION: Mild to moderate lumbar degenerative changes. This report was electronically signed by FORD STEELE MD on10/20/2020 12:40 PM . Cassie Christiansen SLEEVE SETTER SAFETY STITCH-DIRECTOR OF CORPORATE MARKETING DIAGNOSTIC IMAG ING ORDERABLES * VAS KAPIL ABD DOPPLER AO IVC ILIAC (09/22/2020 9:25 AM CDT) Anatomical Region Laterality Modality Pelvis, Abdomen Echo 09/22/2020 9:15 AM CDT Narrative Procedure Note Candido Dale MD - 09/23/2020 Luis Thomas MD VASCULAR LAB ORDER [place] * US RETROPERITONEAL LIMITED (01/26/2017 2:54 PM CDT) Only the most recent of2 resultswithin the time period is included. Anatomical Region Laterality Modality Abdomen Other Impressions 01/28/2017 7:58 AM CDT IMPRESSION: 1. No evidence of abdominal aortic aneurysm. 2. Mild aneurysmal dilatation of the common iliac arteries, similar to prior exam. Dictated by Ruddy Grant MD (resident). This report was approved by Padmini Grant M.D. on 01/26/2017 3:18 PM . I, Dr. ANA LAURA FERNANDO M.D. have personally reviewed and interpreted this examination/study. This report was electronically signed by ANA LAURA FERNANDO M.D. on 01/28/2017 7:58 AM . Narrative 01/28/2017 7:58 AM CDT EXAMINATION: Limited retroperitoneal sonogram HISTORY: Abdominal aortic aneurysm screening COMPARISON: Comparison is made with a study from 01/20/2016. FINDINGS: The measurements below are provided in sagittal and transverse dimension respectively. Proximal abdominal aorta: 2.7 x 2.7 cm, previously 2.8 x 2.8 cm Mid abdominal aorta: 2.3 x 2.2 cm, previously 2.2 x 2.2 cm Distal abdominal aorta: 2.2 x 2.0 cm, previously 1.9 x 1.9 cm Right common iliac artery: 1.4 x 1.8 cm, previously 1.9 x 1.9 cm Left common iliac artery: 1.8 x 1.8 cm, previously 1.8 x 1.8 cm There is no evidence of abdominal aortic aneurysm. Bilateral common iliac arteries are mildly aneurysmal. The abdominal aorta and common iliac arteries are patent. Hyperechoic foci in the abdominal aorta and proximal iliac arteries represent atherosclerotic plaques. Procedure Note Ana Laura Fernando MD - 07/08/2017 EXAMINATION: Limited retroperitoneal sonogram HISTORY: Abdominal aortic aneurysm screening COMPARISON: Comparison is made with a study from 01/20/2016. FINDINGS: The measurements below are provided in sagittal and transverse dimensionrespectively. Proximal abdominal aorta: 2.7 x 2.7 cm, previously 2.8 x 2.8 cm Mid abdominal aorta: 2.3 x 2.2 cm, previously 2.2 x 2.2 cm Distal abdominal aorta: 2.2 x 2.0 cm, previously 1.9 x 1.9 cm Right common iliac artery: 1.4 x 1.8 cm, previously 1.9 x 1.9 cm Left common iliac artery: 1.8 x 1.8 cm, previously 1.8 x 1.8 cm There is no evidence of abdominal aortic aneurysm. Bilateral common iliacarteries are mildly aneurysmal. The abdominal aorta and common iliacarteries are patent. Hyperechoic foci in the abdominal aorta and proximaliliac arteries represent atherosclerotic plaques. IMPRESSION IMPRESSION: 1. No evidence of abdominal aortic aneurysm. 2. Mild aneurysmal dilatation of the common iliac arteries, similar toprior exam. Dictated by Ruddy Grant MD (resident). This report was approved by Padmini Grant M.D. on 01/26/2017 3:18PM . I, Dr. ANA LAURA FERNANDO M.D. have personally reviewed and interpreted thisexamination/study. This report was electronically signed by ANA LAURA FERNANDO M.D. on 01/28/20177:58 AM . Rica Crooks APRN-[facility] US ORDERABLES * VAS BILAT ARTERIAL DUPLEX LE (01/20/2016 1:12 PM CDT) Anatomical Region Laterality Modality Other [facility] VASCULAR LAB OR DERABLES Care Teams Desizing Machine Back Tender Relationship Specialty Start Date End Date Kristofer eSqueira MD [address], [place] [phone] PCP - General 07/29/20
[2024-06-05 20:36] LABS: Influenza A QL RT-PCR Negative (Negative); Influenza B QL RT-PCR Negative (Negative); RSV RNA, RT-PCR Negative (Negative); SARS-CoV-2 RNA PCR Negative (Negative)
== END 2024-06-05 22:15 | disposition home or self-care (01) ==
PROVIDERS: Emergency Medicine; Emergency Provider Emergency Medicine
DX: R45.1 Restlessness and agitation (principal); E78.5 Hyperlipidemia, unspecified; I10 Essential (primary) hypertension; Z86.711 Personal history of pulmonary embolism; J44.9 Chronic obstructive pulmonary disease, unspecified; Z20.822 Contact with and (suspected) exposure to COVID-19
CPT/HCPCS: 36415; 70450; 80053; 81003; 85025; 85610; 85730; 87637; 93005; 99284